=== PATIENT | male | born 1940 | race Caucasian/White ===

== ENCOUNTER 2020-04-07 13:42 | Inpatient (IN) | payer OTHER ==
[2020-04-07] MEDS ORDERED: ACETAMINOPHEN INJECTION 100 ML IVPB ONE (14:12)
[2020-04-07] MEDS ORDERED: ACETAMINOPHEN 1000 MG/100 ML VIAL (NON FORMULARY) IVPB ONE (14:14)
[2020-04-07] MEDS ORDERED: MEROPENEM 1 GM in DEXTROSE 5%-WATER 100 ML IVPB ONE (14:14)
[2020-04-07] MEDS ORDERED: VANCOMYCIN 1 GM in D5W (PRE-DOCKED) 1,000 MG/250 ML IVPB ONE (14:15)
--- NOTE | 2020-04-07 14:18 | PDOC ---
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 Pt arrives to the ED AOX3, no acute complaints, simon and PEG tube in place, does not have recollection of stated seizure event. Past History - Past Medical History Allergies/Adverse Reactions: Allergies Allergy/AdvReac Type Severity Reaction Status Date / Time aspirin Allergy Unknown Verified 11/25/19 13:04 Penicillins Allergy Unknown Rash Verified 11/25/19 13:04 Home Medications: Ambulatory Orders Collagenase Clostridium Hist. [Santyl] 1 applic TP DAILY #90 oint...g. 10/14/19 Albuterol Sulfate [Proventil Hfa] 1 inhaler IH PRN PRN 10/21/19 Alprazolam [Xanax] 1 tab PO BID PRN 10/21/19 Apixaban [Eliquis -] 2.5 mg PO BID 10/21/19 Atenolol [Tenormin] 25 mg PO DAILY 10/21/19 Atorvastatin Ca [Lipitor] 20 mg PO DAILY 10/21/19 Febuxostat 80 mg PO DAILY 10/21/19 Finasteride 5 mg PO DAILY 10/21/19 Pantoprazole Sodium 40 mg PO DAILY 10/21/19 Triamcinolone 0.1% Cream 1 applic TP BID 10/21/19 Albuterol Sulfate Inhaler - [Ventolin HFA Inhaler -] 2 puff IH Q4H PRN inhaler 03/30/20 Amino Acids/Protein Hydrolys [Prosource No Carb Liquid Pkt] 30 ml PO DAILY packet 03/30/20 Magnesium Oxide [Mag-Ox -] 400 mg PO BID tablet 03/30/20 Nystatin Powder [Nystop Powder -] 1 applic TP BID applic 03/30/20 Triamcinolone 0.1% Ointment [Aristocort 0.1% Ointment -] 1 applic TP BID applic 03/30/20 Furosemide [Lasix] 40 mg PO BID #60 tablet 04/04/20 Anemia: Yes Asthma: No Cancer: No Cardiac Disorders: Yes (Afib, aortic stenosis) CVA: Yes (R side residual weakness) COPD: Yes CHF: Yes Diabetes: Yes GI Disorders: Yes (GT, diverticulosis) Disorders: Yes (BPH, Chronic urine retention) HTN: Yes Hypercholesterolemia: Yes - Psycho Social/Smoking Cessation Hx Smoking History: Never smoked Have you smoked in the past 12 months: No Hx Alcohol Use: No Drug/Substance Use Hx: No Hx Substance Use Treatment: No Review of Systems - Review of Systems Constitutional: No: Chills, Fever Respiratory: No: Shortness of Breath Cardiac (ROS): No: Chest Pain ABD/GI: No: Abdominal Distended, Nausea, Vomiting : No: Burning, Dysuria, Flank Pain, Hematuria Neurological: No: Numbness, Paresthesia, Weakness, Dizziness *Physical Exam - Physical Exam General Appearance: Yes: Nourished, Appropriately Dressed, Apparent Distress HEENT: positive: EOMI Neck: positive: Supple. negative: Carotid bruit Respiratory/Chest: positive: Lungs Clear, Respiratory Distress, Rapid RR. negative: Crackles, Rales, Rhonchi, Stridor, Wheezing Cardiovascular: positive: Edema, JVD, Tachycardia, Irregularly Irregular Vascular Pulses: Dorsalis-Pedis (R): 3+, Doralis-Pedis (L): 3+ Gastrointestinal/Abdominal: positive: Flat, Soft, Other (PEG tube in place). negative: Protuberent, Distended, Guarding, Rebound, Tenderness Musculoskeletal: negative: CVA Tenderness Extremity: positive: Normal Capillary Refill, Normal Inspection Integumentary: positive: Dry Neurologic: positive: Fully Oriented, Alert, Normal Mood/Affect, Normal Response, Motor Strength 5/5 Procedures - Central Line Central Line Lumen: triple Central Line Position: femoral (R) Anesthesia: 1% Lidocaine Amount of anesthesia (ccs): 5 Complications: none Post Central Line Insertion: sutured, good blood return - Intubation Intubation Method: orotracheal Blade used: Glidescope Tube Size (Fr): 7.5 Medications: Etomidate, Succinylcholine Tube position @ lip (cm): 24 Tube position confirmed by: Direct visualization, CO2 detector, Chest x-ray, Breath sounds Breath Sounds after Intubation: equal Intubation Complications: no complications Post Intubation Xray: Yes ED Treatment Course - LABORATORY CBC & Chemistry Diagram: 04/07/20 14:00 04/07/20 14:00 - ADDITIONAL ORDERS Additional order review: Laboratory Results 04/07/20 13:55 POC Glucometer 210 04/07/20 13:55 POC Glucometer 210 - RADIOLOGY Radiology Studies Ordered: Category Date Time Status CHEST X-RAY PORTABLE* [RAD] Stat Radiology 04/07/20 14:12 Ordered Medical Decision Making - Medical Decision Making 79 yo male pmh COPD, CHF, afib (on Eliquis), HTN, HLD and 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 Pt arrives to the ED AOX3, no acute complaints, simon and PEG tube in place, does not have recollection of stated seizure event. Vitals show rectal of 104, RR 40s, HR 102, Pulse ox 97 and at the bedside, BP noted to range from low 100s systolic to 70s systolic Simon bag has thick foul smelling urine, likely urosepsis. Sepsis orderset completed along with Head CT due to questionable baseline (slurred speech, sravanthi josué on 1 side) UA shows UTI, Vanc and [place] given along with total of 1L fluids over 3 hours due to likely sepsis and elevated Cr and BUN After return from CT, pt BP persistently low with MAPs in the 50s, Pt full code according to MOLST, confirmed with and consent given for central line. P laced R femoral vein, Levo started with goal MAP of 65. Stress dosed steroids given and 40 mg lasix Pt now on Non rebreather, desaturating 80s, later put on NRB and BIPAP, failed non invasive ventilation and mental status declining. Pt unresponsive, pt intubated via glidescope. See note. Versed given for post intubation sedation ICU contacted, accept pt Updated pt 04/07/20 17:52 Shanique Blancas () [phone] Discharge - Discharge Information Problems reviewed: Yes Clinical Impression/Diagnosis: Sepsis, CHF exacerbation UTI (urinary tract infection) Qualifiers: Urinary tract infection type: site unspecified Hematuria presence: with hematuria Qualified Code(s): N39.0 - Urinary tract infection, site not specified - Admission Yes - Follow up/Referral - Patient Discharge Instructions - Post Discharge Activity
[2020-04-07] MEDS ORDERED: SODIUM CHLORIDE 1,000 ML IV STA (14:30)
[2020-04-07] MEDS ORDERED: MEROPENEM 1 GM VIAL (RESTRICTED TO ID) IVPB ONE (14:49)
[2020-04-07] MEDS ORDERED: VANCOMYCIN 1 GRAM (PRE-DOCKED) 1,000 MG/250 ML BAG IVPB ONE (14:51)
[2020-04-07 15:12] LABS: BASO % 0.9 % (0-2.0); EOS % 0.4 % (0-4.5); HEMATOCRIT 25.4 % (35.4-49); MCH 28.9 pg (25.7-33.7); MCHC 31.6 g/dl (32.0-35.9); MEAN CELL VOLUME 91.5 fl (80-96); MEAN PLT VOLUME 7.9 fl (7.5-11.1); MONO % 10.9 % (3.8-10.2); NEUT % 80.8 % (42.8-82.8); PLATELET COUNT 224 K/MM3 (134-434); RBC 2.78 M/mm3 (4.00-5.60); RDW 18.7 % (11.9-15.9); WHITE BLOOD COUNT 11.6 K/mm3 (4.0-10.0)
[2020-04-07 15:19] LABS: INR 1.74 (0.83-1.09); PROTHROMBIN TIME (PATIENT) 20.6 SEC (9.7-13.0)
[2020-04-07 15:22] LABS: ACTIVATED PTT 49.9 SECONDS (25.2-36.5)
--- NOTE | 2020-04-07 15:41 | PDOC ---
Documentation entered by Deb Almaraz SCRIBE, acting as scribe for Mariusz Harvey MD. Mariusz Harvey MD: This documentation has been prepared by the Sung walters Xhesika, SCRIBE, under my direction and personally reviewed by me in its entirety. I confirm that the documentation accurately reflects all work, treatment, procedures, and medical decision making performed by me. Attending Attestation - Resident Resident Name: SukumarsuhailJose J - ED Attending Attestation I have performed the following: I have examined & evaluated the patient, The case was reviewed & discussed with the resident, I agree w/resident's findings & plan, Exceptions are as noted - HPI HPI: 04/07/20 13:55 The patient is an 79 year old male, with a significant PMH of HTN and HLD, who presents to the ED BIBEMS from [facility] for seizure like activity. Per NM the patient was having convulsions and seemed confused. Allergies: aspirin, penicillin - Physicial Exam PE: 04/07/20 15:37 Patient is awake and alert, frail-appearing, follows commands, febrile and hypotensive Normocephalic, atraumatic perrla, eomi + torticolis cta abd-sft, nt, nd pelvis: stable + 2 piting edema b/l with extensive echymosis + dysarthria mvong all extr symmetrically - Medical Decision Making 04/07/20 15:41 Patient is a frail-appearing 79-year-old male who presents to the ER with fever, hypotension, after a witnessed seizure-like episode. In the ER, patient is awake and alert, nonfocal neurologically with dysarthria and torticollis present. Will panculture. Will administer broad-spectrum antibiotics. Will judiciously fluid resuscitate. Will obtain EKG/chest x-ray/lactic acid. Likely admission. Discharge - Discharge Information Problems reviewed: Yes Clinical Impression/Diagnosis: UTI (urinary tract infection) Qualifiers: Urinary tract infection type: site unspecified Hematuria presence: with hematuria Qualified Code(s): N39.0 - Urinary tract infection, site not specified; R31.9 - Hematuria, unspecified - Follow up/Referral - Patient Discharge Instructions - Post Discharge Activity
[2020-04-07 15:50] LABS: VENOUS PC02 63.9 mmHg (38-52); VENOUS PH 7.36 (7.31-7.41); VENOUS PO2 52.2 mmHg (28-48)
[2020-04-07 15:51] LABS: VENOUS BASE EXCESS 8.5 mmol/L (-2-2)
[2020-04-07 15:52] LABS: ALBUMIN 1.7 g/dl (3.4-5.0); BILIRUBIN,TOTAL 0.5 mg/dL (0.2-1); BLOOD UREA NITROGEN 59.9 mg/dL (7-18); CALCIUM 7.3 mg/dL (8.5-10.1); CREATININE 1.7 mg/dL (0.55-1.3); POTASSIUM 4.9 mmol/L (3.5-5.1); TOT PROT 6.4 g/dl (6.4-8.2)
[2020-04-07 16:33] LABS: EPI CELLS 34 /uL (0-25.1); HYALINE CASTS 18 /uL (0-3.1); PH,URINE 5.5 (5.0-8.0); URINE APPEARANCE TURBID; URINE BACTERIA 297 /uL (0-1359); URINE BILIRUBIN NEGATIVE (NEGATIVE); URINE COLOR YELLOW; URINE GLUCOSE (UA) NEGATIVE (NEGATIVE); URINE KETONE NEGATIVE (NEGATIVE); URINE LEUK ESTERASE 3+ (NEGATIVE); URINE NITRITE NEGATIVE (NEGATIVE); URINE PROTEIN 3+ (NEGATIVE); URINE RBC 1602 /uL (0-23.9); URINE WBC 5187 /uL (0-25.8)
[2020-04-07] MEDS ORDERED: HYDROCORTISONE SOD SUCCINATE 100 MG/2 ML VIAL IVPUSH ONE (16:34)
[2020-04-07] MEDS ORDERED: HYDROCORTISONE SOD SUCCINATE 2 ML ONE (16:53)
[2020-04-07] MEDS ORDERED: NOREPINEPHRINE BITARTRATE 4 MG/4 ML ML IV ONE (16:53)
[2020-04-07] MEDS ORDERED: NOREPINEPHRINE BITARTRATE 8,000 MCG/500 ML BAG IVPB SCH (17:00)
[2020-04-07 17:34] LABS: ARTERIAL BLOOD GAS PCO2 66.6 mmHg (35-45); ARTERIAL BLOOD GAS PO2 70.5 mmHg (80-100); ARTERIAL BLOOD GAS pH 7.36 (7.35-7.45)
[2020-04-07 17:35] LABS: ARTERIAL BLD GAS O2 SATURATION 92.9 % (95-98); ARTERIAL BLOOD GAS BASE EXCESS 9.3 mmol/L (-2-2); CARBOXYHEMOGLOBIN < 0.5 % (0-2)
[2020-04-07] MEDS ORDERED: FUROSEMIDE 40 MG/4 ML INJECTABLE VIAL IVPUSH ONE (17:58)
[2020-04-07] MEDS ORDERED: SUCCINYLCHOLINE CHLORIDE 200 MG/10 ML VIAL IVPUSH ONE (18:00)
[2020-04-07] MEDS ORDERED: ETOMIDATE 40 MG/20 ML VIAL IVPUSH ONE (18:00)
[2020-04-07] MEDS ORDERED: RAPID SEQUENCE INTUBATION KIT NR ONE (18:05)
[2020-04-07] MEDS ORDERED: ALTEPLASE 100MG 100 MG ONE (18:07)
[2020-04-07] MEDS ORDERED: MIDAZOLAM IN 0.9 % SOD.CHLORID 1 MG/1 ML PLAST..BAG ONE (18:19)
[2020-04-07] MEDS: MIDAZOLAM 100 MG in SODIUM CHLORIDE 100 ML IVPB SCH (18:20)
[2020-04-07] MEDS ORDERED: ETOMIDATE 20 MG/10 ML AMPUL IVPUSH ONE (18:20)
[2020-04-07] MEDS ORDERED: FUROSEMIDE 40 MG/4 ML INJECTABLE VIAL ONE (18:31)
[2020-04-07] MEDS ORDERED: INSULIN SLIDING SCALE (NOVOLOG) 1 VIAL SQ SCH (20:00)
--- NOTE | 2020-04-07 20:27 | CONSULT ---
Consultation: REQUESTING PROVIDER: Dr. Reaves, Dr. Harvey, Dr. Alford CONSULT REQUEST: We have been asked to medically evaluate this patient for respiratory failure, pulmonary edema, UTI, sepsis HISTORY OF PRESENT ILLNESS: 79YOM with h/o COPD, CHF, A-fib (on Eliquis), HTN, HLD, CVA (03/2020 w/ residual weakness and speech deficits), recent admission for syncope, who was BIBEMS from [facility] for reported seizure-like activity like convulsions. The patient himself stated after arrival to the ED that he had no memory of the incident. While in the ED, his vitals and initial workup met SIRS criteria with UA positive for UTI, he was a bit hypotensive and was given gentle IVF, but after laying down flat for CT he experienced more and more respiratory distress which did not resolve while back in the ED, required RSI which was completed successfully. REVIEW OF SYSTEMS: Review of systems cannot be performed at this time as the patient is intubated and sedated. PHYSICAL EXAMINATION GENERAL: unconscious, intubated, sedated, elderly male HEENT: no e/o facial or head trauma, pale, ETT in place NECK/BACK: no obvious neck hematoma or other trauma CARDIOVASCULAR: extremities lukewarm, 3 second capillary refill, BLE 2+ pitting edema LUNGS/RESPIRATORY: significant diffuse crackles and decreased breath sounds at the bases, but breath sounds equal bilaterally GI/ABDOMEN: PEG tube in place, symmetric, soft, nondistended, atraumatic outwardly : Saavedra in place draining well EXTREMITIES: no evidence of acute trauma, RUE old-appearing forearm ecchymoses SKIN: lukewarm and dry, pallor but no jaundice, no rash, no skin breakdown, no cuts NEUROLOGICAL: unable to assess A/O, patient is unable to participate in exam, but PERRLA and no facial droop Laboratory Results - last 24 hr 04/07/20 04/07/20 04/07/20 13:55 14:00 14:00 WBC RBC Hgb Hct MCV MCH MCHC RDW Plt Count MPV Absolute Neuts (auto) Neutrophils % Lymphocytes % Monocytes % Eosinophils % Basophils % Nucleated RBC % PT with INR 20.60 H INR 1.74 H PTT (Actin FS) 49.9 H Anticoagulation Therapy Puncture Site ABG pH ABG pCO2 at Pt Temp ABG pO2 at Pt Temp ABG HCO3 ABG O2 Sat (Measured) ABG O2 Content ABG Base Excess Wally Test VBG pH POC VBG pCO2 POC VBG pO2 VBG HCO3 VBG O2 Sat (Shelly) VBG Base Excess Carboxyhemoglobin Methemoglobin Patient On Oxygen O2 Delivery Device Oxygen Flow Rate Vent Mode Vent Rate Mechanical Rate Pressure Support Vent Sodium Potassium Chloride Carbon Dioxide Anion Gap BUN Creatinine Est GFR (CKD-EPI)AfAm Est GFR (CKD-EPI)NonAf POC Glucometer 210 Random Glucose Lactic Acid Calcium Total Bilirubin AST ALT Alkaline Phosphatase Troponin I 0.11 H Total Protein Albumin Urine Color Urine Appearance Urine pH Ur Specific Callaway Urine Protein Urine Glucose (UA) Urine Ketones Urine Blood Urine Nitrite Urine Bilirubin Urine Urobilinogen Ur Leukocyte Esterase Urine WBC (Auto) Urine RBC (Auto) Urine Casts (Auto) U Pathogenic Cast Auto U Epithel Cells (Auto) Urine Bacteria (Auto) 04/07/20 04/07/20 04/07/20 14:00 14:00 14:00 WBC 11.6 H RBC 2.78 L Hgb 8.0 L Hct 25.4 L MCV 91.5 MCH 28.9 MCHC 31.6 L RDW 18.7 H Plt Count 224 MPV 7.9 Absolute Neuts (auto) 9.4 H Neutrophils % 80.8 D Lymphocytes % 7.0 L D Monocytes % 10.9 H Eosinophils % 0.4 Basophils % 0.9 Nucleated RBC % 0 PT with INR INR PTT (Actin FS) Anticoagulation Therapy Puncture Site ABG pH ABG pCO2 at Pt Temp ABG pO2 at Pt Temp ABG HCO3 ABG O2 Sat (Measured) ABG O2 Content ABG Base Excess Wally Test VBG pH POC VBG pCO2 POC VBG pO2 VBG HCO3 VBG O2 Sat (Shelly) VBG Base Excess Carboxyhemoglobin Methemoglobin Patient On Oxygen O2 Delivery Device Oxygen Flow Rate Vent Mode Vent Rate Mechanical Rate Pressure Support Vent Sodium 136 Potassium 4.9 Chloride 94 L Carbon Dioxide 36 H Anion Gap 7 L BUN 59.9 H Creatinine 1.7 H Est GFR (CKD-EPI)AfAm 42.88 Est GFR (CKD-EPI)NonAf 37.00 POC Glucometer Random Glucose 222 H Lactic Acid 2.1 H Calcium 7.3 L Total Bilirubin 0.5 AST 39 H ALT 14 Alkaline Phosphatase 143 H Troponin I Total Protein 6.4 Albumin 1.7 L Urine Color Urine Appearance Urine pH Ur Specific [place] Urine Protein Urine Glucose (UA) Urine Ketones Urine Blood Urine Nitrite Urine Bilirubin Urine Urobilinogen Ur Leukocyte Esterase Urine WBC (Auto) Urine RBC (Auto) Urine Casts (Auto) U Pathogenic Cast Auto U Epithel Cells (Auto) Urine Bacteria (Auto) 04/07/20 04/07/20 04/07/20 15:30 15:50 17:20 WBC RBC Hgb Hct MCV MCH MCHC RDW Plt Count MPV Absolute Neuts (auto) Neutrophils % Lymphocytes % Monocytes % Eosinophils % Basophils % Nucleated RBC % PT with INR INR PTT (Actin FS) Anticoagulation Therapy No Result Required. Puncture Site No Result Required. ABG pH 7.36 ABG pCO2 at Pt Temp 66.6 H ABG pO2 at Pt Temp 70.5 L ABG HCO3 36.4 H ABG O2 Sat (Measured) 92.9 L ABG O2 Content No Result Required. ABG Base Excess 9.3 H Wally Test No Result Required. VBG pH 7.36 POC VBG pCO2 63.9 H POC VBG pO2 52.2 H VBG HCO3 35.6 H VBG O2 Sat (Shelly) 84.6 H VBG Base Excess 8.5 H Carboxyhemoglobin < 0.5 Methemoglobin < 1.0 Patient On Oxygen No Result Required. O2 Delivery Device No Result Required. Oxygen Flow Rate No Result Required. Vent Mode No Result Required. Vent Rate No Result Required. Mechanical Rate No Result Required. Pressure Support Vent No Result Required. Sodium Potassium Chloride Carbon Dioxide Anion Gap BUN Creatinine Est GFR (CKD-EPI)AfAm Est GFR (CKD-EPI)NonAf POC Glucometer Random Glucose Lactic Acid Calcium Total Bilirubin AST ALT Alkaline Phosphatase Troponin I Total Protein Albumin Urine Color Yellow Urine Appearance Turbid Urine pH 5.5 Ur Specific [place] 1.009 L Urine Protein 3+ H Urine Glucose (UA) Negative Urine Ketones Negative Urine Blood 3+ H Urine Nitrite Negative Urine Bilirubin Negative Urine Urobilinogen 1.0 Ur Leukocyte Esterase 3+ H Urine WBC (Auto) 5187 Urine RBC (Auto) 1602 Urine Casts (Auto) 18 U Pathogenic Cast Auto Negative U Epithel Cells (Auto) 34 Urine Bacteria (Auto) 297 04/07/20 19:17 WBC RBC Hgb Hct MCV MCH MCHC RDW Plt Count MPV Absolute Neuts (auto) Neutrophils % Lymphocytes % Monocytes % Eosinophils % Basophils % Nucleated RBC % PT with INR INR PTT (Actin FS) Anticoagulation Therapy Puncture Site ABG pH ABG pCO2 at Pt Temp ABG pO2 at Pt Temp ABG HCO3 ABG O2 Sat (Measured) ABG O2 Content ABG Base Excess Wally Test VBG pH POC VBG pCO2 POC VBG pO2 VBG HCO3 VBG O2 Sat (Shelly) VBG Base Excess Carboxyhemoglobin Methemoglobin Patient On Oxygen O2 Delivery Device Oxygen Flow Rate Vent Mode Vent Rate Mechanical Rate Pressure Support Vent Sodium Potassium Chloride Carbon Dioxide Anion Gap BUN Creatinine Est GFR (CKD-EPI)AfAm Est GFR (CKD-EPI)NonAf POC Glucometer Random Glucose Lactic Acid 3.2 H* Calcium Total Bilirubin AST ALT Alkaline Phosphatase Troponin I Total Protein Albumin Urine Color Urine Appearance Urine pH Ur Specific [place] Urine Protein Urine Glucose (UA) Urine Ketones Urine Blood Urine Nitrite Urine Bilirubin Urine Urobilinogen Ur Leukocyte Esterase Urine WBC (Auto) Urine RBC (Auto) Urine Casts (Auto) U Pathogenic Cast Auto U Epithel Cells (Auto) Urine Bacteria (Auto) Active Medications Generic Name Dose Route Start Last Admin Trade Name Freq PRN Reason Stop Dose Admin Chlorhexidine Gluconate 1 applic 04/07/20 22:00 Hibiclens For Decolonization - TP HS EAN Norepinephrine Bitartrate 8,000 mcg in 500 mls @ 18.75 mls/hr 04/07/20 17:00 04/07/20 18:30 Levophed Bag IVPB 15 mcg/min TITR EAN 56.25 mls/hr Titration Protocol 5 MCG/MIN Midazolam HCl 100 mg/ Sodium 100 mls @ 1 mls/hr 04/07/20 18:20 04/07/20 18:35 Chloride IVPB 5 mg/hr TITR EAN 5 mls/hr Titration Protocol 1 MG/HR Insulin Aspart 1 vial 04/07/20 20:00 Novolog Vial Sliding Scale - SQ TIDAC [facility] [place] Protocol Mupirocin 1 applic 04/07/20 22:00 Bactroban Ointment (For Decolonization) - NS 04/12/20 21:59 BID [facility] ASSESSMENT/PLAN: 79YOM with CHF, COPD, CVA, HTN, HLD, and A-fib on Eliquis BIBEMS from [facility] for seizure-like episode, found in ED to be septic with UTI suspected source, needed to be intubated for respiratory failure. Neuro / Psych: Reported seizure-like activity -Suspect rigors instead of seizure, given lack of clear postictal state and the fact that patient is febrile/septic. -Serial neuro checks Cardiovascular: CHF exacerbation, troponinemia, concern for possibility of PE -Careful diuresis with consideration for renal function -Monitor for EKG changes -Trend troponin -Continue on monitor -If codes may consider tPA -Chest CTA PE protocol when able Pulm / Resp: Pulmonary edema, b/l pleural effusions, COPD exacerbation -Continue on vent -Serial ABG -Diuresis as above Gastrointestinal: -NPO for now -PEG tube feeds when able Genitourinary: -Continue Saavedra -Monitor I/O -Serial BUN/Cr especially given need for diuresis Infectious Disease: -Meropenem as started by ED Musculoskeletal -PT/OT when able FEN: -Hold IVF until necessary -Monitor chemistries Prophylaxis: - DVT: Continue Eliquis - GI: Protonix qd Code Status / Family Conversation: Full Code Dispo: We will continue to follow the patient. Thank you for this consultative opportunity. Case discussed with ICU attending, Dr. Fulton. Maritza Huitron MD, PGY-3 ICU Consult Service Please note this patient was evaluated during the COVID-19 crisis with the presidential [place] Act Declaration and the [place] governtn executive order number 202. He was evaluated and clinical decisions were made relative to healthcare system resources as well as clinical picture during a pandemic crisis situation. Problem List - Problems (1) CHF exacerbation Code(s): I50.9 - HEART FAILURE, UNSPECIFIED (2) Sepsis Code(s): A41.9 - SEPSIS, UNSPECIFIED ORGANISM (3) UTI (urinary tract infection) Code(s): N39.0 - URINARY TRACT INFECTION, SITE NOT SPECIFIED Qualifiers: Urinary tract infection type: site unspecified Hematuria presence: with hematuria Qualified Code(s): N39.0 - Urinary tract infection, site not specified; R31.9 - Hematuria, unspecified (4) SURESH (acute kidney injury) Code(s): N17.9 - ACUTE KIDNEY FAILURE, UNSPECIFIED (5) COPD (chronic obstructive pulmonary disease) Code(s): J44.9 - CHRONIC OBSTRUCTIVE PULMONARY DISEASE, UNSPECIFIED Visit type - Emergency Visit Emergency Visit: Yes Care time: The patient presented to the Emergency Department on the above date and was hospitalized for further evaluation of their emergent condition. - New Patient This patient is new to me today: Yes Date on this admission: 04/07/20 - Critical Care Critical Care patient: No ATTENDING PHYSICIAN STATEMENT I saw and evaluated the patient. I reviewed the resident's note and discussed the case with the resident. I agree with the resident's findings and plan as documented. SUBJECTIVE: OBJECTIVE: ASSESSMENT AND PLAN:
[2020-04-07] MEDS ORDERED: PANTOPRAZOLE SODIUM 40 MG VIAL IVPUSH ONE (21:00)
[2020-04-07 22:07] LABS: CARBOXYHEMOGLOBIN < 0.5 % (0-2)
[2020-04-07 22:18] LABS: ARTERIAL BLD GAS O2 SATURATION 98.7 % (95-98); ARTERIAL BLOOD GAS BASE EXCESS 8.6 mmol/L (-2-2); ARTERIAL BLOOD GAS PO2 138.9 mmHg (80-100)
[2020-04-07 22:19] LABS: ALLENS TEST POSITIVE
[2020-04-07] MEDS: MUPIROCIN 2% TOPICAL OINTMENT FOR DECOLONIZATION NS SCH (22:30)
[2020-04-07] MEDS: CHLORHEXIDINE GLUCONATE 4% CLEANSER FOR DECOLONIZATION TP SCH (22:30)
[2020-04-07] MEDS ORDERED: METOPROLOL TARTRATE 5 MG/5 ML VIAL IVPUSH PRN (22:50)
--- NOTE | 2020-04-07 23:55 | PDOC ---
Documentation entered by Deandra Coburn SCRIBE, acting as scribe for Milton Reaves DO. Milton Reaves DO: This documentation has been prepared by the willisibeAlmas Maria, SCRIBE, under my direction and personally reviewed by me in its entirety. I confirm that the documentation accurately reflects all work, treatment, procedures, and medical decision making performed by me. *Physical Exam - Vital Signs Last Vital Signs Temp Pulse Resp BP Pulse Ox 104.0 F H 89 34 H 80/56 L 90 L 04/07/20 14:09 04/07/20 17:05 04/07/20 17:05 04/07/20 17:05 04/07/20 17:05 - Physical Exam 04/07/20 17:52 Hypotensive but not tachy; hypoxic in the 80s on room air; Bibasilar crackles; 3+pitting edema b/l abdomen soft non-tender, mildy distended mildy tachypneic able to answer questions and follow simple commands ED Treatment Course - LABORATORY CBC & Chemistry Diagram: 04/10/20 17:30 04/10/20 05:00 - ADDITIONAL ORDERS Additional order review: Laboratory Results 04/07/20 04/07/20 04/07/20 17:20 15:50 15:30 PT with INR INR PTT (Actin FS) Anticoagulation Therapy No Result Required. Puncture Site No Result Required. ABG pH 7.36 ABG pCO2 at Pt Temp 66.6 H ABG pO2 at Pt Temp 70.5 L ABG HCO3 36.4 H ABG O2 Sat (Measured) 92.9 L ABG O2 Content No Result Required. ABG Base Excess 9.3 H Wally Test No Result Required. VBG pH 7.36 POC VBG pCO2 63.9 H POC VBG pO2 52.2 H VBG HCO3 35.6 H VBG O2 Sat (Shelly) 84.6 H VBG Base Excess 8.5 H Carboxyhemoglobin < 0.5 Methemoglobin < 1.0 Patient On Oxygen No Result Required. O2 Delivery Device No Result Required. Oxygen Flow Rate No Result Required. Vent Mode No Result Required. Vent Rate No Result Required. Mechanical Rate No Result Required. Pressure Support Vent No Result Required. Sodium Potassium Chloride Carbon Dioxide Anion Gap BUN Creatinine Est GFR (CKD-EPI)AfAm Est GFR (CKD-EPI)NonAf POC Glucometer Random Glucose Lactic Acid Calcium Total Bilirubin AST ALT Alkaline Phosphatase Troponin I Total Protein Albumin Urine Color Yellow Urine Appearance Turbid Urine pH 5.5 Ur Specific [place] 1.009 L Urine Protein 3+ H Urine Glucose (UA) Negative Urine Ketones Negative Urine Blood 3+ H Urine Nitrite Negative Urine Bilirubin Negative Urine Urobilinogen 1.0 Ur Leukocyte Esterase 3+ H Urine WBC (Auto) 5187 Urine RBC (Auto) 1602 Urine Casts (Auto) 18 U Pathogenic Cast Auto Negative U Epithel Cells (Auto) 34 Urine Bacteria (Auto) 297 04/07/20 04/07/20 04/07/20 14:00 14:00 14:00 PT with INR INR PTT (Actin FS) Anticoagulation Therapy Puncture Site ABG pH ABG pCO2 at Pt Temp ABG pO2 at Pt Temp ABG HCO3 ABG O2 Sat (Measured) ABG O2 Content ABG Base Excess Wally Test VBG pH POC VBG pCO2 POC VBG pO2 VBG HCO3 VBG O2 Sat (Shelly) VBG Base Excess Carboxyhemoglobin Methemoglobin Patient On Oxygen O2 Delivery Device Oxygen Flow Rate Vent Mode Vent Rate Mechanical Rate Pressure Support Vent Sodium 136 Potassium 4.9 Chloride 94 L Carbon Dioxide 36 H Anion Gap 7 L BUN 59.9 H Creatinine 1.7 H Est GFR (CKD-EPI)AfAm 42.88 Est GFR (CKD-EPI)NonAf 37.00 POC Glucometer Random Glucose 222 H Lactic Acid 2.1 H Calcium 7.3 L Total Bilirubin 0.5 AST 39 H ALT 14 Alkaline Phosphatase 143 H Troponin I 0.11 H Total Protein 6.4 Albumin 1.7 L Urine Color Urine Appearance Urine pH Ur Specific [place] Urine Protein Urine Glucose (UA) Urine Ketones Urine Blood Urine Nitrite Urine Bilirubin Urine Urobilinogen Ur Leukocyte Esterase Urine WBC (Auto) Urine RBC (Auto) Urine Casts (Auto) U Pathogenic Cast Auto U Epithel Cells (Auto) Urine Bacteria (Auto) 04/07/20 04/07/20 14:00 13:55 PT with INR 20.60 H INR 1.74 H PTT (Actin FS) 49.9 H Anticoagulation Therapy Puncture Site ABG pH ABG pCO2 at Pt Temp ABG pO2 at Pt Temp ABG HCO3 ABG O2 Sat (Measured) ABG O2 Content ABG Base Excess Wally Test VBG pH POC VBG pCO2 POC VBG pO2 VBG HCO3 VBG O2 Sat (Shelly) VBG Base Excess Carboxyhemoglobin Methemoglobin Patient On Oxygen O2 Delivery Device Oxygen Flow Rate Vent Mode Vent Rate Mechanical Rate Pressure Support Vent Sodium Potassium Chloride Carbon Dioxide Anion Gap BUN Creatinine Est GFR (CKD-EPI)AfAm Est GFR (CKD-EPI)NonAf POC Glucometer 210 Random Glucose Lactic Acid Calcium Total Bilirubin AST ALT Alkaline Phosphatase Troponin I Total Protein Albumin Urine Color Urine Appearance Urine pH Ur Specific [place] Urine Protein Urine Glucose (UA) Urine Ketones Urine Blood Urine Nitrite Urine Bilirubin Urine Urobilinogen Ur Leukocyte Esterase Urine WBC (Auto) Urine RBC (Auto) Urine Casts (Auto) U Pathogenic Cast Auto U Epithel Cells (Auto) Urine Bacteria (Auto) 04/07/20 04/07/20 14:00 13:55 RBC 2.78 L MCV 91.5 MCHC 31.6 L RDW 18.7 H MPV 7.9 Neutrophils % 80.8 D Lymphocytes % 7.0 L D Monocytes % 10.9 H Eosinophils % 0.4 Basophils % 0.9 POC Glucometer 210 - Medications Given in the ED: ED Medications Discontinued Medications Generic Name Dose Route Start Last Admin Trade Name Danielq PRN Reason Stop Dose Admin Acetaminophen 1,000 mg 04/07/20 14:14 04/07/20 14:17 Ofirmev Injection - IVPB 04/07/20 14:15 1,000 mg ONCE ONE Administration Hydrocortisone Sodium Succinate 100 mg 04/07/20 16:34 04/07/20 17:02 Solu-Cortef - IVPUSH 04/07/20 16:35 100 mg ONCE ONE Administration Meropenem 1 gm/ Dextrose 100 mls @ 200 mls/hr 04/07/20 14:14 04/07/20 16:40 IVPB 04/07/20 14:43 200 mls/hr ONCE ONE Administration Sodium Chloride 1,000 mls @ 1,000 mls/hr 04/07/20 14:30 04/07/20 14:35 Normal Saline - IV 04/07/20 15:29 1,000 mls/hr ASDIR STA Administration Vancomycin HCl 1,000 mg 04/07/20 14:15 04/07/20 15:03 Vancomycin (Pre-Docked) IVPB 04/07/20 14:16 1,000 mg ONCE ONE Administration Protocol ED Progress Note - Progress Note Progress Note: 04/07/20 17:58 The patient is an 79 year old male, with a significant PMH of HTN and HLD, who presents to the ED BIBEMS from [facility] for seizure like activity. Per CA the patient was having convulsions and seemed confused. Signed out by for follow up CT labs. 04/07/20 18:39 Patient failed bipap became more altered and hypoxic intubated for airway protection Intubated successfully, pending xray 04/10/20 18:28 Medical Decision Making - Critical Care Time Total Critical Care Time (minutes): 45 (Secondary to septic shock and hemodyna marah instability) Critical Care Statement: The care of this patient involved high complexity decision making to prevent further life threatening deterioration of the patient's condition and/or to evaluate & treat vital organ system(s) failure or risk of failure. - Medical Decision Making 04/07/20 18:07 POCUS Normal cardiac activity moderately depressed EF 30-35% large rv with septal dependance MCCONELL sign Plethoric ivc wo resp variation Impression Acute on chronic pulm htn/R sided failure/Cor pulmonale vs acute PE w/ obstructive physiology MDM: This is an 79 year old with a PMH of HTN and HLD here with altered mental status and underlying septic shock. Intubated and sedated TLC placed on pressors ABX given Admitted to icu 04/10/20 18:29 Discharge - Discharge Information Problems reviewed: Yes Clinical Impression/Diagnosis: Sepsis, CHF exacerbation UTI (urinary tract infection) Qualifiers: Urinary tract infection type: site unspecified Hematuria presence: with hematuria Qualified Code(s): N39.0 - Urinary tract infection, site not specified - Follow up/Referral - Patient Discharge Instructions - Post Discharge Activity
[2020-04-08] MEDS: NOREPINEPHRINE D5W PREMIX 16,000 MCG/500 ML BAG IVPB SCH (03:40)
[2020-04-08] MEDS ORDERED: MEROPENEM 1 GM VIAL (RESTRICTED TO ID) IVPB ONE ×2 (04:45→16:31)
[2020-04-08] MEDS ORDERED: DEXTROSE 5%-WATER 100 ML IVPB ONE ×2 (04:45→16:31)
[2020-04-08] MEDS: MEROPENEM 1 GM in DEXTROSE 5%-WATER 100 ML IVPB SCH ×2 (05:01→19:15)
[2020-04-08] MEDS ORDERED: MEROPENEM 1 GM in DEXTROSE 5%-WATER 100 ML IVPB SCH (06:00)
[2020-04-08 06:24] LABS: ARTERIAL BLOOD GAS pH 7.35 (7.35-7.45)
[2020-04-08 06:25] LABS: ALLENS TEST POSITIVE; ARTERIAL BLOOD GAS BASE EXCESS 7.9 mmol/L (-2-2); ARTERIAL BLOOD GAS PCO2 64.9 mmHg (35-45)
[2020-04-08 06:29] LABS: ARTERIAL BLOOD GAS PO2 < 49 mmHg (80-100)
[2020-04-08 06:43] LABS: INR 1.49 (0.83-1.09); PROTHROMBIN TIME (PATIENT) 17.7 SEC (9.7-13.0)
[2020-04-08 06:45] LABS: BASO % 0.4 % (0-2.0); HEMATOCRIT 26.2 % (35.4-49); HEMOGLOBIN 8.4 GM/dL (11.7-16.9); LYMPH % 5.5 % (8-40); MCH 29.1 pg (25.7-33.7); MCHC 31.9 g/dl (32.0-35.9); MEAN CELL VOLUME 91.3 fl (80-96); MEAN PLT VOLUME 7.8 fl (7.5-11.1); MONO % 7.9 % (3.8-10.2); NEUT % 86.2 % (42.8-82.8); PLATELET COUNT 249 K/MM3 (134-434); RBC 2.87 M/mm3 (4.00-5.60); RDW 18.4 % (11.9-15.9); WHITE BLOOD COUNT 20.7 K/mm3 (4.0-10.0)
[2020-04-08 06:46] LABS: ACTIVATED PTT 49.2 SECONDS (25.2-36.5)
[2020-04-08 06:57] LABS: ALBUMIN 1.6 g/dl (3.4-5.0); BILIRUBIN,TOTAL 0.5 mg/dL (0.2-1); BLOOD UREA NITROGEN 66.8 mg/dL (7-18); CREATININE 1.9 mg/dL (0.55-1.3); MAGNESIUM 1.8 mg/dL (1.8-2.4); POTASSIUM 4.8 mmol/L (3.5-5.1)
[2020-04-08 07:28] LABS: CALCIUM 6.9 mg/dL (8.5-10.1)
[2020-04-08] MEDS: APIXABAN 2.5 MG TABLET PO SCH ×2 (09:52→21:46)
[2020-04-08] MEDS: MUPIROCIN 2% TOPICAL OINTMENT FOR DECOLONIZATION NS SCH ×2 (09:52→21:46)
[2020-04-08] MEDS: PANTOPRAZOLE SODIUM 40 MG VIAL IVPUSH SCH (09:52)
[2020-04-08] MEDS ORDERED: ATENOLOL 25 MG TABLET (FP) GT SCH (10:00)
[2020-04-08] MEDS ORDERED: FUROSEMIDE 40 MG/4 ML INJECTABLE VIAL IVPUSH SCH (10:00)
[2020-04-08] MEDS ORDERED: MIDAZOLAM IN 0.9 % SOD.CHLORID 1 MG/1 ML PLAST..BAG ONE ×2 (10:03→23:42)
[2020-04-08] MEDS: MIDAZOLAM 100 MG in SODIUM CHLORIDE 100 ML IVPB SCH ×2 (10:10→19:15)
--- NOTE | 2020-04-08 10:35 | EKG ---
Test Reason : Blood Pressure : / mmHG Vent. Rate : 093 BPM Atrial Rate : 085 BPM P-R Int : 000 ms QRS Dur : 078 ms QT Int : 348 ms P-R-T Axes : 000 002 012 degrees QTc Int : 432 ms ATRIAL FIBRILLATION LOW VOLTAGE QRS CANNOT RULE OUT ANTERIOR INFARCT (CITED ON OR BEFORE 23-MAR-2020) ABNORMAL ECG WHEN COMPARED WITH ECG OF 23-MAR-2020 23:15, T WAVE INVERSION NO LONGER EVIDENT IN LATERAL LEADS Confirmed by ZARI FIELDS MD ([id number]) on 04/08/2020 10:35:25 AM Referred By: Confirmed By:ZARI FIELDS MD
--- NOTE | 2020-04-08 10:36 | PN ---
Teaching Attending Note Name of Resident: Shaggy Young ATTENDING PHYSICIAN STATEMENT I saw and evaluated the patient. I reviewed the resident's note and discussed the case with the resident. I agree with the resident's findings and plan as documented. SUBJECTIVE: Pt seen and examined in the ICU. Intubated, sedated on levophed gtt. Vented on volume assist control with 70% FiO2. OBJECTIVE: Vital Signs Period Temp Pulse Resp BP Sys/Cesar Pulse Ox Last 24 Hr 98.2 F-104.2 F 72-107 13-47 61-143/42-94 6-100 Intake & Output 04/05/20 04/06/20 04/07/20 04/08/20 23:59 23:59 23:59 23:59 Intake Total 34.1 373 Output Total 60 Balance 34.1 313 Weight 93.803 kg 96.842 kg Gen: intubated, sedated Heart: RRR Lung: decreased breath sounds left Abd: soft, nontender, +PEG Ext: no edema CBC, BMP 04/08/20 05:20 04/08/20 05:20 Active Medications Acetaminophen (Ofirmev Injection -) 1,000 mg IVPB Q6H PRN PRN Reason: FEVER Apixaban (Eliquis -) 2.5 mg PO BID [facility] Last Admin: 04/08/20 09:52 Dose: 2.5 mg Documented by: Chlorhexidine Gluconate (Hibiclens For Decolonization -) 1 applic TP HS [facility] Last Admin: 04/07/20 22:30 Dose: 1 applic Documented by: Furosemide (Lasix Injection -) 40 mg IVPUSH DAILY [facility] Last Admin: 04/08/20 09:52 Dose: Not Given Documented by: Midazolam HCl 100 mg/ Sodium (Chloride) 100 mls @ 1 mls/hr IVPB TITR EAN; Protocol Last Admin: 04/08/20 10:10 Dose: 6 mg/hr, 6 mls/hr Documented by: Meropenem 1 gm/ Dextrose 100 mls @ 200 mls/hr IVPB Q12H EAN Meropenem 1 gm/ Dextrose 100 mls @ 200 mls/hr IVPB Q12H EAN Stop: 04/08/20 18:29 Last Admin: 04/08/20 05:01 Dose: 200 mls/hr Documented by: Norepinephrine Bitartrate (Levophed Bag) 16,000 mcg in 500 mls @ 9.375 mls/hr IVPB TITR EAN; Protocol Last Admin: 04/08/20 03:40 Dose: 15 mcg/min, 28.125 mls/hr Documented by: Metoprolol Tartrate (Lopressor Injection -) 5 mg IVPUSH Q4H PRN PRN Reason: TACHYCARDIA Mupirocin (Bactroban Ointment (For Decolonization) -) 1 applic NS BID [facility] Stop: 04/12/20 21:59 Last Admin: 04/08/20 09:52 Dose: 1 applic Documented by: Pantoprazole Sodium (Protonix Iv) 40 mg IVPUSH DAILY [facility] Last Admin: 04/08/20 09:52 Dose: 40 mg Documented by: ASSESSMENT AND PLAN: Acute Hypoxic Respiratory Failure UTI Septic Shock Lactic Acidosis Acute Kidney Injury +Troponins likely Demand Ischemia Atrial Fibrillation LV Diastolic Dysfunction Pulmonary HTN COPD HTN Hyperlipidemia - IV antibiotics - f/u cultures - IVF - monitor urine output, creatinine - titrate pressors to maintain MAP >65 - rate control - continue anticoagulation - taper FiO2 to keep SpO2 >90% - continue volume assist control - DVT/GI prophylaxis - continue ICU monitoring critical care time spent in reviewing chart, evaluating patient and formulating plan 35 min
[2020-04-08 11:08] LABS: ANISOCYTOSIS 0; MACROCYTOSIS 0; PLATELET ESTIMATE NORMAL
--- NOTE | 2020-04-08 16:04 | PN ---
Physical Exam: SUBJECTIVE: Patient seen and examined at bedside. No events overnight. OBJECTIVE: Vital Signs Period Temp Pulse Resp BP Sys/Cesar Pulse Ox Last 24 Hr 97.8 F-99.8 F 72-107 13-38 61-143/42-94 6-100 GENERAL: The patient is intubated and sedated. NECK: Trachea midline, full range of motion, supple. LUNGS: Breath sounds equal, clear to auscultation bilaterally, no wheezes, no crackles, no accessory muscle use. HEART: Regular rate and rhythm, S1, S2 without murmur, rub or gallop. ABDOMEN: Soft, nontender, nondistended, normoactive bowel sounds, no guarding, no rebound, no hepatosplenomegaly, no masses. EXTREMITIES: 2+ pulses, warm, well-perfused, no edema. NEUROLOGICAL: unable to obtain as patient sedated. Laboratory Results - last 24 hr 04/07/20 04/07/20 04/07/20 15:50 17:20 19:17 WBC RBC Hgb Hct MCV MCH MCHC RDW Plt Count MPV Absolute Neuts (auto) Neutrophils % Neutrophils % (Manual) Band Neutrophils % Lymphocytes % Lymphocytes % (Manual) Monocytes % Monocytes % (Manual) Eosinophils % Eosinophils % (Manual) Basophils % Basophils % (Manual) Myelocytes % (Man) Promyelocytes % (Man) Blast Cells % (Manual) Nucleated RBC % Metamyelocytes Hypochromia Platelet Estimate Polychromasia Poikilocytosis Anisocytosis Microcytosis Macrocytosis Stomatocytes PT with INR INR PTT (Actin FS) Anticoagulation Therapy No Result Required. Puncture Site No Result Required. ABG pH 7.36 ABG pCO2 at Pt Temp 66.6 H ABG pO2 at Pt Temp 70.5 L ABG HCO3 36.4 H ABG O2 Sat (Measured) 92.9 L ABG O2 Content No Result Required. ABG Base Excess 9.3 H Wally Test No Result Required. Carboxyhemoglobin < 0.5 Methemoglobin < 1.0 Patient On Oxygen No Result Required. O2 Delivery Device No Result Required. Oxygen Flow Rate No Result Required. Vent Mode No Result Required. Vent Rate No Result Required. Mechanical Rate No Result Required. PEEP Pressure Support Vent No Result Required. Sodium Potassium Chloride Carbon Dioxide Anion Gap BUN Creatinine Est GFR (CKD-EPI)AfAm Est GFR (CKD-EPI)NonAf POC Glucometer Random Glucose Lactic Acid 3.2 H* Calcium Phosphorus Magnesium Total Bilirubin AST ALT Alkaline Phosphatase Troponin I Total Protein Albumin Urine Color Yellow Urine Appearance Turbid Urine pH 5.5 Ur Specific [place] 1.009 L Urine Protein 3+ H Urine Glucose (UA) Negative Urine Ketones Negative Urine Blood 3+ H Urine Nitrite Negative Urine Bilirubin Negative Urine Urobilinogen 1.0 Ur Leukocyte Esterase 3+ H Urine WBC (Auto) 5187 Urine RBC (Auto) 1602 Urine Casts (Auto) 18 U Pathogenic Cast Auto Negative U Epithel Cells (Auto) 34 Urine Bacteria (Auto) 297 04/07/20 04/07/20 04/07/20 20:16 21:25 21:44 WBC RBC Hgb Hct MCV MCH MCHC RDW Plt Count MPV Absolute Neuts (auto) Neutrophils % Neutrophils % (Manual) Band Neutrophils % Lymphocytes % Lymphocytes % (Manual) Monocytes % Monocytes % (Manual) Eosinophils % Eosinophils % (Manual) Basophils % Basophils % (Manual) Myelocytes % (Man) Promyelocytes % (Man) Blast Cells % (Manual) Nucleated RBC % Metamyelocytes Hypochromia Platelet Estimate Polychromasia Poikilocytosis Anisocytosis Microcytosis Macrocytosis Stomatocytes PT with INR INR PTT (Actin FS) Anticoagulation Therapy Puncture Site ABG pH ABG pCO2 at Pt Temp ABG pO2 at Pt Temp ABG HCO3 ABG O2 Sat (Measured) ABG O2 Content ABG Base Excess Wally Test Carboxyhemoglobin < 0.5 Methemoglobin < 1.0 Patient On Oxygen O2 Delivery Device Oxygen Flow Rate Vent Mode Vent Rate Mechanical Rate PEEP Pressure Support Vent Sodium Potassium Chloride Carbon Dioxide Anion Gap BUN Creatinine Est GFR (CKD-EPI)AfAm Est GFR (CKD-EPI)NonAf POC Glucometer 288 Random Glucose Lactic Acid Calcium Phosphorus Magnesium Total Bilirubin AST ALT Alkaline Phosphatase Troponin I 0.37 H Total Protein Albumin Urine Color Urine Appearance Urine pH Ur Specific [place] Urine Protein Urine Glucose (UA) Urine Ketones Urine Blood Urine Nitrite Urine Bilirubin Urine Urobilinogen Ur Leukocyte Esterase Urine WBC (Auto) Urine RBC (Auto) Urine Casts (Auto) U Pathogenic Cast Auto U Epithel Cells (Auto) Urine Bacteria (Auto) 04/07/20 04/08/20 04/08/20 22:17 05:20 05:20 WBC 20.7 H RBC 2.87 L Hgb 8.4 L Hct 26.2 L MCV 91.3 MCH 29.1 MCHC 31.9 L RDW 18.4 H Plt Count 249 MPV 7.8 Absolute Neuts (auto) 17.8 H Neutrophils % 86.2 H Neutrophils % (Manual) 87.9 H D Band Neutrophils % 0.0 Lymphocytes % 5.5 L D Lymphocytes % (Manual) 4.0 L D Monocytes % 7.9 Monocytes % (Manual) 8 Eosinophils % 0.0 D Eosinophils % (Manual) 0.0 D Basophils % 0.4 Basophils % (Manual) 0.0 Myelocytes % (Man) 0 Promyelocytes % (Man) 0 Blast Cells % (Manual) 0 Nucleated RBC % 0 Metamyelocytes 0 Hypochromia 0 Platelet Estimate Normal Polychromasia 1+ Poikilocytosis 1+ Anisocytosis 0 Microcytosis 0 Macrocytosis 0 Stomatocytes 1+ PT with INR 17.70 H INR 1.49 H PTT (Actin FS) 49.2 H Anticoagulation Therapy No Result Required. Puncture Site Right brachial ABG pH 7.40 ABG pCO2 at Pt Temp 56.0 H ABG pO2 at Pt Temp 138.9 H ABG HCO3 34.5 H ABG O2 Sat (Measured) 98.7 H ABG O2 Content No Result Required. ABG Base Excess 8.6 H Wally Test Positive Carboxyhemoglobin Methemoglobin Patient On Oxygen Yes O2 Delivery Device Vent Oxygen Flow Rate No Result Required. Vent Mode No Result Required. Vent Rate 12 Mechanical Rate No Result Required. PEEP 5.0 Pressure Support Vent 400 Sodium Potassium Chloride Carbon Dioxide Anion Gap BUN Creatinine Est GFR (CKD-EPI)AfAm Est GFR (CKD-EPI)NonAf POC Glucometer Random Glucose Lactic Acid Calcium Phosphorus Magnesium Total Bilirubin AST ALT Alkaline Phosphatase Troponin I Total Protein Albumin Urine Color Urine Appearance Urine pH Ur Specific [place] Urine Protein Urine Glucose (UA) Urine Ketones Urine Blood Urine Nitrite Urine Bilirubin Urine Urobilinogen Ur Leukocyte Esterase Urine WBC (Auto) Urine RBC (Auto) Urine Casts (Auto) U Pathogenic Cast Auto U Epithel Cells (Auto) Urine Bacteria (Auto) 04/08/20 04/08/20 04/08/20 05:20 05:20 06:00 WBC RBC Hgb Hct MCV MCH MCHC RDW Plt Count MPV Absolute Neuts (auto) Neutrophils % Neutrophils % (Manual) Band Neutrophils % Lymphocytes % Lymphocytes % (Manual) Monocytes % Monocytes % (Manual) Eosinophils % Eosinophils % (Manual) Basophils % Basophils % (Manual) Myelocytes % (Man) Promyelocytes % (Man) Blast Cells % (Manual) Nucleated RBC % Metamyelocytes Hypochromia Platelet Estimate Polychromasia Poikilocytosis Anisocytosis Microcytosis Macrocytosis Stomatocytes PT with INR INR PTT (Actin FS) Anticoagulation Therapy No Result Required. Puncture Site Right radial ABG pH 7.35 ABG pCO2 at Pt Temp 64.9 H ABG pO2 at Pt Temp < 49 L* ABG HCO3 35.0 H ABG O2 Sat (Measured) 72.0 L ABG O2 Content No Result Required. ABG Base Excess 7.9 H Wally Test Positive Carboxyhemoglobin Methemoglobin Patient On Oxygen Yes O2 Delivery Device Vent Oxygen Flow Rate 80% Vent Mode Ac/uc Vent Rate 10 Mechanical Rate No Result Required. PEEP 5.0 Pressure Support Vent 400 Sodium 135 L Potassium 4.8 Chloride 93 L Carbon Dioxide 36 H Anion Gap 6 L BUN 66.8 H Creatinine 1.9 H Est GFR (CKD-EPI)AfAm 37.48 Est GFR (CKD-EPI)NonAf 32.34 POC Glucometer Random Glucose 295 H Lactic Acid 2.3 H* Calcium 6.9 L* Phosphorus 4.0 Magnesium 1.8 Total Bilirubin 0.5 AST 39 H ALT 14 Alkaline Phosphatase 128 H Troponin I Total Protein 6.0 L Albumin 1.6 L Urine Color Urine Appearance Urine pH Ur Specific [place] Urine Protein Urine Glucose (UA) Urine Ketones Urine Blood Urine Nitrite Urine Bilirubin Urine Urobilinogen Ur Leukocyte Esterase Urine WBC (Auto) Urine RBC (Auto) Urine Casts (Auto) U Pathogenic Cast Auto U Epithel Cells (Auto) Urine Bacteria (Auto) Active Medications Generic Name Dose Route Start Last Admin Trade Name Freq PRN Reason Stop Dose Admin Acetaminophen 1,000 mg 04/08/20 08:58 Ofirmev Injection - IVPB Q6H PRN FEVER Apixaban 2.5 mg 04/08/20 10:00 04/08/20 09:52 Eliquis - PO 2.5 mg BID EAN Administration Chlorhexidine Gluconate 1 applic 04/07/20 22:00 04/07/20 22:30 Hibiclens For Decolonization - TP 1 applic HS EAN Administration Midazolam HCl 100 mg/ Sodium 100 mls @ 1 mls/hr 04/07/20 18:20 04/08/20 10:10 Chloride IVPB 6 mg/hr TITR EAN 6 mls/hr Administration Protocol 1 MG/HR Meropenem 1 gm/ Dextrose 100 mls @ 200 mls/hr 04/08/20 06:00 IVPB Q12H EAN Meropenem 1 gm/ Dextrose 100 mls @ 200 mls/hr 04/08/20 06:00 04/08/20 05:01 IVPB 04/08/20 18:29 200 mls/hr Q12H EAN Administration Norepinephrine Bitartrate 16,000 mcg in 500 mls @ 9.375 mls/hr 04/08/20 02:30 04/08/20 03:40 Levophed Bag IVPB 15 mcg/min TITR EAN 28.125 mls/hr Administration Protocol 5 MCG/MIN Metoprolol Tartrate 5 mg 04/07/20 22:50 Lopressor Injection - IVPUSH Q4H PRN TACHYCARDIA Mupirocin 1 applic 04/07/20 22:00 04/08/20 09:52 Bactroban Ointment (For Decolonization) - NS 04/12/20 21:59 1 applic BID EAN Administration Pantoprazole Sodium 40 mg 04/08/20 10:00 04/08/20 09:52 Protonix Iv IVPUSH 40 mg DAILY EAN Administration ASSESSMENT/PLAN: 79YOM with CHF, COPD, CVA, HTN, HLD, and A-fib on Eliquis BIBEMS from [facility] for seizure-like episode, found in ED to be septic with UTI suspected source, needed to be intubated for respiratory failure. Neuro / Psych: Reported seizure-like activity -Likely rigors instead of seizure. -Serial neuro checks Cardiovascular: CHF exacerbation, troponinemia -Careful diuresis with consideration for renal function -troponin elevated, likely demand ischemia Pulm / Resp: Pulmonary edema, b/l pleural effusions, COPD exacerbation -abg this am likely venous -given COPD history, pt likely has pulmonary HTN -continue mechanical ventilation -holding lasix for now; patient overloaded, but hydration for sepsis takes precedence at this time. Gastrointestinal: -NPO for now -PEG tube feeds when able Genitourinary: -Continue Saavedra -Monitor I/O -Serial BUN/Cr especially given need for diuresis Infectious Disease: -c/w Meropenem -ID onboard -sepsis / UTI FEN: -Hold IVF for now -lytes WNL, replete PRN -intubated; start tube feeds when able Prophylaxis: - DVT: Continue Eliquis - GI: Protonix qd Dispo -admit ICU Visit type - Emergency Visit Emergency Visit: Yes ED Registration Date: 04/07/20 Care time: The patient presented to the Emergency Department on the above date and was hospitalized for further evaluation of their emergent condition. - New Patient This patient is new to me today: Yes Date on this admission: 04/08/20 - Critical Care Critical Care patient: Yes Total Critical Care Time (in minutes): 35 Critical Care Statement: The care of this patient involved high complexity decision making to prevent further life threatening deterioration of the patient's condition and/or to evaluate & treat vital organ system(s) failure or risk of failure. - Discharge Referral Referred to [facility] Med P.C.: No ATTENDING PHYSICIAN STATEMENT I saw and evaluated the patient. I reviewed the resident's note and discussed the case with the resident. I agree with the resident's findings and plan as documented. SUBJECTIVE: OBJECTIVE: ASSESSMENT AND PLAN:
[2020-04-08] MEDS: CHLORHEXIDINE GLUCONATE 4% CLEANSER FOR DECOLONIZATION TP SCH (21:46)
[2020-04-09 05:54] LABS: BASO % 0.4 % (0-2.0); EOS % 0.7 % (0-4.5); HEMATOCRIT 24.7 % (35.4-49); LYMPH % 5.2 % (8-40); MCHC 32.3 g/dl (32.0-35.9); MEAN PLT VOLUME 7.6 fl (7.5-11.1); MONO % 12.8 % (3.8-10.2); NEUT % 80.9 % (42.8-82.8); PLATELET COUNT 198 K/MM3 (134-434); RBC 2.74 M/mm3 (4.00-5.60); RDW 18.7 % (11.9-15.9); WHITE BLOOD COUNT 17.1 K/mm3 (4.0-10.0)
[2020-04-09 06:20] LABS: ALBUMIN 1.5 g/dl (3.4-5.0); BILIRUBIN,TOTAL 0.4 mg/dL (0.2-1); BLOOD UREA NITROGEN 76.6 mg/dL (7-18); CREATININE 1.8 mg/dL (0.55-1.3); MAGNESIUM 1.7 mg/dL (1.8-2.4); PHOSPHOROUS 3.8 mg/dL (2.5-4.9); POTASSIUM 4.3 mmol/L (3.5-5.1); TOT PROT 5.6 g/dl (6.4-8.2)
[2020-04-09] MEDS: NOREPINEPHRINE D5W PREMIX 16,000 MCG/500 ML BAG IVPB SCH (06:58)
[2020-04-09] MEDS ORDERED: MAGNESIUM SULF 50% (8.12 MEQ/2 ML-1 GM VIAL) IVPB ONE (07:49)
[2020-04-09] MEDS ORDERED: MEROPENEM 1 GM in DEXTROSE 5%-WATER 100 ML IVPB ONE (08:20)
[2020-04-09] MEDS ORDERED: MEROPENEM 1 GM VIAL (RESTRICTED TO ID) IVPB ONE (08:39)
[2020-04-09] MEDS ORDERED: DEXTROSE 5%-WATER 100 ML IVPB ONE ×3 (08:39→20:58)
--- NOTE | 2020-04-09 11:13 | PN ---
Teaching Attending Note Name of Resident: Wilman Connolly ATTENDING PHYSICIAN STATEMENT I saw and evaluated the patient. I reviewed the resident's note and discussed the case with the resident. I agree with the resident's findings and plan as documented. SUBJECTIVE: Pt seen and examined in the ICU. Intubated, sedated on levophed gtt. Vented on volume assist control with 90% FiO2. CXR still with left sided opacification. OBJECTIVE: Vital Signs Period Temp Pulse Resp BP Sys/Cesar Pulse Ox Last 24 Hr 97.3 F-98.2 F 76-90 13-18 92-123/52-64 78-98 Intake & Output 04/06/20 04/07/20 04/08/20 04/09/20 23:59 23:59 23:59 23:59 Intake Total 34.1 787 257 Output Total 360 300 Balance 34.1 427 -43 Weight 93.803 kg 96.842 kg 95.254 kg Gen: intubated, sedated Heart: RRR Lung: decreased breath sounds left Abd: soft, nontender, +PEG Ext: no edema CBC, BMP 04/09/20 05:00 04/09/20 05:00 Active Medications Acetaminophen (Ofirmev Injection -) 1,000 mg IVPB Q6H PRN PRN Reason: FEVER Apixaban (Eliquis -) 2.5 mg PO BID EAN Last Admin: 04/08/20 21:46 Dose: 2.5 mg Documented by: Chlorhexidine Gluconate (Hibiclens For Decolonization -) 1 applic TP HS EAN Last Admin: 04/08/20 21:46 Dose: 1 applic Documented by: Midazolam HCl 100 mg/ Sodium (Chloride) 100 mls @ 1 mls/hr IVPB TITR EAN; Protocol Last Titration: 04/09/20 00:15 Dose: 6 mg/hr, 6 mls/hr Documented by: Meropenem 1 gm/ Dextrose 100 mls @ 200 mls/hr IVPB Q12H EAN Norepinephrine Bitartrate (Levophed Bag) 16,000 mcg in 500 mls @ 9.375 mls/hr IVPB TITR EAN; Protocol Last Titration: 04/09/20 08:55 Dose: 10 mcg/min, 18.75 mls/hr Documented by: Sodium Chloride (Normal Saline -) 1,000 mls @ 75 mls/hr IV ASDIR EAN Metoprolol Tartrate (Lopressor Injection -) 5 mg IVPUSH Q4H PRN PRN Reason: TACHYCARDIA Mupirocin (Bactroban Ointment (For Decolonization) -) 1 applic NS BID [facility] Stop: 04/12/20 21:59 Last Admin: 04/08/20 21:46 Dose: 1 applic Documented by: Pantoprazole Sodium (Protonix Iv) 40 mg IVPUSH DAILY [facility] Last Admin: 04/08/20 09:52 Dose: 40 mg Documented by: ASSESSMENT AND PLAN: Acute Hypoxic Respiratory Failure Pneumonia/Atelectasis UTI Septic Shock Lactic Acidosis Acute Kidney Injury +Troponins likely Demand Ischemia Atrial Fibrillation LV Diastolic Dysfunction Pulmonary HTN COPD HTN Hyperlipidemia - IV antibiotics - f/u cultures, send sputum - IVF - monitor urine output, creatinine - titrate pressors to maintain MAP >65 - rate control - continue anticoagulation - taper FiO2 to keep SpO2 >90% - continue volume assist control - enteral feeds - DVT/GI prophylaxis - continue ICU monitoring critical care time spent in reviewing chart, evaluating patient and formulating plan 35 min
[2020-04-09] MEDS: APIXABAN 2.5 MG TABLET PO SCH (11:33)
--- NOTE | 2020-04-09 11:39 | PN ---
Progress Note (short form) - Note Progress Note: ID CONSULT DICTATED SEIZURE ACUTE RESP FAILURE OPACIFIED L HEMITHORAX ?PNEUMONIA EXACERBATION COPD SEPSIS/ SEPTIC SHOCK UTI/ SEPSIS SECONDARY TO UTI SURESH LEUKOCYTOSIS LACTIC ACIDOSIS PCN ALLERGY (RASH) R/O COVID-19 CONTINUE VENTILATORY/ HEMODYNAMIC SUPPORT AWAIT C/S EMPIRIC VANCOMYCIN/ CEFEPIME
[2020-04-09] MEDS ORDERED: VANCOMYCIN 1 GRAM (PRE-DOCKED) 1,000 MG/250 ML BAG IVPB ONE (12:00)
[2020-04-09] MEDS: SODIUM CHLORIDE 1,000 ML IV SCH (13:10)
[2020-04-09] MEDS ORDERED: CEFEPIME HCL 1 GM VIAL (RESTRICTED TO ID) ONE ×2 (13:13→20:58)
[2020-04-09] MEDS: CEFEPIME 1 GM in DEXTROSE 5%-WATER 100 ML IVPB SCH ×2 (13:14→21:32)
[2020-04-09] MEDS: MUPIROCIN 2% TOPICAL OINTMENT FOR DECOLONIZATION NS SCH ×2 (13:14→21:32)
[2020-04-09] MEDS: PANTOPRAZOLE SODIUM 40 MG VIAL IVPUSH SCH (13:14)
--- NOTE | 2020-04-09 13:38 | PROC ---
Procedure Note Procedure: Placement confirmed by Xray Central Line Insertion Indication: Sepsis, Vasopressor Consent on Chart: Yes Central Line: Triple Lumen Catheter Anesthesia: 1% Lidocaine Sterile Technique: Yes Ultrasound Guided Assistance: Yes Position: Right Internal Jugular Post Insertion: Yes: Chest X-Ray Ordered Sterile Dressing Applied: Yes
[2020-04-09] MEDS ORDERED: MIDAZOLAM IN 0.9 % SOD.CHLORID 1 MG/1 ML PLAST..BAG ONE (14:14)
--- NOTE | 2020-04-09 14:25 | CONS ---
INFECTIOUS DISEASE CONSULTATION DATE OF CONSULTATION: DATE OF DICTATION: 04/09/2020 HISTORY: The patient is an 79-year-old male evaluated for septic shock. History was obtained from the chart as he is presently intubated in the intensive care unit. He is a resident of a senior living facility. He was noted to have a generalized seizure. He was brought to the emergency room where the patient was noted to be febrile and bradycardic. His course was complicated by hypotension, increasing shortness of breath and hypoxemia. He was placed on a nonrebreather mask. A Saavedra catheter was inserted and thick foul-smelling urine was obtained. CAT scan of the head was performed that was negative for acute infarct or bleed, however, did show evidence of right mastoiditis and otitis media. CAT scan of the abdomen and pelvis showed cirrhosis and cholelithiasis. The course was further complicated by high grade fever to 104.2, hypotension with a blood pressure of 109/55. Patient required intubation and placement on pressors. At the present time he is intubated in the intensive care unit, hypotensive on pressors. Cultures were obtained. He was empirically treated with vancomycin and meropenem. On review of previous cultures, he has grown enterococcus and yeast in the urine in the past as well as coagulase-negative staph from skin wounds. PAST MEDICAL HISTORY: Positive for stroke, hypertension, hyperlipidemia, COPD, congestive heart failure, atrial fibrillation. ALLERGIES: To PENICILLIN and ASPIRIN. Patient reportedly develops rash with PENICILLIN. MEDICATIONS: Include vancomycin, meropenem, norepinephrine, Eliquis, metoprolol, Versed, Protonix. SOCIAL HISTORY: He resides in a senior living facility and is dependent in activities of daily living. PAST SURGICAL HISTORY: Status post feeding gastrostomy. SYSTEMS REVIEW: Neurologic: Positive for stroke. Cardiac: Negative chest pain or palpitations. Respiratory: Status post respiratory failure. Gastrointestinal: Positive feeding gastrostomy. Genitourinary: Positive for urinary tract infection. LABORATORY DATA: White count 17.1, neutrophils 80, lymphocytes 5, monocytes 12, hematocrit 24.7, platelet count 198. Creatinine 1.8, lactic acid 2.3. Urine analysis 5187 white cells. COVID-19 is pending. Blood and urine cultures are pending. Chest x-ray shows an opacified left hemithorax. PHYSICAL EXAMINATION: General: He is sedated on the ventilator. His breathing is nonlabored. Vital Signs: Temperature 99.8, blood pressure 109/55, pulse 80 regular, respirations 18 per minute. HEENT: Sclerae are anicteric. Patient is orally intubated. Heart: Sounds S1, S2. Lungs: Air entry bilaterally, diminished breath sounds left lung field. Abdomen: Obese, distended, soft, nontender. Feeding gastrostomy tube is in place. Extremities: Positive for edema. IMPRESSION: 1. Status post seizure. 2. Acute respiratory failure. 3. Opacified left hemithorax, rule out pneumonia. 4. Exacerbation of chronic obstructive pulmonary disease. 5. Sepsis/septic shock. 6. Urinary tract infection, rule out sepsis secondary to urinary tract infection. 7. Acute kidney injury. 8. Leukocytosis. 9. Lactic acidosis. 10. PENICILLIN ALLERGY (rash). 11. Rule out COVID-19 Await cultures. Obtain sputum culture, urine legionella antigen, COVID-19 PCR. Continue ventilatory and hemodynamic support. Pending cultures empiric treatment with vancomycin and cefepime for half-way-acquired respiratory and urinary tract pathogens. Would avoid use of carbapenems in this patient that is status post seizure. Prognosis is guarded. Critical care time spent 35 minutes. ZARI ROJAS M.D. [id number]
--- NOTE | 2020-04-09 14:57 | PN ---
Physical Exam: SUBJECTIVE: Patient seen and examined. Afebrile overnight. Pt bleeding from tube and IV sites. Hb dropped. We performed recruitment maneuvers and irrigated the tube. Plan for chest pt, will turn pt to improve oxygenation OBJECTIVE: Vital Signs Period Temp Pulse Resp BP Sys/Cesar Pulse Ox Last 24 Hr 97.3 F-98.2 F 76-90 13-18 84-123/52-65 78-100 GENERAL: The patient is intubated and sedated. NECK: Trachea midline, full range of motion, supple. LUNGS: Breath sounds equal, clear to auscultation bilaterally, no wheezes, no crackles, no accessory muscle use. HEART: Regular rate and rhythm, S1, S2 without murmur, rub or gallop. ABDOMEN: Soft, nontender, nondistended, normoactive bowel sounds, no guarding, no rebound, no hepatosplenomegaly, no masses. EXTREMITIES: 2+ pulses, warm, well-perfused, no edema. NEUROLOGICAL: unable to obtain as patient sedated. Laboratory Results - last 24 hr 04/09/20 04/09/20 05:00 05:00 WBC 17.1 H RBC 2.74 L Hgb 8.0 L Hct 24.7 L MCV 90.0 MCH 29.0 MCHC 32.3 RDW 18.7 H Plt Count 198 D MPV 7.6 Absolute Neuts (auto) 13.8 H Neutrophils % 80.9 Lymphocytes % 5.2 L Monocytes % 12.8 H Eosinophils % 0.7 D Basophils % 0.4 Nucleated RBC % 0 Sodium 134 L Potassium 4.3 Chloride 92 L Carbon Dioxide 35 H Anion Gap 6 L BUN 76.6 H Creatinine 1.8 H Est GFR (CKD-EPI)AfAm 40.02 Est GFR (CKD-EPI)NonAf 34.53 Random Glucose 217 H Calcium 7.0 L Phosphorus 3.8 Magnesium 1.7 L Total Bilirubin 0.4 AST 33 ALT 12 L Alkaline Phosphatase 125 H Total Protein 5.6 L Albumin 1.5 L Active Medications Generic Name Dose Route Start Last Admin Trade Name Freq PRN Reason Stop Dose Admin Acetaminophen 1,000 mg 04/08/20 08:58 Ofirmev Injection - IVPB Q6H PRN FEVER Apixaban 2.5 mg 04/08/20 10:00 04/09/20 11:33 Eliquis - PO Not Given BID EAN Chlorhexidine Gluconate 1 applic 04/07/20 22:00 04/08/20 21:46 Hibiclens For Decolonization - TP 1 applic HS EAN Administration Midazolam HCl 100 mg/ Sodium 100 mls @ 1 mls/hr 04/07/20 18:20 04/09/20 00:15 Chloride IVPB 6 mg/hr TITR EAN 6 mls/hr Titration Protocol 1 MG/HR Norepinephrine Bitartrate 16,000 mcg in 500 mls @ 9.375 mls/hr 04/08/20 02:30 04/09/20 14:01 Levophed Bag IVPB 15 mcg/min TITR EAN 28.125 mls/hr Titration Protocol 5 MCG/MIN Sodium Chloride 1,000 mls @ 75 mls/hr 04/09/20 11:00 04/09/20 13:10 Normal Saline - IV 75 mls/hr ASDIR EAN Administration Cefepime HCl 1 gm/ Dextrose 100 mls @ 100 mls/hr 04/09/20 11:45 04/09/20 13:14 IVPB 100 mls/hr BID EAN Administration Protocol Metoprolol Tartrate 5 mg 04/07/20 22:50 Lopressor Injection - IVPUSH Q4H PRN TACHYCARDIA Mupirocin 1 applic 04/07/20 22:00 04/09/20 13:14 Bactroban Ointment (For Decolonization) - NS 04/12/20 21:59 1 applic BID EAN Administration Pantoprazole Sodium 40 mg 04/08/20 10:00 04/09/20 13:14 Protonix Iv IVPUSH 40 mg DAILY EAN Administration ASSESSMENT/PLAN: 79YOM with CHF, COPD, CVA, HTN, HLD, and A-fib on Eliquis BIBEMS from [facility] for seizure-like episode, found in ED to be septic with UTI suspected source, needed to be intubated for respiratory failure. #Neuro / Psych: Reported seizure-like activity, likely rigors in the setting of sepsis, not witnessed again Serial neuro checks sedated on versed 7 #Cardiovascular: CHF exacerbation, troponinemia holding eliquis due to bleeding- will reconsider in the am on levo 10 #Pulm Pulmonary edema, b/l pleural effusions, COPD exacerbation given COPD history, pt likely has pulmonary HTN- ECHO showing moderate/severe , pulm htn continue mechanical ventilation- 10/400/100/5 When covid neg- start mucomyst/albuterol/ dounebs #Gastrointestinal: started feeds PEG tube feeds when able #Genitourinary: Continue Saavedra Monitor I/O Serial BUN/Cr especially given need for diuresis IVF at 75 #Infectious Disease: c/w Meropenem ID onboard FEN: lytes WNL, replete PRN Feeds started IVF at 75 Prophylaxis: DVT: Hold Eliquis GI: Protonix qd Lines: femoral removed- Rt Right IJ placed 04/09 Dispo: cont abx, cont fluids, reposition pt to ventilate better, percussion modulator, tube irrigation as needed Visit type - Emergency Visit Emergency Visit: Yes ED Registration Date: 04/07/20 Care time: The patient presented to the Emergency Department on the above date and was hospitalized for further evaluation of their emergent condition. - New Patient This patient is new to me today: Yes Date on this admission: 04/10/20 - Critical Care Critical Care patient: No - Discharge Referral Referred to [facility] No ATTENDING PHYSICIAN STATEMENT I saw and evaluated the patient. I reviewed the resident's note and discussed the case with the resident. I agree with the resident's findings and plan as documented. SUBJECTIVE: OBJECTIVE: ASSESSMENT AND PLAN:
[2020-04-09] MEDS: MIDAZOLAM 100 MG in SODIUM CHLORIDE 100 ML IVPB SCH (19:15)
[2020-04-09] MEDS: CHLORHEXIDINE GLUCONATE 4% CLEANSER FOR DECOLONIZATION TP SCH (21:33)
[2020-04-09] MEDS ORDERED: PROPOFOL 20 ML ONE (23:41)
[2020-04-09] MEDS ORDERED: SUCCINYLCHOLINE CHLORIDE 200 MG/10 ML VIAL ONE (23:42)
--- NOTE | 2020-04-10 00:08 | PROC ---
Intubation - Intubation Reason for Intubation: Respiratory Failure Intubation Method: orotracheal Blade used: Mac Tube Size (cm): 8.0 Tube position confirmed by: Direct visualization Breath Sounds after Intubation: equal Post Intubation Xray: Yes
[2020-04-10] MEDS ORDERED: MIDAZOLAM IN 0.9 % SOD.CHLORID 1 MG/1 ML PLAST..BAG ONE ×3 (01:08→20:44)
[2020-04-10] MEDS: NOREPINEPHRINE D5W PREMIX 16,000 MCG/500 ML BAG IVPB SCH (01:30)
--- NOTE | 2020-04-10 01:42 | HOSP ---
Subjective - Review of Symptoms Events since last encounter: pt had low minute ventilation , chest tube was evaluated by broiler manager and was found to be 75 % out , ET tube was replaced , cxr was ordered to confirm placement. o2 sat 97 % , vet setting RR 18, TV 400, Fio2 90 %, PEEP 10 Physical Examination Vital Signs: Vital Signs Temperature 97.9 F 04/09/20 18:00 Pulse Rate 89 04/09/20 18:00 Respiratory Rate 18 04/10/20 00:15 Blood Pressure 118/68 04/09/20 18:00 O2 Sat by Pulse Oximetry (%) 98 04/09/20 20:25 Labs: CBC, BMP 04/09/20 05:00 04/09/20 05:00
[2020-04-10 05:47] LABS: HEMATOCRIT 22.5 % (35.4-49); HEMOGLOBIN 7.5 GM/dL (11.7-16.9); MCH 29.6 pg (25.7-33.7); MCHC 33.4 g/dl (32.0-35.9); MEAN CELL VOLUME 88.7 fl (80-96); MEAN PLT VOLUME 7.8 fl (7.5-11.1); PLATELET COUNT 200 K/MM3 (134-434); RBC 2.54 M/mm3 (4.00-5.60); RDW 17.9 % (11.9-15.9); WHITE BLOOD COUNT 10.6 K/mm3 (4.0-10.0)
[2020-04-10 06:23] LABS: ALBUMIN 1.4 g/dl (3.4-5.0); BILIRUBIN,TOTAL 0.5 mg/dL (0.2-1); BLOOD UREA NITROGEN 70.3 mg/dL (7-18); CALCIUM 7.1 mg/dL (8.5-10.1); CREATININE 1.4 mg/dL (0.55-1.3); MAGNESIUM 2.1 mg/dL (1.8-2.4); POTASSIUM 4.1 mmol/L (3.5-5.1); TOT PROT 5.4 g/dl (6.4-8.2)
[2020-04-10] MEDS ORDERED: CEFEPIME HCL 1 GM VIAL (RESTRICTED TO ID) ONE ×2 (08:57→19:28)
[2020-04-10] MEDS ORDERED: DEXTROSE 5%-WATER 100 ML IVPB ONE ×2 (08:57→19:28)
[2020-04-10] MEDS ORDERED: ALBUTEROL SO4 0.083% IH SOL 2.5 MG/3 ML VIAL.NEB. NEB ONE (09:02)
[2020-04-10] MEDS: MUPIROCIN 2% TOPICAL OINTMENT FOR DECOLONIZATION NS SCH ×2 (09:21→21:05)
[2020-04-10] MEDS: CEFEPIME 1 GM in DEXTROSE 5%-WATER 100 ML IVPB SCH ×2 (09:22→21:06)
[2020-04-10] MEDS: PANTOPRAZOLE SODIUM 40 MG VIAL IVPUSH SCH (09:23)
--- NOTE | 2020-04-10 09:55 | PN ---
Progress Note, Physician History of Present Illness: SEDATED ON VENTILATOR BREATHING NON LABORED AFEBRILE WBC IMPROVED 10K DROP IN HCT NOTED AZOTEMIA IMPROVED CXR STILL SHOWS OPACIFIED L HEMITHORAX - Current Medication List Current Medications: Active Medications Acetaminophen (Ofirmev Injection -) 1,000 mg IVPB Q6H PRN PRN Reason: FEVER Acetylcysteine (Mucomyst 20 Oral / Inh Use Only*) 200 mg NEB RQID EAN Albuterol Sulfate (Ventolin 0.083% Nebulizer Soln -) 1 amp NEB RQID EAN Apixaban (Eliquis -) 2.5 mg PO BID EAN Last Admin: 04/09/20 11:33 Dose: Not Given Documented by: Chlorhexidine Gluconate (Hibiclens For Decolonization -) 1 applic TP HS EAN Last Admin: 04/09/20 21:33 Dose: 1 applic Documented by: Midazolam HCl 100 mg/ Sodium (Chloride) 100 mls @ 1 mls/hr IVPB TITR EAN; Protocol Last Titration: 04/10/20 02:00 Dose: 10 mg/hr, 10 mls/hr Documented by: Norepinephrine Bitartrate (Levophed Bag) 16,000 mcg in 500 mls @ 9.375 mls/hr IVPB TITR EAN; Protocol Last Titration: 04/10/20 08:00 Dose: 10 mcg/min, 18.75 mls/hr Documented by: Sodium Chloride (Normal Saline -) 1,000 mls @ 75 mls/hr IV ASDIR EAN Last Admin: 04/09/20 13:10 Dose: 75 mls/hr Documented by: Cefepime HCl 1 gm/ Dextrose 100 mls @ 100 mls/hr IVPB BID EAN; Protocol Last Admin: 04/10/20 09:22 Dose: 100 mls/hr Documented by: Vancomycin HCl 1,000 mg/ (Dextrose) 250 mls @ 200 mls/hr IVPB Q24H EAN; Protocol Metoprolol Tartrate (Lopressor Injection -) 5 mg IVPUSH Q4H PRN PRN Reason: TACHYCARDIA Mupirocin (Bactroban Ointment (For Decolonization) -) 1 applic NS BID EAN Stop: 04/12/20 21:59 Last Admin: 04/10/20 09:21 Dose: 1 applic Documented by: Pantoprazole Sodium (Protonix Iv) 40 mg IVPUSH DAILY EAN Last Admin: 04/10/20 09:23 Dose: 40 mg Documented by: - Objective Vital Signs: Vital Signs Temperature 97.6 F 04/10/20 06:00 Pulse Rate 84 04/10/20 08:52 Respiratory Rate 18 04/10/20 08:20 Blood Pressure 123/62 04/10/20 06:00 O2 Sat by Pulse Oximetry (%) 96 04/10/20 08:52 Constitutional: Yes: No Distress Eyes: Yes: Conjunctiva Clear Cardiovascular: Yes: Regular Rate and Rhythm, S1, S2 Respiratory: Yes: Mechanically Ventilated Gastrointestinal: Yes: Normal Bowel Sounds, Soft. No: Tenderness Edema: Yes Labs: CBC, BMP 04/10/20 05:00 04/10/20 05:00 INR, PTT INR 1.49 (0.83-1.09) H 04/08/20 05:20 Assessment/Plan ACUTE RESP FAILURE SEPSIS/ SEPTIC SHOCK LACTIC ACIDOSIS S/P SEIZURE PROBABLE ASP PNEUMONIA OPACIFIED L HEMITHORAX COPD AZOTEMIA IMPROVED PCN ALLERGY COVID-19 (-) AWAIT C/S CONTINUE CEFEPIME REDOSE VANCOMYCIN VENTILATORY/ HEMODYNAMIC SUPPORT PROGNOSIS GUARDED CRITICAL CARE TIME 35MIN
[2020-04-10] MEDS ORDERED: ACETYLCYSTEINE 20% 200MG/ML 4 ML VIAL *FOR ORAL / INH USE ONLY PO ONE (10:22)
[2020-04-10] MEDS ORDERED: PT OWN MED DRAWER 7, Y5N ONE (10:39)
[2020-04-10] MEDS: SODIUM CHLORIDE 1,000 ML IV SCH (11:23)
[2020-04-10] MEDS: VANCOMYCIN 1 GRAM (PRE-DOCKED) 1,000 MG/250 ML BAG IVPB SCH (11:25)
[2020-04-10] MEDS: MIDAZOLAM 100 MG in SODIUM CHLORIDE 100 ML IVPB SCH ×2 (11:30→21:05)
--- NOTE | 2020-04-10 11:33 | ECHO ---
Name: FAHAD ENGLISH Exam:Adult Echocardiogram Study Date: 04/10/2020 07:37 AM Age: 79 yrs Reason For Study: CHF Height: 73 in Weight: 216 lb BSA: 2.2 m2 MMode/2D Measurements & Calculations IVSd: 0.99 cm Ao root diam: 3.5 cm LVIDd: 4.3 cm LA dimension: 3.8 cm LVIDs: 2.3 cm ACS: 0.88 cm LVPWd: 1.2 cm EDV(Teich): 83.6 ml LVOT diam: 2.0 cm ESV(Teich): 18.0 ml LAV (MOD-bp): 110.0 ml Doppler Measurements & Calculations MV E max cate: 105.0 cm/sec Ao V2 max: 301.9 cm/sec MV A max cate: 37.9 cm/sec Ao max P.5 mmHg MV E/A: 2.8 Ao V2 mean: 209.0 cm/sec MV dec time: 0.21 sec Ao mean P.8 mmHg Ao V2 VTI: 53.0 cm KIRAN(I,D): 0.61 cm2 KIRAN(V,D): 0.61 cm2 LV V1 max P.4 mmHg SV(LVOT): 32.5 ml LV V1 mean P.80 mmHg LV V1 max: 59.1 cm/sec LV V1 mean: 40.0 cm/sec LV V1 VTI: 10.4 cm TR max cate: 271.5 cm/sec PA V2 max: 120.7 cm/sec TR max P.8 mmHg PA max P.8 mmHg Left Ventricle The left ventricular size, thickness and function are normal. Ejection Fraction = 55-60%. Right Ventricle The right ventricle is mild to moderately dilated. The right ventricular systolic function is mildly reduced. Atria The left atrium is moderately dilated. The right atrium is moderately dilated. Mitral Valve There is moderate mitral annular calcification. There is mild to moderate mitral regurgitation. Tricuspid Valve The tricuspid valve is not well visualized, but is grossly normal. There is mild tricuspid regurgitat ion. There is moderate pulmonary hypertension. Right ventricular systolic pressure is elevated at 46 mmhg. Assuming the RA pressure is 15 mmHg. Aortic Valve There is moderate to severe aortic sclerosis.;. Severe valvular aortic stenosis. The calculated aorti c valve area using the continuity equation is 0.61 cm2. Peak gradient and mean gradient accross AV are 36.5 a nd 20.8 mmHg, respectively. Interpretation Summary The left ventricular size, thickness and function are normal. Ejection Fraction = 55-60%. The right ventricle is mild to moderately dilated. The right ventricular systolic function is mildly reduced. The left atrium is moderately dilated. The right atrium is moderately dilated. There is moderate to severe aortic sclerosis.Severe valvular aortic stenosis. The calculated aortic v alve area using the continuity equation is 0.61 cm2. Peak gradient and mean gradient accross AV are 36.5 and 20 .8 mmHg, respectively. There is moderate mitral annular calcification. There is mild to moderate mitral regurgitation. There is moderate pulmonary hypertension. MD Stephanie Villanueva 04/10/2020 11:32 AM
--- NOTE | 2020-04-10 11:38 | PN ---
Teaching Attending Note Name of Resident: Wilman Connolly ATTENDING PHYSICIAN STATEMENT I saw and evaluated the patient. I reviewed the resident's note and discussed the case with the resident. I agree with the resident's findings and plan as documented. SUBJECTIVE: Pt seen and examined in the ICU. Intubated, sedated on levophed gtt. Vented on volume assist control with 90% FiO2. CXR still with left sided opacification, unchanged despite positioning and PEEP. OBJECTIVE: Vital Signs Period Temp Pulse Resp BP Sys/Cesar Pulse Ox Last 24 Hr 97.6 F-98.7 F 79-97 18-29 83-131/48-70 91-100 Intake & Output 04/07/20 04/08/20 04/09/20 04/10/20 23:59 23:59 23:59 23:59 Intake Total 34.1 787 1492 565 Output Total 360 600 700 Balance 34.1 427 892 -135 Weight 93.803 kg 96.842 kg 95.254 kg 97.341 kg Gen: intubated, sedated Heart: RRR Lung: decreased breath sounds left Abd: soft, nontender, +PEG Ext: no edema CBC, BMP 04/10/20 05:00 04/10/20 05:00 Active Medications Acetaminophen (Ofirmev Injection -) 1,000 mg IVPB Q6H PRN PRN Reason: FEVER Acetylcysteine (Mucomyst 20 Oral / Inh Use Only*) 200 mg NEB RQID EAN Albuterol Sulfate (Ventolin 0.083% Nebulizer Soln -) 1 amp NEB RQID EAN Apixaban (Eliquis -) 2.5 mg PO BID EAN Last Admin: 04/09/20 11:33 Dose: Not Given Documented by: Chlorhexidine Gluconate (Hibiclens For Decolonization -) 1 applic TP HS EAN Last Admin: 04/09/20 21:33 Dose: 1 applic Documented by: Midazolam HCl 100 mg/ Sodium (Chloride) 100 mls @ 1 mls/hr IVPB TITR EAN; Protocol Last Admin: 04/10/20 11:30 Dose: 10 mg/hr, 10 mls/hr Documented by: Norepinephrine Bitartrate (Levophed Bag) 16,000 mcg in 500 mls @ 9.375 mls/hr IVPB TITR EAN; Protocol Last Titration: 04/10/20 08:00 Dose: 10 mcg/min, 18.75 mls/hr Documented by: Sodium Chloride (Normal Saline -) 1,000 mls @ 75 mls/hr IV ASDIR [facility] Last Admin: 04/10/20 11:23 Dose: 75 mls/hr Documented by: Cefepime HCl 1 gm/ Dextrose 100 mls @ 100 mls/hr IVPB BID [facility]; Protocol Last Admin: 04/10/20 09:22 Dose: 100 mls/hr Documented by: Vancomycin HCl (Vancomycin (Pre-Docked)) 1,000 mg in 250 mls @ 166.667 mls/hr IVPB Q24H [facility]; Protocol Last Admin: 04/10/20 11:25 Dose: 166.667 mls/hr Documented by: Metoprolol Tartrate (Lopressor Injection -) 5 mg IVPUSH Q4H PRN PRN Reason: TACHYCARDIA Mupirocin (Bactroban Ointment (For Decolonization) -) 1 applic NS BID [facility] Stop: 04/12/20 21:59 Last Admin: 04/10/20 09:21 Dose: 1 applic Documented by: Pantoprazole Sodium (Protonix Iv) 40 mg IVPUSH DAILY [facility] Last Admin: 04/10/20 09:23 Dose: 40 mg Documented by: ASSESSMENT AND PLAN: Acute Hypoxic Respiratory Failure Pneumonia/Atelectasis UTI Septic Shock Lactic Acidosis Acute Kidney Injury +Troponins likely Demand Ischemia Atrial Fibrillation LV Diastolic Dysfunction Pulmonary HTN COPD HTN Hyperlipidemia - will perform bronchoscopy - IV antibiotics - f/u cultures, send sputum - IVF - monitor urine output, creatinine - titrate pressors to maintain MAP >65 - rate control - continue anticoagulation - taper FiO2 to keep SpO2 >90% - continue volume assist control - enteral feeds - DVT/GI prophylaxis - continue ICU monitoring critical care time spent in reviewing chart, evaluating patient and formulating plan 35 min
--- NOTE | 2020-04-10 11:43 | PROC ---
Procedure Note Procedure: BRONCHOSCOPY NOTE After obtaining informed consent, the Glidescope BFlex bronchoscope was passed via the ETT and the airways were examined down to the subsegmental level. There were no endobronchial lesions in the right lung. The left mainstem bronchus was occluded by thick bloody secretions which were lavaged easily with saline. Post washings, the left lung was examined and no endobronchial lesions noted. Bronchoscope was then withdrawn and the procedure terminated. No immediate complications. Pre-op Dx: Atelectasis Post-op Dx: same Pietro Harris MD
[2020-04-10] MEDS: ACETYLCYSTEINE 20% 200MG/ML 4 ML VIAL *FOR ORAL / INH USE ONLY NEB SCH ×3 (11:45→20:30)
[2020-04-10] MEDS: ALBUTEROL SO4 0.083% IH SOL 2.5 MG/3 ML VIAL.NEB. NEB SCH ×2 (11:45→20:30)
--- NOTE | 2020-04-10 13:56 | PN ---
Physical Exam: SUBJECTIVE: Patient seen and examined. Afebrile overnight. Pt's ET tube was dislodged overnight, had to be replaced. Currently sating well, with 1 8/400/90/10, plat press 25, PIP press at 36. OBJECTIVE: Vital Signs Period Temp Pulse Resp BP Sys/Cesar Pulse Ox Last 24 Hr 97.6 F-98.7 F 79-97 18-29 83-131/48-70 91-100 GENERAL: The patient is intubated and sedated. NECK: Trachea midline, full range of motion, supple. LUNGS: Breath sounds equal, clear to auscultation bilaterally, no wheezes, no crackles, no accessory muscle use. HEART: Regular rate and rhythm, S1, S2 without murmur, rub or gallop. ABDOMEN: Soft, nontender, nondistended, normoactive bowel sounds, no guarding, no rebound, no hepatosplenomegaly, no masses. EXTREMITIES: 2+ pulses, warm, well-perfused, no edema. NEUROLOGICAL: unable to obtain as patient sedated. Laboratory Results - last 24 hr 04/07/20 04/10/20 04/10/20 23:30 05:00 05:00 WBC 10.6 H RBC 2.54 L Hgb 7.5 L Hct 22.5 L MCV 88.7 MCH 29.6 MCHC 33.4 RDW 17.9 H Plt Count 200 MPV 7.8 Sodium 132 L Potassium 4.1 Chloride 94 L Carbon Dioxide 36 H Anion Gap 3 L BUN 70.3 H Creatinine 1.4 H Est GFR (CKD-EPI)AfAm 54.22 Est GFR (CKD-EPI)NonAf 46.79 Random Glucose 218 H Calcium 7.1 L Phosphorus 3.0 Magnesium 2.1 Total Bilirubin 0.5 AST 28 ALT 11 L Alkaline Phosphatase 125 H Total Protein 5.4 L Albumin 1.4 L Random Vancomycin COVID-19 (BIGG) Not detected 04/10/20 05:00 WBC RBC Hgb Hct MCV MCH MCHC RDW Plt Count MPV Sodium Potassium Chloride Carbon Dioxide Anion Gap BUN Creatinine Est GFR (CKD-EPI)AfAm Est GFR (CKD-EPI)NonAf Random Glucose Calcium Phosphorus Magnesium Total Bilirubin AST ALT Alkaline Phosphatase Total Protein Albumin Random Vancomycin 13.8 COVID-19 (BIGG) Active Medications Generic Name Dose Route Start Last Admin Trade Name Freq PRN Reason Stop Dose Admin Acetaminophen 1,000 mg 04/08/20 08:58 Ofirmev Injection - IVPB Q6H PRN FEVER Acetylcysteine 200 mg 04/10/20 12:00 Mucomyst 20 Oral / Inh Use Only* NEB RQID EAN Albuterol Sulfate 1 amp 04/10/20 12:00 Ventolin 0.083% Nebulizer Soln - NEB RQID EAN Apixaban 2.5 mg 04/08/20 10:00 04/09/20 11:33 Eliquis - PO Not Given BID EAN Chlorhexidine Gluconate 1 applic 04/07/20 22:00 04/09/20 21:33 Hibiclens For Decolonization - TP 1 applic HS EAN Administration Midazolam HCl 100 mg/ Sodium 100 mls @ 1 mls/hr 04/07/20 18:20 04/10/20 11:30 Chloride IVPB 10 mg/hr TITR EAN 10 mls/hr Administration Protocol 1 MG/HR Norepinephrine Bitartrate 16,000 mcg in 500 mls @ 9.375 mls/hr 04/08/20 02:30 04/10/20 09:00 Levophed Bag IVPB 9 mcg/min TITR EAN 16.875 mls/hr Titration Protocol 5 MCG/MIN Sodium Chloride 1,000 mls @ 75 mls/hr 04/09/20 11:00 04/10/20 11:23 Normal Saline - IV 75 mls/hr ASDIR EAN Administration Cefepime HCl 1 gm/ Dextrose 100 mls @ 100 mls/hr 04/09/20 11:45 04/10/20 09:22 IVPB 100 mls/hr BID EAN Administration Protocol Vancomycin HCl 1,000 mg in 250 mls @ 166.667 mls/hr 04/10/20 09:45 04/10/20 11:25 Vancomycin (Pre-Docked) IVPB 166.667 mls/hr Q24H EAN Administration Protocol Metoprolol Tartrate 5 mg 04/07/20 22:50 Lopressor Injection - IVPUSH Q4H PRN TACHYCARDIA Mupirocin 1 applic 04/07/20 22:00 04/10/20 09:21 Bactroban Ointment (For Decolonization) - NS 04/12/20 21:59 1 applic BID EAN Administration Pantoprazole Sodium 40 mg 04/08/20 10:00 04/10/20 09:23 Protonix Iv IVPUSH 40 mg DAILY EAN Administration ASSESSMENT/PLAN: 79YOM with CHF, COPD, CVA, HTN, HLD, and A-fib on Eliquis BIBEMS from [facility] for seizure-like episode, found in ED to be septic with UTI suspected source, needed to be intubated for respiratory failure. #Neuro / Psych: Reported seizure-like activity, likely rigors in the setting of sepsis, not witnessed again Serial neuro checks sedated on versed 7 #Cardiovascular: CHF exacerbation, troponinemia holding eliquis due to bleeding- will reconsider in the am For now will place pt on ppx dose- heparin, if pt tolerates and hb stable, will restart eliquis on levo 10 #Pulm Pulmonary edema, b/l pleural effusions, COPD exacerbation given COPD history, pt likely has pulmonary HTN- ECHO showing moderate/severe , pulm htn CXR: persistent left hemithorax atelectasis Bronchoscopy performed and multiple mucus plugs removed R/p CXR: improved left hemithorax #Gastrointestinal: started feeds PEG tube feeds #Genitourinary: Continue Saavedra Monitor I/O Serial BUN/Cr especially given need for diuresis IVF at 75 #Infectious Disease: Meropenem d/daria Cefepime started D2 ID onboard FEN: lytes WNL, replete PRN Feeds started IVF at 75 Prophylaxis: DVT: Hold Eliquis, start heparin sq for now GI: Protonix qd Lines: Right IJ placed 04/09 Dispo: cont abx, cont fluids, reposition pt to ventilate better, percussion modulator, tube irrigation as needed, s/p bronchoscopy Visit type - Emergency Visit Emergency Visit: Yes ED Registration Date: 04/07/20 Care time: The patient presented to the Emergency Department on the above date and was hospitalized for further evaluation of their emergent condition. - New Patient This patient is new to me today: Yes Date on this admission: 04/18/20 - Critical Care Critical Care patient: No - Discharge Referral Referred to [facility] No ATTENDING PHYSICIAN STATEMENT I saw and evaluated the patient. I reviewed the resident's note and discussed the case with the resident. I agree with the resident's findings and plan as documented. SUBJECTIVE: OBJECTIVE: ASSESSMENT AND PLAN:
[2020-04-10] MEDS ORDERED: HEPARIN NA (PORCINE) 5,000 UNITS/ML 1ML VIAL SQ SCH (14:00)
[2020-04-10] MEDS: HEPARIN NA (PORCINE) 5,000 UNITS/ML 1ML VIAL SQ SCH ×2 (15:37→21:05)
[2020-04-10 18:01] LABS: HEMATOCRIT 22.7 % (35.4-49); HEMOGLOBIN 7.4 GM/dL (11.7-16.9); MCH 29.1 pg (25.7-33.7); MCHC 32.4 g/dl (32.0-35.9); MEAN CELL VOLUME 89.7 fl (80-96); MEAN PLT VOLUME 7.9 fl (7.5-11.1); PLATELET COUNT 239 K/MM3 (134-434); RBC 2.53 M/mm3 (4.00-5.60); RDW 18.1 % (11.9-15.9); WHITE BLOOD COUNT 12.4 K/mm3 (4.0-10.0)
[2020-04-10] MEDS: CHLORHEXIDINE GLUCONATE 4% CLEANSER FOR DECOLONIZATION TP SCH (21:06)
[2020-04-11] MEDS: NOREPINEPHRINE D5W PREMIX 16,000 MCG/500 ML BAG IVPB SCH (05:40)
[2020-04-11 05:47] LABS: ARTERIAL BLD GAS O2 SATURATION 99.6 % (95-98); ARTERIAL BLOOD GAS BASE EXCESS 11.5 mmol/L (-2-2); ARTERIAL BLOOD GAS PCO2 44.6 mmHg (35-45); ARTERIAL BLOOD GAS PO2 249.2 mmHg (80-100); ARTERIAL BLOOD GAS pH 7.51 (7.35-7.45)
[2020-04-11 05:48] LABS: ALLENS TEST POSITIVE
[2020-04-11 06:53] LABS: HEMATOCRIT 21.6 % (35.4-49); HEMOGLOBIN 7.2 GM/dL (11.7-16.9); MCH 29.5 pg (25.7-33.7); MCHC 33.3 g/dl (32.0-35.9); MEAN CELL VOLUME 88.7 fl (80-96); MEAN PLT VOLUME 7.6 fl (7.5-11.1); PLATELET COUNT 239 K/MM3 (134-434); RBC 2.43 M/mm3 (4.00-5.60); RDW 17.9 % (11.9-15.9); WHITE BLOOD COUNT 7.6 K/mm3 (4.0-10.0)
[2020-04-11] MEDS ORDERED: MIDAZOLAM IN 0.9 % SOD.CHLORID 1 MG/1 ML PLAST..BAG ONE ×2 (06:58→16:26)
[2020-04-11 07:15] LABS: BLOOD UREA NITROGEN 67.8 mg/dL (7-18); CALCIUM 7.1 mg/dL (8.5-10.1); CREATININE 1.2 mg/dL (0.55-1.3); PHOSPHOROUS 2.5 mg/dL (2.5-4.9); POTASSIUM 4.1 mmol/L (3.5-5.1)
[2020-04-11] MEDS: ACETYLCYSTEINE 20% 200MG/ML 4 ML VIAL *FOR ORAL / INH USE ONLY NEB SCH ×4 (08:10→20:20)
[2020-04-11] MEDS: ALBUTEROL SO4 0.083% IH SOL 2.5 MG/3 ML VIAL.NEB. NEB SCH ×4 (08:10→20:20)
[2020-04-11] MEDS: HEPARIN NA (PORCINE) 5,000 UNITS/ML 1ML VIAL SQ SCH ×2 (10:43→21:36)
[2020-04-11] MEDS: MUPIROCIN 2% TOPICAL OINTMENT FOR DECOLONIZATION NS SCH ×2 (10:43→21:05)
[2020-04-11] MEDS: PANTOPRAZOLE SODIUM 40 MG VIAL IVPUSH SCH (10:43)
[2020-04-11] MEDS: VANCOMYCIN 1 GRAM (PRE-DOCKED) 1,000 MG/250 ML BAG IVPB SCH (10:43)
[2020-04-11] MEDS: CEFEPIME 1 GM in DEXTROSE 5%-WATER 100 ML IVPB SCH ×2 (10:43→17:35)
[2020-04-11] MEDS ORDERED: CEFEPIME HCL 1 GM VIAL (RESTRICTED TO ID) ONE ×2 (10:46→16:27)
[2020-04-11] MEDS ORDERED: DEXTROSE 5%-WATER 100 ML IVPB ONE ×2 (10:46→16:27)
--- NOTE | 2020-04-11 11:09 | PN ---
Teaching Attending Note Name of Resident: Milton España ATTENDING PHYSICIAN STATEMENT I saw and evaluated the patient. I reviewed the resident's note and discussed the case with the resident. I agree with the resident's findings and plan as documented. SUBJECTIVE: Pt seen and examined in the ICU. Intubated, sedated on levophed gtt. Vented on v olume assist control with 95% FiO2. Oxygenation improving. OBJECTIVE: Vital Signs Period Temp Pulse Resp BP Sys/Cesar Pulse Ox Last 24 Hr 97.8 F-98.1 F 76-95 18-18 94-142/52-73 94-100 Intake & Output 04/08/20 04/09/20 04/10/20 04/11/20 23:59 23:59 23:59 23:59 Intake Total 787 1492 1983 1295 Output Total 360 335 050 1847 Balance 937 991 0221 195 Weight 96.842 kg 95.254 kg 97.341 kg 96.116 kg Gen: intubated, sedated Heart: RRR Lung: decreased breath sounds left Abd: soft, nontender, +PEG Ext: no edema CXR: LLL infiltrate/atelectasis CBC, BMP 04/11/20 05:30 04/11/20 05:30 Active Medications Acetaminophen (Ofirmev Injection -) 1,000 mg IVPB Q6H PRN PRN Reason: FEVER Acetylcysteine (Mucomyst 20 Oral / Inh Use Only*) 200 mg NEB RQID EAN Last Admin: 04/11/20 08:10 Dose: 200 mg Documented by: Albuterol Sulfate (Ventolin 0.083% Nebulizer Soln -) 1 amp NEB RQID [facility] Last Admin: 04/11/20 08:10 Dose: 1 amp Documented by: Chlorhexidine Gluconate (Hibiclens For Decolonization -) 1 applic TP HS [facility] Last Admin: 04/10/20 21:06 Dose: 1 applic Documented by: Heparin Sodium (Porcine) (Heparin -) 5,000 unit SQ BID [facility] Last Admin: 04/11/20 10:43 Dose: 5,000 unit Documented by: Midazolam HCl 100 mg/ Sodium (Chloride) 100 mls @ 1 mls/hr IVPB TITR [facility]; Protocol Last Admin: 04/10/20 21:05 Dose: 10 mg/hr, 10 mls/hr Documented by: Norepinephrine Bitartrate (Levophed Bag) 16,000 mcg in 500 mls @ 9.375 mls/hr IVPB TITR [facility]; Protocol Last Titration: 04/11/20 08:17 Dose: 8 mcg/min, 15 mls/hr Documented by: Sodium Chloride (Normal Saline -) 1,000 mls @ 75 mls/hr IV ASDIR EAN Last Admin: 04/10/20 11:23 Dose: 75 mls/hr Documented by: Cefepime HCl 1 gm/ Dextrose 100 mls @ 100 mls/hr IVPB BID EAN; Protocol Last Admin: 04/11/20 10:43 Dose: 100 mls/hr Documented by: Vancomycin HCl (Vancomycin (Pre-Docked)) 1,000 mg in 250 mls @ 166.667 mls/hr IVPB Q24H [facility]; Protocol Last Admin: 04/11/20 10:43 Dose: 166.667 mls/hr Documented by: Metoprolol Tartrate (Lopressor Injection -) 5 mg IVPUSH Q4H PRN PRN Reason: TACHYCARDIA Mupirocin (Bactroban Ointment (For Decolonization) -) 1 applic NS BID [facility] Stop: 04/12/20 21:59 Last Admin: 04/11/20 10:43 Dose: 1 applic Documented by: Pantoprazole Sodium (Protonix Iv) 40 mg IVPUSH DAILY [facility] Last Admin: 04/11/20 10:43 Dose: 40 mg Documented by: ASSESSMENT AND PLAN: Acute Hypoxic Respiratory Failure Pneumonia/Atelectasis UTI Septic Shock Lactic Acidosis Acute Kidney Injury +Troponins likely Demand Ischemia Atrial Fibrillation LV Diastolic Dysfunction Pulmonary HTN COPD HTN Hyperlipidemia - continue antibiotics - f/u cultures - IVF - monitor urine output, creatinine - titrate pressors to maintain MAP >65 - rate control - continue anticoagulation - inhaled bronchodilators/mucolytics - taper FiO2 to keep SpO2 >90% - continue volume assist control - enteral feeds - DVT/GI prophylaxis - continue ICU monitoring critical care time spent in reviewing chart, evaluating patient and formulating plan 35 min
--- NOTE | 2020-04-11 11:20 | PN ---
Physical Exam: SUBJECTIVE: Patient seen and examined at bedside. No acute events. OBJECTIVE: Vital Signs Period Temp Pulse Resp BP Sys/Cesar Pulse Ox Last 24 Hr 97.8 F-98.1 F 76-95 18-18 94-142/52-73 94-100 Gen: intubated, sedated HEENT: NCAT, ETT in place Neck: trachea central, no jvd presently Cardio: s1s2, rrr, systolic murmur 3/6 blowing heard throughout Pulm: decreased breath sounds L vs R Abd: soft, nondistended Ext: mild edema Laboratory Results - last 24 hr 04/10/20 04/11/20 04/11/20 17:30 05:30 05:30 WBC 12.4 H 7.6 RBC 2.53 L 2.43 L Hgb 7.4 L 7.2 L Hct 22.7 L 21.6 L MCV 89.7 88.7 MCH 29.1 29.5 MCHC 32.4 33.3 RDW 18.1 H 17.9 H Plt Count 239 239 MPV 7.9 7.6 Anticoagulation Therapy Puncture Site ABG pH ABG pCO2 at Pt Temp ABG pO2 at Pt Temp ABG HCO3 ABG O2 Sat (Measured) ABG O2 Content ABG Base Excess Wally Test Patient On Oxygen O2 Delivery Device Oxygen Flow Rate Vent Mode Vent Rate Mechanical Rate PEEP Pressure Support Vent Sodium 135 L Potassium 4.1 Chloride 96 L Carbon Dioxide 33 H Anion Gap 6 L BUN 67.8 H Creatinine 1.2 Est GFR (CKD-EPI)AfAm 65.33 Est GFR (CKD-EPI)NonAf 56.37 Random Glucose 181 H Calcium 7.1 L Phosphorus 2.5 Magnesium 2.0 04/11/20 05:30 WBC RBC Hgb Hct MCV MCH MCHC RDW Plt Count MPV Anticoagulation Therapy No Result Required. Puncture Site Right radial ABG pH 7.51 H ABG pCO2 at Pt Temp 44.6 ABG pO2 at Pt Temp 249.2 H ABG HCO3 35.4 H ABG O2 Sat (Measured) 99.6 H ABG O2 Content No Result Required. ABG Base Excess 11.5 H Wally Test Positive Patient On Oxygen Yes O2 Delivery Device Vent Oxygen Flow Rate 100% Vent Mode A/c Vent Rate 18 Mechanical Rate No Result Required. PEEP 10.0 Pressure Support Vent 400 Sodium Potassium Chloride Carbon Dioxide Anion Gap BUN Creatinine Est GFR (CKD-EPI)AfAm Est GFR (CKD-EPI)NonAf Random Glucose Calcium Phosphorus Magnesium Active Medications Generic Name Dose Route Start Last Admin Trade Name Freq PRN Reason Stop Dose Admin Acetaminophen 1,000 mg 04/08/20 08:58 Ofirmev Injection - IVPB Q6H PRN FEVER Acetylcysteine 200 mg 04/10/20 12:00 04/11/20 08:10 Mucomyst 20 Oral / Inh Use Only* NEB 200 mg RQID EAN Administration Albuterol Sulfate 1 amp 04/10/20 12:00 04/11/20 08:10 Ventolin 0.083% Nebulizer Soln - NEB 1 amp RQID EAN Administration Chlorhexidine Gluconate 1 applic 04/07/20 22:00 04/10/20 21:06 Hibiclens For Decolonization - TP 1 applic HS EAN Administration Heparin Sodium (Porcine) 5,000 unit 04/10/20 15:15 04/11/20 10:43 Heparin - SQ 5,000 unit BID EAN Administration Midazolam HCl 100 mg/ Sodium 100 mls @ 1 mls/hr 04/07/20 18:20 04/10/20 21:05 Chloride IVPB 10 mg/hr TITR EAN 10 mls/hr Administration Protocol 1 MG/HR Norepinephrine Bitartrate 16,000 mcg in 500 mls @ 9.375 mls/hr 04/08/20 02:30 04/11/20 08:17 Levophed Bag IVPB 8 mcg/min TITR EAN 15 mls/hr Titration Protocol 5 MCG/MIN Sodium Chloride 1,000 mls @ 75 mls/hr 04/09/20 11:00 04/10/20 11:23 Normal Saline - IV 75 mls/hr ASDIR EAN Administration Cefepime HCl 1 gm/ Dextrose 100 mls @ 100 mls/hr 04/09/20 11:45 04/11/20 10:43 IVPB 100 mls/hr BID EAN Administration Protocol Vancomycin HCl 1,000 mg in 250 mls @ 166.667 mls/hr 04/10/20 09:45 04/11/20 10:43 Vancomycin (Pre-Docked) IVPB 166.667 mls/hr Q24H EAN Administration Protocol Metoprolol Tartrate 5 mg 04/07/20 22:50 Lopressor Injection - IVPUSH Q4H PRN TACHYCARDIA Mupirocin 1 applic 04/07/20 22:00 04/11/20 10:43 Bactroban Ointment (For Decolonization) - NS 04/12/20 21:59 1 applic BID EAN Administration Pantoprazole Sodium 40 mg 04/08/20 10:00 04/11/20 10:43 Protonix Iv IVPUSH 40 mg DAILY EAN Administration ASSESSMENT/PLAN: 79YOM with CHF, COPD, CVA, HTN, HLD, and A-fib on Eliquis BIBEMS from [facility] for seizure-like episode (likely rigors 2/2 sepsis), found in ED to be septic with UTI suspected source, needed to be intubated for respiratory failure. #Neuro / Psych: Reported seizure-like activity, likely rigors in the setting of sepsis, not witnessed again Serial neuro checks sedated on versed 7 #Cardiovascular: CHF exacerbation, troponinemia holding eliquis due to bleeding- will reconsider in the am ppx dose- HSQ, if pt tolerates and hb stable, will restart eliquis on levo 10 #Pulm Pulmonary edema, b/l pleural effusions, COPD exacerbation given COPD history, pt likely has pulmonary HTN- ECHO showing moderate/severe , pulm htn CXR: recurrent left hemithorax atelectasis Bronchoscopy performed (04/10/2020) and multiple mucus plugs removed. N- acetylcysteine given. Post - bronch CXR atalectasis resolved CXR this am shows recurrent atalectasis. Will attempt directed suction with cudet catheter Albuterol nebs #Gastrointestinal: PEG tube feeds #Genitourinary: Continue Saavedra Monitor I/O Serial BUN/Cr especially given need for diuresis IVF at 73 #Infectious Disease: Meropenem d/daria Cefepime (started 04/09/2020) ID onboard FEN: lytes WNL, replete PRN Feeds started IVF at 73 Prophylaxis: DVT: Hold Eliquis, start heparin sq for now GI: Protonix qd Lines: Right IJ placed 04/09/2020 Dispo: cont abx, cont fluids, reposition pt to ventilate better, percussion modu lator, tube irrigation as needed, s/p bronchoscopy Visit type - Emergency Visit Emergency Visit: No - New Patient This patient is new to me today: No - Critical Care Critical Care patient: Yes Total Critical Care Time (in minutes): 36 Critical Care Statement: The care of this patient involved high complexity decision making to prevent further life threatening deterioration of the patient's condition and/or to evaluate & treat vital organ system(s) failure or risk of failure. ATTENDING PHYSICIAN STATEMENT I saw and evaluated the patient. I reviewed the resident's note and discussed the case with the resident. I agree with the resident's findings and plan as documented. SUBJECTIVE: OBJECTIVE: ASSESSMENT AND PLAN:
--- NOTE | 2020-04-11 11:47 | PN ---
Progress Note, Physician History of Present Illness: SEDATED ON VENTILATOR BREATHING NON LABORED AFEBRILE WBC IMPROVED WNL AZOTEMIA RESOLVED CXR BETTER AERATION L LUNG FIELD - Current Medication List Current Medications: Active Medications Acetaminophen (Ofirmev Injection -) 1,000 mg IVPB Q6H PRN PRN Reason: FEVER Acetylcysteine (Mucomyst 20 Oral / Inh Use Only*) 200 mg NEB RQID EAN Last Admin: 04/11/20 08:10 Dose: 200 mg Documented by: Albuterol Sulfate (Ventolin 0.083% Nebulizer Soln -) 1 amp NEB RQID EAN Last Admin: 04/11/20 08:10 Dose: 1 amp Documented by: Chlorhexidine Gluconate (Hibiclens For Decolonization -) 1 applic TP HS [facility]AN Last Admin: 04/10/20 21:06 Dose: 1 applic Documented by: Heparin Sodium (Porcine) (Heparin -) 5,000 unit SQ BID EAN Last Admin: 04/11/20 10:43 Dose: 5,000 unit Documented by: Midazolam HCl 100 mg/ Sodium (Chloride) 100 mls @ 1 mls/hr IVPB TITR [facility]; Protocol Last Admin: 04/10/20 21:05 Dose: 10 mg/hr, 10 mls/hr Documented by: Norepinephrine Bitartrate (Levophed Bag) 16,000 mcg in 500 mls @ 9.375 mls/hr IVPB TITR [facility]; Protocol Last Titration: 04/11/20 08:17 Dose: 8 mcg/min, 15 mls/hr Documented by: Sodium Chloride (Normal Saline -) 1,000 mls @ 75 mls/hr IV ASDIR EAN Last Admin: 04/10/20 11:23 Dose: 75 mls/hr Documented by: Cefepime HCl 1 gm/ Dextrose 100 mls @ 100 mls/hr IVPB BID [facility]; Protocol Last Admin: 04/11/20 10:43 Dose: 100 mls/hr Documented by: Vancomycin HCl (Vancomycin (Pre-Docked)) 1,000 mg in 250 mls @ 166.667 mls/hr IVPB Q24H [facility]; Protocol Last Admin: 04/11/20 10:43 Dose: 166.667 mls/hr Documented by: Metoprolol Tartrate (Lopressor Injection -) 5 mg IVPUSH Q4H PRN PRN Reason: TACHYCARDIA Mupirocin (Bactroban Ointment (For Decolonization) -) 1 applic NS BID [facility] Stop: 04/12/20 21:59 Last Admin: 04/11/20 10:43 Dose: 1 applic Documented by: Pantoprazole Sodium (Protonix Iv) 40 mg IVPUSH DAILY [facility] Last Admin: 04/11/20 10:43 Dose: 40 mg Documented by: - Objective Vital Signs: Vital Signs Temperature 98.1 F 04/11/20 07:00 Pulse Rate 85 04/11/20 11:00 Respiratory Rate 18 04/11/20 11:00 Blood Pressure 120/59 L 04/11/20 11:00 O2 Sat by Pulse Oximetry (%) 100 04/11/20 09:00 Constitutional: Yes: No Distress Eyes: Yes: Conjunctiva Clear Cardiovascular: Yes: Regular Rate and Rhythm, S1, S2 Respiratory: Yes: Mechanically Ventilated Gastrointestinal: Yes: Normal Bowel Sounds, Soft. No: Tenderness Edema: Yes Labs: CBC, BMP 04/11/20 05:30 04/11/20 05:30 INR, PTT INR 1.49 (0.83-1.09) H 04/08/20 05:20 Assessment/Plan ACUTE RESP FAILURE SEPSIS/ SEPTIC SHOCK LACTIC ACIDOSIS S/P SEIZURE PROBABLE ASP PNEUMONIA OPACIFIED L HEMITHORAX IMPROVED COPD AZOTEMIA IMPROVED PCN ALLERGY COVID-19 (-) CONTINUE CEFEPIME; VANCOMYCIN PER LEVEL VENTILATORY/ HEMODYNAMIC SUPPORT PROGNOSIS GUARDED
--- NOTE | 2020-04-11 13:21 | EKG ---
Test Reason : Blood Pressure : / mmHG Vent. Rate : 088 BPM Atrial Rate : 092 BPM P-R Int : 000 ms QRS Dur : 080 ms QT Int : 392 ms P-R-T Axes : 000 -24 -27 degrees QTc Int : 474 ms ATRIAL FIBRILLATION INFERIOR INFARCT , AGE UNDETERMINED ABNORMAL ECG WHEN COMPARED WITH ECG OF 07-APR-2020 14:27, INFERIOR INFARCT IS NOW PRESENT NONSPECIFIC T WAVE ABNORMALITY, WORSE IN ANTERIOR LEADS Confirmed by MD PATRICIA, RYLEE ([id number]) on 04/11/2020 1:21:08 PM Referred By: Confirmed By:RYLEE GOMEZ MD
[2020-04-11] MEDS: MIDAZOLAM 100 MG in SODIUM CHLORIDE 100 ML IVPB SCH (17:35)
[2020-04-11] MEDS: SODIUM CHLORIDE 1,000 ML IV SCH (17:35)
[2020-04-11] MEDS: CHLORHEXIDINE GLUCONATE 4% CLEANSER FOR DECOLONIZATION TP SCH (21:36)
[2020-04-12] MEDS ORDERED: CEFEPIME HCL 1 GM VIAL (RESTRICTED TO ID) ONE ×3 (02:43→15:24)
[2020-04-12] MEDS ORDERED: DEXTROSE 5%-WATER 100 ML IVPB ONE ×3 (02:43→15:24)
[2020-04-12] MEDS: NOREPINEPHRINE D5W PREMIX 16,000 MCG/500 ML BAG IVPB SCH (02:47)
[2020-04-12] MEDS: CEFEPIME 1 GM in DEXTROSE 5%-WATER 100 ML IVPB SCH ×3 (02:47→17:07)
[2020-04-12] MEDS ORDERED: MIDAZOLAM IN 0.9 % SOD.CHLORID 1 MG/1 ML PLAST..BAG ONE (03:13)
[2020-04-12 05:56] LABS: BASO % 0.5 % (0-2.0); EOS % 2.2 % (0-4.5); HEMATOCRIT 20.4 % (35.4-49); LYMPH % 9.5 % (8-40); MCH 29.9 pg (25.7-33.7); MCHC 33.5 g/dl (32.0-35.9); MEAN CELL VOLUME 89.1 fl (80-96); MEAN PLT VOLUME 7.1 fl (7.5-11.1); MONO % 12.6 % (3.8-10.2); NEUT % 75.2 % (42.8-82.8); PLATELET COUNT 223 K/MM3 (134-434); RBC 2.29 M/mm3 (4.00-5.60); RDW 18.4 % (11.9-15.9); WHITE BLOOD COUNT 6.9 K/mm3 (4.0-10.0)
[2020-04-12 06:14] LABS: ALBUMIN 1.2 g/dl (3.4-5.0); BILIRUBIN,TOTAL 0.4 mg/dL (0.2-1); BLOOD UREA NITROGEN 55.7 mg/dL (7-18); CALCIUM 7.2 mg/dL (8.5-10.1)
[2020-04-12 06:18] LABS: HEMOGLOBIN 6.8 GM/dL (11.7-16.9)
[2020-04-12] MEDS: ALBUTEROL SO4 0.083% IH SOL 2.5 MG/3 ML VIAL.NEB. NEB SCH ×4 (08:05→20:38)
[2020-04-12] MEDS: ACETYLCYSTEINE 20% 200MG/ML 4 ML VIAL *FOR ORAL / INH USE ONLY NEB SCH ×4 (08:05→20:38)
[2020-04-12] MEDS: VANCOMYCIN 1 GRAM (PRE-DOCKED) 1,000 MG/250 ML BAG IVPB SCH (09:43)
[2020-04-12] MEDS: PANTOPRAZOLE SODIUM 40 MG VIAL IVPUSH SCH (09:44)
[2020-04-12] MEDS: HEPARIN NA (PORCINE) 5,000 UNITS/ML 1ML VIAL SQ SCH (09:44)
[2020-04-12] MEDS: MUPIROCIN 2% TOPICAL OINTMENT FOR DECOLONIZATION NS SCH (09:44)
--- NOTE | 2020-04-12 10:43 | PN ---
Teaching Attending Note Name of Resident: Wilman Connolly ATTENDING PHYSICIAN STATEMENT I saw and evaluated the patient. I reviewed the resident's note and discussed the case with the resident. I agree with the resident's findings and plan as documented. SUBJECTIVE: Pt seen and examined in the ICU. Intubated, sedated on lower dose levophed gtt. Vented on volume assist control with 40% FiO2. OBJECTIVE: Vital Signs Period Temp Pulse Resp BP Sys/Cesar Pulse Ox Last 24 Hr 97.4 F-97.8 F 80-90 18-19 109-139/32-60 94-100 Intake & Output 04/09/20 04/10/20 04/11/20 04/12/20 23:59 23:59 23:59 23:59 Intake Total 1492 1983 2849 1442 Output Total 073 266 6468 1200 Balance 892 1083 1749 242 Weight 95.254 kg 97.341 kg 96.116 kg Gen: intubated, sedated Heart: RRR Lung: decreased breath sounds left Abd: soft, nontender, +PEG Ext: no edema CXR: L opacification CBC, BMP 04/12/20 05:10 04/12/20 05:10 Active Medications Acetaminophen (Ofirmev Injection -) 1,000 mg IVPB Q6H PRN PRN Reason: FEVER Acetylcysteine (Mucomyst 20 Oral / Inh Use Only*) 200 mg NEB RQID [facility] Last Admin: 04/12/20 08:05 Dose: 200 mg Documented by: Albuterol Sulfate (Ventolin 0.083% Nebulizer Soln -) 1 amp NEB RQID [facility] Last Admin: 04/12/20 08:05 Dose: 1 amp Documented by: Chlorhexidine Gluconate (Hibiclens For Decolonization -) 1 applic TP HS [facility] Last Admin: 04/11/20 21:36 Dose: 1 applic Documented by: Heparin Sodium (Porcine) (Heparin -) 5,000 unit SQ BID [facility] Last Admin: 04/12/20 09:44 Dose: 5,000 unit Documented by: Midazolam HCl 100 mg/ Sodium (Chloride) 100 mls @ 1 mls/hr IVPB TITR [facility]; Protocol Last Titration: 04/12/20 09:10 Dose: 0 mg/hr, 0 mls/hr Documented by: Norepinephrine Bitartrate (Levophed Bag) 16,000 mcg in 500 mls @ 9.375 mls/hr IVPB TITR [facility]; Protocol Last Admin: 04/12/20 02:47 Dose: 2 mcg/min, 3.75 mls/hr Documented by: Sodium Chloride (Normal Saline -) 1,000 mls @ 75 mls/hr IV ASDIR [facility] Last Admin: 04/11/20 17:35 Dose: 75 mls/hr Documented by: Vancomycin HCl (Vancomycin (Pre-Docked)) 1,000 mg in 250 mls @ 166.667 mls/hr IVPB Q24H [facility]; Protocol Last Admin: 04/12/20 09:43 Dose: 166.667 mls/hr Documented by: Cefepime HCl 1 gm/ Dextrose 100 mls @ 200 mls/hr IVPB Q8H-IV [facility]; Protocol Last Admin: 04/12/20 09:44 Dose: 200 mls/hr Documented by: Propofol (Diprivan -) 1,000,000 mcg in 100 mls @ 2.883 mls/hr IVPB TITR [facility]; Protocol Metoprolol Tartrate (Lopressor Injection -) 5 mg IVPUSH Q4H PRN PRN Reason: TACHYCARDIA Mupirocin (Bactroban Ointment (For Decolonization) -) 1 applic NS BID [facility] Stop: 04/12/20 21:59 Last Admin: 04/12/20 09:44 Dose: 1 applic Documented by: Pantoprazole Sodium (Protonix Iv) 40 mg IVPUSH DAILY [facility] Last Admin: 04/12/20 09:44 Dose: 40 mg Documented by: ASSESSMENT AND PLAN: Acute Hypoxic Respiratory Failure Pneumonia/Atelectasis UTI Septic Shock Lactic Acidosis Acute Kidney Injury +Troponins likely Demand Ischemia Atrial Fibrillation LV Diastolic Dysfunction Pulmonary HTN COPD HTN Hyperlipidemia - may need repeat bronchoscopy - continue antibiotics - d/c IVF - monitor urine output, creatinine - titrate pressors to maintain MAP >65 - rate control - continue anticoagulation - inhaled bronchodilators/mucolytics - taper FiO2 to keep SpO2 >90% - continue volume assist control - daily sedation vacation to assess mental status - enteral feeds - DVT/GI prophylaxis - continue ICU monitoring critical care time spent in reviewing chart, evaluating patient and formulating plan 35 min
[2020-04-12] MEDS ORDERED: ACETYLCYSTEINE 20% 200MG/ML 4 ML VIAL *FOR ORAL / INH USE ONLY PO ONE (10:57)
[2020-04-12] MEDS: PROPOFOL 1,000,000 MCG/100 ML VIAL IVPB SCH (11:25)
--- NOTE | 2020-04-12 11:57 | PN ---
Physical Exam: SUBJECTIVE: Patient seen and examined. Afebrile overnight. Hb droped to 6.8. 2 U PRBC ordered. On versed, NE. Started on propofol. OBJECTIVE: Vital Signs Period Temp Pulse Resp BP Sys/Cesar Pulse Ox Last 24 Hr 97.4 F-97.8 F 80-96 18-19 109-139/32-63 94-100 GENERAL: The patient is intubated and sedated. NECK: Trachea midline, full range of motion, supple. LUNGS: Breath sounds equal, clear to auscultation bilaterally, no wheezes, no crackles, no accessory muscle use. HEART: Regular rate and rhythm, S1, S2 without murmur, rub or gallop. ABDOMEN: Soft, nontender, nondistended, normoactive bowel sounds, no guarding, no rebound, no hepatosplenomegaly, no masses. EXTREMITIES: 2+ pulses, warm, well-perfused, no edema. NEUROLOGICAL: unable to obtain as patient sedated. Laboratory Results - last 24 hr 04/12/20 04/12/20 04/12/20 05:10 05:10 07:10 WBC 6.9 RBC 2.29 L Hgb 6.8 L* Hct 20.4 L MCV 89.1 MCH 29.9 MCHC 33.5 RDW 18.4 H Plt Count 223 MPV 7.1 L Absolute Neuts (auto) 5.2 Neutrophils % 75.2 Lymphocytes % 9.5 D Monocytes % 12.6 H Eosinophils % 2.2 D Basophils % 0.5 Nucleated RBC % 0 Sodium 137 Potassium 4.0 Chloride 99 Carbon Dioxide 34 H Anion Gap 3 L BUN 55.7 H Creatinine 1.0 Est GFR (CKD-EPI)AfAm 81.45 Est GFR (CKD-EPI)NonAf 70.27 Random Glucose 152 H Calcium 7.2 L Total Bilirubin 0.4 AST 26 ALT 9 L Alkaline Phosphatase 115 Total Protein 5.0 L Albumin 1.2 L Blood Type O POSITIVE Antibody Screen Negative Crossmatch See Detail Active Medications Generic Name Dose Route Start Last Admin Trade Name Freq PRN Reason Stop Dose Admin Acetaminophen 1,000 mg 04/08/20 08:58 Ofirmev Injection - IVPB Q6H PRN FEVER Acetylcysteine 200 mg 04/10/20 12:00 04/12/20 08:05 Mucomyst 20 Oral / Inh Use Only* NEB 200 mg RQID EAN Administration Albuterol Sulfate 1 amp 04/10/20 12:00 04/12/20 08:05 Ventolin 0.083% Nebulizer Soln - NEB 1 amp RQID EAN Administration Chlorhexidine Gluconate 1 applic 04/07/20 22:00 04/11/20 21:36 Hibiclens For Decolonization - TP 1 applic HS EAN Administration Heparin Sodium (Porcine) 5,000 unit 04/10/20 15:15 04/12/20 09:44 Heparin - SQ 5,000 unit BID EAN Administration Midazolam HCl 100 mg/ Sodium 100 mls @ 1 mls/hr 04/07/20 18:20 04/12/20 09:10 Chloride IVPB 0 mg/hr TITR EAN 0 mls/hr Titration Protocol 1 MG/HR Norepinephrine Bitartrate 16,000 mcg in 500 mls @ 9.375 mls/hr 04/08/20 02:30 04/12/20 02:47 Levophed Bag IVPB 2 mcg/min TITR EAN 3.75 mls/hr Administration Protocol 5 MCG/MIN Sodium Chloride 1,000 mls @ 75 mls/hr 04/09/20 11:00 04/11/20 17:35 Normal Saline - IV 75 mls/hr ASDIR EAN Administration Vancomycin HCl 1,000 mg in 250 mls @ 166.667 mls/hr 04/10/20 09:45 04/12/20 09:43 Vancomycin (Pre-Docked) IVPB 166.667 mls/hr Q24H EAN Administration Protocol Cefepime HCl 1 gm/ Dextrose 100 mls @ 200 mls/hr 04/11/20 18:00 04/12/20 09:44 IVPB 200 mls/hr Q8H-IV EAN Administration Protocol Propofol 1,000,000 mcg in 100 mls @ 2.883 mls/hr 04/12/20 10:30 04/12/20 11:25 Diprivan - IVPB 10 mcg/kg/min TITR EAN 5.767 mls/hr Administration Protocol 5 MCG/KG/MIN Metoprolol Tartrate 5 mg 04/07/20 22:50 Lopressor Injection - IVPUSH Q4H PRN TACHYCARDIA Mupirocin 1 applic 04/07/20 22:00 04/12/20 09:44 Bactroban Ointment (For Decolonization) - NS 04/12/20 21:59 1 applic BID EAN Administration Pantoprazole Sodium 40 mg 04/08/20 10:00 04/12/20 09:44 Protonix Iv IVPUSH 40 mg DAILY EAN Administration ASSESSMENT/PLAN: 79YOM with CHF, COPD, CVA, HTN, HLD, and A-fib on Eliquis BIBEMS from [facility] for seizure-like episode, found in ED to be septic with UTI suspected source, needed to be intubated for respiratory failure. #Neuro / Psych: Reported seizure-like activity, likely rigors in the setting of sepsis, not witnessed again Serial neuro checks sedated on versed 10 #Cardiovascular: CHF exacerbation, troponinemia holding eliquis due to bleeding- Hb dropping, will reassess in am For now will place pt on ppx dose- heparin(On Hold), if pt tolerates and hb stable, will restart eliquis on levo 2 #Pulm Pulmonary edema, b/l pleural effusions, COPD exacerbation given COPD history, pt likely has pulmonary HTN- ECHO showing moderate/severe , pulm htn CXR: persistent left hemithorax atelectasis, pleural effusion 2nd Bronchoscopy performed and multiple mucus plugs removed 2nd time Consent in file R/p CXR pending #Gastrointestinal: started feeds PEG tube feeds #Heme Hb dropped to 6.8 2 U PRBC ordered #Genitourinary: Continue Saavedra Monitor I/O Serial BUN/Cr especially given need for diuresis IVF d/daria #Infectious Disease: Meropenem d/daria Cefepime started D4 Vanc D3 ID onboard FEN: lytes WNL, replete PRN Feeds started IVF d/daria Prophylaxis: DVT: Hold heparin GI: Protonix qd Lines: Right IJ placed 04/09 Dispo: cont abx, reposition pt to ventilate better, percussion modulator, tube irrigation as needed, s/p bronchoscopy, hold heparin Visit type - Emergency Visit Emergency Visit: Yes ED Registration Date: 04/07/20 Care time: The patient presented to the Emergency Department on the above date and was hospitalized for further evaluation of their emergent condition. - New Patient This patient is new to me today: Yes Date on this admission: 04/18/20 - Critical Care Critical Care patient: No - Discharge Referral Referred to [facility] Med P.C.: No ATTENDING PHYSICIAN STATEMENT I saw and evaluated the patient. I reviewed the resident's note and discussed the case with the resident. I agree with the resident's findings and plan as documented. SUBJECTIVE: OBJECTIVE: ASSESSMENT AND PLAN:
--- NOTE | 2020-04-12 12:07 | PROC ---
Procedure Note Procedure: BRONCHOSCOPY NOTE After obtaining informed consent, the Glidescope BFlex bronchoscope was passed via the ETT and the airways were examined down to the subsegmental level. The left mainstem bronchus was occluded by thick bloody secretions which were lavaged easily with saline. Post washings, the left lung was examined and no endobronchial lesions noted. Mucomyst instilled into the LLL bronchus. Bronchoscope was then withdrawn and the procedure terminated. No immediate complications. Pre-op Dx: Atelectasis Post-op Dx: same Pietro Harris MD
[2020-04-12] MEDS ORDERED: MAGNESIUM SULF 50% (8.12 MEQ/2 ML-1 GM VIAL) IVPB ONE ×2 (14:01→23:33)
--- NOTE | 2020-04-12 15:18 | PN ---
Progress Note, Physician History of Present Illness: SEDATED ON VENTILATOR BREATHING NON LABORED AFEBRILE WBC IMPROVED WNL AZOTEMIA RESOLVED CXR BETTER AERATION L LUNG FIELD - Current Medication List Current Medications: Active Medications Acetaminophen (Ofirmev Injection -) 1,000 mg IVPB Q6H PRN PRN Reason: FEVER Acetylcysteine (Mucomyst 20 Oral / Inh Use Only*) 200 mg NEB RQID EAN Last Admin: 04/12/20 11:35 Dose: 200 mg Documented by: Albuterol Sulfate (Ventolin 0.083% Nebulizer Soln -) 1 amp NEB RQID EAN Last Admin: 04/12/20 11:35 Dose: 1 amp Documented by: Chlorhexidine Gluconate (Hibiclens For Decolonization -) 1 applic TP HS EAN Last Admin: 04/11/20 21:36 Dose: 1 applic Documented by: Heparin Sodium (Porcine) (Heparin -) 5,000 unit SQ BID EAN Last Admin: 04/12/20 09:44 Dose: 5,000 unit Documented by: Midazolam HCl 100 mg/ Sodium (Chloride) 100 mls @ 1 mls/hr IVPB TITR EAN; Protocol Last Titration: 04/12/20 09:10 Dose: 0 mg/hr, 0 mls/hr Documented by: Norepinephrine Bitartrate (Levophed Bag) 16,000 mcg in 500 mls @ 9.375 mls/hr IVPB TITR EAN; Protocol Last Titration: 04/12/20 13:55 Dose: 10 mcg/min, 18.75 mls/hr Documented by: Vancomycin HCl (Vancomycin (Pre-Docked)) 1,000 mg in 250 mls @ 166.667 mls/hr IVPB Q24H EAN; Protocol Last Admin: 04/12/20 09:43 Dose: 166.667 mls/hr Documented by: Cefepime HCl 1 gm/ Dextrose 100 mls @ 200 mls/hr IVPB Q8H-IV EAN; Protocol Last Admin: 04/12/20 09:44 Dose: 200 mls/hr Documented by: Propofol (Diprivan -) 1,000,000 mcg in 100 mls @ 2.883 mls/hr IVPB TITR EAN; Protocol Last Titration: 04/12/20 13:55 Dose: 6 mcg/kg/min, 3.46 mls/hr Documented by: Metoprolol Tartrate (Lopressor Injection -) 5 mg IVPUSH Q4H PRN PRN Reason: TACHYCARDIA Mupirocin (Bactroban Ointment (For Decolonization) -) 1 applic NS BID [facility] Stop: 04/12/20 21:59 Last Admin: 04/12/20 09:44 Dose: 1 applic Documented by: Pantoprazole Sodium (Protonix Iv) 40 mg IVPUSH DAILY [facility] Last Admin: 04/12/20 09:44 Dose: 40 mg Documented by: - Objective Vital Signs: Vital Signs Temperature 97.5 F L 04/12/20 12:00 Pulse Rate 94 H 04/12/20 14:27 Respiratory Rate 22 H 04/12/20 14:27 Blood Pressure 108/48 L 04/12/20 14:27 O2 Sat by Pulse Oximetry (%) 100 04/11/20 20:57 Constitutional: Yes: No Distress, Pallor Cardiovascular: Yes: Regular Rate and Rhythm, S1, S2 Respiratory: Yes: Mechanically Ventilated Gastrointestinal: Yes: Normal Bowel Sounds, Soft. No: Tenderness Edema: Yes Labs: CBC, BMP 04/12/20 05:10 04/12/20 05:10 INR, PTT INR 1.49 (0.83-1.09) H 04/08/20 05:20 Assessment/Plan ACUTE RESP FAILURE SEPSIS/ SEPTIC SHOCK LACTIC ACIDOSIS S/P SEIZURE PROBABLE ASP PNEUMONIA OPACIFIED L HEMITHORAX IMPROVED COPD AZOTEMIA IMPROVED PCN ALLERGY COVID-19 (-) CONTINUE CEFEPIME/ VANCOMYCIN VENTILATORY/ HEMODYNAMIC SUPPORT PROGNOSIS GUARDED
[2020-04-12 19:17] LABS: BLOOD UREA NITROGEN 50.3 mg/dL (7-18); CALCIUM 7.7 mg/dL (8.5-10.1); POTASSIUM 4.2 mmol/L (3.5-5.1)
[2020-04-12 19:20] LABS: HEMATOCRIT 29.2 % (35.4-49); HEMOGLOBIN 9.7 GM/dL (11.7-16.9); MCH 29.3 pg (25.7-33.7); MCHC 33.1 g/dl (32.0-35.9); MEAN CELL VOLUME 88.5 fl (80-96); MEAN PLT VOLUME 7.3 fl (7.5-11.1); PLATELET COUNT 256 K/MM3 (134-434); RDW 17.2 % (11.9-15.9); WHITE BLOOD COUNT 9.2 K/mm3 (4.0-10.0)
[2020-04-12] MEDS: CHLORHEXIDINE GLUCONATE 4% CLEANSER FOR DECOLONIZATION TP SCH (21:50)
[2020-04-12] MEDS: MIDAZOLAM 100 MG in SODIUM CHLORIDE 100 ML IVPB SCH (21:50)
[2020-04-12 22:45] LABS: MAGNESIUM 2.3 mg/dL (1.8-2.4)
[2020-04-12] MEDS ORDERED: VASOPRESSIN 20 UNITS/ML VIAL IV ONE (23:12)
[2020-04-12] MEDS ORDERED: VASOPRESSIN 40 UNITS in SODIUM CHLORIDE 98 ML IVPB SCH (23:15)
[2020-04-12] MEDS ORDERED: MAGNESIUM SULF 50% (8.12 MEQ/2 ML-1 GM VIAL) ONE (23:30)
[2020-04-13] MEDS ORDERED: PHENYLEPHRINE HCL 10 MG/1 ML SINGLE DOSE VIAL ONE (00:37)
[2020-04-13] MEDS ORDERED: PHENYLEPHRINE NS PREMIX 50,000 MCG/500 ML BAG CVP SCH (00:45)
[2020-04-13] MEDS ORDERED: CEFEPIME HCL 1 GM VIAL (RESTRICTED TO ID) ONE ×3 (01:00→15:39)
[2020-04-13] MEDS ORDERED: DEXTROSE 5%-WATER 100 ML IVPB ONE ×3 (01:00→15:39)
[2020-04-13] MEDS: SODIUM CHLORIDE 1,000 ML IV SCH (01:07)
[2020-04-13] MEDS: CEFEPIME 1 GM in DEXTROSE 5%-WATER 100 ML IVPB SCH ×3 (01:08→17:05)
[2020-04-13] MEDS: NOREPINEPHRINE D5W PREMIX 16,000 MCG/500 ML BAG IVPB SCH (05:53)
[2020-04-13 06:57] LABS: HEMATOCRIT 28.2 % (35.4-49); HEMOGLOBIN 9.4 GM/dL (11.7-16.9); MCH 29.5 pg (25.7-33.7); MCHC 33.4 g/dl (32.0-35.9); MEAN CELL VOLUME 88.4 fl (80-96); MEAN PLT VOLUME 7.4 fl (7.5-11.1); PLATELET COUNT 265 K/MM3 (134-434); RBC 3.19 M/mm3 (4.00-5.60); RDW 17.3 % (11.9-15.9); WHITE BLOOD COUNT 10.8 K/mm3 (4.0-10.0)
[2020-04-13 07:32] LABS: CALCIUM 7.5 mg/dL (8.5-10.1); MAGNESIUM 2.5 mg/dL (1.8-2.4); PHOSPHOROUS 3.1 mg/dL (2.5-4.9); POTASSIUM 4.5 mmol/L (3.5-5.1)
[2020-04-13] MEDS: ACETYLCYSTEINE 20% 200MG/ML 4 ML VIAL *FOR ORAL / INH USE ONLY NEB SCH ×4 (07:50→20:30)
[2020-04-13] MEDS: ALBUTEROL SO4 0.083% IH SOL 2.5 MG/3 ML VIAL.NEB. NEB SCH ×4 (07:50→20:30)
[2020-04-13] MEDS: VANCOMYCIN 1 GRAM (PRE-DOCKED) 1,000 MG/250 ML BAG IVPB SCH (08:44)
[2020-04-13] MEDS: PANTOPRAZOLE SODIUM 40 MG VIAL IVPUSH SCH (09:06)
[2020-04-13] MEDS: PROPOFOL 1,000,000 MCG/100 ML VIAL IVPB SCH ×2 (09:14→20:40)
--- NOTE | 2020-04-13 10:38 | PN ---
Teaching Attending Note Name of Resident: Wilman Connolly ATTENDING PHYSICIAN STATEMENT I saw and evaluated the patient. I reviewed the resident's note and discussed the case with the resident. I agree with the resident's findings and plan as documented. SUBJECTIVE: Pt seen and examined in the ICU. Intubated, sedated on levophed gtt. Vented on volume assist control with 50% FiO2, PEEP 10. Left lung still up on AM CXR. OBJECTIVE: Vital Signs Period Temp Pulse Resp BP Sys/Cesar Pulse Ox Last 24 Hr 97.5 F-98.3 F 80-124 15-22 63-126/26-78 95-100 Intake & Output 04/10/20 04/11/20 04/12/20 04/13/20 23:59 23:59 23:59 23:59 Intake Total 1982 2849 2520 839 Output Total 900 1100 1600 600 Balance 1083 1749 920 239 Weight 97.341 kg 96.116 kg 94.4 kg Gen: intubated, sedated Heart: RRR Lung: decreased breath sounds left Abd: soft, nontender, +PEG Ext: no edema CXR: L opacification CBC, BMP 04/13/20 05:00 04/13/20 05:00 Active Medications Acetaminophen (Ofirmev Injection -) 1,000 mg IVPB Q6H PRN PRN Reason: FEVER Acetylcysteine (Mucomyst 20 Oral / Inh Use Only*) 200 mg NEB RQID EAN Last Admin: 04/13/20 07:50 Dose: 200 mg Documented by: Albuterol Sulfate (Ventolin 0.083% Nebulizer Soln -) 1 amp NEB RQID EAN Last Admin: 04/13/20 07:50 Dose: 1 amp Documented by: Chlorhexidine Gluconate (Hibiclens For Decolonization -) 1 applic TP HS [facility] Last Admin: 04/12/20 21:50 Dose: 1 applic Documented by: Heparin Sodium (Porcine) (Heparin -) 5,000 unit SQ BID EAN Last Admin: 04/12/20 09:44 Dose: 5,000 unit Documented by: Norepinephrine Bitartrate (Levophed Bag) 16,000 mcg in 500 mls @ 9.375 mls/hr IVPB TITR EAN; Protocol Last Admin: 04/13/20 05:53 Dose: 5 mcg/min, 9.375 mls/hr Documented by: Vancomycin HCl (Vancomycin (Pre-Docked)) 1,000 mg in 250 mls @ 166.667 mls/hr IVPB Q24H EAN; Protocol Last Admin: 04/13/20 08:44 Dose: 166.667 mls/hr Documented by: Cefepime HCl 1 gm/ Dextrose 100 mls @ 200 mls/hr IVPB Q8H-IV EAN; Protocol Last Admin: 04/13/20 09:07 Dose: 200 mls/hr Documented by: Propofol (Diprivan -) 1,000,000 mcg in 100 mls @ 2.883 mls/hr IVPB TITR EAN; Protocol Last Admin: 04/13/20 09:14 Dose: 5 mcg/kg/min, 2.883 mls/hr Documented by: Sodium Chloride (Normal Saline -) 1,000 mls @ 42 mls/hr IV ASDIR EAN Last Admin: 04/13/20 01:07 Dose: 42 mls/hr Documented by: Metoprolol Tartrate (Lopressor Injection -) 5 mg IVPUSH Q4H PRN PRN Reason: TACHYCARDIA Pantoprazole Sodium (Protonix Iv) 40 mg IVPUSH DAILY EAN Last Admin: 04/13/20 09:06 Dose: 40 mg Documented by: ASSESSMENT AND PLAN: Acute Hypoxic Respiratory Failure Pneumonia/Atelectasis s/p bronchoscopy x 2 UTI Septic Shock Lactic Acidosis Acute Kidney Injury +Troponins likely Demand Ischemia Atrial Fibrillation LV Diastolic Dysfunction Pulmonary HTN COPD HTN Hyperlipidemia - continue antibiotics - monitor urine output, creatinine - titrate pressors to maintain MAP >65 - rate control - continue anticoagulation - inhaled bronchodilators/mucolytics - taper FiO2 to keep SpO2 >90% - continue volume assist control - daily sedation vacation to assess mental status - enteral feeds - DVT/GI prophylaxis - continue ICU monitoring critical care time spent in reviewing chart, evaluating patient and formulating plan 35 min
--- NOTE | 2020-04-13 13:05 | PN ---
Physical Exam: SUBJECTIVE: Patient seen and examined. Afebrile overnight. Hb stable, s/p bronchoscopy. MAP low overnight, placed on pressors. OBJECTIVE: Vital Signs Period Temp Pulse Resp BP Sys/Cesar Pulse Ox Last 24 Hr 97.5 F-98.3 F 80-124 15-22 63-126/26-78 95-100 GENERAL: The patient is intubated and sedated. NECK: Trachea midline, full range of motion, supple. LUNGS: Breath sounds equal, clear to auscultation bilaterally, no wheezes, no crackles, no accessory muscle use. HEART: Regular rate and rhythm, S1, S2 without murmur, rub or gallop. ABDOMEN: Soft, nontender, nondistended, normoactive bowel sounds, no guarding, no rebound, no hepatosplenomegaly, no masses. EXTREMITIES: 2+ pulses, warm, well-perfused, no edema. NEUROLOGICAL: unable to obtain as patient sedated. Laboratory Results - last 24 hr 04/12/20 04/12/20 04/12/20 07:10 18:30 18:30 WBC 9.2 RBC 3.30 L Hgb 9.7 L Hct 29.2 L D MCV 88.5 MCH 29.3 MCHC 33.1 RDW 17.2 H Plt Count 256 MPV 7.3 L Sodium 135 L Potassium 4.2 Chloride 99 Carbon Dioxide 32 Anion Gap 4 L BUN 50.3 H Creatinine 1.0 Est GFR (CKD-EPI)AfAm 81.45 Est GFR (CKD-EPI)NonAf 70.27 Random Glucose 211 H Calcium 7.7 L Phosphorus Magnesium 2.3 Random Vancomycin Blood Type O POSITIVE Antibody Screen Negative Crossmatch See Detail 04/13/20 04/13/20 04/13/20 05:00 05:00 05:00 WBC 10.8 H RBC 3.19 L Hgb 9.4 L Hct 28.2 L MCV 88.4 MCH 29.5 MCHC 33.4 RDW 17.3 H Plt Count 265 MPV 7.4 L Sodium 135 L Potassium 4.5 Chloride 98 Carbon Dioxide 31 Anion Gap 7 L BUN 47.0 H Creatinine 1.0 Est GFR (CKD-EPI)AfAm 81.45 Est GFR (CKD-EPI)NonAf 70.27 Random Glucose 203 H Calcium 7.5 L Phosphorus 3.1 Magnesium 2.5 H Random Vancomycin 23.4 Blood Type Antibody Screen Crossmatch Active Medications Generic Name Dose Route Start Last Admin Trade Name Freq PRN Reason Stop Dose Admin Acetaminophen 1,000 mg 04/08/20 08:58 Ofirmev Injection - IVPB Q6H PRN FEVER Acetylcysteine 200 mg 04/10/20 12:00 04/13/20 11:45 Mucomyst 20 Oral / Inh Use Only* NEB 200 mg RQID EAN Administration Albuterol Sulfate 1 amp 04/10/20 12:00 04/13/20 11:45 Ventolin 0.083% Nebulizer Soln - NEB 1 amp RQID EAN Administration Chlorhexidine Gluconate 1 applic 04/07/20 22:00 04/12/20 21:50 Hibiclens For Decolonization - TP 1 applic HS EAN Administration Heparin Sodium (Porcine) 5,000 unit 04/10/20 15:15 04/12/20 09:44 Heparin - SQ 5,000 unit BID EAN Administration Norepinephrine Bitartrate 16,000 mcg in 500 mls @ 9.375 mls/hr 04/08/20 02:30 04/13/20 05:53 Levophed Bag IVPB 5 mcg/min TITR EAN 9.375 mls/hr Administration Protocol 5 MCG/MIN Vancomycin HCl 1,000 mg in 250 mls @ 166.667 mls/hr 04/10/20 09:45 04/13/20 08:44 Vancomycin (Pre-Docked) IVPB 166.667 mls/hr Q24H EAN Administration Protocol Cefepime HCl 1 gm/ Dextrose 100 mls @ 200 mls/hr 04/11/20 18:00 04/13/20 09:07 IVPB 200 mls/hr Q8H-IV EAN Administration Protocol Propofol 1,000,000 mcg in 100 mls @ 2.883 mls/hr 04/12/20 10:30 04/13/20 09:14 Diprivan - IVPB 5 mcg/kg/min TITR EAN 2.883 mls/hr Administration Protocol 5 MCG/KG/MIN Sodium Chloride 1,000 mls @ 42 mls/hr 04/13/20 00:45 04/13/20 01:07 Normal Saline - IV 42 mls/hr ASDIR EAN Administration Metoprolol Tartrate 5 mg 04/07/20 22:50 Lopressor Injection - IVPUSH Q4H PRN TACHYCARDIA Pantoprazole Sodium 40 mg 04/08/20 10:00 04/13/20 09:06 Protonix Iv IVPUSH 40 mg DAILY EAN Administration ASSESSMENT/PLAN: 79YOM with CHF, COPD, CVA, HTN, HLD, and A-fib on Eliquis BIBEMS from [facility] for seizure-like episode, found in ED to be septic with UTI suspected source, needed to be intubated for respiratory failure. #Neuro / Psych: Reported seizure-like activity, likely rigors in the setting of sepsis, not witnessed again Serial neuro checks sedated on prop 5 #Cardiovascular: CHF exacerbation, troponinemia For now will place pt on ppx dose- heparin, if pt tolerates and hb stable, will restart eliquis on levo 5 #Pulm Pulmonary edema, b/l pleural effusions, COPD exacerbation given COPD history, pt likely has pulmonary HTN- ECHO showing moderate/severe , pulm htn CXR: left hemithorax atelectasis improved 2nd Bronchoscopy performed and multiple mucus plugs removed 2nd time 16/400/40/5 Plat 20 PIP 24 vent pressures improved- cont to wean off #Gastrointestinal: started feeds/glucerna PEG tube feeds #Heme s/p 2 PRBC stable #Genitourinary: Continue Saavedra Monitor I/O Serial BUN/Cr especially given need for diuresis IVF at 40 #Infectious Disease: Meropenem d/daria Cefepime started D5 Vanc D4 ID onboard FEN: lytes WNL, replete PRN Feeds started IVF at 40 Prophylaxis: DVT: heparin GI: Protonix qd Lines: Right IJ placed 04/09 Dispo: cont abx, reposition pt to ventilate better, percussion modulator, tube irrigation as needed, s/p bronchoscopy Visit type - Emergency Visit Emergency Visit: Yes ED Registration Date: 04/07/20 Care time: The patient presented to the Emergency Department on the above date and was hospitalized for further evaluation of their emergent condition. - New Patient This patient is new to me today: Yes Date on this admission: 04/16/20 - Critical Care Critical Care patient: No - Discharge Referral Referred to [facility] Med P.C.: No ATTENDING PHYSICIAN STATEMENT I saw and evaluated the patient. I reviewed the resident's note and discussed the case with the resident. I agree with the resident's findings and plan as documented. SUBJECTIVE: OBJECTIVE: ASSESSMENT AND PLAN:
--- NOTE | 2020-04-13 13:29 | PN ---
Progress Note, Physician History of Present Illness: SEDATED ON VENTILATOR HYPOTENSIVE ON PRESSORS BREATHING NON LABORED AFEBRILE WBC SL ELEVATED AZOTEMIA RESOLVED VANCO LEVEL NOTED CXR BETTER AERATION L LUNG FIELD - Current Medication List Current Medications: Active Medications Acetaminophen (Ofirmev Injection -) 1,000 mg IVPB Q6H PRN PRN Reason: FEVER Acetylcysteine (Mucomyst 20 Oral / Inh Use Only*) 200 mg NEB RQID EAN Last Admin: 04/13/20 11:45 Dose: 200 mg Documented by: Albuterol Sulfate (Ventolin 0.083% Nebulizer Soln -) 1 amp NEB RQID EAN Last Admin: 04/13/20 11:45 Dose: 1 amp Documented by: Chlorhexidine Gluconate (Hibiclens For Decolonization -) 1 applic TP HS EAN Last Admin: 04/12/20 21:50 Dose: 1 applic Documented by: Heparin Sodium (Porcine) (Heparin -) 5,000 unit SQ BID EAN Last Admin: 04/12/20 09:44 Dose: 5,000 unit Documented by: Norepinephrine Bitartrate (Levophed Bag) 16,000 mcg in 500 mls @ 9.375 mls/hr IVPB TITR EAN; Protocol Last Admin: 04/13/20 05:53 Dose: 5 mcg/min, 9.375 mls/hr Documented by: Vancomycin HCl (Vancomycin (Pre-Docked)) 1,000 mg in 250 mls @ 166.667 mls/hr IVPB Q24H EAN; Protocol Last Admin: 04/13/20 08:44 Dose: 166.667 mls/hr Documented by: Cefepime HCl 1 gm/ Dextrose 100 mls @ 200 mls/hr IVPB Q8H-IV EAN; Protocol Last Admin: 04/13/20 09:07 Dose: 200 mls/hr Documented by: Propofol (Diprivan -) 1,000,000 mcg in 100 mls @ 2.883 mls/hr IVPB TITR EAN; Protocol Last Admin: 04/13/20 09:14 Dose: 5 mcg/kg/min, 2.883 mls/hr Documented by: Sodium Chloride (Normal Saline -) 1,000 mls @ 42 mls/hr IV ASDIR EAN Last Admin: 04/13/20 01:07 Dose: 42 mls/hr Documented by: Metoprolol Tartrate (Lopressor Injection -) 5 mg IVPUSH Q4H PRN PRN Reason: TACHYCARDIA Pantoprazole Sodium (Protonix Iv) 40 mg IVPUSH DAILY EAN Last Admin: 04/13/20 09:06 Dose: 40 mg Documented by: - Objective Vital Signs: Vital Signs Temperature 98.3 F 04/13/20 10:15 Pulse Rate 106 H 04/13/20 10:00 Respiratory Rate 16 04/13/20 12:05 Blood Pressure 100/73 04/13/20 10:00 O2 Sat by Pulse Oximetry (%) 96 04/13/20 12:05 Constitutional: Yes: No Distress Eyes: Yes: Conjunctiva Clear Cardiovascular: Yes: Regular Rate and Rhythm, S1, S2 Respiratory: Yes: Mechanically Ventilated Gastrointestinal: Yes: Normal Bowel Sounds, Soft, Abdomen, Obese. No: Tenderness Edema: Yes Labs: CBC, BMP 04/13/20 05:00 04/13/20 05:00 INR, PTT INR 1.49 (0.83-1.09) H 04/08/20 05:20 Assessment/Plan ACUTE RESP FAILURE SEPSIS/ SEPTIC SHOCK LACTIC ACIDOSIS S/P SEIZURE PROBABLE ASP PNEUMONIA + SPUTUM MRSA OPACIFIED L HEMITHORAX IMPROVED COPD AZOTEMIA IMPROVED PCN ALLERGY COVID-19 (-) CONTINUE CEFEPIME. HOLD VANCOMYCIN CHECK RANDOM LEVEL AM VENTILATORY/ HEMODYNAMIC SUPPORT PROGNOSIS GUARDED
[2020-04-13] MEDS ORDERED: BENZOIN/ALOE VERA/STORAX/TOLU 58 ML BOTTLE ONE (14:53)
[2020-04-13] MEDS: CHLORHEXIDINE GLUCONATE 4% CLEANSER FOR DECOLONIZATION TP SCH (22:09)
[2020-04-13] MEDS: HEPARIN NA (PORCINE) 5,000 UNITS/ML 1ML VIAL SQ SCH (22:09)
[2020-04-14] MEDS ORDERED: DEXTROSE 5%-WATER 100 ML IVPB ONE ×3 (01:41→18:08)
[2020-04-14] MEDS ORDERED: CEFEPIME HCL 1 GM VIAL (RESTRICTED TO ID) ONE ×3 (01:41→18:07)
[2020-04-14] MEDS: SODIUM CHLORIDE 1,000 ML IV SCH ×2 (01:45→18:24)
[2020-04-14] MEDS: NOREPINEPHRINE D5W PREMIX 16,000 MCG/500 ML BAG IVPB SCH ×2 (01:46→18:00)
[2020-04-14] MEDS: CEFEPIME 1 GM in DEXTROSE 5%-WATER 100 ML IVPB SCH ×3 (01:46→18:19)
[2020-04-14 07:22] LABS: HEMATOCRIT 27.6 % (35.4-49); HEMOGLOBIN 9.3 GM/dL (11.7-16.9); MCH 29.5 pg (25.7-33.7); MCHC 33.6 g/dl (32.0-35.9); MEAN CELL VOLUME 87.8 fl (80-96); MEAN PLT VOLUME 7.6 fl (7.5-11.1); PLATELET COUNT 286 K/MM3 (134-434); RBC 3.15 M/mm3 (4.00-5.60); RDW 17.5 % (11.9-15.9); WHITE BLOOD COUNT 9.7 K/mm3 (4.0-10.0)
[2020-04-14] MEDS: ALBUTEROL SO4 0.083% IH SOL 2.5 MG/3 ML VIAL.NEB. NEB SCH ×4 (07:30→20:15)
[2020-04-14] MEDS: ACETYLCYSTEINE 20% 200MG/ML 4 ML VIAL *FOR ORAL / INH USE ONLY NEB SCH ×4 (07:30→20:15)
[2020-04-14 07:45] LABS: BLOOD UREA NITROGEN 49.2 mg/dL (7-18); CALCIUM 7.4 mg/dL (8.5-10.1); CREATININE 1.1 mg/dL (0.55-1.3); MAGNESIUM 2.4 mg/dL (1.8-2.4); PHOSPHOROUS 3.1 mg/dL (2.5-4.9); POTASSIUM 4.4 mmol/L (3.5-5.1)
[2020-04-14] MEDS: HEPARIN NA (PORCINE) 5,000 UNITS/ML 1ML VIAL SQ SCH ×2 (10:24→21:07)
--- NOTE | 2020-04-14 10:32 | PN ---
Progress Note (short form) - Note Progress Note: sedated and intubated Vital Signs Period Temp Pulse Resp BP Sys/Cesar Pulse Ox Last 24 Hr 98.2 F-98.5 F 92-112 15-24 81-105/55-75 95-100 cor-rrr lungs decreased bs at bases abd soft,nt ext no edema CBC, BMP 04/14/20 06:00 04/14/20 06:00 Microbiology 04/12/20 05:52 Blood - Peripheral Venous Blood Culture - Preliminary Pending Organism 04/12/20 05:40 Blood - Peripheral Venous Blood Culture - Preliminary NO GROWTH OBTAINED AFTER 24 HOURS, INCUBATION TO CONTINUE FOR 4 DAYS. 04/07/20 13:50 Blood - Peripheral Venous Blood Culture - Final NO GROWTH AFTER 5 DAYS INCUBATION 04/07/20 14:00 Blood - Peripheral Venous Blood Culture - Final NO GROWTH AFTER 5 DAYS INCUBATION 04/09/20 22:20 Sputum - Endotrachea Suction/Ventilator Gram Stain - Final 04/09/20 22:20 Sputum - Endotrachea Suction/Ventilator Sputum Culture - Final S Aureus 04/07/20 15:50 Urine - Urine Saavedra Urine Culture - Final Normal Urogenital Carla cxray unchanged Laboratory Tests 04/14/20 06:00 Random Vancomycin 24.9 a/p resp failure pneumonia- MRSA now with positive blood culture continue vanco/cefepime pen allergly f/u blood culture in am repeat vanco trough in am
[2020-04-14] MEDS: PANTOPRAZOLE SODIUM 40 MG VIAL IVPUSH SCH (11:06)
[2020-04-14] MEDS: PROPOFOL 1,000,000 MCG/100 ML VIAL IVPB SCH ×2 (11:13→18:23)
--- NOTE | 2020-04-14 13:16 | PN ---
Progress Note (short form) - Note Progress Note: Progress Note Pulm/CCM Pt seen and examined in the ICU. Remains intubated and on pressors. Able to wean FiO2 to 50%. On propofol for sedation. Responding to tactile stimuli. Active Medications Acetaminophen (Ofirmev Injection -) 1,000 mg IVPB Q6H PRN PRN Reason: FEVER Acetylcysteine (Mucomyst 20 Oral / Inh Use Only*) 200 mg NEB RQID EAN Last Admin: 04/14/20 11:26 Dose: 200 mg Documented by: Albuterol Sulfate (Ventolin 0.083% Nebulizer Soln -) 1 amp NEB RQID EAN Last Admin: 04/14/20 11:26 Dose: 1 amp Documented by: Chlorhexidine Gluconate (Hibiclens For Decolonization -) 1 applic TP HS [facility] Last Admin: 04/13/20 22:09 Dose: 1 applic Documented by: Heparin Sodium (Porcine) (Heparin -) 5,000 unit SQ BID [facility] Last Admin: 04/14/20 10:24 Dose: 5,000 unit Documented by: Norepinephrine Bitartrate (Levophed Bag) 16,000 mcg in 500 mls @ 9.375 mls/hr IVPB TITR [facility]; Protocol Last Admin: 04/14/20 01:46 Dose: 5 mcg/min, 9.375 mls/hr Documented by: Cefepime HCl 1 gm/ Dextrose 100 mls @ 200 mls/hr IVPB Q8H-IV [facility]; Protocol Last Admin: 04/14/20 11:09 Dose: 200 mls/hr Documented by: Propofol (Diprivan -) 1,000,000 mcg in 100 mls @ 2.883 mls/hr IVPB TITR [facility]; Protocol Last Admin: 04/14/20 11:13 Dose: Not Given Documented by: Sodium Chloride (Normal Saline -) 1,000 mls @ 42 mls/hr IV ASDIR [facility] Last Admin: 04/14/20 01:45 Dose: 42 mls/hr Documented by: Metoprolol Tartrate (Lopressor Injection -) 5 mg IVPUSH Q4H PRN PRN Reason: TACHYCARDIA Pantoprazole Sodium (Protonix Iv) 40 mg IVPUSH DAILY [facility] Last Admin: 04/14/20 11:06 Dose: 40 mg Documented by: Vital Signs Period Temp Pulse Resp BP Sys/Cesar Pulse Ox Last 24 Hr 98.2 F-98.5 F 92-104 15-24 81-105/56-75 95-100 Intake & Output 04/11/20 04/12/20 04/13/20 04/14/20 23:59 23:59 23:59 23:59 Intake Total 2849 2520 2283 1014 Output Total 1100 1600 950 150 Balance 2142 900 9435 864 Weight 96.116 kg 94.4 kg 95.2 kg Gen: intubated, sedated Heart: RRR Lung: decreased breath sounds left Abd: soft, nontender, +PEG Ext: no edema Neuro: responsive to tactile CXR: bilat pleural effusions CBC, BMP 04/14/20 06:00 04/14/20 06:00 ABG Results ABG pH 7.51 (7.35-7.45) H 04/11/20 05:30 ABG pCO2 at Pt Temp 44.6 mmHg (35-45) 04/11/20 05:30 ABG pO2 at Pt Temp 249.2 mmHg (80-100) H 04/11/20 05:30 ABG HCO3 35.4 mmol/L (22-27) H 04/11/20 05:30 ABG O2 Sat (Measured) 99.6 % (95-98) H 04/11/20 05:30 ABG O2 Content No Result Required. 04/11/20 05:30 ABG Base Excess 11.5 mmol/L (-2-2) H 04/11/20 05:30 ASSESSMENT AND PLAN: Acute Hypoxic Respiratory Failure Pneumonia/Atelectasis s/p bronchoscopy x 2 UTI Septic Shock Lactic Acidosis Acute Kidney Injury +Troponins likely Demand Ischemia Atrial Fibrillation LV Diastolic Dysfunction Pulmonary HTN COPD HTN Hyperlipidemia Bacteremia - ID following - continue Cefepime and vanco by level - Wean FiO2 to keep SpO2 >90% - continue volume assist control - daily sedation vacation to assess mental status - inhaled bronchodilators/mucolytics - Cont Levo for hypotension m/l septic +/- sedation related - Monitor lact - titrate pressors to maintain MAP >65 - rate control - continue anticoagulation - monitor UOP and BMP - enteral feeds - DVT/GI prophylaxis - continue ICU monitoring Tammy Ramos, ACNP CCT 35mins
[2020-04-14] MEDS: CHLORHEXIDINE GLUCONATE 4% CLEANSER FOR DECOLONIZATION TP SCH (21:08)
[2020-04-15] MEDS ORDERED: DEXTROSE 5%-WATER 100 ML IVPB ONE ×3 (03:12→17:38)
[2020-04-15] MEDS ORDERED: CEFEPIME HCL 1 GM VIAL (RESTRICTED TO ID) ONE ×3 (03:12→17:37)
[2020-04-15] MEDS: SODIUM CHLORIDE 1,000 ML IV SCH (03:16)
[2020-04-15] MEDS: CEFEPIME 1 GM in DEXTROSE 5%-WATER 100 ML IVPB SCH ×3 (03:16→18:00)
[2020-04-15] MEDS: NOREPINEPHRINE D5W PREMIX 16,000 MCG/500 ML BAG IVPB SCH (03:16)
[2020-04-15 07:01] LABS: HEMATOCRIT 25.5 % (35.4-49); HEMOGLOBIN 8.6 GM/dL (11.7-16.9); MCH 30.2 pg (25.7-33.7); MCHC 33.8 g/dl (32.0-35.9); MEAN CELL VOLUME 89.3 fl (80-96); MEAN PLT VOLUME 7.4 fl (7.5-11.1); PLATELET COUNT 265 K/MM3 (134-434); RBC 2.86 M/mm3 (4.00-5.60); WHITE BLOOD COUNT 7.7 K/mm3 (4.0-10.0)
[2020-04-15 07:04] LABS: ALBUMIN 1.2 g/dl (3.4-5.0); BILIRUBIN,TOTAL 0.4 mg/dL (0.2-1); BLOOD UREA NITROGEN 54.9 mg/dL (7-18); CALCIUM 7.7 mg/dL (8.5-10.1); CREATININE 1.1 mg/dL (0.55-1.3); POTASSIUM 4.2 mmol/L (3.5-5.1); TOT PROT 5.2 g/dl (6.4-8.2)
[2020-04-15] MEDS: ALBUTEROL SO4 0.083% IH SOL 2.5 MG/3 ML VIAL.NEB. NEB SCH (07:30)
[2020-04-15] MEDS: ACETYLCYSTEINE 20% 200MG/ML 4 ML VIAL *FOR ORAL / INH USE ONLY NEB SCH ×4 (07:30→20:20)
--- NOTE | 2020-04-15 07:54 | PN ---
Progress Note (short form) - Note Progress Note: PULM/CCM Pt seen and examined in the ICU. Remains on low dose Levo. Stable on 50% FiO2. On propofol for sedation. Responding to tactile stimuli. Active Medications Acetaminophen (Ofirmev Injection -) 1,000 mg IVPB Q6H PRN PRN Reason: FEVER Acetylcysteine (Mucomyst 20 Oral / Inh Use Only*) 200 mg NEB RQID [facility] Last Admin: 04/14/20 20:15 Dose: 200 mg Documented by: Albuterol Sulfate (Ventolin 0.083% Nebulizer Soln -) 1 amp NEB RQID [facility] Last Admin: 04/14/20 20:15 Dose: 1 amp Documented by: Chlorhexidine Gluconate (Hibiclens For Decolonization -) 1 applic TP HS [facility] Last Admin: 04/14/20 21:08 Dose: 1 applic Documented by: Heparin Sodium (Porcine) (Heparin -) 5,000 unit SQ BID [facility] Last Admin: 04/14/20 21:07 Dose: 5,000 unit Documented by: Norepinephrine Bitartrate (Levophed Bag) 16,000 mcg in 500 mls @ 9.375 mls/hr IVPB TITR [facility]; Protocol Last Admin: 04/15/20 03:16 Dose: 5 mcg/min, 9.375 mls/hr Documented by: Cefepime HCl 1 gm/ Dextrose 100 mls @ 200 mls/hr IVPB Q8H-IV [facility]; Protocol Last Admin: 04/15/20 03:16 Dose: 200 mls/hr Documented by: Propofol (Diprivan -) 1,000,000 mcg in 100 mls @ 2.883 mls/hr IVPB TITR [facility]; Protocol Last Titration: 04/15/20 03:17 Dose: 15 mcg/kg/min, 8.65 mls/hr Documented by: Sodium Chloride (Normal Saline -) 1,000 mls @ 42 mls/hr IV ASDIR [facility] Last Admin: 04/15/20 03:16 Dose: 42 mls/hr Documented by: Metoprolol Tartrate (Lopressor Injection -) 5 mg IVPUSH Q4H PRN PRN Reason: TACHYCARDIA Pantoprazole Sodium (Protonix Iv) 40 mg IVPUSH DAILY [facility] Last Admin: 04/14/20 11:06 Dose: 40 mg Documented by: FEEDS: Glucerna 1.5 @ 40cc/hr Vital Signs Period Temp Pulse Resp BP Sys/Cesar Pulse Ox Last 24 Hr 97.0 F-98.5 F 82-105 15-22 85-113/59-79 96-100 Intake & Output 04/12/20 04/13/20 04/14/20 04/15/20 23:59 23:59 23:59 23:59 Intake Total 2520 2283 2680.4 1077.7 Output Total 1600 950 380 200 Balance 920 1333 2300.4 877.7 Weight 94.4 kg 95.2 kg 105.324 kg Gen: intubated, sedated Heart: RRR Lung: dimished in the bases Abd: soft, nontender, +PEG Ext: + Pulses, pedal edema Neuro: responsive to tactile CBC, BMP 04/15/20 05:30 04/15/20 05:30 ABG Results ABG pH 7.51 (7.35-7.45) H 04/11/20 05:30 ABG pCO2 at Pt Temp 44.6 mmHg (35-45) 04/11/20 05:30 ABG pO2 at Pt Temp 249.2 mmHg (80-100) H 04/11/20 05:30 ABG HCO3 35.4 mmol/L (22-27) H 04/11/20 05:30 ABG O2 Sat (Measured) 99.6 % (95-98) H 04/11/20 05:30 ABG O2 Content No Result Required. 04/11/20 05:30 ABG Base Excess 11.5 mmol/L (-2-2) H 04/11/20 05:30 Microbiology 04/12/20 05:52 Blood - Peripheral Venous Blood Culture - Preliminary Staphylococcus Coagulase Neg 04/12/20 05:40 Blood - Peripheral Venous Blood Culture - Preliminary NO GROWTH OBTAINED AFTER 48 HOURS, INCUBATION TO CONTINUE FOR 3 DAYS. 04/07/20 13:50 Blood - Peripheral Venous Blood Culture - Final NO GROWTH AFTER 5 DAYS INCUBATION 04/07/20 14:00 Blood - Peripheral Venous Blood Culture - Final NO GROWTH AFTER 5 DAYS INCUBATION 04/09/20 22:20 Sputum - Endotrachea Suction/Ventilator Gram Stain - Final 04/09/20 22:20 Sputum - Endotrachea Suction/Ventilator Sputum Culture - F inal Mr S Aureus 04/07/20 15:50 Urine - Urine Saavedra Urine Culture - Final Normal Urogenital Carla RECENT STUDIES TO NOTE: CXR 04/14: ETT ok @ level of clavicles, R IJ TLC in good position, b/l multilobar pna (My Read). ASSESS: Acute Hypoxic Respiratory Failure MRSA Pneumonia UTI Septic Shock Lactic Acidosis Acute Kidney Injury +Troponins likely Demand Ischemia Atrial Fibrillation LV Diastolic Dysfunction Pulmonary HTN COPD HTN Hyperlipidemia Bacteremia PLAN: - ID following - continue Cefepime and vanco by level - Wean FiO2 to keep SpO2 >90% - daily sedation vacation to assess mental status - inhaled bronchodilators/mucolytics - Cont Levo for hypotension m/l septic +/- sedation related - Monitor lact - titrate pressors to maintain MAP >65 - rate control - continue anticoagulation - monitor UOP and BMP - enteral feeds - DVT/GI prophylaxis - continue ICU monitoring [facility] ICU PULM/CCM [id number]
--- NOTE | 2020-04-15 09:22 | PN ---
Progress Note (short form) - Note Progress Note: sedated and intubated Vital Signs Period Temp Pulse Resp BP Sys/Cesar Pulse Ox Last 24 Hr 97.0 F-97.9 F 82-105 15-22 85-113/57-79 96-100 cor-rrr lungs decreased bs at bases abd soft,nt ext no edema CBC, BMP 04/15/20 05:30 04/15/20 05:30 Microbiology 04/12/20 05:52 Blood - Peripheral Venous Blood Culture - Preliminary Staphylococcus Coagulase Neg 04/12/20 05:40 Blood - Peripheral Venous Blood Culture - Preliminary NO GROWTH OBTAINED AFTER 48 HOURS, INCUBATION TO CONTINUE FOR 3 DAYS. 04/07/20 13:50 Blood - Peripheral Venous Blood Culture - Final NO GROWTH AFTER 5 DAYS INCUBATION 04/07/20 14:00 Blood - Peripheral Venous Blood Culture - Final NO GROWTH AFTER 5 DAYS INCUBATION 04/09/20 22:20 Sputum - Endotrachea Suction/Ventilator Gram Stain - Final 04/09/20 22:20 Sputum - Endotrachea Suction/Ventilator Sputum Culture - Final S Aureus 04/07/20 15:50 Urine - Urine Saavedra Urine Culture - Final Normal Urogenital Carla cxray unchanged Laboratory Tests 04/13/20 04/14/20 04/15/20 05:00 06:00 05:30 Random Vancomycin 23.4 24.9 20.2 a/p resp failure pneumonia- MRSA-vanco trough 20 now with positive blood culture-scn continue vanco/cefepime pen allergy f/u blood culture in am repeat vanco trough in am
[2020-04-15] MEDS: PANTOPRAZOLE SODIUM 40 MG VIAL IVPUSH SCH (10:01)
[2020-04-15] MEDS: HEPARIN NA (PORCINE) 5,000 UNITS/ML 1ML VIAL SQ SCH ×2 (10:01→22:45)
[2020-04-15] MEDS: PROPOFOL 1,000,000 MCG/100 ML VIAL IVPB SCH (10:49)
[2020-04-15] MEDS ORDERED: PT OWN MED DRAWER 7, Y5N ONE (20:21)
[2020-04-15] MEDS: CHLORHEXIDINE GLUCONATE 4% CLEANSER FOR DECOLONIZATION TP SCH (22:45)
[2020-04-16] MEDS ORDERED: CEFEPIME HCL 1 GM VIAL (RESTRICTED TO ID) ONE ×3 (04:39→17:44)
[2020-04-16] MEDS ORDERED: DEXTROSE 5%-WATER 100 ML IVPB ONE ×3 (04:39→17:44)
[2020-04-16] MEDS: CEFEPIME 1 GM in DEXTROSE 5%-WATER 100 ML IVPB SCH ×3 (04:50→17:49)
[2020-04-16] MEDS: NOREPINEPHRINE D5W PREMIX 16,000 MCG/500 ML BAG IVPB SCH (04:50)
[2020-04-16] MEDS: SODIUM CHLORIDE 1,000 ML IV SCH (04:50)
[2020-04-16 07:34] LABS: HEMATOCRIT 26.2 % (35.4-49); HEMOGLOBIN 8.8 GM/dL (11.7-16.9); MCH 30.1 pg (25.7-33.7); MCHC 33.5 g/dl (32.0-35.9); MEAN CELL VOLUME 89.9 fl (80-96); MEAN PLT VOLUME 7.6 fl (7.5-11.1); PLATELET COUNT 260 K/MM3 (134-434); RBC 2.91 M/mm3 (4.00-5.60); RDW 17.4 % (11.9-15.9); WHITE BLOOD COUNT 7.6 K/mm3 (4.0-10.0)
[2020-04-16 07:48] LABS: BLOOD UREA NITROGEN 57.8 mg/dL (7-18); CALCIUM 7.5 mg/dL (8.5-10.1); CREATININE 1.2 mg/dL (0.55-1.3); MAGNESIUM 2.3 mg/dL (1.8-2.4); PHOSPHOROUS 3.6 mg/dL (2.5-4.9); POTASSIUM 4.9 mmol/L (3.5-5.1)
[2020-04-16] MEDS: ACETYLCYSTEINE 20% 200MG/ML 4 ML VIAL *FOR ORAL / INH USE ONLY NEB SCH ×4 (08:15→20:15)
[2020-04-16] MEDS: HEPARIN NA (PORCINE) 5,000 UNITS/ML 1ML VIAL SQ SCH ×2 (09:30→22:09)
[2020-04-16] MEDS: PANTOPRAZOLE SODIUM 40 MG VIAL IVPUSH SCH (09:32)
--- NOTE | 2020-04-16 10:33 | PN ---
Progress Note, Physician History of Present Illness: SEDATED ON VENTILATOR HYPOTENSIVE ON PRESSORS BREATHING NON LABORED AFEBRILE WBC WNL AZOTEMIA RESOLVED VANCO LEVEL 18.2 SPUTUM C/S MRSA BLOOD C/S SCN CXR BETTER AERATION L LUNG FIELD - Current Medication List Current Medications: Active Medications Acetaminophen (Ofirmev Injection -) 1,000 mg IVPB Q6H PRN PRN Reason: FEVER Acetylcysteine (Mucomyst 20 Oral / Inh Use Only*) 200 mg NEB RQID [facility] Last Admin: 04/15/20 20:20 Dose: Not Given Documented by: Albuterol Sulfate (Ventolin 0.083% Nebulizer Soln -) 1 amp NEB Q6H PRN PRN Reason: SHORT OF BREATH/WHEEZING Chlorhexidine Gluconate (Hibiclens For Decolonization -) 1 applic TP HS [facility] Last Admin: 04/15/20 22:45 Dose: 1 applic Documented by: Heparin Sodium (Porcine) (Heparin -) 5,000 unit SQ BID [facility] Last Admin: 04/16/20 09:30 Dose: 5,000 unit Documented by: Norepinephrine Bitartrate (Levophed Bag) 16,000 mcg in 500 mls @ 9.375 mls/hr IVPB TITR [facility]; Protocol Last Admin: 04/16/20 04:50 Dose: 2 mcg/min, 3.75 mls/hr Documented by: Cefepime HCl 1 gm/ Dextrose 100 mls @ 200 mls/hr IVPB Q8H-IV [facility]; Protocol Last Admin: 04/16/20 09:32 Dose: 200 mls/hr Documented by: Propofol (Diprivan -) 1,000,000 mcg in 100 mls @ 2.883 mls/hr IVPB TITR [facility]; Protocol Last Admin: 04/15/20 10:49 Dose: Not Given Documented by: Sodium Chloride (Normal Saline -) 1,000 mls @ 42 mls/hr IV ASDIR [facility] Last Admin: 04/16/20 04:50 Dose: 42 mls/hr Documented by: Metoprolol Tartrate (Lopressor Injection -) 5 mg IVPUSH Q4H PRN PRN Reason: TACHYCARDIA Pantoprazole Sodium (Protonix Iv) 40 mg IVPUSH DAILY [facility] Last Admin: 04/16/20 09:32 Dose: 40 mg Documented by: - Objective Vital Signs: Vital Signs Temperature 96.9 F L 04/16/20 06:00 Pulse Rate 77 04/16/20 08:33 Respiratory Rate 17 04/16/20 09:00 Blood Pressure 108/68 04/16/20 08:15 O2 Sat by Pulse Oximetry (%) 99 04/16/20 09:00 Constitutional: Yes: No Distress Cardiovascular: Yes: Regular Rate and Rhythm, S1, S2 Respiratory: Yes: Mechanically Ventilated Gastrointestinal: Yes: Normal Bowel Sounds, Soft, Abdomen, Obese. No: Tenderness Edema: Yes Labs: CBC, BMP 04/16/20 05:15 04/16/20 05:15 INR, PTT INR 1.49 (0.83-1.09) H 04/08/20 05:20 Assessment/Plan ACUTE RESP FAILURE SEPSIS/ SEPTIC SHOCK LACTIC ACIDOSIS S/P SEIZURE PROBABLE ASP PNEUMONIA + SPUTUM MRSA (04/09) OPACIFIED L HEMITHORAX IMPROVED COPD AZOTEMIA IMPROVED + BLOOD C/S SCN PROBABLE CONTAMINANT PCN ALLERGY COVID-19 (-) CONTINUE CEFEPIME. REPEAT VANCOMYCIN LEVEL VENTILATORY/ HEMODYNAMIC SUPPORT PROGNOSIS GUARDED
--- NOTE | 2020-04-16 11:22 | PN ---
Physical Exam: SUBJECTIVE: Patient seen and examined. Afebrile and asymptomatic. No overnight events. OBJECTIVE: Vital Signs Period Temp Pulse Resp BP Sys/Cesar Pulse Ox Last 24 Hr 96.9 F-97.8 F 77-100 16-27 90-125/57-79 99-100 GENERAL: The patient is intubated and sedated. NECK: Trachea midline, full range of motion, supple. LUNGS: Breath sounds equal, clear to auscultation bilaterally, no wheezes, no crackles, no accessory muscle use. HEART: Regular rate and rhythm, S1, S2 without murmur, rub or gallop. ABDOMEN: Soft, nontender, nondistended, normoactive bowel sounds, no guarding, no rebound, no hepatosplenomegaly, no masses. EXTREMITIES: 2+ pulses, warm, well-perfused, no edema. NEUROLOGICAL: unable to obtain as patient sedated. Laboratory Results - last 24 hr 04/12/20 04/16/20 04/16/20 07:10 05:15 05:15 WBC 7.6 RBC 2.91 L Hgb 8.8 L Hct 26.2 L MCV 89.9 MCH 30.1 MCHC 33.5 RDW 17.4 H Plt Count 260 MPV 7.6 Sodium Potassium Chloride Carbon Dioxide Anion Gap BUN Creatinine Est GFR (CKD-EPI)AfAm Est GFR (CKD-EPI)NonAf Random Glucose Calcium Phosphorus Magnesium Random Vancomycin 18.2 Blood Type O POSITIVE Antibody Screen Negative Crossmatch See Detail 04/16/20 05:15 WBC RBC Hgb Hct MCV MCH MCHC RDW Plt Count MPV Sodium 136 Potassium 4.9 Chloride 100 Carbon Dioxide 28 Anion Gap 8 BUN 57.8 H Creatinine 1.2 Est GFR (CKD-EPI)AfAm 65.33 Est GFR (CKD-EPI)NonAf 56.37 Random Glucose 152 H Calcium 7.5 L Phosphorus 3.6 Magnesium 2.3 Random Vancomycin Blood Type Antibody Screen Crossmatch Active Medications Generic Name Dose Route Start Last Admin Trade Name Freq PRN Reason Stop Dose Admin Acetaminophen 1,000 mg 04/08/20 08:58 Ofirmev Injection - IVPB Q6H PRN FEVER Acetylcysteine 200 mg 04/10/20 12:00 04/15/20 20:20 Mucomyst 20 Oral / Inh Use Only* NEB Not Given RQID EAN Albuterol Sulfate 1 amp 04/16/20 08:06 Ventolin 0.083% Nebulizer Soln - NEB Q6H PRN SHORT OF BREATH/WHEEZING Chlorhexidine Gluconate 1 applic 04/07/20 22:00 04/15/20 22:45 Hibiclens For Decolonization - TP 1 applic HS EAN Administration Heparin Sodium (Porcine) 5,000 unit 04/10/20 15:15 04/16/20 09:30 Heparin - SQ 5,000 unit BID EAN Administration Norepinephrine Bitartrate 16,000 mcg in 500 mls @ 9.375 mls/hr 04/08/20 02:30 04/16/20 04:50 Levophed Bag IVPB 2 mcg/min TITR EAN 3.75 mls/hr Administration Protocol 5 MCG/MIN Cefepime HCl 1 gm/ Dextrose 100 mls @ 200 mls/hr 04/11/20 18:00 04/16/20 09:32 IVPB 200 mls/hr Q8H-IV EAN Administration Protocol Propofol 1,000,000 mcg in 100 mls @ 2.883 mls/hr 04/12/20 10:30 04/15/20 10:49 Diprivan - IVPB Not Given TITR EAN Protocol 5 MCG/KG/MIN Sodium Chloride 1,000 mls @ 42 mls/hr 04/13/20 00:45 04/16/20 04:50 Normal Saline - IV 42 mls/hr ASDIR EAN Administration Metoprolol Tartrate 5 mg 04/07/20 22:50 Lopressor Injection - IVPUSH Q4H PRN TACHYCARDIA Pantoprazole Sodium 40 mg 04/08/20 10:00 04/16/20 09:32 Protonix Iv IVPUSH 40 mg DAILY EAN Administration ASSESSMENT/PLAN: 79YOM with CHF, COPD, CVA, HTN, HLD, and A-fib on Eliquis BIBEMS from [facility] for seizure-like episode, found in ED to be septic with UTI suspected source, needed to be intubated for respiratory failure. #Neuro / Psych: Reported seizure-like activity, likely rigors in the setting of sepsis, not witnessed again Serial neuro checks d/c prop for now, wean pt off #Cardiovascular: CHF exacerbation, troponinemia For now will place pt on ppx dose- heparin, if pt tolerates and hb stable, will restart eliquis on levo 5, wean off #Pulm Pulmonary edema, b/l pleural effusions, COPD exacerbation given COPD history, pt likely has pulmonary HTN- ECHO showing moderate/severe , pulm htn CXR: left hemithorax atelectasis improved 2nd Bronchoscopy performed and multiple mucus plugs removed 2nd time 16/400/40/5 Plat 17 PIP 25 vent pressures improved- cont to wean off #Gastrointestinal: started feeds/glucerna PEG tube feeds #Heme s/p 2 PRBC stable #Genitourinary: Continue Saavedra Monitor I/O Serial BUN/Cr especially given need for diuresis d/c IVF #Infectious Disease: Cefepime started D6 Vanc D4- hold for now r/p Vanc in morning ID onboard FEN: lytes WNL, replete PRN Feeds started d/c fluids Prophylaxis: DVT: heparin GI: Protonix qd Lines: Right IJ placed 04/09 Dispo: cont abx, reposition pt to ventilate better, percussion modulator, tube irrigation as needed, s/p bronchoscopy, wean of vent, f/u Cx Visit type - Emergency Visit Emergency Visit: Yes ED Registration Date: 04/07/20 Care time: The patient presented to the Emergency Department on the above date and was hospitalized for further evaluation of their emergent condition. - New Patient This patient is new to me today: Yes Date on this admission: 04/17/20 - Critical Care Critical Care patient: No - Discharge Referral Referred to [facility] Med P.C.: No ATTENDING PHYSICIAN STATEMENT I saw and evaluated the patient. I reviewed the resident's note and discussed the case with the resident. I agree with the resident's findings and plan as documented. SUBJECTIVE: OBJECTIVE: ASSESSMENT AND PLAN:
[2020-04-16] MEDS: ALBUTEROL SO4 0.083% IH SOL 2.5 MG/3 ML VIAL.NEB. NEB PRN ×3 (11:40→20:15)
[2020-04-16] MEDS ORDERED: MIDAZOLAM IN 0.9 % SOD.CHLORID 1 MG/1 ML PLAST..BAG ONE (12:45)
[2020-04-16] MEDS ORDERED: MIDAZOLAM 100 MG in SODIUM CHLORIDE 100 ML IVPB SCH (13:00)
--- NOTE | 2020-04-16 13:57 | PN ---
Teaching Attending Note Name of Resident: Wilman Connolly ATTENDING PHYSICIAN STATEMENT I saw and evaluated the patient. I reviewed the resident's note and discussed the case with the resident. I agree with the resident's findings and plan as documented. SUBJECTIVE: Patient seen and examined in the ICU. AC Mode of vent, 40% FiO2. Sedated on propofol. Remains on NE for hemodynamic support. Intake & Output 04/13/20 04/14/20 04/15/20 04/16/20 23:59 23:59 23:59 23:59 Intake Total 2283 2680.4 2649.5 1436 Output Total 950 380 475 250 Balance 1333 2300.4 2174.5 1186 Weight 208 lb 1.862 oz 209 lb 14.081 oz 232 lb 3.2 oz 234 lb 9.6 oz Last Vital Signs Temp Pulse Resp BP Pulse Ox 96.9 F L 77 24 H 108/68 99 04/16/20 06:00 04/16/20 08:33 04/16/20 11:57 04/16/20 08:15 04/16/20 11:57 Active Medications Acetaminophen (Ofirmev Injection -) 1,000 mg IVPB Q6H PRN PRN Reason: FEVER Acetylcysteine (Mucomyst 20 Oral / Inh Use Only*) 200 mg NEB RQID EAN Last Admin: 04/16/20 11:35 Dose: 200 mg Documented by: Albuterol Sulfate (Ventolin 0.083% Nebulizer Soln -) 1 amp NEB Q6H PRN PRN Reason: SHORT OF BREATH/WHEEZING Last Admin: 04/16/20 11:40 Dose: 1 amp Documented by: Chlorhexidine Gluconate (Hibiclens For Decolonization -) 1 applic TP HS [facility] Last Admin: 04/15/20 22:45 Dose: 1 applic Documented by: Heparin Sodium (Porcine) (Heparin -) 5,000 unit SQ BID [facility] Last Admin: 04/16/20 09:30 Dose: 5,000 unit Documented by: Norepinephrine Bitartrate (Levophed Bag) 16,000 mcg in 500 mls @ 9.375 mls/hr IVPB TITR [facility]; Protocol Last Admin: 04/16/20 04:50 Dose: 2 mcg/min, 3.75 mls/hr Documented by: Cefepime HCl 1 gm/ Dextrose 100 mls @ 200 mls/hr IVPB Q8H-IV [facility]; Protocol Last Admin: 04/16/20 09:32 Dose: 200 mls/hr Documented by: Propofol (Diprivan -) 1,000,000 mcg in 100 mls @ 2.883 mls/hr IVPB TITR [facility]; Protocol Last Admin: 04/15/20 10:49 Dose: Not Given Documented by: Sodium Chloride (Normal Saline -) 1,000 mls @ 42 mls/hr IV ASDIR [facility] Last Admin: 04/16/20 04:50 Dose: 42 mls/hr Documented by: Midazolam HCl (Midazolam 100mg/100ml-0.9%Nacl) 100 mg in 100 mls @ 1 mls/hr IVPB TITR E[facility]; Protocol Metoprolol Tartrate (Lopressor Injection -) 5 mg IVPUSH Q4H PRN PRN Reason: TACHYCARDIA Pantoprazole Sodium (Protonix Iv) 40 mg IVPUSH DAILY [facility] Last Admin: 04/16/20 09:32 Dose: 40 mg Documented by: Gen: intubated, sedated Heart: RRR Lung: Vented, diminished in the bases Abd: soft, nontender, +PEG Ext: + Pulses, pedal edema Neuro: responsive to tactile Laboratory Results - last 24 hr 04/12/20 04/16/20 04/16/20 07:10 05:15 05:15 WBC 7.6 RBC 2.91 L Hgb 8.8 L Hct 26.2 L MCV 89.9 MCH 30.1 MCHC 33.5 RDW 17.4 H Plt Count 260 MPV 7.6 Sodium Potassium Chloride Carbon Dioxide Anion Gap BUN Creatinine Est GFR (CKD-EPI)AfAm Est GFR (CKD-EPI)NonAf Random Glucose Calcium Phosphorus Magnesium Random Vancomycin 18.2 Blood Type O POSITIVE Antibody Screen Negative Crossmatch See Detail 04/16/20 05:15 WBC RBC Hgb Hct MCV MCH MCHC RDW Plt Count MPV Sodium 136 Potassium 4.9 Chloride 100 Carbon Dioxide 28 Anion Gap 8 BUN 57.8 H Creatinine 1.2 Est GFR (CKD-EPI)AfAm 65.33 Est GFR (CKD-EPI)NonAf 56.37 Random Glucose 152 H Calcium 7.5 L Phosphorus 3.6 Magnesium 2.3 Random Vancomycin Blood Type Antibody Screen Crossmatch ASSESS: Acute Hypoxic Respiratory Failure MRSA Pneumonia UTI Septic Shock Lactic Acidosis Acute Kidney Injury +Troponins likely Demand Ischemia Atrial Fibrillation LV Diastolic Dysfunction Pulmonary HTN COPD HTN Hyperlipidemia Bacteremia PLAN: - ABX per ID - Wean FiO2 to keep SpO2 >90% - Sedation vacation to assess mental status - inhaled bronchodilators/mucolytics - NE for hemodynamic support - rate control - continue anticoagulation - monitor UOP and BMP - enteral feeds - DVT/GI prophylaxis - Required ICU monitoring Dr Babatunde Fulton Critical care time spent in reviewing chart, evaluating patient and formulating plan - 36 minutes.
[2020-04-16] MEDS: MIDAZOLAM IN 0.9 % SOD.CHLORID 100 MG/100 ML PLAST..BAG IVPB SCH (14:09)
[2020-04-16] MEDS: PROPOFOL 1,000,000 MCG/100 ML VIAL IVPB SCH (14:09)
[2020-04-16] MEDS ORDERED: PT OWN MED DRAWER 7, Y5N ONE (19:53)
[2020-04-16] MEDS: CHLORHEXIDINE GLUCONATE 4% CLEANSER FOR DECOLONIZATION TP SCH (22:09)
[2020-04-17] MEDS ORDERED: CEFEPIME HCL 1 GM VIAL (RESTRICTED TO ID) ONE ×3 (01:43→17:17)
[2020-04-17] MEDS ORDERED: DEXTROSE 5%-WATER 100 ML IVPB ONE ×3 (01:43→17:17)
[2020-04-17] MEDS: CEFEPIME 1 GM in DEXTROSE 5%-WATER 100 ML IVPB SCH ×3 (02:23→17:19)
[2020-04-17 05:56] LABS: HEMATOCRIT 25.8 % (35.4-49); HEMOGLOBIN 8.6 GM/dL (11.7-16.9); MCH 30.2 pg (25.7-33.7); MCHC 33.4 g/dl (32.0-35.9); MEAN CELL VOLUME 90.3 fl (80-96); MEAN PLT VOLUME 7.2 fl (7.5-11.1); PLATELET COUNT 236 K/MM3 (134-434); RBC 2.86 M/mm3 (4.00-5.60); RDW 17.8 % (11.9-15.9); WHITE BLOOD COUNT 6.9 K/mm3 (4.0-10.0)
[2020-04-17] MEDS: ACETYLCYSTEINE 20% 200MG/ML 4 ML VIAL *FOR ORAL / INH USE ONLY NEB SCH ×4 (07:50→20:00)
[2020-04-17] MEDS: ALBUTEROL SO4 0.083% IH SOL 2.5 MG/3 ML VIAL.NEB. NEB PRN ×4 (07:50→20:00)
[2020-04-17] MEDS: HEPARIN NA (PORCINE) 5,000 UNITS/ML 1ML VIAL SQ SCH ×2 (09:48→22:30)
[2020-04-17] MEDS: PANTOPRAZOLE SODIUM 40 MG VIAL IVPUSH SCH (09:51)
--- NOTE | 2020-04-17 11:19 | PN ---
Physical Exam: SUBJECTIVE: Patient seen and examined. Afebrile and asymptomatic. No overnight events. Pt off pressors and IVF. OBJECTIVE: Vital Signs Period Temp Pulse Resp BP Sys/Cesar Pulse Ox Last 24 Hr 96.6 F-97.9 F 76-88 16-33 89-130/55-82 96-100 GENERAL: The patient is intubated and sedated. NECK: Trachea midline, full range of motion, supple. LUNGS: Breath sounds equal, clear to auscultation bilaterally, no wheezes, no crackles, no accessory muscle use. HEART: Regular rate and rhythm, S1, S2 without murmur, rub or gallop. ABDOMEN: Soft, nontender, nondistended, normoactive bowel sounds, no guarding, no rebound, no hepatosplenomegaly, no masses. EXTREMITIES: 2+ pulses, warm, well-perfused, no edema. NEUROLOGICAL: unable to obtain as patient sedated. Laboratory Results - last 24 hr 04/17/20 04/17/20 05:00 06:00 WBC 6.9 RBC 2.86 L Hgb 8.6 L Hct 25.8 L MCV 90.3 MCH 30.2 MCHC 33.4 RDW 17.8 H Plt Count 236 MPV 7.2 L Random Vancomycin 16.3 Active Medications Generic Name Dose Route Start Last Admin Trade Name Freq PRN Reason Stop Dose Admin Acetaminophen 1,000 mg 04/08/20 08:58 Ofirmev Injection - IVPB Q6H PRN FEVER Acetylcysteine 200 mg 04/10/20 12:00 04/17/20 07:50 Mucomyst 20 Oral / Inh Use Only* NEB 200 mg RQID EAN Administration Albuterol Sulfate 1 amp 04/16/20 08:06 04/17/20 07:50 Ventolin 0.083% Nebulizer Soln - NEB 1 amp Q6H PRN Administration SHORT OF BREATH/WHEEZING Chlorhexidine Gluconate 1 applic 04/07/20 22:00 04/16/20 22:09 Hibiclens For Decolonization - TP 1 applic HS EAN Administration Heparin Sodium (Porcine) 5,000 unit 04/10/20 15:15 04/17/20 09:48 Heparin - SQ 5,000 unit BID EAN Administration Norepinephrine Bitartrate 16,000 mcg in 500 mls @ 9.375 mls/hr 04/08/20 02:30 06/15/20 04:50 Levophed Bag IVPB 2 mcg/min TITR EAN 3.75 mls/hr Administration Protocol 5 MCG/MIN Cefepime HCl 1 gm/ Dextrose 100 mls @ 200 mls/hr 04/11/20 18:00 04/17/20 09:47 IVPB 200 mls/hr Q8H-IV EAN Administration Protocol Propofol 1,000,000 mcg in 100 mls @ 2.883 mls/hr 04/12/20 10:30 04/16/20 14:09 Diprivan - IVPB Not Given TITR EAN Protocol 5 MCG/KG/MIN Midazolam HCl 100 mg in 100 mls @ 1 mls/hr 04/16/20 13:00 04/16/20 14:09 Midazolam 100mg/100ml-0.9%Nacl IVPB 2 mg/hr TITR EAN 2 mls/hr Administration Protocol 1 MG/HR Metoprolol Tartrate 5 mg 04/07/20 22:50 Lopressor Injection - IVPUSH Q4H PRN TACHYCARDIA Pantoprazole Sodium 40 mg 04/08/20 10:00 04/17/20 09:51 Protonix Iv IVPUSH 40 mg DAILY EAN Administration ASSESSMENT/PLAN: 79YOM with CHF, COPD, CVA, HTN, HLD, and A-fib on Eliquis BIBEMS from [facility] for seizure-like episode, found in ED to be septic with UTI suspected source, needed to be intubated for respiratory failure. #Neuro / Psych: Reported seizure-like activity, likely rigors in the setting of sepsis, not witnessed again Serial neuro checks d/c prop for now, wean pt off #Cardiovascular: CHF exacerbation, troponinemia For now will place pt on ppx dose- heparin, if pt tolerates and hb stable, will restart eliquis off pressors, Holding sedation, will plan to extubate Vent on wean settings #Pulm Pulmonary edema, b/l pleural effusions, COPD exacerbation given COPD history, pt likely has pulmonary HTN- ECHO showing moderate/severe , pulm htn CXR: left hemithorax atelectasis improved 2nd Bronchoscopy performed and multiple mucus plugs removed 2nd time 10/400/50/5 Plat 17 PIP 25 vent pressures improved- cont to wean off plan to extubate today #Gastrointestinal: started feeds/glucerna PEG tube feeds #Heme s/p 2 PRBC stable #Genitourinary: Continue Saavedra Monitor I/O Serial BUN/Cr especially given need for diuresis d/c IVF #Infectious Disease: Cefepime started D7 Vanc D4- hold for now r/p Vanc 16.3 One bottle growing Staph Hominis r/p Cx pending ID onboard FEN: lytes WNL, replete PRN Feeds started d/c fluids Prophylaxis: DVT: heparin GI: Protonix qd Lines: Right IJ placed 04/09 Dispo: cont abx, reposition pt to ventilate better, percussion modulator, tube irrigation as needed, wean of vent, f/u Cx Visit type - Emergency Visit Emergency Visit: Yes ED Registration Date: 04/07/20 Care time: The patient presented to the Emergency Department on the above date and was hospitalized for further evaluation of their emergent condition. - New Patient This patient is new to me today: Yes Date on this admission: 04/18/20 - Critical Care Critical Care patient: No - Discharge Referral Referred to [facility] Med P.C.: No ATTENDING PHYSICIAN STATEMENT I saw and evaluated the patient. I reviewed the resident's note and discussed the case with the resident. I agree with the resident's findings and plan as documented. SUBJECTIVE: OBJECTIVE: ASSESSMENT AND PLAN:
--- NOTE | 2020-04-17 13:22 | PN ---
Teaching Attending Note Name of Resident: Wilman Connolly ATTENDING PHYSICIAN STATEMENT I saw and evaluated the patient. I reviewed the resident's note and discussed the case with the resident. I agree with the resident's findings and plan as documented. SUBJECTIVE: Patient seen and examined in the ICU. AC Mode of vent, 40% FiO2. Still sedated. Off NE for hemodynamic support. Intake & Output 04/14/20 04/15/20 04/16/20 04/17/20 23:59 23:59 23:59 23:59 Intake Total 2680.4 2649.5 2200 1192 Output Total 380 475 350 Balance 2300.4 2174.5 1850 1192 Weight 209 lb 14.081 oz 232 lb 3.2 oz 234 lb 9.6 oz 232 lb 11.2 oz Last Vital Signs Temp Pulse Resp BP Pulse Ox 97.9 F 78 20 95/60 99 04/17/20 06:00 04/17/20 12:00 04/17/20 12:00 04/17/20 12:00 04/17/20 11:50 Active Medications Acetaminophen (Ofirmev Injection -) 1,000 mg IVPB Q6H PRN PRN Reason: FEVER Acetylcysteine (Mucomyst 20 Oral / Inh Use Only*) 200 mg NEB RQID EAN Last Admin: 04/17/20 11:40 Dose: 200 mg Documented by: Albuterol Sulfate (Ventolin 0.083% Nebulizer Soln -) 1 amp NEB Q6H PRN PRN Reason: SHORT OF BREATH/WHEEZING Last Admin: 04/17/20 11:40 Dose: 1 amp Documented by: Chlorhexidine Gluconate (Hibiclens For Decolonization -) 1 applic TP HS EAN Last Admin: 04/16/20 22:09 Dose: 1 applic Documented by: Heparin Sodium (Porcine) (Heparin -) 5,000 unit SQ BID EAN Last Admin: 04/17/20 09:48 Dose: 5,000 unit Documented by: Cefepime HCl 1 gm/ Dextrose 100 mls @ 200 mls/hr IVPB Q8H-IV EAN; Protocol Last Admin: 04/17/20 09:47 Dose: 200 mls/hr Documented by: Propofol (Diprivan -) 1,000,000 mcg in 100 mls @ 2.883 mls/hr IVPB TITR EAN; Protocol Last Admin: 04/16/20 14:09 Dose: Not Given Documented by: Midazolam HCl (Midazolam 100mg/100ml-0.9%Nacl) 100 mg in 100 mls @ 1 mls/hr IVPB TITR [facility]; Protocol Last Admin: 04/16/20 14:09 Dose: 2 mg/hr, 2 mls/hr Documented by: Metoprolol Tartrate (Lopressor Injection -) 5 mg IVPUSH Q4H PRN PRN Reason: TACHYCARDIA Pantoprazole Sodium (Protonix Iv) 40 mg IVPUSH DAILY [facility] Last Admin: 04/17/20 09:51 Dose: 40 mg Documented by: Gen: intubated, still sedated Heart: RRR Lung: Vented, diminished in the bases Abd: soft, nontender, +PEG Ext: + Pulses, pedal edema Neuro: responsive to tactile Laboratory Results - last 24 hr 04/17/20 04/17/20 05:00 06:00 WBC 6.9 RBC 2.86 L Hgb 8.6 L Hct 25.8 L MCV 90.3 MCH 30.2 MCHC 33.4 RDW 17.8 H Plt Count 236 MPV 7.2 L Random Vancomycin 16.3 ASSESS: Acute Hypoxic Respiratory Failure MRSA Pneumonia UTI Septic Shock Lactic Acidosis Acute Kidney Injury +Troponins likely Demand Ischemia Atrial Fibrillation LV Diastolic Dysfunction Pulmonary HTN COPD HTN Hyperlipidemia Bacteremia PLAN: - ABX per ID - Wean trials as tolerated - Sedation vacation to assess mental status - inhaled bronchodilators/mucolytics - Pressors if needed for MAP < 65 - rate control - continue anticoagulation - monitor UOP and BMP - enteral feeds - DVT/GI prophylaxis - Requires ICU monitoring Dr Babatunde Fulton Critical care time spent in reviewing chart, evaluating patient and formulating plan - 36 minutes.
[2020-04-17] MEDS ORDERED: VANCOMYCIN 1 GRAM (PRE-DOCKED) 1,000 MG/250 ML BAG IVPB ONE (15:04)
--- NOTE | 2020-04-17 15:08 | PN ---
Progress Note, Physician History of Present Illness: SEDATED ON VENTILATOR OFF PRESSORS BREATHING NON LABORED AFEBRILE WBC WNL AZOTEMIA RESOLVED VANCO LEVEL 16 SPUTUM C/S MRSA BLOOD C/S SCN CXR BETTER AERATION L LUNG FIELD - Current Medication List Current Medications: Active Medications Acetaminophen (Ofirmev Injection -) 1,000 mg IVPB Q6H PRN PRN Reason: FEVER Acetylcysteine (Mucomyst 20 Oral / Inh Use Only*) 200 mg NEB RQID EAN Last Admin: 04/17/20 11:40 Dose: 200 mg Documented by: Albuterol Sulfate (Ventolin 0.083% Nebulizer Soln -) 1 amp NEB Q6H PRN PRN Reason: SHORT OF BREATH/WHEEZING Last Admin: 04/17/20 11:40 Dose: 1 amp Documented by: Chlorhexidine Gluconate (Hibiclens For Decolonization -) 1 applic TP HS EAN Last Admin: 04/16/20 22:09 Dose: 1 applic Documented by: Heparin Sodium (Porcine) (Heparin -) 5,000 unit SQ BID EAN Last Admin: 04/17/20 09:48 Dose: 5,000 unit Documented by: Cefepime HCl 1 gm/ Dextrose 100 mls @ 200 mls/hr IVPB Q8H-IV EAN; Protocol Last Admin: 04/17/20 09:47 Dose: 200 mls/hr Documented by: Propofol (Diprivan -) 1,000,000 mcg in 100 mls @ 2.883 mls/hr IVPB TITR EAN; Protocol Last Admin: 04/16/20 14:09 Dose: Not Given Documented by: Midazolam HCl (Midazolam 100mg/100ml-0.9%Nacl) 100 mg in 100 mls @ 1 mls/hr IVPB TITR EAN; Protocol Last Titration: 04/17/20 08:30 Dose: 0 mg/hr, 0 mls/hr Documented by: Vancomycin HCl 1,000 mg/ (Dextrose) 250 mls @ 166.667 mls/hr IVPB ONCE ONE; Protocol Stop: 04/17/20 16:33 Metoprolol Tartrate (Lopressor Injection -) 5 mg IVPUSH Q4H PRN PRN Reason: TACHYCARDIA Pantoprazole Sodium (Protonix Iv) 40 mg IVPUSH DAILY EAN Last Admin: 04/17/20 09:51 Dose: 40 mg Documented by: - Objective Vital Signs: Vital Signs Temperature 97.9 F 04/17/20 06:00 Pulse Rate 78 04/17/20 14:00 Respiratory Rate 27 H 04/17/20 14:00 Blood Pressure 93/54 L 04/17/20 14:00 O2 Sat by Pulse Oximetry (%) 99 04/17/20 11:50 Constitutional: Yes: No Distress Cardiovascular: Yes: Regular Rate and Rhythm, S1, S2 Respiratory: Yes: CTA Bilaterally Gastrointestinal: Yes: Normal Bowel Sounds, Soft. No: Tenderness Edema: Yes Labs: CBC, BMP 04/17/20 05:00 04/16/20 05:15 INR, PTT INR 1.49 (0.83-1.09) H 04/08/20 05:20 Assessment/Plan ACUTE RESP FAILURE SEPSIS/ SEPTIC SHOCK LACTIC ACIDOSIS S/P SEIZURE PROBABLE ASP PNEUMONIA + SPUTUM MRSA (04/09) OPACIFIED L HEMITHORAX IMPROVED COPD AZOTEMIA IMPROVED + BLOOD C/S SCN PROBABLE CONTAMINANT PCN ALLERGY COVID-19 (-) CONTINUE CEFEPIME. REPEAT VANCOMYCIN LEVEL VENTILATORY/ HEMODYNAMIC SUPPORT PROGNOSIS GUARDED
[2020-04-17] MEDS: MIDAZOLAM IN 0.9 % SOD.CHLORID 100 MG/100 ML PLAST..BAG IVPB SCH (22:20)
[2020-04-17] MEDS: CHLORHEXIDINE GLUCONATE 4% CLEANSER FOR DECOLONIZATION TP SCH (22:20)
[2020-04-18] MEDS: CEFEPIME 1 GM in DEXTROSE 5%-WATER 100 ML IVPB SCH ×3 (02:50→17:27)
[2020-04-18] MEDS ORDERED: CEFEPIME HCL 1 GM VIAL (RESTRICTED TO ID) ONE ×3 (03:50→15:22)
[2020-04-18] MEDS ORDERED: DEXTROSE 5%-WATER 100 ML IVPB ONE ×3 (03:51→15:22)
[2020-04-18] MEDS ORDERED: MORPHINE SULFATE 2 MG/ML VIAL IVPUSH ONE (06:34)
[2020-04-18] MEDS ORDERED: MORPHINE SULFATE 2 MG/ML VIAL ONE (06:40)
[2020-04-18 07:21] LABS: HEMATOCRIT 26.2 % (35.4-49); HEMOGLOBIN 8.7 GM/dL (11.7-16.9); MCH 29.8 pg (25.7-33.7); MCHC 33.1 g/dl (32.0-35.9); MEAN CELL VOLUME 89.9 fl (80-96); MEAN PLT VOLUME 7.8 fl (7.5-11.1); PLATELET COUNT 245 K/MM3 (134-434); RBC 2.92 M/mm3 (4.00-5.60); WHITE BLOOD COUNT 7.8 K/mm3 (4.0-10.0)
[2020-04-18 07:56] LABS: CALCIUM 7.9 mg/dL (8.5-10.1); MAGNESIUM 2.4 mg/dL (1.8-2.4); POTASSIUM 5.6 mmol/L (3.5-5.1)
[2020-04-18 07:57] LABS: CREATININE 1.4 mg/dL (0.55-1.3); PHOSPHOROUS 3.8 mg/dL (2.5-4.9)
[2020-04-18] MEDS: ACETYLCYSTEINE 20% 200MG/ML 4 ML VIAL *FOR ORAL / INH USE ONLY NEB SCH (09:03)
[2020-04-18] MEDS: ALBUTEROL SO4 0.083% IH SOL 2.5 MG/3 ML VIAL.NEB. NEB PRN (09:04)
[2020-04-18] MEDS: PANTOPRAZOLE SODIUM 40 MG VIAL IVPUSH SCH (10:32)
[2020-04-18] MEDS: HEPARIN NA (PORCINE) 5,000 UNITS/ML 1ML VIAL SQ SCH ×2 (10:37→22:05)
--- NOTE | 2020-04-18 11:18 | PN ---
Teaching Attending Note Name of Resident: Shaggy Young ATTENDING PHYSICIAN STATEMENT I saw and evaluated the patient. I reviewed the resident's note and discussed the case with the resident. I agree with the resident's findings and plan as documented. SUBJECTIVE: Patient seen and examined in the ICU. CPAP Mode of vent, 40% FiO2. Awake and able to follow some simple commands. Off NE for hemodynamic support. Intake & Output 04/15/20 04/16/20 04/17/20 04/18/20 23:59 23:59 23:59 23:59 Intake Total 2649.5 2200 2451 1084 Output Total 475 350 400 200 Balance 2174.5 1850 2051 884 Weight 232 lb 3.2 oz 234 lb 9.6 oz 232 lb 11.2 oz 232 lb 12.8 oz Last Vital Signs Temp Pulse Resp BP Pulse Ox 97.9 F 91 H 34 H 104/70 99 04/18/20 07:00 04/18/20 07:40 04/18/20 09:00 04/18/20 07:00 04/18/20 09:00 Active Medications Acetaminophen (Ofirmev Injection -) 1,000 mg IVPB Q6H PRN PRN Reason: FEVER Albuterol Sulfate (Ventolin 0.083% Nebulizer Soln -) 1 amp NEB Q6H PRN PRN Reason: SHORT OF BREATH/WHEEZING Last Admin: 04/18/20 09:04 Dose: 1 amp Documented by: Chlorhexidine Gluconate (Hibiclens For Decolonization -) 1 applic TP HS EAN Last Admin: 04/17/20 22:20 Dose: 1 applic Documented by: Heparin Sodium (Porcine) (Heparin -) 5,000 unit SQ BID EAN Last Admin: 04/18/20 10:37 Dose: 5,000 unit Documented by: Cefepime HCl 1 gm/ Dextrose 100 mls @ 200 mls/hr IVPB Q8H-IV EAN; Protocol Last Admin: 04/18/20 10:31 Dose: 200 mls/hr Documented by: Metoprolol Tartrate (Lopressor Injection -) 5 mg IVPUSH Q4H PRN PRN Reason: TACHYCARDIA Pantoprazole Sodium (Protonix Iv) 40 mg IVPUSH DAILY EAN Last Admin: 04/18/20 10:32 Dose: 40 mg Documented by: Gen: intubated, awake, intermittently following commands Heart: RRR Lung: Vented, diminished in the bases Abd: soft, nontender, +PEG Ext: + Pulses, pedal edema Neuro: Non-focal Laboratory Results - last 24 hr 04/18/20 04/18/20 04/18/20 05:00 05:00 05:00 WBC 7.8 RBC 2.92 L Hgb 8.7 L Hct 26.2 L MCV 89.9 MCH 29.8 MCHC 33.1 RDW 18.0 H Plt Count 245 MPV 7.8 Sodium 133 L Potassium 5.6 H Chloride 98 Carbon Dioxide 26 Anion Gap 9 BUN 68.0 H Creatinine 1.4 H Est GFR (CKD-EPI)AfAm 54.22 Est GFR (CKD-EPI)NonAf 46.79 Random Glucose 163 H Calcium 7.9 L Phosphorus 3.8 Magnesium 2.4 Random Vancomycin 24.8 ASSESS: Acute Hypoxic Respiratory Failure MRSA Pneumonia UTI Septic Shock Lactic Acidosis Acute Kidney Injury +Troponins likely Demand Ischemia Atrial Fibrillation LV Diastolic Dysfunction Pulmonary HTN COPD HTN Hyperlipidemia Bacteremia PLAN: - ABX per ID - Wean trials as tolerated - Sedation vacation to assess mental status - inhaled bronchodilators / stop mucolytics - Pressors if needed for MAP < 65 - rate control - continue anticoagulation - monitor UOP and BMP - enteral feeds - DVT/GI prophylaxis - Requires ICU monitoring Dr Babatunde Fulton Critical care time spent in reviewing chart, evaluating patient and formulating plan - 36 minutes.
[2020-04-18] MEDS ORDERED: MIDAZOLAM HCL 5 MG/1 ML Single Dose Vial ONE (11:51)
--- NOTE | 2020-04-18 12:08 | PN ---
Physical Exam: SUBJECTIVE: Patient seen and examined at bedside. No events overnight, no new complaints. Patient awake and alert this am, following commands and lifting his head off the bed. Vent settings minimal OBJECTIVE: Vital Signs Period Temp Pulse Resp BP Sys/Cesar Pulse Ox Last 24 Hr 97.9 F-98.4 F 78-126 24-34 91-117/54-95 99-100 GENERAL: The patient is awake, alert, following commands. Remains intubated. HEAD: Normal with no signs of trauma. EYES: PERRL, extraocular movements intact, sclera anicteric, conjunctiva clear. No ptosis. LUNGS: Breath sounds equal, clear to auscultation bilaterally, no wheezes, no crackles, no accessory muscle use. HEART: Regular rate and rhythm, S1, S2 without murmur, rub or gallop. ABDOMEN: Soft, nontender, nondistended, normoactive bowel sounds, no guarding, no rebound, no hepatosplenomegaly, no masses. EXTREMITIES: 2+ pulses, warm, well-perfused, no edema. NEUROLOGICAL: Cranial nerves II through X grossly intact. Moving all 4 limbs spontaneously Laboratory Results - last 24 hr 04/18/20 04/18/20 04/18/20 05:00 05:00 05:00 WBC 7.8 RBC 2.92 L Hgb 8.7 L Hct 26.2 L MCV 89.9 MCH 29.8 MCHC 33.1 RDW 18.0 H Plt Count 245 MPV 7.8 Sodium 133 L Potassium 5.6 H Chloride 98 Carbon Dioxide 26 Anion Gap 9 BUN 68.0 H Creatinine 1.4 H Est GFR (CKD-EPI)AfAm 54.22 Est GFR (CKD-EPI)NonAf 46.79 Random Glucose 163 H Calcium 7.9 L Phosphorus 3.8 Magnesium 2.4 Random Vancomycin 24.8 Active Medications Generic Name Dose Route Start Last Admin Trade Name Freq PRN Reason Stop Dose Admin Acetaminophen 1,000 mg 04/08/20 08:58 Ofirmev Injection - IVPB Q6H PRN FEVER Albuterol Sulfate 1 amp 04/16/20 08:06 04/18/20 09:04 Ventolin 0.083% Nebulizer Soln - NEB 1 amp Q6H PRN Administration SHORT OF BREATH/WHEEZING Chlorhexidine Gluconate 1 applic 04/07/20 22:00 04/17/20 22:20 Hibiclens For Decolonization - TP 1 applic HS EAN Administration Heparin Sodium (Porcine) 5,000 unit 04/10/20 15:15 04/18/20 10:37 Heparin - SQ 5,000 unit BID EAN Administration Cefepime HCl 1 gm/ Dextrose 100 mls @ 200 mls/hr 04/11/20 18:00 04/18/20 10:31 IVPB 200 mls/hr Q8H-IV EAN Administration Protocol Metoprolol Tartrate 5 mg 04/07/20 22:50 Lopressor Injection - IVPUSH Q4H PRN TACHYCARDIA Pantoprazole Sodium 40 mg 04/08/20 10:00 04/18/20 10:32 Protonix Iv IVPUSH 40 mg DAILY EAN Administration ASSESSMENT/PLAN: 79YOM with CHF, COPD, CVA, HTN, HLD, and A-fib on Eliquis BIBEMS from [facility] for seizure-like episode, found in ED to be septic with UTI suspected source, needed to be intubated for respiratory failure. #Neuro -awake and alert -moving all 4 limbs spontaneously -following commands #pulmonary -Patient on minimal ventilator settings -awake, alert, following commands -RSBI ~73 -CXR improved -Patient saturating well on cpap -patient good candidate for extubation today. #Cardio -BP stable -off pressors for >24hrs -right IJ placed 04/09; not able to get peripheral access, will keep line in for now. #ID -Cefepime Day 8 -rpt bcx negative -ID onboard #FEN -no fluids indictaed -monitor lytes -NPO #Prophy -Heparin 5k units TID -protonix 40mg IV daily #Dispo -admit ICU Visit type - Emergency Visit Emergency Visit: Yes ED Registration Date: 04/07/20 Care time: The patient presented to the Emergency Department on the above date and was hospitalized for further evaluation of their emergent condition. - New Patient This patient is new to me today: No - Critical Care Critical Care patient: Yes Total Critical Care Time (in minutes): 60 Critical Care Statement: The care of this patient involved high complexity decision making to prevent further life threatening deterioration of the patient's condition and/or to evaluate & treat vital organ system(s) failure or risk of failure. - Discharge Referral Referred to [facility] Med P.C.: No ATTENDING PHYSICIAN STATEMENT I saw and evaluated the patient. I reviewed the resident's note and discussed the case with the resident. I agree with the resident's findings and plan as documented. SUBJECTIVE: OBJECTIVE: ASSESSMENT AND PLAN:
--- NOTE | 2020-04-18 12:09 | PROC ---
Intubation - Intubation Reason for Intubation: Respiratory Failure, Ventilatory Failure Time of Intubation: 13:50 Intubation Method: orotracheal Blade used: Glidescope Tube Size (cm): 7.5 Tube position @ lip (cm): 20 Tube position confirmed by: Direct visualization, CO2 detector, Chest x-ray, Breath sounds Breath Sounds after Intubation: equal Post Intubation Xray: Yes
[2020-04-18] MEDS: PROPOFOL 1,000,000 MCG/100 ML VIAL IVPB SCH (12:30)
[2020-04-18] MEDS: CHLORHEXIDINE GLUCONATE 4% CLEANSER FOR DECOLONIZATION TP SCH (22:05)
[2020-04-18] MEDS: CHLORHEXIDINE GLUCONATE 0.12% 15ML CUP MM SCH (22:05)
[2020-04-18] MEDS: FENTANYL NS IVPB 500 MCG/100 ML BAG IVPB SCH (22:05)
--- NOTE | 2020-04-18 23:16 | PN ---
Progress Note, Physician History of Present Illness: SEDATED ON VENTILATOR BREATHING NON LABORED AFEBRILE WBC WNL AZOTEMIA RESOLVED VANCO LEVEL 24 SPUTUM C/S MRSA BLOOD C/S SCN CXR BETTER AERATION L LUNG FIELD - Current Medication List Current Medications: Active Medications Acetaminophen (Ofirmev Injection -) 1,000 mg IVPB Q6H PRN PRN Reason: FEVER Albuterol Sulfate (Ventolin 0.083% Nebulizer Soln -) 1 amp NEB Q6H PRN PRN Reason: SHORT OF BREATH/WHEEZING Last Admin: 04/18/20 09:04 Dose: 1 amp Documented by: Chlorhexidine Gluconate (Hibiclens For Decolonization -) 1 applic TP HS EAN Last Admin: 04/18/20 22:05 Dose: 1 applic Documented by: Chlorhexidine Gluconate (Peridex -) 15 ml MM BID EAN Last Admin: 04/18/20 22:05 Dose: 15 ml Documented by: Heparin Sodium (Porcine) (Heparin -) 5,000 unit SQ BID EAN Last Admin: 04/18/20 22:05 Dose: 5,000 unit Documented by: Cefepime HCl 1 gm/ Dextrose 100 mls @ 200 mls/hr IVPB Q8H-IV EAN; Protocol Last Admin: 04/18/20 17:27 Dose: 200 mls/hr Documented by: Propofol (Diprivan -) 1,000,000 mcg in 100 mls @ 3.168 mls/hr IVPB TITR [facility]; Protocol Last Titration: 04/18/20 13:00 Dose: 10 mcg/kg/min, 6.336 mls/hr Documented by: Fentanyl (Sublimaze Ivpb) 500 mcg in 100 mls @ 527.98 mls/hr IVPB TITR EAN Last Admin: 04/18/20 22:05 Dose: 25 mcg/kg/hr, 527.98 mls/hr Documented by: Metoprolol Tartrate (Lopressor Injection -) 5 mg IVPUSH Q4H PRN PRN Reason: TACHYCARDIA Pantoprazole Sodium (Protonix Iv) 40 mg IVPUSH DAILY [facility] Last Admin: 04/18/20 10:32 Dose: 40 mg Documented by: - Objective Vital Signs: Vital Signs Temperature 97.9 F 04/18/20 15:00 Pulse Rate 84 04/18/20 20:00 Respiratory Rate 21 H 04/18/20 23:02 Blood Pressure 84/47 L 04/18/20 20:00 O2 Sat by Pulse Oximetry (%) 99 04/18/20 19:30 Constitutional: Yes: No Distress Eyes: Yes: Conjunctiva Clear Neck: Yes: Supple Cardiovascular: Yes: Regular Rate and Rhythm, S1, S2 Respiratory: Yes: Mechanically Ventilated Gastrointestinal: Yes: Normal Bowel Sounds, Soft Edema: Yes Labs: CBC, BMP 04/18/20 05:00 04/18/20 05:00 INR, PTT INR 1.49 (0.83-1.09) H 04/08/20 05:20 Assessment/Plan ACUTE RESP FAILURE SEPSIS/ SEPTIC SHOCK LACTIC ACIDOSIS S/P SEIZURE PROBABLE ASP PNEUMONIA + SPUTUM MRSA (04/09) OPACIFIED L HEMITHORAX IMPROVED COPD AZOTEMIA IMPROVED + BLOOD C/S SCN PROBABLE CONTAMINANT PCN ALLERGY COVID-19 (-) CONTINUE CEFEPIME. REPEAT VANCOMYCIN LEVEL VENTILATORY/ HEMODYNAMIC SUPPORT PROGNOSIS GUARDED
[2020-04-19] MEDS ORDERED: DEXTROSE 5%-WATER 100 ML IVPB ONE ×4 (00:37→23:42)
[2020-04-19] MEDS ORDERED: CEFEPIME HCL 1 GM VIAL (RESTRICTED TO ID) ONE ×4 (00:37→23:42)
[2020-04-19] MEDS: CEFEPIME 1 GM in DEXTROSE 5%-WATER 100 ML IVPB SCH ×3 (01:32→20:00)
[2020-04-19] MEDS ORDERED: FENTANYL IVPB 500 MCG/100 ML BAG IVPB ONE (06:59)
[2020-04-19] MEDS: PANTOPRAZOLE SODIUM 40 MG VIAL IVPUSH SCH (10:19)
[2020-04-19] MEDS: CHLORHEXIDINE GLUCONATE 0.12% 15ML CUP MM SCH ×2 (10:19→22:15)
[2020-04-19] MEDS: HEPARIN NA (PORCINE) 5,000 UNITS/ML 1ML VIAL SQ SCH ×2 (10:19→22:15)
--- NOTE | 2020-04-19 11:41 | PN ---
Physical Exam: SUBJECTIVE: Patient seen and examined. Pt was extubated yesterday, was doing well and oxygenating good, but within a few hours, pt became minimally responsive, desaturated and eyes rolled back. Immediately was intubated and sedated. OBJECTIVE: Vital Signs Period Temp Pulse Resp BP Sys/Cesar Pulse Ox Last 24 Hr 96.1 F-97.9 F 69-95 13-37 84-107/47-72 97-100 GENERAL: The patient is intubated and sedated. NECK: Trachea midline, full range of motion, supple. LUNGS: Breath sounds equal, clear to auscultation bilaterally, no wheezes, no crackles, no accessory muscle use. HEART: Regular rate and rhythm, S1, S2 without murmur, rub or gallop. ABDOMEN: Soft, nontender, nondistended, normoactive bowel sounds, no guarding, no rebound, no hepatosplenomegaly, no masses. EXTREMITIES: 2+ pulses, warm, well-perfused, no edema. NEUROLOGICAL: unable to obtain as patient sedated. Active Medications Generic Name Dose Route Start Last Admin Trade Name Freq PRN Reason Stop Dose Admin Acetaminophen 1,000 mg 04/08/20 08:58 Ofirmev Injection - IVPB Q6H PRN FEVER Albuterol Sulfate 1 amp 04/16/20 08:06 04/18/20 09:04 Ventolin 0.083% Nebulizer Soln - NEB 1 amp Q6H PRN Administration SHORT OF BREATH/WHEEZING Chlorhexidine Gluconate 1 applic 04/07/20 22:00 04/18/20 22:05 Hibiclens For Decolonization - TP 1 applic HS EAN Administration Chlorhexidine Gluconate 15 ml 04/18/20 22:00 04/19/20 10:19 Peridex - MM 15 ml BID EAN Administration Heparin Sodium (Porcine) 5,000 unit 04/10/20 15:15 04/19/20 10:19 Heparin - SQ 5,000 unit BID EAN Administration Cefepime HCl 1 gm/ Dextrose 100 mls @ 200 mls/hr 04/11/20 18:00 04/19/20 10:19 IVPB 200 mls/hr Q8H-IV EAN Administration Protocol Propofol 1,000,000 mcg in 100 mls @ 3.168 mls/hr 04/18/20 13:00 04/18/20 13:00 Diprivan - IVPB 10 mcg/kg/min TITR EAN 6.336 mls/hr Titration Protocol 5 MCG/KG/MIN Fentanyl 500 mcg in 100 mls @ 527.98 mls/hr 04/18/20 22:00 04/19/20 01:30 Sublimaze Ivpb IVPB 0.47 mcg/kg/hr TITR EAN 10 mls/hr Titration 25 MCG/KG/HR Metoprolol Tartrate 5 mg 04/07/20 22:50 Lopressor Injection - IVPUSH Q4H PRN TACHYCARDIA Pantoprazole Sodium 40 mg 04/08/20 10:00 04/19/20 10:19 Protonix Iv IVPUSH 40 mg DAILY EAN Administration ASSESSMENT/PLAN: 79YOM with CHF, COPD, CVA, HTN, HLD, and A-fib on Eliquis BIBEMS from [facility] for seizure-like episode, found in ED to be septic with UTI suspected source, needed to be intubated for respiratory failure. #Neuro / Psych: Reported seizure-like activity, likely rigors in the setting of sepsis, not witnessed again Serial neuro checks. Fent 100, Prop 5- held pt re-intubated yesterday. Holding sedation to reassess pt and wean him off vent #Cardiovascular: CHF exacerbation, troponinemia For now will place pt on ppx dose- heparin, if pt tolerates and hb stable, will restart eliquis off pressors, Holding sedation Vent on wean settings #Pulm Pulmonary edema, b/l pleural effusions, COPD exacerbation given COPD history, pt likely has pulmonary HTN- ECHO showing moderate/severe , pulm htn CXR: appears to have pleural effusion, will give a dose of lasix 2nd Bronchoscopy performed and multiple mucus plugs removed 2nd time 10/400/45/5 Plat 17 PIP 25 vent pressures improved- cont to wean off #Gastrointestinal: started feeds/glucerna PEG tube feeds #Heme s/p 2 PRBC stable #Genitourinary: Continue Saavedra Monitor I/O Serial BUN/Cr especially given need for diuresis d/c IVF #Infectious Disease: Cefepime started D8 Vanc D4- hold for now r/p Van levels One bottle growing Staph Hominis-contaminate r/p Cx neg x2 ID onboard FEN: lytes WNL, replete PRN Feeds started d/c fluids Prophylaxis: DVT: heparin GI: Protonix qd Lines: Right IJ placed 04/09, will attempt to get peripheral access to d/c TLC Dispo: cont abx, reposition pt to ventilate better, percussion modulator, tube irrigation as needed, wean of vent Visit type - Emergency Visit Emergency Visit: Yes ED Registration Date: 04/07/20 Care time: The patient presented to the Emergency Department on the above date and was hospitalized for further evaluation of their emergent condition. - New Patient This patient is new to me today: Yes Date on this admission: 04/20/20 - Critical Care Critical Care patient: No - Discharge Referral Referred to [facility] Med P.C.: No ATTENDING PHYSICIAN STATEMENT I saw and evaluated the patient. I reviewed the resident's note and discussed the case with the resident. I agree with the resident's findings and plan as documented. SUBJECTIVE: OBJECTIVE: ASSESSMENT AND PLAN:
[2020-04-19] MEDS ORDERED: FUROSEMIDE 40 MG/4 ML INJECTABLE VIAL IVPUSH ONE (11:42)
--- NOTE | 2020-04-19 12:47 | PN ---
Teaching Attending Note Name of Resident: Wilman Connolly ATTENDING PHYSICIAN STATEMENT I saw and evaluated the patient. I reviewed the resident's note and discussed the case with the resident. I agree with the resident's findings and plan as documented. SUBJECTIVE: Patient seen and examined in the ICU. CPAP Mode of vent, 40% FiO2. Sedated..(?) New upward gaze. Remains off NE for hemodynamic support. Intake & Output 04/16/20 04/17/20 04/18/20 04/19/20 23:59 23:59 23:59 23:59 Intake Total 2200 2451 1084 1251 Output Total 350 400 300 350 Balance 1850 2051 784 901 Weight 234 lb 9.6 oz 232 lb 11.2 oz 232 lb 12.8 oz 232 lb Last Vital Signs Temp Pulse Resp BP Pulse Ox 96.1 F L 78 20 88/52 L 96 04/18/20 22:00 04/19/20 11:49 04/19/20 11:49 04/19/20 08:00 04/19/20 11:49 Active Medications Acetaminophen (Ofirmev Injection -) 1,000 mg IVPB Q6H PRN PRN Reason: FEVER Albuterol Sulfate (Ventolin 0.083% Nebulizer Soln -) 1 amp NEB Q6H PRN PRN Reason: SHORT OF BREATH/WHEEZING Last Admin: 04/18/20 09:04 Dose: 1 amp Documented by: Chlorhexidine Gluconate (Hibiclens For Decolonization -) 1 applic TP HS EAN Last Admin: 04/18/20 22:05 Dose: 1 applic Documented by: Chlorhexidine Gluconate (Peridex -) 15 ml MM BID EAN Last Admin: 04/19/20 10:19 Dose: 15 ml Documented by: Heparin Sodium (Porcine) (Heparin -) 5,000 unit SQ BID EAN Last Admin: 04/19/20 10:19 Dose: 5,000 unit Documented by: Cefepime HCl 1 gm/ Dextrose 100 mls @ 200 mls/hr IVPB Q8H-IV EAN; Protocol Last Admin: 04/19/20 10:19 Dose: 200 mls/hr Documented by: Propofol (Diprivan -) 1,000,000 mcg in 100 mls @ 3.168 mls/hr IVPB TITR EAN; Protocol Last Titration: 04/18/20 13:00 Dose: 10 mcg/kg/min, 6.336 mls/hr Documented by: Fentanyl (Sublimaze Ivpb) 500 mcg in 100 mls @ 527.98 mls/hr IVPB TITR EAN Last Titration: 04/19/20 01:30 Dose: 0.47 mcg/kg/hr, 10 mls/hr Documented by: Metoprolol Tartrate (Lopressor Injection -) 5 mg IVPUSH Q4H PRN PRN Reason: TACHYCARDIA Pantoprazole Sodium (Protonix Iv) 40 mg IVPUSH DAILY [facility] Last Admin: 04/19/20 10:19 Dose: 40 mg Documented by: Gen: intubated and sedated Heart: RRR Lung: Vented, diminished in the bases, scattered rhonchi Abd: soft, nontender, +PEG Ext: + Pulses, pedal edema Neuro: Sedate, non-focal ASSESS: Acute Hypoxic Respiratory Failure MRSA Pneumonia UTI Septic Shock Lactic Acidosis Acute Kidney Injury +Troponins likely Demand Ischemia Atrial Fibrillation LV Diastolic Dysfunction Pulmonary HTN COPD HTN Hyperlipidemia Bacteremia PLAN: - ABX per ID - CT Head - Sedation vacation to assess mental status - inhaled bronchodilators / stop mucolytics - Pressors if needed for MAP < 65 - rate control - continue anticoagulation - monitor UOP and BMP - enteral feeds - DVT/GI prophylaxis - Requires ICU monitoring Dr Babatunde Fulton Critical care time spent in reviewing chart, evaluating patient and formulating plan - 36 minutes.
[2020-04-19] MEDS: PROPOFOL 1,000,000 MCG/100 ML VIAL IVPB SCH (13:03)
--- NOTE | 2020-04-19 13:48 | PROC ---
Central Line Insertion Indication: Poor Venous Access Risks and Benefits Explained: Yes Consent on Chart: Yes Central Line: Triple Lumen Catheter Anesthesia: 1% Lidocaine Sterile Technique: Yes Ultrasound Guided Assistance: Yes Position: Left Internal Jugular Post Insertion: Yes: Chest X-Ray Ordered Sterile Dressing Applied: Yes
[2020-04-19 14:31] LABS: ALBUMIN 1.3 g/dl (3.4-5.0); BILIRUBIN,TOTAL 0.3 mg/dL (0.2-1); BLOOD UREA NITROGEN 69.6 mg/dL (7-18); CALCIUM 8.4 mg/dL (8.5-10.1); CREATININE 1.6 mg/dL (0.55-1.3); POTASSIUM 5.6 mmol/L (3.5-5.1); TOT PROT 5.6 g/dl (6.4-8.2)
[2020-04-19] MEDS ORDERED: SODIUM POLYSTYRENE SULFONATE 15 GM/60 ML BOTTLE PO ONE (21:51)
[2020-04-19] MEDS: CHLORHEXIDINE GLUCONATE 4% CLEANSER FOR DECOLONIZATION TP SCH (22:15)
[2020-04-19] MEDS: FENTANYL NS IVPB 500 MCG/100 ML BAG IVPB SCH (22:15)
--- NOTE | 2020-04-19 22:35 | PN ---
Progress Note, Physician History of Present Illness: SEDATED ON VENTILATOR BREATHING NON LABORED AFEBRILE WBC IMPROVED WNL AZOTEMIA RESOLVED CXR BETTER AERATION L LUNG FIELD - Current Medication List Current Medications: Active Medications Acetaminophen (Ofirmev Injection -) 1,000 mg IVPB Q6H PRN PRN Reason: FEVER Albuterol Sulfate (Ventolin 0.083% Nebulizer Soln -) 1 amp NEB Q6H PRN PRN Reason: SHORT OF BREATH/WHEEZING Last Admin: 04/18/20 09:04 Dose: 1 amp Documented by: Chlorhexidine Gluconate (Hibiclens For Decolonization -) 1 applic TP HS EAN Last Admin: 04/19/20 22:15 Dose: 1 applic Documented by: Chlorhexidine Gluconate (Peridex -) 15 ml MM BID EAN Last Admin: 04/19/20 22:15 Dose: 15 ml Documented by: Heparin Sodium (Porcine) (Heparin -) 5,000 unit SQ BID EAN Last Admin: 04/19/20 22:15 Dose: 5,000 unit Documented by: Cefepime HCl 1 gm/ Dextrose 100 mls @ 200 mls/hr IVPB Q8H-IV EAN; Protocol Last Admin: 04/19/20 20:00 Dose: 200 mls/hr Documented by: Propofol (Diprivan -) 1,000,000 mcg in 100 mls @ 3.168 mls/hr IVPB TITR EAN; Protocol Last Admin: 04/19/20 13:03 Dose: 10 mcg/kg/min, 6.336 mls/hr Documented by: Fentanyl (Sublimaze Ivpb) 500 mcg in 100 mls @ 527.98 mls/hr IVPB TITR EAN Last Admin: 04/19/20 22:15 Dose: 0.47 mcg/kg/hr, 10 mls/hr Documented by: Metoprolol Tartrate (Lopressor Injection -) 5 mg IVPUSH Q4H PRN PRN Reason: TACHYCARDIA Nystatin (Mycostatin Cream -) 1 applic TP Q6HPO EAN Pantoprazole Sodium (Protonix Iv) 40 mg IVPUSH DAILY EAN Last Admin: 04/19/20 10:19 Dose: 40 mg Documented by: - Objective Vital Signs: Vital Signs Temperature 97.6 F 04/19/20 14:00 Pulse Rate 72 04/19/20 20:15 Respiratory Rate 15 04/19/20 21:00 Blood Pressure 87/52 L 04/19/20 20:00 O2 Sat by Pulse Oximetry (%) 100 04/19/20 21:00 Constitutional: Yes: No Distress Cardiovascular: Yes: S1, S2 Respiratory: Yes: CTA Bilaterally Edema: Yes Labs: CBC, BMP 04/18/20 05:00 04/19/20 06:00 INR, PTT INR 1.49 (0.83-1.09) H 04/08/20 05:20 Assessment/Plan ACUTE RESP FAILURE SEPSIS/ SEPTIC SHOCK LACTIC ACIDOSIS S/P SEIZURE PROBABLE ASP PNEUMONIA OPACIFIED L HEMITHORAX IMPROVED COPD AZOTEMIA IMPROVED PCN ALLERGY COVID-19 (-) CONTINUE CEFEPIME; VANCOMYCIN PER LEVEL VENTILATORY/ HEMODYNAMIC SUPPORT PROGNOSIS GUARDED
[2020-04-20] MEDS ORDERED: NYSTATIN 100,000 UNIT/GM TOPICAL CREAM 15 GM TUBE TP SCH
[2020-04-20] MEDS: PROPOFOL 1,000,000 MCG/100 ML VIAL IVPB SCH ×2 (02:30→15:36)
[2020-04-20] MEDS: CEFEPIME 1 GM in DEXTROSE 5%-WATER 100 ML IVPB SCH ×3 (02:31→18:00)
[2020-04-20] MEDS: NYSTATIN 100,000 UNIT/GM TOPICAL CREAM 15 GM TUBE TP PRN (02:47)
[2020-04-20] MEDS: FENTANYL NS IVPB 500 MCG/100 ML BAG IVPB SCH ×4 (06:09→23:44)
[2020-04-20 06:46] LABS: HEMATOCRIT 25.1 % (35.4-49); HEMOGLOBIN 8.1 GM/dL (11.7-16.9); MCH 29.7 pg (25.7-33.7); MCHC 32.4 g/dl (32.0-35.9); MEAN CELL VOLUME 91.9 fl (80-96); MEAN PLT VOLUME 7.9 fl (7.5-11.1); PLATELET COUNT 190 K/MM3 (134-434); RBC 2.73 M/mm3 (4.00-5.60); RDW 18.2 % (11.9-15.9); WHITE BLOOD COUNT 8.9 K/mm3 (4.0-10.0)
[2020-04-20 07:09] LABS: BLOOD UREA NITROGEN 77.2 mg/dL (7-18); CALCIUM 7.6 mg/dL (8.5-10.1); CREATININE 1.7 mg/dL (0.55-1.3); MAGNESIUM 2.2 mg/dL (1.8-2.4); PHOSPHOROUS 4.3 mg/dL (2.5-4.9); POTASSIUM 5.3 mmol/L (3.5-5.1)
[2020-04-20] MEDS ORDERED: DEXTROSE 5%-WATER 100 ML IVPB ONE ×2 (09:25→17:58)
[2020-04-20] MEDS ORDERED: CEFEPIME HCL 1 GM VIAL (RESTRICTED TO ID) ONE ×2 (09:25→17:58)
[2020-04-20] MEDS: CHLORHEXIDINE GLUCONATE 0.12% 15ML CUP MM SCH ×2 (09:54→21:16)
[2020-04-20] MEDS: PANTOPRAZOLE SODIUM 40 MG VIAL IVPUSH SCH (09:54)
[2020-04-20] MEDS: HEPARIN NA (PORCINE) 5,000 UNITS/ML 1ML VIAL SQ SCH ×2 (09:58→21:16)
--- NOTE | 2020-04-20 11:37 | PN ---
Teaching Attending Note Name of Resident: Wilman Connolly ATTENDING PHYSICIAN STATEMENT I saw and evaluated the patient. I reviewed the resident's note and discussed the case with the resident. I agree with the resident's findings and plan as documented. SUBJECTIVE: Patient seen and examined in the ICU. AC Mode of vent. 454% FiO2. No pressors. Moving left arm > right. Intermittently tracking. Intake & Output 04/17/20 04/18/20 04/19/20 04/20/20 23:59 23:59 23:59 23:59 Intake Total 2451 1084 2568 1390 Output Total 400 300 550 350 Balance 2050 Weight 232 lb 11.2 oz 232 lb 12.8 oz 232 lb Last Vital Signs Temp Pulse Resp BP Pulse Ox 97.8 F 92 H 22 H 136/81 100 04/20/20 06:00 04/20/20 08:00 04/20/20 08:00 04/20/20 08:00 04/20/20 08:00 Active Medications Acetaminophen (Ofirmev Injection -) 1,000 mg IVPB Q6H PRN PRN Reason: FEVER Albuterol Sulfate (Ventolin 0.083% Nebulizer Soln -) 1 amp NEB Q6H PRN PRN Reason: SHORT OF BREATH/WHEEZING Last Admin: 04/18/20 09:04 Dose: 1 amp Documented by: Chlorhexidine Gluconate (Hibiclens For Decolonization -) 1 applic TP HS EAN Last Admin: 04/19/20 22:15 Dose: 1 applic Documented by: Chlorhexidine Gluconate (Peridex -) 15 ml MM BID EAN Last Admin: 04/20/20 09:54 Dose: 15 ml Documented by: Heparin Sodium (Porcine) (Heparin -) 5,000 unit SQ BID EAN Last Admin: 04/20/20 09:58 Dose: 5,000 unit Documented by: Cefepime HCl 1 gm/ Dextrose 100 mls @ 200 mls/hr IVPB Q8H-IV EAN; Protocol Last Admin: 04/20/20 09:55 Dose: 200 mls/hr Documented by: Propofol (Diprivan -) 1,000,000 mcg in 100 mls @ 3.168 mls/hr IVPB TITR EAN; Protocol Last Titration: 04/20/20 09:10 Dose: 0 mcg/kg/min, 0 mls/hr Documented by: Fentanyl (Sublimaze Ivpb) 500 mcg in 100 mls @ 527.98 mls/hr IVPB TITR EAN Last Titration: 04/20/20 09:10 Dose: 0 mcg/kg/hr, 0 mls/hr Documented by: Metoprolol Tartrate (Lopressor Injection -) 5 mg IVPUSH Q4H PRN PRN Reason: TACHYCARDIA Nystatin (Mycostatin Cream -) 1 applic TP PRN PRN PRN Reason: HYGEINE Last Admin: 04/20/20 02:47 Dose: 1 applic Documented by: Pantoprazole Sodium (Protonix Iv) 40 mg IVPUSH DAILY [facility] Last Admin: 04/20/20 09:54 Dose: 40 mg Documented by: Gen: intubated and awake intermittently following commands Heart: RRR Lung: Vented, diminished in the bases, scattered rhonchi Abd: soft, nontender, +PEG Ext: + Pulses, pedal edema Neuro: Right weakness Laboratory Results - last 24 hr 04/19/20 04/20/20 04/20/20 06:00 06:00 06:00 WBC 8.9 RBC 2.73 L Hgb 8.1 L Hct 25.1 L MCV 91.9 MCH 29.7 MCHC 32.4 RDW 18.2 H Plt Count 190 D MPV 7.9 Sodium 133 L Potassium 5.6 H Chloride 98 Carbon Dioxide 28 Anion Gap 7 L BUN 69.6 H Creatinine 1.6 H Est GFR (CKD-EPI)AfAm 46.14 Est GFR (CKD-EPI)NonAf 39.81 Random Glucose 110 H Calcium 8.4 L Phosphorus Magnesium Total Bilirubin 0.3 AST 30 ALT 13 Alkaline Phosphatase 130 H Total Protein 5.6 L Albumin 1.3 L Random Vancomycin 17.7 04/20/20 06:00 WBC RBC Hgb Hct MCV MCH MCHC RDW Plt Count MPV Sodium 133 L Potassium 5.3 H Chloride 99 Carbon Dioxide 27 Anion Gap 7 L BUN 77.2 H Creatinine 1.7 H Est GFR (CKD-EPI)AfAm 42.88 Est GFR (CKD-EPI)NonAf 37.00 Random Glucose 142 H Calcium 7.6 L Phosphorus 4.3 Magnesium 2.2 Total Bilirubin AST ALT Alkaline Phosphatase Total Protein Albumin Random Vancomycin ASSESS: Acute Hypoxic Respiratory Failure MRSA Pneumonia UTI Septic Shock Lactic Acidosis Acute Kidney Injury +Troponins likely Demand Ischemia Atrial Fibrillation LV Diastolic Dysfunction Pulmonary HTN COPD HTN Hyperlipidemia Bacteremia PLAN: - ABX per ID - Lasix today - Hold CT Head for now - Sedation vacation to assess mental status - inhaled bronchodilators / stop mucolytics - Pressors if needed for MAP < 65 - rate control - continue anticoagulation - monitor UOP and BMP - enteral feeds - DVT/GI prophylaxis - Requires ICU monitoring Dr Babatunde Futlon Critical care time spent in reviewing chart, evaluating patient and formulating plan - 36 minutes.
--- NOTE | 2020-04-20 12:03 | PN ---
Physical Exam: SUBJECTIVE: Patient seen and examined. Off sedation to assess mental status. Pt responding well. Right sided UE weakness, which is baseline as pt had a stroke in the recent past. Pt appears volume overloaded, edematous. Afebrile. OBJECTIVE: Vital Signs Period Temp Pulse Resp BP Sys/Cesar Pulse Ox Last 24 Hr 97.5 F-97.8 F 68-92 15-26 85-136/50-102 79-100 GENERAL: The patient is intubated and sedated. NECK: Trachea midline, full range of motion, supple. LUNGS: Breath sounds equal, clear to auscultation bilaterally, no wheezes, no crackles, no accessory muscle use. HEART: Regular rate and rhythm, S1, S2 without murmur, rub or gallop. ABDOMEN: Soft, nontender, nondistended, normoactive bowel sounds, no guarding, no rebound, no hepatosplenomegaly, no masses. EXTREMITIES: 2+ pulses, warm, well-perfused, no edema. NEUROLOGICAL: unable to obtain as patient sedated. Laboratory Results - last 24 hr 04/19/20 04/20/20 04/20/20 06:00 06:00 06:00 WBC 8.9 RBC 2.73 L Hgb 8.1 L Hct 25.1 L MCV 91.9 MCH 29.7 MCHC 32.4 RDW 18.2 H Plt Count 190 D MPV 7.9 Sodium 133 L Potassium 5.6 H Chloride 98 Carbon Dioxide 28 Anion Gap 7 L BUN 69.6 H Creatinine 1.6 H Est GFR (CKD-EPI)AfAm 46.14 Est GFR (CKD-EPI)NonAf 39.81 Random Glucose 110 H Calcium 8.4 L Phosphorus Magnesium Total Bilirubin 0.3 AST 30 ALT 13 Alkaline Phosphatase 130 H Total Protein 5.6 L Albumin 1.3 L Random Vancomycin 17.7 04/20/20 06:00 WBC RBC Hgb Hct MCV MCH MCHC RDW Plt Count MPV Sodium 133 L Potassium 5.3 H Chloride 99 Carbon Dioxide 27 Anion Gap 7 L BUN 77.2 H Creatinine 1.7 H Est GFR (CKD-EPI)AfAm 42.88 Est GFR (CKD-EPI)NonAf 37.00 Random Glucose 142 H Calcium 7.6 L Phosphorus 4.3 Magnesium 2.2 Total Bilirubin AST ALT Alkaline Phosphatase Total Protein Albumin Random Vancomycin Active Medications Generic Name Dose Route Start Last Admin Trade Name Freq PRN Reason Stop Dose Admin Acetaminophen 1,000 mg 04/08/20 08:58 Ofirmev Injection - IVPB Q6H PRN FEVER Albuterol Sulfate 1 amp 04/16/20 08:06 04/18/20 09:04 Ventolin 0.083% Nebulizer Soln - NEB 1 amp Q6H PRN Administration SHORT OF BREATH/WHEEZING Chlorhexidine Gluconate 1 applic 04/07/20 22:00 04/19/20 22:15 Hibiclens For Decolonization - TP 1 applic HS EAN Administration Chlorhexidine Gluconate 15 ml 04/18/20 22:00 04/20/20 09:54 Peridex - MM 15 ml BID EAN Administration Furosemide 40 mg 04/20/20 12:00 Lasix Injection - IVPUSH 04/23/20 13:00 DAILY EAN Heparin Sodium (Porcine) 5,000 unit 04/10/20 15:15 04/20/20 09:58 Heparin - SQ 5,000 unit BID EAN Administration Cefepime HCl 1 gm/ Dextrose 100 mls @ 200 mls/hr 04/11/20 18:00 04/20/20 09:55 IVPB 200 mls/hr Q8H-IV EAN Administration Protocol Propofol 1,000,000 mcg in 100 mls @ 3.168 mls/hr 04/18/20 13:00 04/20/20 09:10 Diprivan - IVPB 0 mcg/kg/min TITR EAN 0 mls/hr Titration Protocol 5 MCG/KG/MIN Fentanyl 500 mcg in 100 mls @ 527.98 mls/hr 04/18/20 22:00 04/20/20 09:10 Sublimaze Ivpb IVPB 0 mcg/kg/hr TITR EAN 0 mls/hr Titration 25 MCG/KG/HR Metoprolol Tartrate 5 mg 04/07/20 22:50 Lopressor Injection - IVPUSH Q4H PRN TACHYCARDIA Nystatin 1 applic 04/19/20 23:58 04/20/20 02:47 Mycostatin Cream - TP 1 applic PRN PRN Administration HYGEINE Pantoprazole Sodium 40 mg 04/08/20 10:00 04/20/20 09:54 Protonix Iv IVPUSH 40 mg DAILY EAN Administration ASSESSMENT/PLAN: 79YOM with CHF, COPD, CVA, HTN, HLD, and A-fib on Eliquis BIBEMS from [facility] for seizure-like episode, found in ED to be septic with UTI suspected source, needed to be intubated for respiratory failure. #Neuro / Psych: Reported seizure-like activity, likely rigors in the setting of sepsis, not witnessed again Serial neuro checks. Fent, Prop 10 Holding sedation to reassess pt and wean him off vent If neuro symptoms worsen or upward gaze persists- CT head #Cardiovascular: CHF exacerbation, troponinemia For now will place pt on ppx dose- heparin, if pt tolerates and hb stable, will restart eliquis off pressors Vent on wean settings #Pulm Pulmonary edema, b/l pleural effusions, COPD exacerbation given COPD history, pt likely has pulmonary HTN- ECHO showing moderate/severe , pulm htn CXR: appears to have pleural effusion worsening, Lasix 40 daily for 3 days to diuresis pt as he appears volume overloaded 10/400/45/5 Plat 17 PIP 25 vent pressures improved- cont to wean off #Gastrointestinal: started feeds/glucerna PEG tube feeds #Heme s/p 2 PRBC stable #Renal potassium elevated- give kayexylate #Genitourinary: Continue Saavedra Monitor I/O- 3L input and only 500 output, cont lasix Serial BUN/Cr especially given need for diuresis #Infectious Disease: Cefepime started D9 Vanc D4- hold for now r/p Van levels r/p Cx neg x2 ID onboard FEN: lytes WNL, replete PRN Feeds started d/c fluids Prophylaxis: DVT: heparin GI: Protonix qd Lines: [facility] 04/19 Dispo: cont abx, reposition pt to ventilate better, percussion modulator, tube irrigation as needed, wean off vent Visit type - Emergency Visit Emergency Visit: Yes ED Registration Date: 04/07/20 Care time: The patient presented to the Emergency Department on the above date and was hospitalized for further evaluation of their emergent condition. - New Patient This patient is new to me today: Yes Date on this admission: 04/23/20 - Critical Care Critical Care patient: No - Discharge Referral Referred to [facility] Med [facility].C[facility] No ATTENDING PHYSICIAN STATEMENT I saw and evaluated the patient. I reviewed the resident's note and discussed the case with the resident. I agree with the resident's findings and plan as documented. SUBJECTIVE: OBJECTIVE: ASSESSMENT AND PLAN:
[2020-04-20] MEDS: FUROSEMIDE 40 MG/4 ML INJECTABLE VIAL IVPUSH SCH (12:36)
--- NOTE | 2020-04-20 13:54 | PN ---
Progress Note, Physician History of Present Illness: SEDATED ON VENTILATOR BREATHING NON LABORED AFEBRILE WBC IMPROVED WNL AZOTEMIA WORSENED - Current Medication List Current Medications: Active Medications Acetaminophen (Ofirmev Injection -) 1,000 mg IVPB Q6H PRN PRN Reason: FEVER Albuterol Sulfate (Ventolin 0.083% Nebulizer Soln -) 1 amp NEB Q6H PRN PRN Reason: SHORT OF BREATH/WHEEZING Last Admin: 04/18/20 09:04 Dose: 1 amp Documented by: Chlorhexidine Gluconate (Hibiclens For Decolonization -) 1 applic TP HS EAN Last Admin: 04/19/20 22:15 Dose: 1 applic Documented by: Chlorhexidine Gluconate (Peridex -) 15 ml MM BID EAN Last Admin: 04/20/20 09:54 Dose: 15 ml Documented by: Furosemide (Lasix Injection -) 40 mg IVPUSH DAILY EAN Stop: 04/23/20 13:00 Last Admin: 04/20/20 12:36 Dose: 40 mg Documented by: Heparin Sodium (Porcine) (Heparin -) 5,000 unit SQ BID EAN Last Admin: 04/20/20 09:58 Dose: 5,000 unit Documented by: Cefepime HCl 1 gm/ Dextrose 100 mls @ 200 mls/hr IVPB Q8H-IV EAN; Protocol Last Admin: 04/20/20 09:55 Dose: 200 mls/hr Documented by: Propofol (Diprivan -) 1,000,000 mcg in 100 mls @ 3.168 mls/hr IVPB TITR EAN; Protocol Last Titration: 04/20/20 11:37 Dose: 10 mcg/kg/min, 6.336 mls/hr Documented by: Fentanyl (Sublimaze Ivpb) 500 mcg in 100 mls @ 527.98 mls/hr IVPB TITR EAN Last Titration: 04/20/20 11:37 Dose: 0.47 mcg/kg/hr, 9.926 mls/hr Documented by: Metoprolol Tartrate (Lopressor Injection -) 5 mg IVPUSH Q4H PRN PRN Reason: TACHYCARDIA Nystatin (Mycostatin Cream -) 1 applic TP PRN PRN PRN Reason: HYGEINE Last Admin: 04/20/20 02:47 Dose: 1 applic Documented by: Pantoprazole Sodium (Protonix Iv) 40 mg IVPUSH DAILY EAN Last Admin: 04/20/20 09:54 Dose: 40 mg Documented by: - Objective Vital Signs: Vital Signs Temperature 97.8 F 04/20/20 06:00 Pulse Rate 92 H 04/20/20 08:00 Respiratory Rate 27 H 04/20/20 09:35 Blood Pressure 136/81 04/20/20 08:00 O2 Sat by Pulse Oximetry (%) 98 04/20/20 09:35 Constitutional: Yes: No Distress Eyes: Yes: Conjunctiva Clear Cardiovascular: Yes: Regular Rate and Rhythm, S1, S2 Respiratory: Yes: Diminished Gastrointestinal: Yes: Normal Bowel Sounds, Soft. No: Tenderness Edema: Yes Labs: CBC, BMP 04/20/20 06:00 04/20/20 06:00 INR, PTT INR 1.49 (0.83-1.09) H 04/08/20 05:20 Assessment/Plan ACUTE RESP FAILURE SEPSIS/ SEPTIC SHOCK LACTIC ACIDOSIS S/P SEIZURE PROBABLE ASP PNEUMONIA OPACIFIED L HEMITHORAX IMPROVED COPD AZOTEMIA IMPROVED PCN ALLERGY COVID-19 (-) CONTINUE CEFEPIME; VANCOMYCIN PER LEVEL VENTILATORY/ HEMODYNAMIC SUPPORT PROGNOSIS GUARDED
[2020-04-20] MEDS ORDERED: VANCOMYCIN 1 GRAM (PRE-DOCKED) 1,000 MG/250 ML BAG IVPB ONE (14:15)
--- NOTE | 2020-04-20 17:09 | PN ---
Progress Note (short form) - Note Progress Note: Patient evaluated by respiratory with inappropriate vent settings. Glidescope used to evaluate balloon and ET tube, balloon intact but too high. Balloon deflated and tube pushed lower. Tube at 24, patient satting well throughout.
[2020-04-20] MEDS: CHLORHEXIDINE GLUCONATE 4% CLEANSER FOR DECOLONIZATION TP SCH (21:14)
[2020-04-20] MEDS ORDERED: SODIUM POLYSTYRENE SULFONATE 15 GM/60 ML BOTTLE PO ONE (23:04)
[2020-04-21] MEDS ORDERED: CEFEPIME HCL 1 GM VIAL (RESTRICTED TO ID) ONE ×4 (01:12→21:18)
[2020-04-21] MEDS ORDERED: DEXTROSE 5%-WATER 100 ML IVPB ONE ×4 (01:13→21:18)
[2020-04-21] MEDS: NOREPINEPHRINE BITARTRATE 8,000 MCG/500 ML BAG IVPB SCH ×2 (01:25→19:00)
[2020-04-21] MEDS: CEFEPIME 1 GM in DEXTROSE 5%-WATER 100 ML IVPB SCH ×3 (01:25→17:06)
[2020-04-21] MEDS: FENTANYL NS IVPB 500 MCG/100 ML BAG IVPB SCH ×3 (06:00→21:19)
[2020-04-21 07:19] LABS: BLOOD UREA NITROGEN 85.6 mg/dL (7-18); CALCIUM 7.8 mg/dL (8.5-10.1); CREATININE 2.1 mg/dL (0.55-1.3); MAGNESIUM 2.2 mg/dL (1.8-2.4); PHOSPHOROUS 4.4 mg/dL (2.5-4.9); POTASSIUM 5.7 mmol/L (3.5-5.1)
[2020-04-21] MEDS: FUROSEMIDE 40 MG/4 ML INJECTABLE VIAL IVPUSH SCH (10:35)
[2020-04-21] MEDS: HEPARIN NA (PORCINE) 5,000 UNITS/ML 1ML VIAL SQ SCH ×2 (10:35→21:20)
[2020-04-21] MEDS: PANTOPRAZOLE SODIUM 40 MG VIAL IVPUSH SCH (10:35)
[2020-04-21] MEDS: CHLORHEXIDINE GLUCONATE 0.12% 15ML CUP MM SCH ×2 (10:35→21:20)
--- NOTE | 2020-04-21 10:37 | PN ---
Teaching Attending Note Name of Resident: Mairtza Elana ATTENDING PHYSICIAN STATEMENT I saw and evaluated the patient. I reviewed the resident's note and discussed the case with the resident. I agree with the resident's findings and plan as documented. SUBJECTIVE: Patient seen and examined in the ICU. AC Mode of vent. 40% FiO2. PPlat: 18 Transiently on pressors overnight. Moving left arm > right. Intermittently tracking. Intake & Output 04/18/20 04/19/20 04/20/20 04/21/20 23:59 23:59 23:59 23:59 Intake Total 1084 2568 2178 1221.6 Output Total 300 550 750 400 Balance 784 2018 1428 821.6 Weight 232 lb 12.8 oz 232 lb 234 lb 3.2 oz Last Vital Signs Temp Pulse Resp BP Pulse Ox 98.9 F 80 25 H 100/95 100 04/21/20 06:00 04/21/20 08:00 04/21/20 10:04 04/21/20 08:00 04/21/20 10:04 Active Medications Acetaminophen (Ofirmev Injection -) 1,000 mg IVPB Q6H PRN PRN Reason: FEVER Albuterol Sulfate (Ventolin 0.083% Nebulizer Soln -) 1 amp NEB Q6H PRN PRN Reason: SHORT OF BREATH/WHEEZING Last Admin: 04/18/20 09:04 Dose: 1 amp Documented by: Chlorhexidine Gluconate (Hibiclens For Decolonization -) 1 applic TP HS EAN Last Admin: 04/20/20 21:14 Dose: 1 applic Documented by: Chlorhexidine Gluconate (Peridex -) 15 ml MM BID EAN Last Admin: 04/20/20 21:16 Dose: 15 ml Documented by: Furosemide (Lasix Injection -) 40 mg IVPUSH DAILY EAN Stop: 04/23/20 13:00 Last Admin: 04/20/20 12:36 Dose: 40 mg Documented by: Heparin Sodium (Porcine) (Heparin -) 5,000 unit SQ BID EAN Last Admin: 04/20/20 21:16 Dose: 5,000 unit Documented by: Cefepime HCl 1 gm/ Dextrose 100 mls @ 200 mls/hr IVPB Q8H-IV EAN; Protocol Last Admin: 04/21/20 01:25 Dose: 200 mls/hr Documented by: Propofol (Diprivan -) 1,000,000 mcg in 100 mls @ 3.168 mls/hr IVPB TITR EAN; Protocol Last Titration: 04/21/20 07:30 Dose: 0 mcg/kg/min, 0 mls/hr Documented by: Fentanyl (Sublimaze Ivpb) 500 mcg in 100 mls @ 527.98 mls/hr IVPB TITR EAN Last Titration: 04/21/20 07:30 Dose: 0 mcg/kg/hr, 0 mls/hr Documented by: Norepinephrine Bitartrate (Levophed Bag) 8,000 mcg in 500 mls @ 18.75 mls/hr IVPB TITR EAN; Protocol Last Titration: 04/21/20 08:00 Dose: 0 mcg/min, 0 mls/hr Documented by: Metoprolol Tartrate (Lopressor Injection -) 5 mg IVPUSH Q4H PRN PRN Reason: TACHYCARDIA Nystatin (Mycostatin Cream -) 1 applic TP PRN PRN PRN Reason: HYGEINE Last Admin: 04/20/20 02:47 Dose: 1 applic Documented by: Pantoprazole Sodium (Protonix Iv) 40 mg IVPUSH DAILY EAN Last Admin: 04/20/20 09:54 Dose: 40 mg Documented by: Gen: intubated and awake intermittently following commands Heart: RRR Lung: Vented, diminished in the bases, scattered rhonchi Abd: soft, nontender, +PEG Ext: + Pulses, pedal edema Neuro: Right weakness Laboratory Results - last 24 hr 04/20/20 04/21/20 04/21/20 15:00 06:00 06:00 Sodium 131 L Potassium 5.4 H 5.7 H Chloride 97 L Carbon Dioxide 26 Anion Gap 9 BUN 85.6 H Creatinine 2.1 H Est GFR (CKD-EPI)AfAm 33.21 Est GFR (CKD-EPI)NonAf 28.66 Random Glucose 151 H Calcium 7.8 L Phosphorus 4.4 Magnesium 2.2 Random Vancomycin 25.7 ASSESS: Acute Hypoxic Respiratory Failure MRSA Pneumonia UTI Septic Shock Lactic Acidosis Acute Kidney Injury +Troponins likely Demand Ischemia Atrial Fibrillation LV Diastolic Dysfunction Pulmonary HTN COPD HTN Hyperlipidemia Bacteremia PLAN: - ABX per ID - Lasix today - Hold CT Head for now - Sedation vacation to assess mental status - inhaled bronchodilators / stop mucolytics - Pressors if needed for MAP < 65 - rate control - continue anticoagulation - monitor UOP and BMP - enteral feeds - DVT/GI prophylaxis - Requires ICU monitoring Dr Babatunde Fulton Critical care time spent in reviewing chart, evaluating patient and formulating plan - 36 minutes.
--- NOTE | 2020-04-21 16:04 | PN ---
Progress Note (short form) - Note Progress Note: HD#14 OVERNIGHT EVENTS Started up pressors. Upper lip pressure ulcer found from ETT cotton and cotton was switched to chin position. Yesterday patient's tube was found to have been a bit dislodged and was advanced back into position. Otherwise no acute overnight events. OBJECTIVE Vital Signs Temp 99 F 04/21/20 10:00 Pulse 82 04/21/20 12:00 Resp 25 H 04/21/20 12:18 BP 91/54 L 04/21/20 12:00 Pulse Ox 99 04/21/20 12:18 Intake & Output 04/20/20 04/21/20 04/21/20 23:59 11:59 23:59 Intake Total 788 1221.6 Output Total 400 400 Balance 388 821.6 Weight 106.231 kg Intake: IV 452 271.6 DIPRIVAN - 1,000,000 mcg 66 120 In 100 ml @ 5 MCG/KG/MIN 3.168 mls/hr IVPB TITR EAN Rx#:[id number] KVO 287 LEVOPHED BAG 8,000 mcg In 31.6 500 ml @ 5 MCG/MIN 18.75 mls/hr IVPB TITR EAN Rx# :[id number] SUBLIMAZE IVPB 500 mcg In 99 120 100 ml @ 25 MCG/KG/HR 527.98 mls/hr IVPB TITR EAN Rx#:[id number] IVPB 50 Tube Feeding 336 720 Tube Irrigant 180 Output: Urine 400 400 Saavedra 400 400 Other: Voiding Method Indwelling Catheter Indwelling Catheter Bowel Movement Yes: thick liquid brown # Bowel Movements 1 Body Mass Index (BMI) 30.6 Weight Measurement Method Built in [facility] LINES: [facility] CVC placed 04/19/20 TUBES: ETT DRAINS: Saavedra VAC VENT SETTINGS: rate 10, TV 400, I-time 0.6, Pplat 27, PEEP 5, FiO2 40 EXAM GENERAL: sedated, intubated, on ventilator HEENT: ETT in place, no e/o facial or head trauma, but there is a 3x3cm scabbed ulcer to external midsaggital upper lip, no blood from ETT or OGT NECK/BACK: no obvious neck hematoma or other trauma CARDIOVASCULAR: on pressor ggt, extremities wwp, S1S2 no MGR LUNGS/RESPIRATORY: breath sounds coarse and decreased on left GI/ABDOMEN: symmetric, atraumatic outwardly : Saavedra in place, normal external appearance MSK/EXTREMITIES: no evidence of acute trauma DERM/SKIN: dry, no jaundice, no rash, no pathologic-appearing bruising NEUROLOGICAL: +brainstem reflexes, eyes open and blinking but not tracking at the time of my exam, occasionally twitching upper extremities, PERRL DRIPS: Levophed 2 mcg/min ANTI-INFECTIVES: Cefepime Laboratory Results - last 24 hr 04/21/20 04/21/20 06:00 06:00 Sodium 131 L Potassium 5.7 H Chloride 97 L Carbon Dioxide 26 Anion Gap 9 BUN 85.6 H Creatinine 2.1 H Est GFR (CKD-EPI)AfAm 33.21 Est GFR (CKD-EPI)NonAf 28.66 Random Glucose 151 H Calcium 7.8 L Phosphorus 4.4 Magnesium 2.2 Random Vancomycin 25.7 ASSESSMENT/PLAN: 79YOM with CHF, COPD, CVA, HTN, HLD, and A-fib on Eliquis BIBEMS from [facility] for seizure-like episode, found in ED to be septic with UTI suspected source, needed to be intubated for respiratory failure. NEURO/PSYCH: Apparent seizure-like activity at home. Upward gaze noted yesterday c/f cerebral ischemia or bleed (resolved). -HOLD on head CT at this time as patient no longer has upward gaze -Re-assess when on sedation vacations -When on sedation fentanyl & propofol ENDOCRINE: No concerns at this time. -Continue to monitor CV: CHF exacerbation, troponinemia -Cardiology following, appreciate recs -HSQ ppx dose for now -Will restart Eliquis when able -Levophed for MAP>65 (at 2 mcg/min today) RESP: Respiratory failure, pulmonary edema, b/l pleural effusions, COPD exacerbation, likely pulmonary HTN -Follow CXR q2days unless needs more frequently -Lasix 40/day today and tomorrow -CPAP exercise, sedation vacations, continue weaning off vent -Sedated/intubated/ventilator -Attempted extubation days ago and required re-intubation -Continue CPAP exercise and sedation vacations -May be able to re-attempt extubation in coming days. GI: Apparent minor UGIB, resolved -Continue to monitor RENAL/: hyperkalemia, SURESH -s/p kayexalate -Renal following, appreciate recs -Lasix being given daily -Monitor UOP, BUN/Cr, chemistries HEME: Anemia (resolved s/p pRBC transfusion) -Continue to monitor h/h and clinical exam ID: Possible PNA -ID following, appreciate recs -Continue cefepime (day 10) MSK: Deconditioning -PT/OT when able DERM: No concerns at this time. -Continue to monitor FEN: -HOLD IVF given apparent volume overload -Monitor chemistries PPX -DVT: HSQ, SCD -GI: Protonix, Tube feeds CODE STATUS: Full Code. DISPO PLAN: Continued ICU care. Discussed patient with ICU Attending, Andre Fulton MD. Maritza Huitron MD ICU Consult Service Problem List - Problems (1) CHF exacerbation Code(s): I50.9 - HEART FAILURE, UNSPECIFIED (2) Sepsis Code(s): A41.9 - SEPSIS, UNSPECIFIED ORGANISM (3) UTI (urinary tract infection) Code(s): N39.0 - URINARY TRACT INFECTION, SITE NOT SPECIFIED Qualifiers: Urinary tract infection type: site unspecified Hematuria presence: with hematuria Qualified Code(s): N39.0 - Urinary tract infection, site not specified (4) SURESH (acute kidney injury) Code(s): N17.9 - ACUTE KIDNEY FAILURE, UNSPECIFIED (5) COPD (chronic obstructive pulmonary disease) Code(s): J44.9 - CHRONIC OBSTRUCTIVE PULMONARY DISEASE, UNSPECIFIED
[2020-04-21] MEDS: PROPOFOL 1,000,000 MCG/100 ML VIAL IVPB SCH ×3 (16:07→21:00)
--- NOTE | 2020-04-21 18:59 | PN ---
Progress Note, Physician History of Present Illness: SEDATED ON VENTILATOR BREATHING NON LABORED AFEBRILE AZOTEMIA WORSENED - Current Medication List Current Medications: Active Medications Acetaminophen (Ofirmev Injection -) 1,000 mg IVPB Q6H PRN PRN Reason: FEVER Albuterol Sulfate (Ventolin 0.083% Nebulizer Soln -) 1 amp NEB Q6H PRN PRN Reason: SHORT OF BREATH/WHEEZING Last Admin: 04/18/20 09:04 Dose: 1 amp Documented by: Chlorhexidine Gluconate (Hibiclens For Decolonization -) 1 applic TP HS EAN Last Admin: 04/20/20 21:14 Dose: 1 applic Documented by: Chlorhexidine Gluconate (Peridex -) 15 ml MM BID EAN Last Admin: 04/21/20 10:35 Dose: 15 ml Documented by: Furosemide (Lasix Injection -) 40 mg IVPUSH DAILY EAN Stop: 04/23/20 13:00 Last Admin: 04/21/20 10:35 Dose: 40 mg Documented by: Heparin Sodium (Porcine) (Heparin -) 5,000 unit SQ BID EAN Last Admin: 04/21/20 10:35 Dose: 5,000 unit Documented by: Cefepime HCl 1 gm/ Dextrose 100 mls @ 200 mls/hr IVPB Q8H-IV EAN; Protocol Last Admin: 04/21/20 10:35 Dose: 200 mls/hr Documented by: Propofol (Diprivan -) 1,000,000 mcg in 100 mls @ 3.168 mls/hr IVPB TITR EAN; Protocol Last Titration: 04/21/20 15:00 Dose: 15 mcg/kg/min, 9.504 mls/hr Documented by: Fentanyl (Sublimaze Ivpb) 500 mcg in 100 mls @ 527.98 mls/hr IVPB TITR EAN Last Titration: 04/21/20 15:00 Dose: 0.47 mcg/kg/hr, 10 mls/hr Documented by: Norepinephrine Bitartrate (Levophed Bag) 8,000 mcg in 500 mls @ 18.75 mls/hr IVPB TITR EAN; Protocol Last Titration: 04/21/20 08:00 Dose: 0 mcg/min, 0 mls/hr Documented by: Metoprolol Tartrate (Lopressor Injection -) 5 mg IVPUSH Q4H PRN PRN Reason: TACHYCARDIA Nystatin (Mycostatin Cream -) 1 applic TP PRN PRN PRN Reason: HYGEINE Last Admin: 04/20/20 02:47 Dose: 1 applic Documented by: Pantoprazole Sodium (Protonix Iv) 40 mg IVPUSH DAILY EAN Last Admin: 04/21/20 10:35 Dose: 40 mg Documented by: - Objective Vital Signs: Vital Signs Temperature 97.8 F 04/21/20 18:00 Pulse Rate 71 04/21/20 18:00 Respiratory Rate 15 04/21/20 18:00 Blood Pressure 101/50 L 04/21/20 18:00 O2 Sat by Pulse Oximetry (%) 99 04/21/20 15:52 Constitutional: Yes: No Distress Cardiovascular: Yes: Regular Rate and Rhythm, S1, S2 Respiratory: Yes: CTA Bilaterally Gastrointestinal: Yes: Normal Bowel Sounds, Soft Labs: CBC, BMP 04/20/20 06:00 04/21/20 06:00 INR, PTT INR 1.49 (0.83-1.09) H 04/08/20 05:20 Assessment/Plan ACUTE RESP FAILURE SEPSIS/ SEPTIC SHOCK LACTIC ACIDOSIS S/P SEIZURE PROBABLE ASP PNEUMONIA OPACIFIED L HEMITHORAX IMPROVED COPD AZOTEMIA PCN ALLERGY COVID-19 (-) CONTINUE CEFEPIME; VANCOMYCIN PER LEVEL VENTILATORY/ HEMODYNAMIC SUPPORT PROGNOSIS GUARDED
[2020-04-21] MEDS: CHLORHEXIDINE GLUCONATE 4% CLEANSER FOR DECOLONIZATION TP SCH (21:15)
[2020-04-22] MEDS: CEFEPIME 1 GM in DEXTROSE 5%-WATER 100 ML IVPB SCH ×3 (01:26→17:19)
[2020-04-22] MEDS: NOREPINEPHRINE BITARTRATE 8,000 MCG/500 ML BAG IVPB SCH (01:27)
[2020-04-22] MEDS ORDERED: fentaNYL CITRATE 250 MCG/5 ML VIAL ONE (06:06)
[2020-04-22] MEDS: FENTANYL NS IVPB 500 MCG/100 ML BAG IVPB SCH ×2 (06:28→20:00)
[2020-04-22] MEDS: PROPOFOL 1,000,000 MCG/100 ML VIAL IVPB SCH ×3 (06:28→21:15)
[2020-04-22 07:23] LABS: BASO % 0.7 % (0-2.0); EOS % 1.6 % (0-4.5); HEMATOCRIT 25.4 % (35.4-49); HEMOGLOBIN 8.3 GM/dL (11.7-16.9); LYMPH % 10.2 % (8-40); MCH 30.1 pg (25.7-33.7); MCHC 32.8 g/dl (32.0-35.9); MEAN CELL VOLUME 91.6 fl (80-96); MEAN PLT VOLUME 8.3 fl (7.5-11.1); MONO % 12.3 % (3.8-10.2); NEUT % 75.2 % (42.8-82.8); PLATELET COUNT 205 K/MM3 (134-434); RBC 2.78 M/mm3 (4.00-5.60); WHITE BLOOD COUNT 10.8 K/mm3 (4.0-10.0)
[2020-04-22 07:56] LABS: ALBUMIN 1.2 g/dl (3.4-5.0); BILIRUBIN,TOTAL 0.3 mg/dL (0.2-1); BLOOD UREA NITROGEN 96.5 mg/dL (7-18); CALCIUM 7.7 mg/dL (8.5-10.1); MAGNESIUM 2.3 mg/dL (1.8-2.4); PHOSPHOROUS 4.7 mg/dL (2.5-4.9); POTASSIUM 5.5 mmol/L (3.5-5.1); TOT PROT 5.7 g/dl (6.4-8.2)
[2020-04-22 07:58] LABS: CREATININE 2.4 mg/dL (0.55-1.3)
[2020-04-22] MEDS ORDERED: ALBUTEROL SO4 HFA INHALER IH PRN (08:21)
[2020-04-22] MEDS ORDERED: SODIUM POLYSTYRENE SULFONATE 15 GM/60 ML BOTTLE PO ONE ×2 (08:25→19:29)
[2020-04-22] MEDS ORDERED: CALCIUM GLUCONATE 10% - 1,000 MG/10 ML VIAL IVPB ONE (08:30)
[2020-04-22] MEDS ORDERED: DEXTROSE 5%-WATER 100 ML IVPB ONE ×3 (09:16→21:00)
[2020-04-22] MEDS ORDERED: CEFEPIME HCL 1 GM VIAL (RESTRICTED TO ID) ONE ×3 (09:16→20:59)
[2020-04-22 09:41] LABS: ANISOCYTOSIS 0; MACROCYTOSIS 0; PLATELET ESTIMATE NORMAL
[2020-04-22] MEDS ORDERED: SODIUM POLYSTYRENE SULFONATE 15 GM/60 ML BOTTLE ONE (10:08)
[2020-04-22] MEDS: HEPARIN NA (PORCINE) 5,000 UNITS/ML 1ML VIAL SQ SCH ×2 (10:12→21:05)
[2020-04-22] MEDS: FUROSEMIDE 40 MG/4 ML INJECTABLE VIAL IVPUSH SCH (10:14)
[2020-04-22] MEDS: SODIUM ZIRCONIUM CYCLOSILICATE (LOKELMA) 5 GM PACKET PO SCH (10:16)
[2020-04-22] MEDS: CHLORHEXIDINE GLUCONATE 0.12% 15ML CUP MM SCH ×2 (10:17→21:15)
--- NOTE | 2020-04-22 10:18 | PN ---
Progress Note, Physician History of Present Illness: AWAKE SEDATED ON VENTILATOR BREATHING NON LABORED AFEBRILE SL INCREASE IN WBC AZOTEMIA WORSENED - Current Medication List Current Medications: Active Medications Acetaminophen (Ofirmev Injection -) 1,000 mg IVPB Q6H PRN PRN Reason: FEVER Albuterol Sulfate (Ventolin Hfa Inhaler -) 2 puff IH Q4H PRN PRN Reason: SHORT OF BREATH/WHEEZING Chlorhexidine Gluconate (Hibiclens For Decolonization -) 1 applic TP HS EAN Last Admin: 04/21/20 21:15 Dose: 1 applic Documented by: Chlorhexidine Gluconate (Peridex -) 15 ml MM BID EAN Last Admin: 04/21/20 21:20 Dose: 15 ml Documented by: Furosemide (Lasix Injection -) 40 mg IVPUSH DAILY EAN Stop: 04/23/20 13:00 Last Admin: 04/21/20 10:35 Dose: 40 mg Documented by: Heparin Sodium (Porcine) (Heparin -) 5,000 unit SQ BID EAN Last Admin: 04/21/20 21:20 Dose: 5,000 unit Documented by: Cefepime HCl 1 gm/ Dextrose 100 mls @ 200 mls/hr IVPB Q8H-IV EAN; Protocol Last Admin: 04/22/20 01:26 Dose: 200 mls/hr Documented by: Propofol (Diprivan -) 1,000,000 mcg in 100 mls @ 3.168 mls/hr IVPB TITR EAN; Protocol Last Admin: 04/22/20 06:28 Dose: 10 mcg/kg/min, 6.336 mls/hr Documented by: Fentanyl (Sublimaze Ivpb) 500 mcg in 100 mls @ 527.98 mls/hr IVPB TITR EAN Last Admin: 04/22/20 06:28 Dose: 0.47 mcg/kg/hr, 10 mls/hr Documented by: Norepinephrine Bitartrate (Levophed Bag) 8,000 mcg in 500 mls @ 18.75 mls/hr IVPB TITR EAN; Protocol Last Titration: 04/22/20 06:28 Dose: 2 mcg/min, 7.5 mls/hr Documented by: Metoprolol Tartrate (Lopressor Injection -) 5 mg IVPUSH Q4H PRN PRN Reason: TACHYCARDIA Nystatin (Mycostatin Cream -) 1 applic TP PRN PRN PRN Reason: HYGEINE Last Admin: 04/20/20 02:47 Dose: 1 applic Documented by: Pantoprazole Sodium (Protonix Iv) 40 mg IVPUSH DAILY [facility] Last Admin: 04/21/20 10:35 Dose: 40 mg Documented by: Sodium Zirconium Cyclosilicate (Lokelma) 10 gm PO DAILY [facility] - Objective Vital Signs: Vital Signs Temperature 97.9 F 04/22/20 06:00 Pulse Rate 79 04/22/20 06:00 Respiratory Rate 15 04/22/20 08:20 Blood Pressure 96/68 04/22/20 06:00 O2 Sat by Pulse Oximetry (%) 100 04/22/20 08:20 Constitutional: Yes: No Distress Cardiovascular: Yes: Regular Rate and Rhythm, S1, S2 Respiratory: Yes: Mechanically Ventilated Gastrointestinal: Yes: Normal Bowel Sounds, Soft. No: Tenderness Edema: Yes Labs: CBC, BMP 04/22/20 05:00 04/22/20 05:00 INR, PTT INR 1.49 (0.83-1.09) H 04/08/20 05:20 Assessment/Plan ACUTE RESP FAILURE SEPSIS/ SEPTIC SHOCK LACTIC ACIDOSIS S/P SEIZURE PROBABLE ASP PNEUMONIA COPD AZOTEMIA PCN ALLERGY COVID-19 (-) CONTINUE CEFEPIME; VANCOMYCIN PER LEVEL VENTILATORY/ HEMODYNAMIC SUPPORT PROGNOSIS GUARDED
[2020-04-22] MEDS: PANTOPRAZOLE SODIUM 40 MG VIAL IVPUSH SCH (10:45)
--- NOTE | 2020-04-22 11:55 | PN ---
Physical Exam: SUBJECTIVE: Patient seen and examined at bed side in ICU AC Mode of vent. 40% FiO2. PPlat: 18 Intermittently tracking. Not following commands. Increasing generalized edema. low grade temp 96.6 cont cefepim and vanco on NE 2 HYpnatremic and hyperkalemic treated medically will repeat bmp in the afternoon and consult Nephrology for worsening kidney function OBJECTIVE: Vital Signs Period Temp Pulse Resp BP Sys/Cesar Pulse Ox Last 24 Hr 96.6 F-98.2 F 67-82 10-27 89-106/45-68 99-100 GENERAL: sedated, intubated, on ventilator HEENT: ETT in place, no e/o facial or head trauma, but there is a 3x3cm scabbed ulcer to external midsaggital upper lip, no blood from ETT or OGT NECK/BACK: no obvious neck hematoma or other trauma CARDIOVASCULAR: on pressor ggt, extremities wwp, S1S2 no MGR LUNGS/RESPIRATORY: breath sounds coarse and decreased on left GI/ABDOMEN: symmetric, atraumatic outwardly : Saavedra in place, normal external appearance MSK/EXTREMITIES: no evidence of acute trauma DERM/SKIN: dry, no jaundice, no rash, no pathologic-appearing bruising NEUROLOGICAL: +brainstem reflexes, eyes open and blinking but not tracking at the time of my exam, occasionally twitching upper extremities, PERRL Laboratory Results - last 24 hr 04/22/20 04/22/20 05:00 05:00 WBC 10.8 H RBC 2.78 L Hgb 8.3 L Hct 25.4 L MCV 91.6 MCH 30.1 MCHC 32.8 RDW 18.0 H Plt Count 205 MPV 8.3 Absolute Neuts (auto) 8.1 H Neutrophils % 75.2 Neutrophils % (Manual) 79.0 Band Neutrophils % 0.0 Lymphocytes % 10.2 Lymphocytes % (Manual) 12.0 D Monocytes % 12.3 H Monocytes % (Manual) 7 Eosinophils % 1.6 Eosinophils % (Manual) 2.0 D Basophils % 0.7 Basophils % (Manual) 0.0 Myelocytes % (Man) 0 Promyelocytes % (Man) 0 Blast Cells % (Manual) 0 Nucleated RBC % 0 Metamyelocytes 0 Hypochromia 0 Platelet Estimate Normal Polychromasia 0 Poikilocytosis 0 Anisocytosis 0 Microcytosis 0 Macrocytosis 0 Sodium 132 L Potassium 5.5 H Chloride 97 L Carbon Dioxide 27 Anion Gap 9 BUN 96.5 H Creatinine 2.4 H Est GFR (CKD-EPI)AfAm 28.26 Est GFR (CKD-EPI)NonAf 24.38 Random Glucose 142 H Calcium 7.7 L Phosphorus 4.7 Magnesium 2.3 Total Bilirubin 0.3 AST 32 ALT 15 Alkaline Phosphatase 147 H Total Protein 5.7 L Albumin 1.2 L Active Medications Generic Name Dose Route Start Last Admin Trade Name Freq PRN Reason Stop Dose Admin Acetaminophen 1,000 mg 04/08/20 08:58 Ofirmev Injection - IVPB Q6H PRN FEVER Albuterol Sulfate 2 puff 04/22/20 08:21 Ventolin Hfa Inhaler - IH Q4H PRN SHORT OF BREATH/WHEEZING Chlorhexidine Gluconate 1 applic 04/07/20 22:00 04/21/20 21:15 Hibiclens For Decolonization - TP 1 applic HS EAN Administration Chlorhexidine Gluconate 15 ml 04/18/20 22:00 04/22/20 10:17 Peridex - MM 15 ml BID EAN Administration Furosemide 40 mg 04/20/20 12:00 04/22/20 10:14 Lasix Injection - IVPUSH 04/23/20 13:00 40 mg DAILY EAN Administration Heparin Sodium (Porcine) 5,000 unit 04/10/20 15:15 04/22/20 10:12 Heparin - SQ 5,000 unit BID EAN Administration Cefepime HCl 1 gm/ Dextrose 100 mls @ 200 mls/hr 04/11/20 18:00 04/22/20 10:16 IVPB 200 mls/hr Q8H-IV EAN Administration Protocol Propofol 1,000,000 mcg in 100 mls @ 3.168 mls/hr 04/18/20 13:00 04/22/20 06:28 Diprivan - IVPB 10 mcg/kg/min TITR EAN 6.336 mls/hr Administration Protocol 5 MCG/KG/MIN Fentanyl 500 mcg in 100 mls @ 527.98 mls/hr 04/18/20 22:00 04/22/20 06:28 Sublimaze Ivpb IVPB 0.47 mcg/kg/hr TITR EAN 10 mls/hr Administration 25 MCG/KG/HR Norepinephrine Bitartrate 8,000 mcg in 500 mls @ 18.75 mls/hr 04/21/20 00:15 04/22/20 06:28 Levophed Bag IVPB 2 mcg/min TITR EAN 7.5 mls/hr Titration Protocol 5 MCG/MIN Metoprolol Tartrate 5 mg 04/07/20 22:50 Lopressor Injection - IVPUSH Q4H PRN TACHYCARDIA Nystatin 1 applic 04/19/20 23:58 04/20/20 02:47 Mycostatin Cream - TP 1 applic PRN PRN Administration HYGEINE Pantoprazole Sodium 40 mg 04/08/20 10:00 04/22/20 10:45 Protonix Iv IVPUSH 40 mg DAILY EAN Administration Sodium Zirconium Cyclosilicate 10 gm 04/22/20 10:00 04/22/20 10:16 Lokelma PO 10 gm DAILY EAN Administration CBC, BMP 04/22/20 05:00 04/22/20 05:00 ASSESSMENT/PLAN: 79YOM with CHF, COPD, CVA, HTN, HLD, and A-fib on Eliquis BIBEMS from [facility] for seizure-like episode, found in ED to be septic with UTI suspected source, needed to be intubated for respiratory failure. NEURO/PSYCH: Apparent seizure-like activity at home. Upward gaze noted yesterday c/f cerebral ischemia or bleed (resolved). -HOLD on head CT at this time as patient no longer has upward gaze -Re-assess when on sedation vacations -When on sedation fentanyl & propofol ENDOCRINE: No concerns at this time. -Continue to monitor CV: CHF exacerbation, troponinemia -Cardiology following, appreciate recs -HSQ ppx dose for now -Will restart Eliquis when able -Levophed for MAP>65 (at 2 mcg/min today) RESP: Respiratory failure, pulmonary edema, b/l pleural effusions, COPD exacerbation, likely pulmonary HTN -Follow CXR q2days unless needs more frequently -Lasix 40/day today and tomorrow -CPAP exercise, sedation vacations, continue weaning off vent -Sedated/intubated/ventilator -Attempted extubation days ago and required re-intubation -Continue CPAP exercise and sedation vacations -May be able to re-attempt extubation in coming days. GI: Apparent minor UGIB, resolved -Continue to monitor RENAL/: hyperkalemia, SURESH -s/p kayexalate PO , start Lokelma , Albuterol -Renal following, appreciate recs -Lasix being given daily -Monitor UOP, BUN/Cr, chemistries HEME: Anemia (resolved s/p pRBC transfusion) -Continue to monitor h/h and clinical exam ID: Possible PNA -ID following, appreciate recs -Continue cefepime (day 10) and vanco MSK: Deconditioning -PT/OT when able DERM: No concerns at this time. -Continue to monitor FEN: -HOLD IVF given apparent volume overload -Monitor chemistries PPX -DVT: HSQ, SCD -GI: Protonix, Tube feeds CODE STATUS: Full Code. DISPO PLAN: Continued ICU care Visit type - Emergency Visit Emergency Visit: Yes ED Registration Date: 04/07/20 Care time: The patient presented to the Emergency Department on the above date and was hospitalized for further evaluation of their emergent condition. - New Patient This patient is new to me today: No - Critical Care Critical Care patient: Yes Total Critical Care Time (in minutes): 45 Critical Care Statement: The care of this patient involved high complexity decision making to prevent further life threatening deterioration of the patient's condition and/or to evaluate & treat vital organ system(s) failure or risk of failure. - Discharge Referral Referred to [facility] No ATTENDING PHYSICIAN STATEMENT I saw and evaluated the patient. I reviewed the resident's note and discussed the case with the resident. I agree with the resident's findings and plan as documented. SUBJECTIVE: OBJECTIVE: ASSESSMENT AND PLAN:
--- NOTE | 2020-04-22 12:18 | PN ---
Teaching Attending Note Name of Resident: Keshav Kessler ATTENDING PHYSICIAN STATEMENT I saw and evaluated the patient. I reviewed the resident's note and discussed the case with the resident. I agree with the resident's findings and plan as documented. SUBJECTIVE: Patient seen and examined in the ICU. AC Mode of vent. 40% FiO2. PPlat: 18 Intermittently tracking. Not following commands. Increasing generalized edema. Intake & Output 04/19/20 04/20/20 04/21/20 04/22/20 23:59 23:59 23:59 23:59 Intake Total 2568 2178 1836.8 1395 Output Total 550 750 800 100 Balance 2017 1428 1036.8 1295 Weight 232 lb 234 lb 3.2 oz 233 lb 4 oz Last Vital Signs Temp Pulse Resp BP Pulse Ox 96.6 F L 69 16 93/53 L 100 04/22/20 10:00 04/22/20 10:00 04/22/20 10:00 04/22/20 10:00 04/22/20 08:20 Active Medications Acetaminophen (Ofirmev Injection -) 1,000 mg IVPB Q6H PRN PRN Reason: FEVER Albuterol Sulfate (Ventolin Hfa Inhaler -) 2 puff IH Q4H PRN PRN Reason: SHORT OF BREATH/WHEEZING Chlorhexidine Gluconate (Hibiclens For Decolonization -) 1 applic TP HS EAN Last Admin: 04/21/20 21:15 Dose: 1 applic Documented by: Chlorhexidine Gluconate (Peridex -) 15 ml MM BID EAN Last Admin: 04/22/20 10:17 Dose: 15 ml Documented by: Furosemide (Lasix Injection -) 40 mg IVPUSH DAILY AEN Stop: 04/23/20 13:00 Last Admin: 04/22/20 10:14 Dose: 40 mg Documented by: Heparin Sodium (Porcine) (Heparin -) 5,000 unit SQ BID EAN Last Admin: 04/22/20 10:12 Dose: 5,000 unit Documented by: Cefepime HCl 1 gm/ Dextrose 100 mls @ 200 mls/hr IVPB Q8H-IV EAN; Protocol Last Admin: 04/22/20 10:16 Dose: 200 mls/hr Documented by: Propofol (Diprivan -) 1,000,000 mcg in 100 mls @ 3.168 mls/hr IVPB TITR EAN; Protocol Last Admin: 04/22/20 06:28 Dose: 10 mcg/kg/min, 6.336 mls/hr Documented by: Fentanyl (Sublimaze Ivpb) 500 mcg in 100 mls @ 527.98 mls/hr IVPB TITR EAN Last Admin: 04/22/20 06:28 Dose: 0.47 mcg/kg/hr, 10 mls/hr Documented by: Norepinephrine Bitartrate (Levophed Bag) 8,000 mcg in 500 mls @ 18.75 mls/hr IVPB TITR EAN; Protocol Last Titration: 04/22/20 06:28 Dose: 2 mcg/min, 7.5 mls/hr Documented by: Metoprolol Tartrate (Lopressor Injection -) 5 mg IVPUSH Q4H PRN PRN Reason: TACHYCARDIA Nystatin (Mycostatin Cream -) 1 applic TP PRN PRN PRN Reason: HYGEINE Last Admin: 04/20/20 02:47 Dose: 1 applic Documented by: Pantoprazole Sodium (Protonix Iv) 40 mg IVPUSH DAILY EAN Last Admin: 04/22/20 10:45 Dose: 40 mg Documented by: Sodium Zirconium Cyclosilicate (Lokelma) 10 gm PO DAILY [facility] Last Admin: 04/22/20 10:16 Dose: 10 gm Documented by: Gen: intubated, poorly responsive, generalized edema Heart: RRR Lung: Vented, diminished in the bases, scattered rhonchi Abd: soft, nontender, +PEG Ext: + Pulses, (+) edema Neuro: Right weakness Laboratory Results - last 24 hr 04/22/20 04/22/20 05:00 05:00 WBC 10.8 H RBC 2.78 L Hgb 8.3 L Hct 25.4 L MCV 91.6 MCH 30.1 MCHC 32.8 RDW 18.0 H Plt Count 205 MPV 8.3 Absolute Neuts (auto) 8.1 H Neutrophils % 75.2 Neutrophils % (Manual) 79.0 Band Neutrophils % 0.0 Lymphocytes % 10.2 Lymphocytes % (Manual) 12.0 D Monocytes % 12.3 H Monocytes % (Manual) 7 Eosinophils % 1.6 Eosinophils % (Manual) 2.0 D Basophils % 0.7 Basophils % (Manual) 0.0 Myelocytes % (Man) 0 Promyelocytes % (Man) 0 Blast Cells % (Manual) 0 Nucleated RBC % 0 Metamyelocytes 0 Hypochromia 0 Platelet Estimate Normal Polychromasia 0 Poikilocytosis 0 Anisocytosis 0 Microcytosis 0 Macrocytosis 0 Sodium 132 L Potassium 5.5 H Chloride 97 L Carbon Dioxide 27 Anion Gap 9 BUN 96.5 H Creatinine 2.4 H Est GFR (CKD-EPI)AfAm 28.26 Est GFR (CKD-EPI)NonAf 24.38 Random Glucose 142 H Calcium 7.7 L Phosphorus 4.7 Magnesium 2.3 Total Bilirubin 0.3 AST 32 ALT 15 Alkaline Phosphatase 147 H Total Protein 5.7 L Albumin 1.2 L ASSESS: Acute Hypoxic Respiratory Failure MRSA Pneumonia UTI Septic Shock Lactic Acidosis Acute Kidney Injury +Troponins likely Demand Ischemia Atrial Fibrillation LV Diastolic Dysfunction Pulmonary HTN COPD HTN Hyperlipidemia Bacteremia PLAN: - ABX per ID - Lasix today - Renal evaluation - Sedation vacation to assess mental status - inhaled bronchodilators / stop mucolytics - Pressors if needed for MAP < 65 - rate control - continue anticoagulation - monitor UOP and BMP - enteral feeds - DVT/GI prophylaxis - Requires ICU monitoring Dr Babatunde Fulton Critical care time spent in reviewing chart, evaluating patient and formulating plan - 36 minutes.
--- NOTE | 2020-04-22 12:25 | CON.NEP ---
Consult Consult Specialty:: Nephrology Referred by:: jessie Reason for Consultation:: linda - History of Present Illness Chief Complaint: resp failure History of Present Illness: pt in icu with ACUTE RESP FAILURE SEPSIS/ SEPTIC SHOCK LACTIC ACIDOSIS S/P SEIZURE PROBABLE ASP PNEUMONIA COPD AZOTEMIA PCN ALLERGY COVID-19 (-) has been having low BP's compared to previous non oliguric urine output Meds on CEFEPIME; VANCOMYCIN PER LEVEL VENTILATORY/ HEMODYNAMIC SUPPORT PROGNOSIS GUARDED - History Source History Provided By: Medical Record - Past Medical History LOG MARKER: Yes: CVA Cardio/Vascular: Yes: AFIB, Aortic Stenosis, CHF, HTN, Hyperlipdemia Pulmonary: Yes: COPD, Pneumonia (Aspiration) Gastrointestinal: Yes: Diverticulitis Hepatobiliary: Yes: Cirrhosis Renal/: Yes: Renal Inusuff, BPH Psych: Yes: Anxiety Rheumatology: Yes: Gout Endocrine: Yes: Diabetes Mellitus - Alcohol/Substance Use Hx Alcohol Use: No History of Substance Use: reports: None - Smoking History Smoking history: Never smoked Have you smoked in the past 12 months: No - Social History ADL: Support Services History of Recent Travel: No Home Medications - Allergies Allergies/Adverse Reactions: Allergies Allergy/AdvReac Type Severity Reaction Status Date / Time aspirin Allergy Unknown Verified 04/07/20 22:52 Penicillins Allergy Unknown Rash Verified 04/07/20 22:52 - Home Medications Home Medications: Ambulatory Orders Collagenase Clostridium Hist. [Santyl] 1 applic TP DAILY #90 oint...g. 10/14/19 Albuterol Sulfate [Proventil Hfa] 1 inhaler IH PRN PRN 10/21/19 Alprazolam [Xanax] 1 tab PO BID PRN 10/21/19 Apixaban [Eliquis -] 2.5 mg PO BID 10/21/19 Atenolol [Tenormin] 25 mg PO DAILY 10/21/19 Atorvastatin Ca [Lipitor] 20 mg PO DAILY 10/21/19 Febuxostat 80 mg PO DAILY 10/21/19 Finasteride 5 mg PO DAILY 10/21/19 Pantoprazole Sodium 40 mg PO DAILY 10/21/19 Triamcinolone 0.1% Cream 1 applic TP BID 10/21/19 Amino Acids/Protein Hydrolys [Prosource No Carb Liquid Pkt] 30 ml PO DAILY packet 03/30/20 Magnesium Oxide [Mag-Ox -] 400 mg PO BID tablet 03/30/20 Nystatin Powder [Nystop Powder -] 1 applic TP BID applic 03/30/20 Triamcinolone 0.1% Ointment [Aristocort 0.1% Ointment -] 1 applic TP BID applic 03/30/20 Furosemide [Lasix -] 40 mg PO DAILY 04/07/20 Nephrology Consult - Height Height: 6 ft 1 in - Weight Weight: 233 lb 4 oz - BMI Body Mass Index (BMI): 30.7 - Lab Results CBC,BMP: CBC, BMP 04/22/20 05:00 04/22/20 05:00 Anion Gap: Anion Gap Anion Gap 9 MMOL/L (8-16) 04/22/20 05:00 - Physical Examination Vital Signs: Vital Signs Temperature 96.6 F L 04/22/20 10:00 Pulse Rate 69 04/22/20 10:00 Respiratory Rate 16 04/22/20 10:00 Blood Pressure 93/53 L 04/22/20 10:00 O2 Sat by Pulse Oximetry (%) 100 04/22/20 08:20 Assessment/Plan LINDA non oliguric 2/2 renal hypoperfusion/sepsis proteinuria and hematuria noted in beginning of illness no significant wbc's ACUTE RESP FAILURE SEPSIS/ SEPTIC SHOCK LACTIC ACIDOSIS S/P SEIZURE PROBABLE ASP PNEUMONIA COPD AZOTEMIA PCN ALLERGY COVID-19 (-) CONTINUE CEFEPIME; VANCOMYCIN PER LEVEL VENTILATORY/ HEMODYNAMIC SUPPORT PROGNOSIS GUARDED continue hemodynamic support renal and bladder sos when feasible (has simon) will repeat urine studies
--- NOTE | 2020-04-22 12:43 | EKG ---
Test Reason : Blood Pressure : / mmHG Vent. Rate : 077 BPM Atrial Rate : 071 BPM P-R Int : 000 ms QRS Dur : 088 ms QT Int : 404 ms P-R-T Axes : 000 021 057 degrees QTc Int : 457 ms ATRIAL FIBRILLATION LOW VOLTAGE QRS NONSPECIFIC ST AND T WAVE ABNORMALITY ABNORMAL ECG WHEN COMPARED WITH ECG OF 07-APR-2020 22:02, CRITERIA FOR INFERIOR INFARCT ARE NO LONGER PRESENT ST NOW DEPRESSED IN LATERAL LEADS T WAVE INVERSION NO LONGER EVIDENT IN INFERIOR LEADS NONSPECIFIC T WAVE ABNORMALITY, IMPROVED IN ANTERIOR LEADS NONSPECIFIC T WAVE ABNORMALITY NOW EVIDENT IN LATERAL LEADS Confirmed by MD Espitia Daniel ([id number]) on 04/22/2020 12:43:12 PM Referred By: Nakul HOGAN Confirmed By:Esau Espitia MD
[2020-04-22 19:27] LABS: BLOOD UREA NITROGEN 103.7 mg/dL (7-18); CREATININE 2.5 mg/dL (0.55-1.3); POTASSIUM 5.2 mmol/L (3.5-5.1)
[2020-04-22] MEDS ORDERED: SODIUM ZIRCONIUM CYCLOSILICATE (LOKELMA) 5 GM PACKET PO ONE (19:30)
[2020-04-22] MEDS: CHLORHEXIDINE GLUCONATE 4% CLEANSER FOR DECOLONIZATION TP SCH (21:05)
[2020-04-23] MEDS: CEFEPIME 1 GM in DEXTROSE 5%-WATER 100 ML IVPB SCH ×3 (03:09→17:15)
[2020-04-23 06:33] LABS: BASO % 1.3 % (0-2.0); EOS % 1.3 % (0-4.5); HEMATOCRIT 22.9 % (35.4-49); HEMOGLOBIN 7.5 GM/dL (11.7-16.9); LYMPH % 10.7 % (8-40); MCH 30.1 pg (25.7-33.7); MCHC 32.8 g/dl (32.0-35.9); MEAN CELL VOLUME 91.7 fl (80-96); MEAN PLT VOLUME 8.1 fl (7.5-11.1); MONO % 13.9 % (3.8-10.2); NEUT % 72.8 % (42.8-82.8); PLATELET COUNT 160 K/MM3 (134-434); RDW 18.2 % (11.9-15.9); WHITE BLOOD COUNT 8.5 K/mm3 (4.0-10.0)
[2020-04-23] MEDS: FENTANYL NS IVPB 500 MCG/100 ML BAG IVPB SCH ×2 (06:39→17:16)
[2020-04-23] MEDS: NOREPINEPHRINE BITARTRATE 8,000 MCG/500 ML BAG IVPB SCH ×2 (06:39→17:16)
[2020-04-23 07:11] LABS: ALBUMIN 1.1 g/dl (3.4-5.0); CALCIUM 7.8 mg/dL (8.5-10.1); MAGNESIUM 2.1 mg/dL (1.8-2.4); POTASSIUM 4.4 mmol/L (3.5-5.1)
[2020-04-23 07:14] LABS: BILIRUBIN,TOTAL 0.7 mg/dL (0.2-1); CREATININE 2.7 mg/dL (0.55-1.3); PHOSPHOROUS 5.1 mg/dL (2.5-4.9); TOT PROT 5.2 g/dl (6.4-8.2)
[2020-04-23 07:29] LABS: BLOOD UREA NITROGEN 106.8 mg/dL (7-18)
[2020-04-23] MEDS ORDERED: CEFEPIME HCL 1 GM VIAL (RESTRICTED TO ID) ONE ×2 (09:59→17:12)
[2020-04-23] MEDS ORDERED: DEXTROSE 5%-WATER 100 ML IVPB ONE ×2 (10:00→17:13)
[2020-04-23] MEDS: FUROSEMIDE 40 MG/4 ML INJECTABLE VIAL IVPUSH SCH (10:21)
[2020-04-23] MEDS: HEPARIN NA (PORCINE) 5,000 UNITS/ML 1ML VIAL SQ SCH ×2 (10:21→22:45)
[2020-04-23] MEDS: SODIUM ZIRCONIUM CYCLOSILICATE (LOKELMA) 5 GM PACKET PO SCH (10:22)
[2020-04-23] MEDS: CHLORHEXIDINE GLUCONATE 0.12% 15ML CUP MM SCH ×2 (10:23→22:45)
[2020-04-23] MEDS: PANTOPRAZOLE SODIUM 40 MG VIAL IVPUSH SCH (10:23)
[2020-04-23 11:12] LABS: ANISOCYTOSIS 1+; MACROCYTOSIS 0; OVALOCYTE 1+; PLATELET ESTIMATE DECREASED
--- NOTE | 2020-04-23 11:26 | PN ---
Teaching Attending Note Name of Resident: Wilman Connolly ATTENDING PHYSICIAN STATEMENT I saw and evaluated the patient. I reviewed the resident's note and discussed the case with the resident. I agree with the resident's findings and plan as documented. SUBJECTIVE: Pt seen and examined in the ICU. Remains intubated, off pressors. Awake off se dation. Has been oliguric despite lasix. OBJECTIVE: Vital Signs Period Temp Pulse Resp BP Sys/Cesar Pulse Ox Last 24 Hr 96.6 F-97.8 F 69-91 12-19 88-115/47-78 99-100 Intake & Output 04/20/20 04/21/20 04/22/20 04/23/20 23:59 23:59 23:59 23:59 Intake Total 2178 1836.8 3065 1120 Output Total 726 427 2158 250 Balance 1428 1036.8 1365 870 Weight 106.231 kg 105.8 kg 106.282 kg Gen: intubatd, awake Heart: RRR Lung: scattered rhonchi Abd: soft, nontender Ext: + edema CBC, BMP 04/23/20 05:02 04/23/20 05:02 Active Medications Acetaminophen (Ofirmev Injection -) 1,000 mg IVPB Q6H PRN PRN Reason: FEVER Albumin Human (Albumin Human 25% -) 25 gm IVPB ONCE ONE Stop: 04/23/20 15:01 Albuterol Sulfate (Ventolin Hfa Inhaler -) 2 puff IH Q4H PRN PRN Reason: SHORT OF BREATH/WHEEZING Chlorhexidine Gluconate (Hibiclens For Decolonization -) 1 applic TP HS [facility] Last Admin: 04/22/20 21:05 Dose: 1 applic Documented by: Chlorhexidine Gluconate (Peridex -) 15 ml MM BID [facility] Last Admin: 04/23/20 10:23 Dose: 15 ml Documented by: Furosemide (Lasix Injection -) 40 mg IVPUSH DAILY [facility] Stop: 04/23/20 13:00 Last Admin: 04/23/20 10:21 Dose: 40 mg Documented by: Furosemide (Lasix Injection -) 40 mg IVPUSH ONCE ONE Stop: 04/23/20 16:01 Heparin Sodium (Porcine) (Heparin -) 5,000 unit SQ BID [facility] Last Admin: 04/23/20 10:21 Dose: 5,000 unit Documented by: Cefepime HCl 1 gm/ Dextrose 100 mls @ 200 mls/hr IVPB Q8H-IV EAN; Protocol Last Admin: 04/23/20 10:22 Dose: 200 mls/hr Documented by: Propofol (Diprivan -) 1,000,000 mcg in 100 mls @ 3.168 mls/hr IVPB TITR EAN; Protocol Last Admin: 04/22/20 21:15 Dose: 10 mcg/kg/min, 6.336 mls/hr Documented by: Fentanyl (Sublimaze Ivpb) 500 mcg in 100 mls @ 527.98 mls/hr IVPB TITR EAN Last Admin: 04/23/20 06:39 Dose: 0.47 mcg/kg/hr, 9.926 mls/hr Documented by: Norepinephrine Bitartrate (Levophed Bag) 8,000 mcg in 500 mls @ 18.75 mls/hr IVPB TITR EAN; Protocol Last Admin: 04/23/20 06:39 Dose: Not Given Documented by: Metoprolol Tartrate (Lopressor Injection -) 5 mg IVPUSH Q4H PRN PRN Reason: TACHYCARDIA Nystatin (Mycostatin Cream -) 1 applic TP PRN PRN PRN Reason: HYGEINE Last Admin: 04/20/20 02:47 Dose: 1 applic Documented by: Pantoprazole Sodium (Protonix Iv) 40 mg IVPUSH DAILY [facility] Last Admin: 04/23/20 10:23 Dose: 40 mg Documented by: Sodium Zirconium Cyclosilicate (Lokelma) 10 gm PO DAILY EAN Last Admin: 04/23/20 10:22 Dose: 10 gm Documented by: ASSESSMENT AND PLAN: Acute Hypoxic Respiratory Failure MRSA Pneumonia UTI Septic Shock Lactic Acidosis Acute Kidney Injury +Troponins likely Demand Ischemia Atrial Fibrillation LV Diastolic Dysfunction Pulmonary HTN COPD HTN Hyperlipidemia Bacteremia Anemia - continue antibiotics - albumin/lasix today - monitor urine output, creatinine - off pressors, maintain MAP >65 - rate control - daily sedation vacations to assess mental status - spontaneous breathing trials when volume status improved - enteral feeds - DVT/GI prophylaxis - continue ICU monitoring critical care time spent in reviewing chart, evaluating patient and formulating plan 35 min
--- NOTE | 2020-04-23 12:31 | PN ---
Physical Exam: SUBJECTIVE: Patient seen and examined. Pt awake, off pressors and sedation. Pt appears very volume overloaded, extravascular/ third spacing. Renal function worsening. Appears to be intravascular volume down. OBJECTIVE: Vital Signs Period Temp Pulse Resp BP Sys/Cesar Pulse Ox Last 24 Hr 96.6 F-97.8 F 69-91 12-19 88-115/47-78 99-100 GENERAL: The patient is intubated NECK: Trachea midline, full range of motion, supple. LUNGS: Breath sounds equal, clear to auscultation bilaterally, no wheezes, no crackles, no accessory muscle use. HEART: Regular rate and rhythm, S1, S2 without murmur, rub or gallop. ABDOMEN: Soft, nontender, nondistended, normoactive bowel sounds, no guarding, no rebound, no hepatosplenomegaly, no masses. EXTREMITIES: 2+ pulses, warm, well-perfused, no edema. NEUROLOGICAL: unable to obtain as patient sedated. Laboratory Results - last 24 hr 04/22/20 04/23/20 04/23/20 17:22 05:02 05:02 WBC 8.5 RBC 2.50 L Hgb 7.5 L Hct 22.9 L MCV 91.7 MCH 30.1 MCHC 32.8 RDW 18.2 H Plt Count 160 D MPV 8.1 Absolute Neuts (auto) 6.2 Neutrophils % 72.8 Neutrophils % (Manual) 68.1 Band Neutrophils % 1.0 Lymphocytes % 10.7 Lymphocytes % (Manual) 10.3 Monocytes % 13.9 H Monocytes % (Manual) 13 H D Eosinophils % 1.3 Eosinophils % (Manual) 1.0 Basophils % 1.3 Basophils % (Manual) 1.0 D Myelocytes % (Man) 0 Promyelocytes % (Man) 0 Blast Cells % (Manual) 0 Nucleated RBC % 0 Metamyelocytes 2 D Hypochromia 0 Platelet Estimate Decreased Polychromasia 1+ Poikilocytosis 1+ Basophilic Stippling 2+ Anisocytosis 1+ Microcytosis 1+ Macrocytosis 0 Spherocytes 1+ Ovalocytes 1+ Sodium 133 L Potassium 5.2 H Chloride 98 Carbon Dioxide 21 Anion Gap 14 BUN 103.7 H Creatinine 2.5 H Est GFR (CKD-EPI)AfAm 26.90 Est GFR (CKD-EPI)NonAf 23.21 Random Glucose 150 H Calcium 8.0 L Phosphorus Magnesium Iron TIBC Iron Saturation Unsaturated IBC Total Bilirubin AST ALT Alkaline Phosphatase Total Protein Albumin Random Vancomycin 22.6 04/23/20 05:02 WBC RBC Hgb Hct MCV MCH MCHC RDW Plt Count MPV Absolute Neuts (auto) Neutrophils % Neutrophils % (Manual) Band Neutrophils % Lymphocytes % Lymphocytes % (Manual) Monocytes % Monocytes % (Manual) Eosinophils % Eosinophils % (Manual) Basophils % Basophils % (Manual) Myelocytes % (Man) Promyelocytes % (Man) Blast Cells % (Manual) Nucleated RBC % Metamyelocytes Hypochromia Platelet Estimate Polychromasia Poikilocytosis Basophilic Stippling Anisocytosis Microcytosis Macrocytosis Spherocytes Ovalocytes Sodium 134 L Potassium 4.4 Chloride 99 Carbon Dioxide 21 Anion Gap 14 BUN 106.8 H* Creatinine 2.7 H Est GFR (CKD-EPI)AfAm 24.51 Est GFR (CKD-EPI)NonAf 21.15 Random Glucose 134 H Calcium 7.8 L Phosphorus 5.1 H Magnesium 2.1 Iron 92 TIBC 111 L Iron Saturation 82 H Unsaturated IBC 19 L Total Bilirubin 0.7 AST 28 ALT 14 Alkaline Phosphatase 135 H Total Protein 5.2 L Albumin 1.1 L Random Vancomycin Active Medications Generic Name Dose Route Start Last Admin Trade Name Freq PRN Reason Stop Dose Admin Acetaminophen 1,000 mg 04/08/20 08:58 Ofirmev Injection - IVPB Q6H PRN FEVER Albumin Human 25 gm 04/23/20 15:00 Albumin Human 25% - IVPB 04/23/20 15:01 ONCE ONE Albuterol Sulfate 2 puff 04/22/20 08:21 Ventolin Hfa Inhaler - IH Q4H PRN SHORT OF BREATH/WHEEZING Chlorhexidine Gluconate 1 applic 04/07/20 22:00 04/22/20 21:05 Hibiclens For Decolonization - TP 1 applic HS EAN Administration Chlorhexidine Gluconate 15 ml 04/18/20 22:00 04/23/20 10:23 Peridex - MM 15 ml BID EAN Administration Furosemide 40 mg 04/20/20 12:00 04/23/20 10:21 Lasix Injection - IVPUSH 04/23/20 13:00 40 mg DAILY EAN Administration Furosemide 40 mg 04/23/20 16:00 Lasix Injection - IVPUSH 04/23/20 16:01 ONCE ONE Heparin Sodium (Porcine) 5,000 unit 04/10/20 15:15 04/23/20 10:21 Heparin - SQ 5,000 unit BID EAN Administration Cefepime HCl 1 gm/ Dextrose 100 mls @ 200 mls/hr 04/11/20 18:00 04/23/20 10:22 IVPB 200 mls/hr Q8H-IV EAN Administration Protocol Propofol 1,000,000 mcg in 100 mls @ 3.168 mls/hr 04/18/20 13:00 04/22/20 21:15 Diprivan - IVPB 10 mcg/kg/min TITR EAN 6.336 mls/hr Administration Protocol 5 MCG/KG/MIN Fentanyl 500 mcg in 100 mls @ 527.98 mls/hr 04/18/20 22:00 04/23/20 06:39 Sublimaze Ivpb IVPB 0.47 mcg/kg/hr TITR EAN 9.926 mls/hr Administration 25 MCG/KG/HR Norepinephrine Bitartrate 8,000 mcg in 500 mls @ 18.75 mls/hr 04/21/20 00:15 04/23/20 06:39 Levophed Bag IVPB Not Given TITR EAN Protocol 5 MCG/MIN Metoprolol Tartrate 5 mg 04/07/20 22:50 Lopressor Injection - IVPUSH Q4H PRN TACHYCARDIA Nystatin 1 applic 04/19/20 23:58 04/20/20 02:47 Mycostatin Cream - TP 1 applic PRN PRN Administration HYGEINE Pantoprazole Sodium 40 mg 04/08/20 10:00 04/23/20 10:23 Protonix Iv IVPUSH 40 mg DAILY EAN Administration Sodium Zirconium Cyclosilicate 10 gm 04/22/20 10:00 04/23/20 10:22 Lokelma PO 10 gm DAILY EAN Administration ASSESSMENT/PLAN: 79YOM with CHF, COPD, CVA, HTN, HLD, and A-fib on Eliquis BIBEMS from [facility] for seizure-like episode, found in ED to be septic with UTI suspected source, needed to be intubated for respiratory failure. #Neuro / Psych: Reported seizure-like activity, likely rigors in the setting of sepsis, not witnessed again Serial neuro checks. Placed back on sedation, propofol If neuro symptoms worsen or upward gaze persists- CT head #Cardiovascular: CHF exacerbation, troponinemia For now will place pt on ppx dose- heparin, if pt tolerates and hb stable, will restart eliquis off pressors Pt has multiple eccymotic and brusing periorally due to ETT cotton Vent on wean settings Pt appears extremely fluid overloaded- pt third spacing. Pt's albumin low. Will give Albumin and Lasixx2 today #Pulm Pulmonary edema, b/l pleural effusions, COPD exacerbation given COPD history, pt likely has pulmonary HTN- ECHO showing moderate/severe , pulm htn CXR: appears to have pleural effusion worsening, Lasix 40 daily for 3 days to diuresis pt as he appears volume overloaded 12/400/40/5 Plat 19 PIP 15 vent pressures improved #Gastrointestinal: started feeds/glucerna PEG tube feeds #Heme stable #Renal Pt appears extremely fluid overloaded, b/l UE + LE edema, scrotal edema, lungs appear without crackles - pt third spacing. Pt's albumin low. Will give Albumin and Lasixx2 today SUERSH- BUN 106 Cre 2.7 Hold fluids has pt is volume overload, will give albumin and lasix Urine studies pending Renal US consider because FeNa 1.6%, Intrinsic #Genitourinary: Continue Saavedra Monitor I/O- 1-2L input and only 1-2L output, cont lasix Serial BUN/Cr especially given need for diuresis #Infectious Disease: Cefepime started D12 Vanc - hold for now r/p Van levels r/p Cx neg x2 ID onboard FEN: lytes WNL, replete PRN Feeds started d/c fluids Prophylaxis: DVT: heparin GI: Protonix qd Lines: GAGE 04/19 Dispo: cont abx, reposition pt to ventilate better, percussion modulator, tube irrigation as needed, wean off vent Visit type - Emergency Visit Emergency Visit: Yes ED Registration Date: 04/07/20 Care time: The patient presented to the Emergency Department on the above date and was hospitalized for further evaluation of their emergent condition. - New Patient This patient is new to me today: Yes Date on this admission: 04/25/20 - Critical Care Critical Care patient: No - Discharge Referral Referred to [facility] Med P.C.: No ATTENDING PHYSICIAN STATEMENT I saw and evaluated the patient. I reviewed the resident's note and discussed the case with the resident. I agree with the resident's findings and plan as documented. SUBJECTIVE: OBJECTIVE: ASSESSMENT AND PLAN:
[2020-04-23 12:54] LABS: URINE APPEARANCE TURBID; URINE BILIRUBIN NEGATIVE (NEGATIVE); URINE COLOR YELLOW; URINE GLUCOSE (UA) NEGATIVE (NEGATIVE)
[2020-04-23 12:55] LABS: URINE KETONE NEGATIVE (NEGATIVE)
[2020-04-23 12:57] LABS: PH,URINE 5.5 (5.0-8.0); URINE NITRITE NEGATIVE (NEGATIVE); URINE PROTEIN NEGATIVE (NEGATIVE); URINE UROBILINOGEN 0.2 mg/dL (0.2-1.0)
[2020-04-23 12:58] LABS: URINE LEUK ESTERASE 3+ (NEGATIVE); URINE RBC 824.1 /uL (0-23.9)
[2020-04-23 12:59] LABS: URINE WBC 14758.3 /uL (0-25.8); YEAST FEW (NEGATIVE)
[2020-04-23 13:01] LABS: EPI CELLS 25.7 /uL (0-25.1); HYALINE CASTS 23.46 /uL (0-3.1); URINE BACTERIA 90.8 /uL (0-1359)
--- NOTE | 2020-04-23 14:15 | PN ---
Progress Note, Physician History of Present Illness: AWAKE, POORLY RESPONSIVE SEDATED ON VENTILATOR BREATHING NON LABORED AFEBRILE AZOTEMIA WORSENED - Current Medication List Current Medications: Active Medications Acetaminophen (Ofirmev Injection -) 1,000 mg IVPB Q6H PRN PRN Reason: FEVER Albumin Human (Albumin Human 25% -) 25 gm IVPB ONCE ONE Stop: 04/23/20 15:01 Albuterol Sulfate (Ventolin Hfa Inhaler -) 2 puff IH Q4H PRN PRN Reason: SHORT OF BREATH/WHEEZING Chlorhexidine Gluconate (Hibiclens For Decolonization -) 1 applic TP HS EAN Last Admin: 04/22/20 21:05 Dose: 1 applic Documented by: Chlorhexidine Gluconate (Peridex -) 15 ml MM BID EAN Last Admin: 04/23/20 10:23 Dose: 15 ml Documented by: Furosemide (Lasix Injection -) 40 mg IVPUSH ONCE ONE Stop: 04/23/20 16:01 Heparin Sodium (Porcine) (Heparin -) 5,000 unit SQ BID EAN Last Admin: 04/23/20 10:21 Dose: 5,000 unit Documented by: Cefepime HCl 1 gm/ Dextrose 100 mls @ 200 mls/hr IVPB Q8H-IV EAN; Protocol Last Admin: 04/23/20 10:22 Dose: 200 mls/hr Documented by: Propofol (Diprivan -) 1,000,000 mcg in 100 mls @ 3.168 mls/hr IVPB TITR EAN; Protocol Last Admin: 04/22/20 21:15 Dose: 10 mcg/kg/min, 6.336 mls/hr Documented by: Fentanyl (Sublimaze Ivpb) 500 mcg in 100 mls @ 527.98 mls/hr IVPB TITR [facility] Last Admin: 04/23/20 06:39 Dose: 0.47 mcg/kg/hr, 9.926 mls/hr Documented by: Norepinephrine Bitartrate (Levophed Bag) 8,000 mcg in 500 mls @ 18.75 mls/hr IVPB TITR EAN; Protocol Last Admin: 04/23/20 06:39 Dose: Not Given Documented by: Metoprolol Tartrate (Lopressor Injection -) 5 mg IVPUSH Q4H PRN PRN Reason: TACHYCARDIA Nystatin (Mycostatin Cream -) 1 applic TP PRN PRN PRN Reason: HYGEINE Last Admin: 04/20/20 02:47 Dose: 1 applic Documented by: Pantoprazole Sodium (Protonix Iv) 40 mg IVPUSH DAILY [facility] Last Admin: 04/23/20 10:23 Dose: 40 mg Documented by: Sodium Zirconium Cyclosilicate (Lokelma) 10 gm PO DAILY [facility] Last Admin: 04/23/20 10:22 Dose: 10 gm Documented by: - Objective Vital Signs: Vital Signs Temperature 97.7 F 04/23/20 14:00 Pulse Rate 82 04/23/20 14:00 Respiratory Rate 15 04/23/20 14:00 Blood Pressure 104/55 L 04/23/20 14:00 O2 Sat by Pulse Oximetry (%) 97 04/23/20 12:34 Constitutional: Yes: No Distress Cardiovascular: Yes: Regular Rate and Rhythm, S1, S2 Respiratory: Yes: Mechanically Ventilated Gastrointestinal: Yes: Normal Bowel Sounds, Soft. No: Tenderness Edema: Yes Labs: CBC, BMP 04/23/20 05:02 04/23/20 05:02 INR, PTT INR 1.49 (0.83-1.09) H 04/08/20 05:20 Assessment/Plan ACUTE RESP FAILURE SEPSIS/ SEPTIC SHOCK LACTIC ACIDOSIS S/P SEIZURE PROBABLE ASP PNEUMONIA COPD AZOTEMIA PCN ALLERGY COVID-19 (-) CONTINUE CEFEPIME; VANCOMYCIN PER LEVEL VENTILATORY/ HEMODYNAMIC SUPPORT PROGNOSIS GUARDED
--- NOTE | 2020-04-23 14:29 | PN ---
Progress Note, Physician History of Present Illness: Pt seen and examined at bedside. He remains in the ICU. He remain intubated. - Current Medication List Current Medications: Active Medications Acetaminophen (Ofirmev Injection -) 1,000 mg IVPB Q6H PRN PRN Reason: FEVER Albumin Human (Albumin Human 25% -) 25 gm IVPB ONCE ONE Stop: 04/23/20 15:01 Last Admin: 04/23/20 14:21 Dose: 25 gm Documented by: Albuterol Sulfate (Ventolin Hfa Inhaler -) 2 puff IH Q4H PRN PRN Reason: SHORT OF BREATH/WHEEZING Chlorhexidine Gluconate (Hibiclens For Decolonization -) 1 applic TP HS EAN Last Admin: 04/22/20 21:05 Dose: 1 applic Documented by: Chlorhexidine Gluconate (Peridex -) 15 ml MM BID EAN Last Admin: 04/23/20 10:23 Dose: 15 ml Documented by: Furosemide (Lasix Injection -) 40 mg IVPUSH ONCE ONE Stop: 04/23/20 16:01 Heparin Sodium (Porcine) (Heparin -) 5,000 unit SQ BID EAN Last Admin: 04/23/20 10:21 Dose: 5,000 unit Documented by: Cefepime HCl 1 gm/ Dextrose 100 mls @ 200 mls/hr IVPB Q8H-IV EAN; Protocol Last Admin: 04/23/20 10:22 Dose: 200 mls/hr Documented by: Propofol (Diprivan -) 1,000,000 mcg in 100 mls @ 3.168 mls/hr IVPB TITR EAN; Protocol Last Admin: 04/22/20 21:15 Dose: 10 mcg/kg/min, 6.336 mls/hr Documented by: Fentanyl (Sublimaze Ivpb) 500 mcg in 100 mls @ 527.98 mls/hr IVPB TITR EAN Last Admin: 04/23/20 06:39 Dose: 0.47 mcg/kg/hr, 9.926 mls/hr Documented by: Norepinephrine Bitartrate (Levophed Bag) 8,000 mcg in 500 mls @ 18.75 mls/hr IV PB TITR EAN; Protocol Last Admin: 04/23/20 06:39 Dose: Not Given Documented by: Metoprolol Tartrate (Lopressor Injection -) 5 mg IVPUSH Q4H PRN PRN Reason: TACHYCARDIA Nystatin (Mycostatin Cream -) 1 applic TP PRN PRN PRN Reason: HYGEINE Last Admin: 04/20/20 02:47 Dose: 1 applic Documented by: Pantoprazole Sodium (Protonix Iv) 40 mg IVPUSH DAILY [facility] Last Admin: 04/23/20 10:23 Dose: 40 mg Documented by: Sodium Zirconium Cyclosilicate (Lokelma) 10 gm PO DAILY EAN Last Admin: 04/23/20 10:22 Dose: 10 gm Documented by: - Objective Vital Signs: Vital Signs Temperature 97.7 F 04/23/20 14:00 Pulse Rate 82 04/23/20 14:00 Respiratory Rate 15 04/23/20 14:00 Blood Pressure 104/55 L 04/23/20 14:00 O2 Sat by Pulse Oximetry (%) 97 04/23/20 12:34 Constitutional: Yes: Mild Distress Eyes: Yes: Conjunctiva Clear Cardiovascular: Yes: S1, S2 Respiratory: Yes: Mechanically Ventilated Gastrointestinal: Yes: Soft Genitourinary: Yes: Saavedra Present Musculoskeletal: Yes: Muscle Weakness Edema: Yes Edema: LUE: 2+, RUE: 2+, LLE: 3+, RLE: 3+ Neurological: Yes: Lethargy Labs: CBC, BMP 04/23/20 05:02 04/23/20 05:02 INR, PTT INR 1.49 (0.83-1.09) H 04/08/20 05:20 - ....Imaging Chest X-ray: Report Reviewed Assessment/Plan Current Medications Generic Name Dose Route Start Last Admin Trade Name Freq PRN Reason Stop Dose Admin Acetaminophen 1,000 mg 04/08/20 08:58 Ofirmev Injection - IVPB Q6H PRN FEVER Albumin Human 25 gm 04/23/20 15:00 04/23/20 14:21 Albumin Human 25% - IVPB 04/23/20 15:01 25 gm ONCE ONE Administration Albuterol Sulfate 2 puff 04/22/20 08:21 Ventolin Hfa Inhaler - IH Q4H PRN SHORT OF BREATH/WHEEZING Chlorhexidine Gluconate 1 applic 04/07/20 22:00 04/22/20 21:05 Hibiclens For Decolonization - TP 1 applic HS [facility] Administration Chlorhexidine Gluconate 15 ml 04/18/20 22:00 04/23/20 10:23 Peridex - MM 15 ml BID EAN Administration Furosemide 40 mg 04/23/20 16:00 Lasix Injection - IVPUSH 04/23/20 16:01 ONCE ONE Heparin Sodium (Porcine) 5,000 unit 04/10/20 15:15 04/23/20 10:21 Heparin - SQ 5,000 unit BID EAN Administration Cefepime HCl 1 gm/ Dextrose 100 mls @ 200 mls/hr 04/11/20 18:00 04/23/20 10:22 IVPB 200 mls/hr Q8H-IV EAN Administration Protocol Propofol 1,000,000 mcg in 100 mls @ 3.168 mls/hr 04/18/20 13:00 04/22/20 21:15 Diprivan - IVPB 10 mcg/kg/min TITR EAN 6.336 mls/hr Administration Protocol 5 MCG/KG/MIN Fentanyl 500 mcg in 100 mls @ 527.98 mls/hr 04/18/20 22:00 04/23/20 06:39 Sublimaze Ivpb IVPB 0.47 mcg/kg/hr TITR EAN 9.926 mls/hr Administration 25 MCG/KG/HR Norepinephrine Bitartrate 8,000 mcg in 500 mls @ 18.75 mls/hr 04/21/20 00:15 04/23/20 06:39 Levophed Bag IVPB Not Given TITR EAN Protocol 5 MCG/MIN Metoprolol Tartrate 5 mg 04/07/20 22:50 Lopressor Injection - IVPUSH Q4H PRN TACHYCARDIA Nystatin 1 applic 04/19/20 23:58 04/20/20 02:47 Mycostatin Cream - TP 1 applic PRN PRN Administration HYGEINE Pantoprazole Sodium 40 mg 04/08/20 10:00 04/23/20 10:23 Protonix Iv IVPUSH 40 mg DAILY EAN Administration Sodium Zirconium Cyclosilicate 10 gm 04/22/20 10:00 04/23/20 10:22 Lokelma PO 10 gm DAILY EAN Administration Impression 1. SURESH 2. hyperkalemia 3. resp failure 4. UTI 5. sepsis 6. shock 7. MRSA Pneumonia 8. Lactic Acidosis 9. +Troponins 10. Atrial Fibrillation 11. LV Diastolic Dysfunction 12. Pulmonary HTN 13. Bacteremia 14. anemia Plan - cont vent support - give albumin with lasix - pt 3rd spacing - monitor lytes closely - potassium is improved - sodium improving - potassium improved
[2020-04-23] MEDS ORDERED: ALBUMIN HUMAN 25% 100 ML VIAL IVPB ONE (15:00)
[2020-04-23] MEDS ORDERED: FUROSEMIDE 40 MG/4 ML INJECTABLE VIAL IVPUSH ONE (16:00)
[2020-04-23] MEDS: PROPOFOL 1,000,000 MCG/100 ML VIAL IVPB SCH (17:16)
[2020-04-23] MEDS: CHLORHEXIDINE GLUCONATE 4% CLEANSER FOR DECOLONIZATION TP SCH (22:45)
[2020-04-24] MEDS: SILVER SULFADIAZINE 1% TOP CREAM 50 GM JAR TP SCH ×2 (00:34→09:50)
[2020-04-24] MEDS: NOREPINEPHRINE BITARTRATE 8,000 MCG/500 ML BAG IVPB SCH (00:35)
[2020-04-24] MEDS ORDERED: DEXTROSE 5%-WATER 100 ML IVPB ONE ×3 (00:39→16:24)
[2020-04-24] MEDS ORDERED: CEFEPIME HCL 1 GM VIAL (RESTRICTED TO ID) ONE ×3 (00:39→16:23)
[2020-04-24] MEDS: CEFEPIME 1 GM in DEXTROSE 5%-WATER 100 ML IVPB SCH ×3 (01:18→17:07)
[2020-04-24 06:54] LABS: HEMATOCRIT 21.9 % (35.4-49); HEMOGLOBIN 7.3 GM/dL (11.7-16.9); MCH 30.3 pg (25.7-33.7); MCHC 33.2 g/dl (32.0-35.9); MEAN CELL VOLUME 91.5 fl (80-96); MEAN PLT VOLUME 8.2 fl (7.5-11.1); PLATELET COUNT 148 K/MM3 (134-434); RBC 2.39 M/mm3 (4.00-5.60)
[2020-04-24 07:19] LABS: ALBUMIN 1.3 g/dl (3.4-5.0); BILIRUBIN,TOTAL 0.6 mg/dL (0.2-1); CALCIUM 7.6 mg/dL (8.5-10.1); PHOSPHOROUS 5.3 mg/dL (2.5-4.9); POTASSIUM 3.8 mmol/L (3.5-5.1); TOT PROT 5.3 g/dl (6.4-8.2)
[2020-04-24 07:46] LABS: BLOOD UREA NITROGEN 112.2 mg/dL (7-18)
[2020-04-24] MEDS: FENTANYL NS IVPB 500 MCG/100 ML BAG IVPB SCH ×2 (08:13→16:21)
[2020-04-24] MEDS ORDERED: KCL 10 MEQ IVPB 10 MEQ/100 ML INFUS.BAG IVPB SCH (08:30)
[2020-04-24] MEDS: PANTOPRAZOLE SODIUM 40 MG VIAL IVPUSH SCH (09:49)
[2020-04-24] MEDS: HEPARIN NA (PORCINE) 5,000 UNITS/ML 1ML VIAL SQ SCH ×2 (09:49→21:16)
[2020-04-24] MEDS: SODIUM ZIRCONIUM CYCLOSILICATE (LOKELMA) 5 GM PACKET PO SCH (09:49)
--- NOTE | 2020-04-24 10:20 | PN ---
Progress Note, Physician History of Present Illness: Pt seen and examined at bedside. He remains lethargic. He remains in the ICU. He remains intubated. - Current Medication List Current Medications: Active Medications Acetaminophen (Ofirmev Injection -) 1,000 mg IVPB Q6H PRN PRN Reason: FEVER Albuterol Sulfate (Ventolin Hfa Inhaler -) 2 puff IH Q4H PRN PRN Reason: SHORT OF BREATH/WHEEZING Chlorhexidine Gluconate (Hibiclens For Decolonization -) 1 applic TP HS EAN Last Admin: 04/23/20 22:45 Dose: 1 applic Documented by: Chlorhexidine Gluconate (Peridex -) 15 ml MM BID EAN Last Admin: 04/23/20 22:45 Dose: 15 ml Documented by: Heparin Sodium (Porcine) (Heparin -) 5,000 unit SQ BID EAN Last Admin: 04/24/20 09:49 Dose: 5,000 unit Documented by: Cefepime HCl 1 gm/ Dextrose 100 mls @ 200 mls/hr IVPB Q8H-IV EAN; Protocol Last Admin: 04/24/20 09:49 Dose: 200 mls/hr Documented by: Propofol (Diprivan -) 1,000,000 mcg in 100 mls @ 3.168 mls/hr IVPB TITR EAN; Protocol Last Admin: 04/23/20 17:16 Dose: 10 mcg/kg/min, 6.336 mls/hr Documented by: Fentanyl (Sublimaze Ivpb) 500 mcg in 100 mls @ 527.98 mls/hr IVPB TITR EAN Last Admin: 04/24/20 08:13 Dose: 0.95 mcg/kg/hr, 20 mls/hr Documented by: Norepinephrine Bitartrate (Levophed Bag) 8,000 mcg in 500 mls @ 18.75 mls/hr IVPB TITR EAN; Protocol Last Titration: 04/24/20 06:57 Dose: 4 mcg/min, 15 mls/hr Documented by: Metoprolol Tartrate (Lopressor Injection -) 5 mg IVPUSH Q4H PRN PRN Reason: TACHYCARDIA Nystatin (Mycostatin Cream -) 1 applic TP PRN PRN PRN Reason: HYGEINE Last Admin: 04/20/20 02:47 Dose: 1 applic Documented by: Pantoprazole Sodium (Protonix Iv) 40 mg IVPUSH DAILY [facility] Last Admin: 04/24/20 09:49 Dose: 40 mg Documented by: Silver Sulfadiazine (Silvadene -) 1 applic TP DAILY [facility] Last Admin: 04/24/20 09:50 Dose: 1 applic Documented by: Sodium Zirconium Cyclosilicate (Lokelma) 10 gm PO DAILY [facility] Last Admin: 04/24/20 09:49 Dose: 10 gm Documented by: - Objective Vital Signs: Vital Signs Temperature 97.2 F L 04/24/20 10:12 Pulse Rate 75 04/24/20 08:53 Respiratory Rate 11 04/24/20 08:50 Blood Pressure 104/46 L 04/24/20 10:00 O2 Sat by Pulse Oximetry (%) 100 04/24/20 08:53 Constitutional: Yes: Cachectic Eyes: Yes: Conjunctiva Clear HENT: Yes: Atraumatic Cardiovascular: Yes: S1, S2 Respiratory: Yes: Mechanically Ventilated Gastrointestinal: Yes: Soft Genitourinary: Yes: Saavedra Present Edema: Yes Edema: LUE: 2+, RUE: 2+, LLE: 3+, RLE: 3+ Integumentary: Yes: Other (skin is weeping) Wound/Incision: Yes: Other (multiple areas of breakdown) Neurological: Yes: Lethargy Labs: CBC, BMP 04/24/20 06:20 04/24/20 06:20 INR, PTT INR 1.49 (0.83-1.09) H 04/08/20 05:20 - ....Imaging Chest X-ray: Report Reviewed Problem List - Problems (1) CHF exacerbation Code(s): I50.9 - HEART FAILURE, UNSPECIFIED (2) Sepsis Code(s): A41.9 - SEPSIS, UNSPECIFIED ORGANISM (3) SURESH (acute kidney injury) Code(s): N17.9 - ACUTE KIDNEY FAILURE, UNSPECIFIED Assessment/Plan Current Medications Generic Name Dose Route Start Last Admin Trade Name Freq PRN Reason Stop Dose Admin Acetaminophen 1,000 mg 04/08/20 08:58 Ofirmev Injection - IVPB Q6H PRN FEVER Albuterol Sulfate 2 puff 04/22/20 08:21 Ventolin Hfa Inhaler - IH Q4H PRN SHORT OF BREATH/WHEEZING Chlorhexidine Gluconate 1 applic 04/07/20 22:00 04/23/20 22:45 Hibiclens For Decolonization - TP 1 applic HS EAN Administration Chlorhexidine Gluconate 15 ml 04/18/20 22:00 04/23/20 22:45 Peridex - MM 15 ml BID EAN Administration Heparin Sodium (Porcine) 5,000 unit 04/10/20 15:15 04/24/20 09:49 Heparin - SQ 5,000 unit BID EAN Administration Cefepime HCl 1 gm/ Dextrose 100 mls @ 200 mls/hr 04/11/20 18:00 04/24/20 09:49 IVPB 200 mls/hr Q8H-IV EAN Administration Protocol Propofol 1,000,000 mcg in 100 mls @ 3.168 mls/hr 04/18/20 13:00 04/23/20 17:16 Diprivan - IVPB 10 mcg/kg/min TITR EAN 6.336 mls/hr Administration Protocol 5 MCG/KG/MIN Fentanyl 500 mcg in 100 mls @ 527.98 mls/hr 04/18/20 22:00 04/24/20 08:13 Sublimaze Ivpb IVPB 0.95 mcg/kg/hr TITR EAN 20 mls/hr Administration 25 MCG/KG/HR Norepinephrine Bitartrate 8,000 mcg in 500 mls @ 18.75 mls/hr 04/21/20 00:15 04/24/20 06:57 Levophed Bag IVPB 4 mcg/min TITR EAN 15 mls/hr Titration Protocol 5 MCG/MIN Metoprolol Tartrate 5 mg 04/07/20 22:50 Lopressor Injection - IVPUSH Q4H PRN TACHYCARDIA Nystatin 1 applic 04/19/20 23:58 04/20/20 02:47 Mycostatin Cream - TP 1 applic PRN PRN Administration HYGEINE Pantoprazole Sodium 40 mg 04/08/20 10:00 04/24/20 09:49 Protonix Iv IVPUSH 40 mg DAILY EAN Administration Silver Sulfadiazine 1 applic 04/23/20 20:45 04/24/20 09:50 Silvadene - TP 1 applic DAILY EAN Administration Sodium Zirconium Cyclosilicate 10 gm 04/22/20 10:00 04/24/20 09:49 Lokelma PO 10 gm DAILY EAN Administration Impression 1. SURESH 2. hyperkalemia 3. resp failure 4. UTI 5. sepsis 6. shock 7. MRSA Pneumonia 8. Lactic Acidosis 9. +Troponins 10. Atrial Fibrillation 11. LV Diastolic Dysfunction 12. Pulmonary HTN 13. Bacteremia 14. anemia Plan - d/c lokelma - lasix for edema - will also give albumin - called and discussed with family, they would want HD if medical therapy does not work - keep net negative - daily cxr - discussed with ICU team - cont vent support - pressors to map 65 - prognosis is poor
--- NOTE | 2020-04-24 10:36 | CONSULT ---
- Consultation REQUESTING PROVIDER: CONSULT REQUEST: We have been asked to surgically evaluate this patient for multiple decubitius ulcers. He was admitted to the ICU with a fever of 104. His respiratory status decompresated and he was intubated on 04/18. He remains in critical condition in the ICU on pressors. The patient is now also being seen for ARF. PCP:Pietro Harris HISTORY OF PRESENT ILLNESS: 79 yo male with the PMHX see below. Presented to the ER with seizure like activity from [facility] PMHx: COPD, CHF, afib, HTN, HLD , stroke PSHx: PEG Home Medications Medication Instructions Recorded Collagenase Clostridium Hist. 1 applic TP DAILY #90 oint...g. 10/14/19 [Santyl] Albuterol Sulfate [Proventil Hfa] 1 inhaler IH PRN PRN 10/21/19 Alprazolam [Xanax] 1 tab PO BID PRN 10/21/19 Apixaban [Eliquis -] 2.5 mg PO BID 10/21/19 Atenolol [Tenormin] 25 mg PO DAILY 10/21/19 Atorvastatin Ca [Lipitor] 20 mg PO DAILY 10/21/19 Febuxostat 80 mg PO DAILY 10/21/19 Finasteride 5 mg PO DAILY 10/21/19 Pantoprazole Sodium 40 mg PO DAILY 10/21/19 Triamcinolone 0.1% Cream 1 applic TP BID 10/21/19 Amino Acids/Protein Hydrolys 30 ml PO DAILY packet 03/30/20 [Prosource No Carb Liquid Pkt] Magnesium Oxide [Mag-Ox -] 400 mg PO BID tablet 03/30/20 Nystatin Powder [Nystop Powder -] 1 applic TP BID applic 03/30/20 Triamcinolone 0.1% Ointment 1 applic TP BID applic 03/30/20 [Aristocort 0.1% Ointment -] Furosemide [Lasix -] 40 mg PO DAILY 04/07/20 Allergies Allergy/AdvReac Type Severity Reaction Status Date / Time aspirin Allergy Unknown Verified 04/07/20 22:52 Penicillins Allergy Unknown Rash Verified 04/07/20 22:52 REVIEW OF SYSTEMS:UNABLE TO OBTAIN PHYSICAL EXAM: GENERAL: Intubated Left heel: with superficial ulcer 1 x 1 cm without necrotic tissue. Right heel skin intact. B/l thighs with excoriation tissue to posterior thigh b/l knees with superficial stage 1 skin breakdown. Intact blister to right oseguera Sacral region: stage 2 decubitus approximately 4 x 5 cm Vital Signs Temperature 97.2 F L 04/24/20 10:12 Pulse Rate 75 04/24/20 08:53 Respiratory Rate 11 04/24/20 08:50 Blood Pressure 104/46 L 04/24/20 10:00 O2 Sat by Pulse Oximetry (%) 100 04/24/20 08:53 Lab Results WBC 9.0 K/mm3 (4.0-10.0) 04/24/20 06:20 RBC 2.39 M/mm3 (4.00-5.60) L 04/24/20 06:20 Hgb 7.3 GM/dL (11.7-16.9) L 04/24/20 06:20 Hct 21.9 % (35.4-49) L 04/24/20 06:20 MCV 91.5 fl (80-96) 04/24/20 06:20 MCHC 33.2 g/dl (32.0-35.9) 04/24/20 06:20 RDW 18.0 % (11.9-15.9) H 04/24/20 06:20 Plt Count 148 K/MM3 (134-434) 04/24/20 06:20 INR 1.49 (0.83-1.09) H 04/08/20 05:20 Sodium 135 mmol/L (136-145) L 04/24/20 06:20 Potassium 3.8 mmol/L (3.5-5.1) 04/24/20 06:20 Chloride 99 mmol/L (98-107) 04/24/20 06:20 Carbon Dioxide 21 mmol/L (21-32) 04/24/20 06:20 Anion Gap 14 MMOL/L (8-16) 04/24/20 06:20 BUN 112.2 mg/dL (7-18) H* 04/24/20 06:20 Creatinine 3.0 mg/dL (0.55-1.3) H 04/24/20 06:20 Random Glucose 131 mg/dL (74-106) H 04/24/20 06:20 Calcium 7.6 mg/dL (8.5-10.1) L 04/24/20 06:20 Blood Type O POSITIVE 04/12/20 07:10 Antibody Screen Negative 04/12/20 07:10 A/p: 79 yo male with septic chock, ARF, intubated and on pressure with poor prognosis. No surgical debridment needed at this time to his multiple decubitus ulcers. -Reposition every two hours while in bed -Air mattress recommended -Use drawsheets and Trendelenburg when repositioning to reduce friction and shear -Manage incontinence via timely cleansing, use of appropriate incontinence disposables and use of barrier ointment to intact skin> rectal tube in place -Ensure adequate hydration/nutrition, supplementation per primary team -Ensure off-loading to all bony areas (heels, ankles, hips and tailbone) with Allevyn/Optifoam -Clean open wounds with normal saline and apply (insert ointment/dressing). Continue silvadene to posterior thigh excoriations. b/l heel, knee and sacral chon D/w Dr. Zacarias and agrees with the above Visit type - Emergency Emergency Visit: Yes ED Registration Date: 04/07/20 Care time: The patient presented to the Emergency Department on the above date and was hospitalized for further evaluation of their emergent condition. - New patient This patient is new to me today: Yes Date on this admission: 04/24/20 - Critical Care Critical Care patient: No
[2020-04-24] MEDS ORDERED: PT OWN MED DRAWER 7, Y5N ONE ×2 (10:58→21:55)
[2020-04-24] MEDS: CHLORHEXIDINE GLUCONATE 0.12% 15ML CUP MM SCH ×2 (11:00→21:16)
--- NOTE | 2020-04-24 11:03 | PN ---
Teaching Attending Note Name of Resident: Markell Fuller ATTENDING PHYSICIAN STATEMENT I saw and evaluated the patient. I reviewed the resident's note and discussed the case with the resident. I agree with the resident's findings and plan as documented. SUBJECTIVE: Pt seen and examined in the ICU. Remains intubated, sedated. Back on levophed gtt. Positive net fluid balance despite lasix BID. OBJECTIVE: Vital Signs Period Temp Pulse Resp BP Sys/Cesar Pulse Ox Last 24 Hr 96.9 F-99.2 F 75-90 - 103-112/46-60 97-100 Intake & Output 04/21/20 04/22/20 04/23/20 04/24/20 23:59 23:59 23:59 23:59 Intake Total 1836.8 3065 2353 1021.8 Output Total 800 1700 930 Balance 1036.8 1365 1423 1021.8 Weight 106.231 kg 105.8 kg 106.282 kg Gen: intubated, sedated Heart: RRR Lung: scattered rhonchi Abd: soft, nontender Ext: + edema CBC, BMP 04/24/20 06:20 04/24/20 06:20 Active Medications Acetaminophen (Ofirmev Injection -) 1,000 mg IVPB Q6H PRN PRN Reason: FEVER Albumin Human (Albumin Human 25%) 25 gm IVPB Q6H EAN Stop: 04/24/20 23:01 Albuterol Sulfate (Ventolin Hfa Inhaler -) 2 puff IH Q4H PRN PRN Reason: SHORT OF BREATH/WHEEZING Chlorhexidine Gluconate (Hibiclens For Decolonization -) 1 applic TP HS EAN Last Admin: 04/23/20 22:45 Dose: 1 applic Documented by: Chlorhexidine Gluconate (Peridex -) 15 ml MM BID EAN Last Admin: 04/24/20 11:00 Dose: 15 ml Documented by: Heparin Sodium (Porcine) (Heparin -) 5,000 unit SQ BID EAN Last Admin: 04/24/20 09:49 Dose: 5,000 unit Documented by: Cefepime HCl 1 gm/ Dextrose 100 mls @ 200 mls/hr IVPB Q8H-IV EAN; Protocol Last Admin: 04/24/20 09:49 Dose: 200 mls/hr Documented by: Propofol (Diprivan -) 1,000,000 mcg in 100 mls @ 3.168 mls/hr IVPB TITR EAN; Protocol Last Admin: 04/23/20 17:16 Dose: 10 mcg/kg/min, 6.336 mls/hr Documented by: Fentanyl (Sublimaze Ivpb) 500 mcg in 100 mls @ 527.98 mls/hr IVPB TITR EAN Last Admin: 04/24/20 08:13 Dose: 0.95 mcg/kg/hr, 20 mls/hr Documented by: Norepinephrine Bitartrate (Levophed Bag) 8,000 mcg in 500 mls @ 18.75 mls/hr IVPB TITR EAN; Protocol Last Titration: 04/24/20 06:57 Dose: 4 mcg/min, 15 mls/hr Documented by: Furosemide 100 mg/ Sodium (Chloride) 50 mls @ 2.5 mls/hr IVPB TITR EAN; Protocol Metoprolol Tartrate (Lopressor Injection -) 5 mg IVPUSH Q4H PRN PRN Reason: TACHYCARDIA Nystatin (Mycostatin Cream -) 1 applic TP PRN PRN PRN Reason: HYGEINE Last Admin: 04/20/20 02:47 Dose: 1 applic Documented by: Pantoprazole Sodium (Protonix Iv) 40 mg IVPUSH DAILY EAN Last Admin: 04/24/20 09:49 Dose: 40 mg Documented by: Silver Sulfadiazine (Silvadene -) 1 applic TP DAILY EAN Last Admin: 04/24/20 09:50 Dose: 1 applic Documented by: ASSESSMENT AND PLAN: Acute Hypoxic Respiratory Failure MRSA Pneumonia UTI Sacral Decubitus Ulcers Septic Shock Lactic Acidosis Acute Kidney Injury +Troponins likely Demand Ischemia Atrial Fibrillation Acute on Chronic Diastolic Heart Failure Pulmonary HTN Volume Overload COPD HTN Hyperlipidemia Bacteremia Anemia - continue antibiotics - albumin/lasix today - transfuse PRBC - monitor urine output, creatinine - may need HD for volume status - titrate pressors to maintain MAP >65 - rate control - daily sedation vacations to assess mental status - spontaneous breathing trials when volume status improved - enteral feeds - DVT/GI prophylaxis - continue ICU monitoring critical care time spent in reviewing chart, evaluating patient and formulating plan 35 min
--- NOTE | 2020-04-24 11:10 | PN ---
Physical Exam: SUBJECTIVE: Patient seen and examined at bedside. Overnight there were no acute events. This AM he is intubated, sedated, and unable to participate in medical interview. OBJECTIVE: Vital Signs Period Temp Pulse Resp BP Sys/Cesar Pulse Ox Last 24 Hr 96.9 F-99.2 F 75-90 11-22 103-112/46-60 97-100 GENERAL: The patient is intubated NECK: Trachea midline LUNGS: Breath sounds equal, clear to auscultation bilaterally, no wheezes, no crackles, no accessory muscle use. HEART: Regular rate and rhythm, S1, S2 without murmur, rub or gallop. ABDOMEN: Soft, nontender, nondistended, normoactive bowel sounds, no guarding, no rebound, no hepatosplenomegaly, no masses. EXTREMITIES: 2+ pulses, warm, well-perfused, no edema. NEUROLOGICAL: unable to obtain as patient sedated. SKIN: Stage 2 sacral decub. Anasarca. Multiple eccymoses and brusing, periorally. Laboratory Results - last 24 hr 04/22/20 04/22/20 04/22/20 11:48 11:48 11:48 WBC RBC Hgb Hct MCV MCH MCHC RDW Plt Count MPV Neutrophils % (Manual) Band Neutrophils % Lymphocytes % (Manual) Monocytes % (Manual) Eosinophils % (Manual) Basophils % (Manual) Myelocytes % (Man) Promyelocytes % (Man) Blast Cells % (Manual) Nucleated RBC % Metamyelocytes Hypochromia Platelet Estimate Polychromasia Poikilocytosis Basophilic Stippling Anisocytosis Microcytosis Macrocytosis Spherocytes Ovalocytes Sodium Potassium Chloride Carbon Dioxide Anion Gap BUN Creatinine Est GFR (CKD-EPI)AfAm Est GFR (CKD-EPI)NonAf Random Glucose Calcium Phosphorus Magnesium Total Bilirubin AST ALT Alkaline Phosphatase Total Protein Albumin Urine Color Yellow Urine Appearance Turbid Urine pH 5.5 Ur Specific [place] 1.016 Urine Protein Negative Urine Glucose (UA) Negative Urine Ketones Negative Urine Blood 3+ H Urine Nitrite Negative Urine Bilirubin Negative Urine Urobilinogen 0.2 Ur Leukocyte Esterase 3+ H Urine WBC (Auto) 83886.3 Urine RBC (Auto) 824.1 Urine Casts (Auto) 23.46 U Pathogenic Cast Auto None seen U Epithel Cells (Auto) 25.7 Urine Bacteria (Auto) 90.8 Urine Yeast (Auto) Few Ur Random Creatinine 31.0 Ur Random Sodium 25 L Ur Random Potassium Ur Random Chloride Random Vancomycin 04/23/20 04/23/20 04/24/20 05:02 11:48 06:20 WBC RBC Hgb Hct MCV MCH MCHC RDW Plt Count MPV Neutrophils % (Manual) 68.1 Band Neutrophils % 1.0 Lymphocytes % (Manual) 10.3 Monocytes % (Manual) 13 H D Eosinophils % (Manual) 1.0 Basophils % (Manual) 1.0 D Myelocytes % (Man) 0 Promyelocytes % (Man) 0 Blast Cells % (Manual) 0 Nucleated RBC % 0 Metamyelocytes 2 D Hypochromia 0 Platelet Estimate Decreased Polychromasia 1+ Poikilocytosis 1+ Basophilic Stippling 2+ Anisocytosis 1+ Microcytosis 1+ Macrocytosis 0 Spherocytes 1+ Ovalocytes 1+ Sodium Potassium Chloride Carbon Dioxide Anion Gap BUN Creatinine Est GFR (CKD-EPI)AfAm Est GFR (CKD-EPI)NonAf Random Glucose Calcium Phosphorus Magnesium Total Bilirubin AST ALT Alkaline Phosphatase Total Protein Albumin Urine Color Urine Appearance Urine pH Ur Specific [place] Urine Protein Urine Glucose (UA) Urine Ketones Urine Blood Urine Nitrite Urine Bilirubin Urine Urobilinogen Ur Leukocyte Esterase Urine WBC (Auto) Urine RBC (Auto) Urine Casts (Auto) U Pathogenic Cast Auto U Epithel Cells (Auto) Urine Bacteria (Auto) Urine Yeast (Auto) Ur Random Creatinine 32.0 Ur Random Sodium 28 L Ur Random Potassium 56.0 Ur Random Chloride 29 L Random Vancomycin 20.3 04/24/20 04/24/20 06:20 06:20 WBC 9.0 RBC 2.39 L Hgb 7.3 L Hct 21.9 L MCV 91.5 MCH 30.3 MCHC 33.2 RDW 18.0 H Plt Count 148 MPV 8.2 Neutrophils % (Manual) Band Neutrophils % Lymphocytes % (Manual) Monocytes % (Manual) Eosinophils % (Manual) Basophils % (Manual) Myelocytes % (Man) Promyelocytes % (Man) Blast Cells % (Manual) Nucleated RBC % Metamyelocytes Hypochromia Platelet Estimate Polychromasia Poikilocytosis Basophilic Stippling Anisocytosis Microcytosis Macrocytosis Spherocytes Ovalocytes Sodium 135 L Potassium 3.8 Chloride 99 Carbon Dioxide 21 Anion Gap 14 BUN 112.2 H* Creatinine 3.0 H Est GFR (CKD-EPI)AfAm 21.58 Est GFR (CKD-EPI)NonAf 18.62 Random Glucose 131 H Calcium 7.6 L Phosphorus 5.3 H Magnesium 2.0 Total Bilirubin 0.6 AST 25 ALT 15 Alkaline Phosphatase 128 H Total Protein 5.3 L Albumin 1.3 L Urine Color Urine Appearance Urine pH Ur Specific [place] Urine Protein Urine Glucose (UA) Urine Ketones Urine Blood Urine Nitrite Urine Bilirubin Urine Urobilinogen Ur Leukocyte Esterase Urine WBC (Auto) Urine RBC (Auto) Urine Casts (Auto) U Pathogenic Cast Auto U Epithel Cells (Auto) Urine Bacteria (Auto) Urine Yeast (Auto) Ur Random Creatinine Ur Random Sodium Ur Random Potassium Ur Random Chloride Random Vancomycin Active Medications Generic Name Dose Route Start Last Admin Trade Name Freq PRN Reason Stop Dose Admin Acetaminophen 1,000 mg 04/08/20 08:58 Ofirmev Injection - IVPB Q6H PRN FEVER Albumin Human 25 gm 04/24/20 11:00 Albumin Human 25% IVPB 04/24/20 23:01 Q6H EAN Albuterol Sulfate 2 puff 04/22/20 08:21 Ventolin Hfa Inhaler - IH Q4H PRN SHORT OF BREATH/WHEEZING Chlorhexidine Gluconate 1 applic 04/07/20 22:00 04/23/20 22:45 Hibiclens For Decolonization - TP 1 applic HS EAN Administration Chlorhexidine Gluconate 15 ml 04/18/20 22:00 04/24/20 11:00 Peridex - MM 15 ml BID EAN Administration Heparin Sodium (Porcine) 5,000 unit 04/10/20 15:15 04/24/20 09:49 Heparin - SQ 5,000 unit BID EAN Administration Cefepime HCl 1 gm/ Dextrose 100 mls @ 200 mls/hr 04/11/20 18:00 04/24/20 09:49 IVPB 200 mls/hr Q8H-IV EAN Administration Protocol Propofol 1,000,000 mcg in 100 mls @ 3.168 mls/hr 04/18/20 13:00 04/23/20 17:16 Diprivan - IVPB 10 mcg/kg/min TITR EAN 6.336 mls/hr Administration Protocol 5 MCG/KG/MIN Fentanyl 500 mcg in 100 mls @ 527.98 mls/hr 04/18/20 22:00 04/24/20 08:13 Sublimaze Ivpb IVPB 0.95 mcg/kg/hr TITR EAN 20 mls/hr Administration 25 MCG/KG/HR Norepinephrine Bitartrate 8,000 mcg in 500 mls @ 18.75 mls/hr 04/21/20 00:15 04/24/20 06:57 Levophed Bag IVPB 4 mcg/min TITR EAN 15 mls/hr Titration Protocol 5 MCG/MIN Furosemide 100 mg/ Sodium 50 mls @ 2.5 mls/hr 04/24/20 11:00 Chloride IVPB TITR EAN Protocol 5 MG/HR Metoprolol Tartrate 5 mg 04/07/20 22:50 Lopressor Injection - IVPUSH Q4H PRN TACHYCARDIA Nystatin 1 applic 04/19/20 23:58 04/20/20 02:47 Mycostatin Cream - TP 1 applic PRN PRN Administration HYGEINE Pantoprazole Sodium 40 mg 04/08/20 10:00 04/24/20 09:49 Protonix Iv IVPUSH 40 mg DAILY EAN Administration Silver Sulfadiazine 1 applic 04/23/20 20:45 04/24/20 09:50 Silvadene - TP 1 applic DAILY EAN Administration ASSESSMENT/PLAN: 79 y/o male PMH CHF, COPD, CVA, HTN, HLD, and A-fib on Eliquis BIBEMS from [facility] for seizure-like episode, found in ED to be septic with UTI suspected source, needed to be intubated for acute hypoxic respiratory failure. # Neuro Propofol 40 If neuro symptoms worsen or upward gaze persists- CT head # CVS: CHF exacerbation, troponinemia For now will place pt on ppx dose- heparin, if pt tolerates and hb stable, will restart eliquis Levophed 4 and fentanyl ECHO showing moderate/severe , pulm htn Lasix drip #Pulm Pulmonary edema, b/l pleural effusions, COPD exacerbation CXR: worsening pleural effusion 10/400/40/5 #Heme 1 unit PRBC today #Renal Cr 3 Albumin, keep net neg #Genitourinary: Continue Saavedra Accurate i/o #Infectious Disease: Cefepime Vanc level 20 #FEN Hold Monitor Glucerna + h20 #Prophylaxis DVT: heparin 5k sq bid GI: Protonix 40 mg iv qd #Lines: [facility] 04/19 Saavedra # Disposition: ICU Full code Visit type - Emergency Visit Emergency Visit: No - New Patient This patient is new to me today: No - Critical Care Critical Care patient: Yes Total Critical Care Time (in minutes): 35 Critical Care Statement: The care of this patient involved high complexity decision making to prevent further life threatening deterioration of the patient's condition and/or to evaluate & treat vital organ system(s) failure or risk of failure. ATTENDING PHYSICIAN STATEMENT I saw and evaluated the patient. I reviewed the resident's note and discussed the case with the resident. I agree with the resident's findings and plan as documented. SUBJECTIVE: OBJECTIVE: ASSESSMENT AND PLAN:
[2020-04-24] MEDS: ALBUMIN HUMAN 25% 12.5 GM/50 ML VIAL IVPB SCH ×2 (11:26→16:20)
[2020-04-24] MEDS: FUROSEMIDE INJECTION 100 MG in SODIUM CHLORIDE 40 ML IVPB SCH (11:33)
[2020-04-24] MEDS: PROPOFOL 1,000,000 MCG/100 ML VIAL IVPB SCH (17:15)
[2020-04-24] MEDS: CHLORHEXIDINE GLUCONATE 4% CLEANSER FOR DECOLONIZATION TP SCH (21:16)
--- NOTE | 2020-04-24 23:41 | PN ---
Progress Note, Physician History of Present Illness: POORLY RESPONSIVE SEDATED ON VENTILATOR BREATHING NON LABORED AFEBRILE AZOTEMIA WORSENED - Current Medication List Current Medications: Active Medications Acetaminophen (Ofirmev Injection -) 1,000 mg IVPB Q6H PRN PRN Reason: FEVER Albuterol Sulfate (Ventolin Hfa Inhaler -) 2 puff IH Q4H PRN PRN Reason: SHORT OF BREATH/WHEEZING Chlorhexidine Gluconate (Hibiclens For Decolonization -) 1 applic TP HS EAN Last Admin: 04/24/20 21:16 Dose: 1 applic Documented by: Chlorhexidine Gluconate (Peridex -) 15 ml MM BID EAN Last Admin: 04/24/20 21:16 Dose: 15 ml Documented by: Heparin Sodium (Porcine) (Heparin -) 5,000 unit SQ BID EAN Last Admin: 04/24/20 21:16 Dose: 5,000 unit Documented by: Cefepime HCl 1 gm/ Dextrose 100 mls @ 200 mls/hr IVPB Q8H-IV EAN; Protocol Last Admin: 04/24/20 17:07 Dose: 200 mls/hr Documented by: Propofol (Diprivan -) 1,000,000 mcg in 100 mls @ 3.168 mls/hr IVPB TITR EAN; Protocol Last Admin: 04/24/20 17:15 Dose: 10 mcg/kg/min, 6.336 mls/hr Documented by: Fentanyl (Sublimaze Ivpb) 500 mcg in 100 mls @ 527.98 mls/hr IVPB TITR EAN Last Admin: 04/24/20 16:21 Dose: 0.95 mcg/kg/hr, 20 mls/hr Documented by: Norepinephrine Bitartrate (Levophed Bag) 8,000 mcg in 500 mls @ 18.75 mls/hr IVPB TITR EAN; Protocol Last Titration: 04/24/20 18:38 Dose: 3 mcg/min, 11.25 mls/hr Documented by: Furosemide 100 mg/ Sodium (Chloride) 50 mls @ 2.5 mls/hr IVPB TITR EAN; Protocol Last Admin: 04/24/20 11:33 Dose: 5 mg/hr, 2.5 mls/hr Documented by: Metoprolol Tartrate (Lopressor Injection -) 5 mg IVPUSH Q4H PRN PRN Reason: TACHYCARDIA Nystatin (Mycostatin Cream -) 1 applic TP PRN PRN PRN Reason: HYGEINE Last Admin: 04/20/20 02:47 Dose: 1 applic Documented by: Pantoprazole Sodium (Protonix Iv) 40 mg IVPUSH DAILY COUNTS INCLUDE 234 BEDS AT THE [facility] Last Admin: 04/24/20 09:49 Dose: 40 mg Documented by: Silver Sulfadiazine (Silvadene -) 1 applic TP DAILY COUNTS INCLUDE 234 BEDS AT THE [facility] Last Admin: 04/24/20 09:50 Dose: 1 applic Documented by: - Objective Vital Signs: Vital Signs Temperature 96.5 F L 04/24/20 22:00 Pulse Rate 72 04/24/20 22:00 Respiratory Rate 11 04/24/20 22:00 Blood Pressure 122/64 04/24/20 22:00 O2 Sat by Pulse Oximetry (%) 98 04/24/20 21:00 Constitutional: Yes: No Distress, Pallor Cardiovascular: Yes: Regular Rate and Rhythm, S1, S2 Respiratory: Yes: Mechanically Ventilated Gastrointestinal: Yes: Normal Bowel Sounds, Soft Edema: Yes Labs: CBC, BMP 04/24/20 06:20 04/24/20 06:20 INR, PTT INR 1.49 (0.83-1.09) H 04/08/20 05:20 Assessment/Plan ACUTE RESP FAILURE SEPSIS/ SEPTIC SHOCK LACTIC ACIDOSIS S/P SEIZURE PROBABLE ASP PNEUMONIA COPD AZOTEMIA PCN ALLERGY COVID-19 (-) CONTINUE CEFEPIME; VANCOMYCIN PER LEVEL VENTILATORY/ HEMODYNAMIC SUPPORT PROGNOSIS GUARDED
[2020-04-25] MEDS: ALBUMIN HUMAN 25% 12.5 GM/50 ML VIAL IVPB SCH
[2020-04-25] MEDS: CEFEPIME 1 GM in DEXTROSE 5%-WATER 100 ML IVPB SCH ×3 (04:00→17:19)
[2020-04-25] MEDS: NOREPINEPHRINE BITARTRATE 8,000 MCG/500 ML BAG IVPB SCH (05:49)
[2020-04-25 06:26] LABS: ARTERIAL BLD GAS O2 SATURATION 97.4 mmHg (95-98); ARTERIAL BLOOD GAS PO2 105.4 mmHg (80-100); ARTERIAL BLOOD GAS pH 7.299 (7.350-7.450)
[2020-04-25 07:00] LABS: VENT MODE A/C; VENT RATE 12
[2020-04-25 07:28] LABS: ALBUMIN 1.8 g/dl (3.4-5.0); BILIRUBIN,TOTAL 0.7 mg/dL (0.2-1); CALCIUM 7.4 mg/dL (8.5-10.1); CREATININE 3.5 mg/dL (0.55-1.3); MAGNESIUM 1.9 mg/dL (1.8-2.4); PHOSPHOROUS 5.5 mg/dL (2.5-4.9); POTASSIUM 3.9 mmol/L (3.5-5.1); TOT PROT 5.8 g/dl (6.4-8.2)
[2020-04-25 07:34] LABS: HEMATOCRIT 24.8 % (35.4-49); HEMOGLOBIN 8.1 GM/dL (11.7-16.9); MCH 29.8 pg (25.7-33.7); MCHC 32.6 g/dl (32.0-35.9); MEAN CELL VOLUME 91.4 fl (80-96); MEAN PLT VOLUME 8.7 fl (7.5-11.1); PLATELET COUNT 148 K/MM3 (134-434); RBC 2.72 M/mm3 (4.00-5.60); RDW 17.6 % (11.9-15.9); WHITE BLOOD COUNT 10.1 K/mm3 (4.0-10.0)
[2020-04-25 08:00] LABS: BLOOD UREA NITROGEN 115.2 mg/dL (7-18)
[2020-04-25] MEDS ORDERED: PT OWN MED DRAWER 7, Y5N ONE ×2 (08:55→16:37)
[2020-04-25] MEDS: CHLORHEXIDINE GLUCONATE 0.12% 15ML CUP MM SCH ×2 (09:12→21:27)
[2020-04-25] MEDS: PANTOPRAZOLE SODIUM 40 MG VIAL IVPUSH SCH (09:12)
[2020-04-25] MEDS: SILVER SULFADIAZINE 1% TOP CREAM 50 GM JAR TP SCH (09:12)
[2020-04-25] MEDS ORDERED: DEXTROSE 5%-WATER 100 ML IVPB ONE ×2 (10:29→17:16)
[2020-04-25] MEDS ORDERED: CEFEPIME HCL 1 GM VIAL (RESTRICTED TO ID) ONE ×2 (10:29→17:15)
[2020-04-25] MEDS: HEPARIN NA (PORCINE) 5,000 UNITS/ML 1ML VIAL SQ SCH ×2 (10:49→21:27)
--- NOTE | 2020-04-25 10:58 | PN ---
Teaching Attending Note Name of Resident: Wilman Connolly ATTENDING PHYSICIAN STATEMENT I saw and evaluated the patient. I reviewed the resident's note and discussed the case with the resident. I agree with the resident's findings and plan as documented. SUBJECTIVE: Pt seen and examined in the ICU. Remains intubated, sedated on levophed gtt. P ositive net fluid balance despite lasix gtt. OBJECTIVE: Vital Signs Period Temp Pulse Resp BP Sys/Cesar Pulse Ox Last 24 Hr 96.2 F-99.1 F 72-87 8-19 89-122/44-64 97-100 Intake & Output 04/22/20 04/23/20 04/24/20 04/25/20 23:59 23:59 23:59 23:59 Intake Total 3065 2353 3131.3 761.1 Output Total 7946 369 3409 1000 Balance 1365 1423 2121.3 -238.9 Weight 105.8 kg 106.282 kg 108.771 kg Gen: intubated, sedated Heart: RRR Lung: scattered rhonchi Abd: soft, nontender Ext: + edema CBC, BMP 04/25/20 05:00 04/25/20 05:00 Active Medications Acetaminophen (Ofirmev Injection -) 1,000 mg IVPB Q6H PRN PRN Reason: FEVER Albumin Human (Albumin Human 25%) 12.5 gm IVPB Q30M EAN Albuterol Sulfate (Ventolin Hfa Inhaler -) 2 puff IH Q4H PRN PRN Reason: SHORT OF BREATH/WHEEZING Chlorhexidine Gluconate (Hibiclens For Decolonization -) 1 applic TP HS EAN Last Admin: 04/24/20 21:16 Dose: 1 applic Documented by: Chlorhexidine Gluconate (Peridex -) 15 ml MM BID EAN Last Admin: 04/25/20 09:12 Dose: 15 ml Documented by: Heparin Sodium (Porcine) (Heparin -) 5,000 unit SQ BID EAN Last Admin: 04/25/20 10:49 Dose: 5,000 unit Documented by: Cefepime HCl 1 gm/ Dextrose 100 mls @ 200 mls/hr IVPB Q8H-IV EAN; Protocol Last Admin: 04/25/20 10:49 Dose: 200 mls/hr Documented by: Propofol (Diprivan -) 1,000,000 mcg in 100 mls @ 3.168 mls/hr IVPB TITR EAN; Protocol Last Titration: 04/25/20 06:33 Dose: 10 mcg/kg/min, 6.336 mls/hr Documented by: Fentanyl (Sublimaze Ivpb) 500 mcg in 100 mls @ 527.98 mls/hr IVPB TITR EAN Last Titration: 04/25/20 10:50 Dose: 0.76 mcg/kg/hr, 16 mls/hr Documented by: Norepinephrine Bitartrate (Levophed Bag) 8,000 mcg in 500 mls @ 18.75 mls/hr IVPB TITR EAN; Protocol Last Titration: 04/25/20 07:33 Dose: 10 mcg/min, 37.5 mls/hr Documented by: Furosemide 100 mg/ Sodium (Chloride) 50 mls @ 2.5 mls/hr IVPB TITR EAN; Protocol Last Titration: 04/25/20 10:50 Dose: 0 mg/hr, 0 mls/hr Documented by: Sodium Chloride (Normal Saline -) 250 mls @ 3,000 mls/hr IV PRN PRN PRN Reason: Hypotension during Dialysis Stop: 04/26/20 10:30 Metoprolol Tartrate (Lopressor Injection -) 5 mg IVPUSH Q4H PRN PRN Reason: TACHYCARDIA Nystatin (Mycostatin Cream -) 1 applic TP PRN PRN PRN Reason: HYGEINE Last Admin: 04/20/20 02:47 Dose: 1 applic Documented by: Pantoprazole Sodium (Protonix Iv) 40 mg IVPUSH DAILY [facility] [place] Last Admin: 04/25/20 09:12 Dose: 40 mg Documented by: Silver Sulfadiazine (Silvadene -) 1 applic TP DAILY [facility] [place] Last Admin: 04/25/20 09:12 Dose: 1 applic Documented by: ASSESSMENT AND PLAN: Acute Hypoxic Respiratory Failure MRSA Pneumonia UTI Sacral Decubitus Ulcers Septic Shock Lactic Acidosis Acute Kidney Injury +Troponins likely Demand Ischemia Atrial Fibrillation Acute on Chronic Diastolic Heart Failure Pulmonary HTN Volume Overload COPD HTN Hyperlipidemia Bacteremia Anemia - continue antibiotics - HD per renal with ultrafiltration, will place HD catheter - monitor urine output, creatinine - titrate pressors to maintain MAP >65 - rate control - daily sedation vacations to assess mental status - spontaneous breathing trials when volume status improved - enteral feeds - DVT/GI prophylaxis - continue ICU monitoring - will likely need tracheostomy for prolonged intubation and failure to wean critical care time spent in reviewing chart, evaluating patient and formulating plan 35 min
--- NOTE | 2020-04-25 11:27 | PN ---
Progress Note, Physician History of Present Illness: POORLY RESPONSIVE SEDATED ON VENTILATOR BREATHING NON LABORED AFEBRILE AZOTEMIA WORSENED FOR DIALYSIS CATHETER - Current Medication List Current Medications: Active Medications Acetaminophen (Ofirmev Injection -) 1,000 mg IVPB Q6H PRN PRN Reason: FEVER Albumin Human (Albumin Human 25%) 12.5 gm IVPB Q30M EAN Albuterol Sulfate (Ventolin Hfa Inhaler -) 2 puff IH Q4H PRN PRN Reason: SHORT OF BREATH/WHEEZING Chlorhexidine Gluconate (Hibiclens For Decolonization -) 1 applic TP HS EAN Last Admin: 04/24/20 21:16 Dose: 1 applic Documented by: Chlorhexidine Gluconate (Peridex -) 15 ml MM BID EAN Last Admin: 04/25/20 09:12 Dose: 15 ml Documented by: Heparin Sodium (Porcine) (Heparin -) 5,000 unit SQ BID EAN Last Admin: 04/25/20 10:49 Dose: 5,000 unit Documented by: Cefepime HCl 1 gm/ Dextrose 100 mls @ 200 mls/hr IVPB Q8H-IV EAN; Protocol Last Admin: 04/25/20 10:49 Dose: 200 mls/hr Documented by: Propofol (Diprivan -) 1,000,000 mcg in 100 mls @ 3.168 mls/hr IVPB TITR EAN; Protocol Last Titration: 04/25/20 06:33 Dose: 10 mcg/kg/min, 6.336 mls/hr Documented by: Fentanyl (Sublimaze Ivpb) 500 mcg in 100 mls @ 527.98 mls/hr IVPB TITR EAN Last Titration: 04/25/20 10:50 Dose: 0.76 mcg/kg/hr, 16 mls/hr Documented by: Norepinephrine Bitartrate (Levophed Bag) 8,000 mcg in 500 mls @ 18.75 mls/hr IVPB TITR EAN; Protocol Last Titration: 04/25/20 07:33 Dose: 10 mcg/min, 37.5 mls/hr Documented by: Furosemide 100 mg/ Sodium (Chloride) 50 mls @ 2.5 mls/hr IVPB TITR EAN; Protocol Last Titration: 04/25/20 10:50 Dose: 0 mg/hr, 0 mls/hr Documented by: Sodium Chloride (Normal Saline -) 250 mls @ 3,000 mls/hr IV PRN PRN PRN Reason: Hypotension during Dialysis Stop: 04/26/20 10:30 Metoprolol Tartrate (Lopressor Injection -) 5 mg IVPUSH Q4H PRN PRN Reason: TACHYCARDIA Nystatin (Mycostatin Cream -) 1 applic TP PRN PRN PRN Reason: HYGEINE Last Admin: 04/20/20 02:47 Dose: 1 applic Documented by: Pantoprazole Sodium (Protonix Iv) 40 mg IVPUSH DAILY [facility] Last Admin: 04/25/20 09:12 Dose: 40 mg Documented by: Silver Sulfadiazine (Silvadene -) 1 applic TP DAILY [facility] Last Admin: 04/25/20 09:12 Dose: 1 applic Documented by: - Objective Vital Signs: Vital Signs Temperature 96.6 F L 04/25/20 08:00 Pulse Rate 96 H 04/25/20 10:00 Respiratory Rate 16 04/25/20 10:00 Blood Pressure 102/51 L 04/25/20 10:00 O2 Sat by Pulse Oximetry (%) 98 04/25/20 09:00 Constitutional: Yes: No Distress Eyes: Yes: Conjunctiva Clear Cardiovascular: Yes: Regular Rate and Rhythm, S1, S2 Respiratory: Yes: Mechanically Ventilated Gastrointestinal: Yes: Normal Bowel Sounds, Soft, Abdomen, Obese. No: Tenderness Edema: Yes Labs: CBC, BMP 04/25/20 05:00 04/25/20 05:00 INR, PTT INR 1.49 (0.83-1.09) H 04/08/20 05:20 Assessment/Plan ACUTE RESP FAILURE SEPSIS/ SEPTIC SHOCK LACTIC ACIDOSIS S/P SEIZURE PROBABLE ASP PNEUMONIA COPD AZOTEMIA PCN ALLERGY COVID-19 (-) CONTINUE CEFEPIME VENTILATORY/ HEMODYNAMIC SUPPORT PROGNOSIS GUARDED
[2020-04-25] MEDS: FUROSEMIDE INJECTION 100 MG in SODIUM CHLORIDE 40 ML IVPB SCH (12:35)
[2020-04-25] MEDS: FENTANYL NS IVPB 500 MCG/100 ML BAG IVPB SCH ×2 (12:35→17:18)
--- NOTE | 2020-04-25 12:36 | PROC ---
Central Line Insertion Indication: Other Risks and Benefits Explained: Yes Consent on Chart: Yes Central Line: Triple Lumen Catheter, Dialysis Cath, Tri Lumen Anesthesia: other Sterile Technique: Yes Ultrasound Guided Assistance: Yes Position: Right Internal Jugular Post Insertion: Yes: Chest X-Ray Ordered Sterile Dressing Applied: Yes
--- NOTE | 2020-04-25 12:40 | PN ---
Physical Exam: SUBJECTIVE: Patient seen and examined. Persistent third spacing despite lasix drip and albumin. S/p 1 U PRBC yesterday. Discussed with renal regarding pt's worsening renal function. ICU and renal agreed to dialyze pt. Consent obtained, discussed with in length. Will run HD today. OBJECTIVE: Vital Signs Period Temp Pulse Resp BP Sys/Cesar Pulse Ox Last 24 Hr 96.2 F-99.1 F 72-97 8-19 89-122/44-64 97-100 GENERAL: The patient is intubated NECK: Trachea midline, full range of motion, supple. LUNGS: Breath sounds equal, clear to auscultation bilaterally, no wheezes, no crackles, no accessory muscle use. HEART: Regular rate and rhythm, S1, S2 without murmur, rub or gallop. ABDOMEN: Soft, nontender, nondistended, normoactive bowel sounds, no guarding, no rebound, no hepatosplenomegaly, no masses. EXTREMITIES: 2+ pulses, warm, well-perfused, no edema. NEUROLOGICAL: unable to obtain as patient sedated. Laboratory Results - last 24 hr 04/24/20 04/25/20 04/25/20 11:40 05:00 05:00 WBC 10.1 H RBC 2.72 L Hgb 8.1 L Hct 24.8 L MCV 91.4 MCH 29.8 MCHC 32.6 RDW 17.6 H Plt Count 148 MPV 8.7 Anticoagulation Therapy Puncture Site Patient Temperature ABG pH ABG pCO2 ABG pO2 ABG HCO3 ABG O2 Sat (Measured) ABG O2 Content ABG Base Excess Wally Test Patient On Oxygen O2 Delivery Device Oxygen Flow Rate Vent Mode Vent Rate Mechanical Rate PEEP Pressure Support Vent Sodium 132 L Potassium 3.9 Chloride 98 Carbon Dioxide 22 Anion Gap 13 BUN 115.2 H* Creatinine 3.5 H Est GFR (CKD-EPI)AfAm 17.91 Est GFR (CKD-EPI)NonAf 15.45 Random Glucose 141 H Calcium 7.4 L Phosphorus 5.5 H Magnesium 1.9 Total Bilirubin 0.7 AST 22 ALT 12 L Alkaline Phosphatase 114 Total Protein 5.8 L Albumin 1.8 L Blood Type O POSITIVE Antibody Screen Negative Crossmatch See Detail 04/25/20 06:00 WBC RBC Hgb Hct MCV MCH MCHC RDW Plt Count MPV Anticoagulation Therapy No Result Required. Puncture Site Right brachial Patient Temperature No Result Required. ABG pH 7.299 L ABG pCO2 37.00 ABG pO2 105.4 H ABG HCO3 17.8 L ABG O2 Sat (Measured) 97.4 ABG O2 Content No Result Required. ABG Base Excess -8.0 L Wally Test Not applicable Patient On Oxygen Yes O2 Delivery Device Vent Oxygen Flow Rate 40% Vent Mode A/c Vent Rate 12 Mechanical Rate Yes PEEP 5.0 Pressure Support Vent 400 Sodium Potassium Chloride Carbon Dioxide Anion Gap BUN Creatinine Est GFR (CKD-EPI)AfAm Est GFR (CKD-EPI)NonAf Random Glucose Calcium Phosphorus Magnesium Total Bilirubin AST ALT Alkaline Phosphatase Total Protein Albumin Blood Type Antibody Screen Crossmatch Active Medications Generic Name Dose Route Start Last Admin Trade Name Freq PRN Reason Stop Dose Admin Acetaminophen 1,000 mg 04/08/20 08:58 Ofirmev Injection - IVPB Q6H PRN FEVER Albumin Human 12.5 gm 04/25/20 10:30 Albumin Human 25% IVPB Q30M EAN Albuterol Sulfate 2 puff 04/22/20 08:21 Ventolin Hfa Inhaler - IH Q4H PRN SHORT OF BREATH/WHEEZING Chlorhexidine Gluconate 1 applic 04/07/20 22:00 04/24/20 21:16 Hibiclens For Decolonization - TP 1 applic HS EAN Administration Chlorhexidine Gluconate 15 ml 04/18/20 22:00 04/25/20 09:12 Peridex - MM 15 ml BID EAN Administration Heparin Sodium (Porcine) 5,000 unit 04/10/20 15:15 04/25/20 10:49 Heparin - SQ 5,000 unit BID EAN Administration Cefepime HCl 1 gm/ Dextrose 100 mls @ 200 mls/hr 04/11/20 18:00 04/25/20 10:49 IVPB 200 mls/hr Q8H-IV EAN Administration Protocol Propofol 1,000,000 mcg in 100 mls @ 3.168 mls/hr 04/18/20 13:00 04/25/20 06:33 Diprivan - IVPB 10 mcg/kg/min TITR EAN 6.336 mls/hr Titration Protocol 5 MCG/KG/MIN Fentanyl 500 mcg in 100 mls @ 527.98 mls/hr 04/18/20 22:00 04/25/20 12:35 Sublimaze Ivpb IVPB 0.76 mcg/kg/hr TITR EAN 16 mls/hr Administration 25 MCG/KG/HR Norepinephrine Bitartrate 8,000 mcg in 500 mls @ 18.75 mls/hr 04/21/20 00:15 04/25/20 07:33 Levophed Bag IVPB 10 mcg/min TITR EAN 37.5 mls/hr Titration Protocol 5 MCG/MIN Furosemide 100 mg/ Sodium 50 mls @ 2.5 mls/hr 04/24/20 11:00 04/25/20 12:35 Chloride IVPB Not Given TITR EAN Protocol 5 MG/HR Sodium Chloride 250 mls @ 3,000 mls/hr 04/25/20 10:30 Normal Saline - IV 04/26/20 10:30 PRN PRN Hypotension during Dialysis Metoprolol Tartrate 5 mg 04/07/20 22:50 Lopressor Injection - IVPUSH Q4H PRN TACHYCARDIA Nystatin 1 applic 04/19/20 23:58 04/20/20 02:47 Mycostatin Cream - TP 1 applic PRN PRN Administration HYGEINE Pantoprazole Sodium 40 mg 04/08/20 10:00 04/25/20 09:12 Protonix Iv IVPUSH 40 mg DAILY EAN Administration Silver Sulfadiazine 1 applic 04/23/20 20:45 04/25/20 09:12 Silvadene - TP 1 applic DAILY EAN Administration ASSESSMENT/PLAN: 79YOM with CHF, COPD, CVA, HTN, HLD, and A-fib on Eliquis BIBEMS from [facility] for seizure-like episode, found in ED to be septic with UTI suspected source, needed to be intubated for respiratory failure. #Neuro / Psych: Serial neuro checks. Placed on sedation, propofol 10, fentanyl 100 If neuro symptoms worsen or upward gaze persists- CT head #Cardiovascular: CHF exacerbation, troponinemia For now will place pt on ppx dose- heparin, if pt tolerates and hb stable, will restart eliquis On NE 10 Pt has multiple eccymotic and brusing periorally due to ETT cotton Vent on wean settings s/p 1 U PRBC #Pulm Pulmonary edema, b/l pleural effusions, COPD exacerbation given COPD history, pt likely has pulmonary HTN- ECHO showing moderate/severe , pulm htn CXR: improved mildly cont lasix drip 12/400/40/5 Plat 17 PIP 22 vent pressures improved #Gastrointestinal: started feeds/glucerna PEG tube feeds #Heme stable #Renal Pt appears extremely fluid overloaded, b/l UE + LE edema, scrotal edema, lungs appear without crackles - pt third spacing. Pt's albumin low. SURESH- BUN 115 Cre 3.5 Hold fluids has pt is volume overload Urine studies pending FeNa 1.6%, Intrinsic Discussed with renal regarding pt's worsening renal function. ICU and renal agreed to dialyze pt. Consent obtained, discussed with in length. Will run HD today. #Genitourinary: Continue Saavedra Monitor I/O- 3L input and only 1L output, cont lasix Serial BUN/Cr especially given need for diuresis #Infectious Disease: Cefepime started D14 Vanc - hold for now, f/u Vanc level random r/p Van levels ID onboard FEN: lytes WNL, replete PRN Feeds started d/c fluids Prophylaxis: DVT: heparin GI: Protonix qd Lines: LIJ 04/19 R TLC 04/25 Dispo: cont abx, reposition pt to ventilate better, percussion modulator, tube irrigation as needed, wean off vent, HD today Visit type - Emergency Visit Emergency Visit: Yes ED Registration Date: 04/07/20 Care time: The patient presented to the Emergency Department on the above date and was hospitalized for further evaluation of their emergent condition. - New Patient This patient is new to me today: Yes Date on this admission: 05/01/20 - Critical Care Critical Care patient: No - Discharge Referral Referred to [facility] Med P.C.: No ATTENDING PHYSICIAN STATEMENT I saw and evaluated the patient. I reviewed the resident's note and discussed the case with the resident. I agree with the resident's findings and plan as documented. SUBJECTIVE: OBJECTIVE: ASSESSMENT AND PLAN:
--- NOTE | 2020-04-25 13:15 | PN ---
Progress Note, Physician History of Present Illness: Pt seen and examined at bedside. He remains in the ICU. He remains overloaded. - Current Medication List Current Medications: Active Medications Acetaminophen (Ofirmev Injection -) 1,000 mg IVPB Q6H PRN PRN Reason: FEVER Albumin Human (Albumin Human 25%) 12.5 gm IVPB Q30M EAN Albuterol Sulfate (Ventolin Hfa Inhaler -) 2 puff IH Q4H PRN PRN Reason: SHORT OF BREATH/WHEEZING Chlorhexidine Gluconate (Hibiclens For Decolonization -) 1 applic TP HS EAN Last Admin: 04/24/20 21:16 Dose: 1 applic Documented by: Chlorhexidine Gluconate (Peridex -) 15 ml MM BID EAN Last Admin: 04/25/20 09:12 Dose: 15 ml Documented by: Heparin Sodium (Porcine) (Heparin -) 5,000 unit SQ BID EAN Last Admin: 04/25/20 10:49 Dose: 5,000 unit Documented by: Cefepime HCl 1 gm/ Dextrose 100 mls @ 200 mls/hr IVPB Q8H-IV EAN; Protocol Last Admin: 04/25/20 10:49 Dose: 200 mls/hr Documented by: Propofol (Diprivan -) 1,000,000 mcg in 100 mls @ 3.168 mls/hr IVPB TITR EAN; Protocol Last Titration: 04/25/20 06:33 Dose: 10 mcg/kg/min, 6.336 mls/hr Documented by: Fentanyl (Sublimaze Ivpb) 500 mcg in 100 mls @ 527.98 mls/hr IVPB TITR EAN Last Admin: 04/25/20 12:35 Dose: 0.76 mcg/kg/hr, 16 mls/hr Documented by: Norepinephrine Bitartrate (Levophed Bag) 8,000 mcg in 500 mls @ 18.75 mls/hr IVPB TITR EAN; Protocol Last Titration: 04/25/20 07:33 Dose: 10 mcg/min, 37.5 mls/hr Documented by: Furosemide 100 mg/ Sodium (Chloride) 50 mls @ 2.5 mls/hr IVPB TITR EAN; Protocol Last Admin: 04/25/20 12:35 Dose: Not Given Documented by: Sodium Chloride (Normal Saline -) 250 mls @ 3,000 mls/hr IV PRN PRN PRN Reason: Hypotension during Dialysis Stop: 04/26/20 10:30 Metoprolol Tartrate (Lopressor Injection -) 5 mg IVPUSH Q4H PRN PRN Reason: TACHYCARDIA Nystatin (Mycostatin Cream -) 1 applic TP PRN PRN PRN Reason: HYGEINE Last Admin: 04/20/20 02:47 Dose: 1 applic Documented by: Pantoprazole Sodium (Protonix Iv) 40 mg IVPUSH DAILY EAN Last Admin: 04/25/20 09:12 Dose: 40 mg Documented by: Silver Sulfadiazine (Silvadene -) 1 applic TP DAILY EAN Last Admin: 04/25/20 09:12 Dose: 1 applic Documented by: - Objective Vital Signs: Vital Signs Temperature 99.6 F 04/25/20 12:00 Pulse Rate 97 H 04/25/20 12:00 Respiratory Rate 18 04/25/20 12:00 Blood Pressure 106/49 L 04/25/20 12:00 O2 Sat by Pulse Oximetry (%) 98 04/25/20 09:00 Constitutional: Yes: Calm Eyes: Yes: Conjunctiva Clear HENT: Yes: Atraumatic Neck: Yes: Supple Cardiovascular: Yes: S1, S2 Respiratory: Yes: Mechanically Ventilated Gastrointestinal: Yes: Soft Genitourinary: Yes: Saavedra Present Musculoskeletal: Yes: Muscle Weakness Edema: Yes Edema: LLE: 3+, RLE: 3+ Neurological: Yes: Lethargy Labs: CBC, BMP 04/25/20 05:00 04/25/20 05:00 INR, PTT INR 1.49 (0.83-1.09) H 04/08/20 05:20 Problem List - Problems (1) CHF exacerbation Code(s): I50.9 - HEART FAILURE, UNSPECIFIED (2) Sepsis Code(s): A41.9 - SEPSIS, UNSPECIFIED ORGANISM (3) SURESH (acute kidney injury) Code(s): N17.9 - ACUTE KIDNEY FAILURE, UNSPECIFIED Assessment/Plan Current Medications Generic Name Dose Route Start Last Admin Trade Name Freq PRN Reason Stop Dose Admin Acetaminophen 1,000 mg 04/08/20 08:58 Ofirmev Injection - IVPB Q6H PRN FEVER Albumin Human 12.5 gm 04/25/20 10:30 Albumin Human 25% IVPB Q30M [facility] Albuterol Sulfate 2 puff 04/22/20 08:21 Ventolin Hfa Inhaler - IH Q4H PRN SHORT OF BREATH/WHEEZING Chlorhexidine Gluconate 1 applic 04/07/20 22:00 04/24/20 21:16 Hibiclens For Decolonization - TP 1 applic HS EAN Administration Chlorhexidine Gluconate 15 ml 04/18/20 22:00 04/25/20 09:12 Peridex - MM 15 ml BID EAN Administration Heparin Sodium (Porcine) 5,000 unit 04/10/20 15:15 04/25/20 10:49 Heparin - SQ 5,000 unit BID EAN Administration Cefepime HCl 1 gm/ Dextrose 100 mls @ 200 mls/hr 04/11/20 18:00 04/25/20 10:49 IVPB 200 mls/hr Q8H-IV EAN Administration Protocol Propofol 1,000,000 mcg in 100 mls @ 3.168 mls/hr 04/18/20 13:00 04/25/20 06: 33 Diprivan - IVPB 10 mcg/kg/min TITR EAN 6.336 mls/hr Titration Protocol 5 MCG/KG/MIN Fentanyl 500 mcg in 100 mls @ 527.98 mls/hr 04/18/20 22:00 04/25/20 12:35 Sublimaze Ivpb IVPB 0.76 mcg/kg/hr TITR EAN 16 mls/hr Administration 25 MCG/KG/HR Norepinephrine Bitartrate 8,000 mcg in 500 mls @ 18.75 mls/hr 04/21/20 00:15 04/25/20 07:33 Levophed Bag IVPB 10 mcg/min TITR EAN 37.5 mls/hr Titration Protocol 5 MCG/MIN Furosemide 100 mg/ Sodium 50 mls @ 2.5 mls/hr 04/24/20 11:00 04/25/20 12:35 Chloride IVPB Not Given TITR EAN Protocol 5 MG/HR Sodium Chloride 250 mls @ 3,000 mls/hr 04/25/20 10:30 Normal Saline - IV 04/26/20 10:30 PRN PRN Hypotension during Dialysis Metoprolol Tartrate 5 mg 04/07/20 22:50 Lopressor Injection - IVPUSH Q4H PRN TACHYCARDIA Nystatin 1 applic 04/19/20 23:58 04/20/20 02:47 Mycostatin Cream - TP 1 applic PRN PRN Administration HYGEINE Pantoprazole Sodium 40 mg 04/08/20 10:00 04/25/20 09:12 Protonix Iv IVPUSH 40 mg DAILY EAN Administration Silver Sulfadiazine 1 applic 04/23/20 20:45 04/25/20 09:12 Silvadene - TP 1 applic DAILY EAN Administration Impression 1. SURESH 2. hyperkalemia 3. resp failure 4. UTI 5. sepsis 6. shock 7. MRSA Pneumonia 8. Lactic Acidosis 9. +Troponins 10. Atrial Fibrillation 11. LV Diastolic Dysfunction 12. Pulmonary HTN 13. Bacteremia 14. anemia Plan - wll dialyze for UF - consent obtained from - discussed with ICU - would cont lasix as well as he does make urine - monitor lytes - 3 k bath on hd - cont pressors to map 65 - keep net negative - daily cxr - discussed with ICU team - cont vent support
[2020-04-25] MEDS ORDERED: ALBUMIN HUMAN 25% 12.5 GM/50 ML VIAL IVPB SCH (13:45)
[2020-04-25] MEDS ORDERED: SODIUM CHLORIDE 250 ML IV PRN (13:46)
[2020-04-25] MEDS: PROPOFOL 1,000,000 MCG/100 ML VIAL IVPB SCH (17:19)
[2020-04-25] MEDS: CHLORHEXIDINE GLUCONATE 4% CLEANSER FOR DECOLONIZATION TP SCH (21:27)
[2020-04-25] MEDS ORDERED: fentaNYL CITRATE 250 MCG/5 ML VIAL ONE (23:24)
[2020-04-26] MEDS ORDERED: DEXTROSE 5%-WATER 100 ML IVPB ONE ×3 (01:23→16:17)
[2020-04-26] MEDS ORDERED: CEFEPIME HCL 1 GM VIAL (RESTRICTED TO ID) ONE ×3 (01:23→16:17)
[2020-04-26] MEDS: CEFEPIME 1 GM in DEXTROSE 5%-WATER 100 ML IVPB SCH ×3 (01:26→17:09)
[2020-04-26] MEDS: NOREPINEPHRINE BITARTRATE 8,000 MCG/500 ML BAG IVPB SCH ×2 (01:44→06:26)
[2020-04-26] MEDS: FUROSEMIDE INJECTION 100 MG in SODIUM CHLORIDE 40 ML IVPB SCH ×2 (01:45→11:04)
[2020-04-26] MEDS: FENTANYL NS IVPB 500 MCG/100 ML BAG IVPB SCH ×2 (06:25→11:00)
[2020-04-26] MEDS: PROPOFOL 1,000,000 MCG/100 ML VIAL IVPB SCH (06:26)
[2020-04-26 07:18] LABS: HEMATOCRIT 24.6 % (35.4-49); HEMOGLOBIN 8.2 GM/dL (11.7-16.9); MCH 29.8 pg (25.7-33.7); MCHC 33.3 g/dl (32.0-35.9); MEAN CELL VOLUME 89.5 fl (80-96); MEAN PLT VOLUME 8.3 fl (7.5-11.1); PLATELET COUNT 139 K/MM3 (134-434); RBC 2.75 M/mm3 (4.00-5.60); RDW 17.3 % (11.9-15.9); WHITE BLOOD COUNT 10.3 K/mm3 (4.0-10.0)
[2020-04-26 07:34] LABS: ALBUMIN 1.6 g/dl (3.4-5.0); BILIRUBIN,TOTAL 0.5 mg/dL (0.2-1); CALCIUM 7.7 mg/dL (8.5-10.1); CREATININE 2.9 mg/dL (0.55-1.3); MAGNESIUM 1.9 mg/dL (1.8-2.4); PHOSPHOROUS 3.7 mg/dL (2.5-4.9); POTASSIUM 3.3 mmol/L (3.5-5.1); TOT PROT 5.5 g/dl (6.4-8.2)
[2020-04-26 07:43] LABS: BLOOD UREA NITROGEN 79.4 mg/dL (7-18)
[2020-04-26] MEDS: KCL 10 MEQ IVPB 10 MEQ/100 ML INFUS.BAG IVPB SCH ×3 (08:43→10:57)
[2020-04-26] MEDS ORDERED: PT OWN MED DRAWER 7, Y5N ONE (09:56)
[2020-04-26] MEDS: PANTOPRAZOLE SODIUM 40 MG VIAL IVPUSH SCH (10:05)
[2020-04-26] MEDS: HEPARIN NA (PORCINE) 5,000 UNITS/ML 1ML VIAL SQ SCH ×2 (10:05→21:04)
[2020-04-26] MEDS: CHLORHEXIDINE GLUCONATE 0.12% 15ML CUP MM SCH ×2 (10:05→21:04)
[2020-04-26] MEDS ORDERED: MIDAZOLAM HCL 2 MG/2 ML SINGLE DOSE VIAL IVPUSH PRN (10:36)
--- NOTE | 2020-04-26 10:50 | PN ---
Physical Exam: SUBJECTIVE: Patient seen and examined. Afebrile, asymptomatic. OFf sedation, will reassess mental status. Titrate down NE. Discussed with yesterday about pt's options including tracheostomy vs comfort care. Pt's will discuss with family. OBJECTIVE: Vital Signs Period Temp Pulse Resp BP Sys/Cesar Pulse Ox Last 24 Hr 98 F-99.7 F 74-103 12-19 99-120/46-59 90-98 GENERAL: The patient is intubated NECK: Trachea midline, full range of motion, supple. LUNGS: Breath sounds equal, clear to auscultation bilaterally, no wheezes, no crackles, no accessory muscle use. HEART: Regular rate and rhythm, S1, S2 without murmur, rub or gallop. ABDOMEN: Soft, nontender, nondistended, normoactive bowel sounds, no guarding, no rebound, no hepatosplenomegaly, no masses. EXTREMITIES: 2+ pulses, warm, well-perfused, no edema. NEUROLOGICAL: unable to obtain as patient sedated. Laboratory Results - last 24 hr 04/25/20 04/26/20 04/26/20 13:00 06:00 06:00 WBC 10.3 H RBC 2.75 L Hgb 8.2 L Hct 24.6 L MCV 89.5 MCH 29.8 MCHC 33.3 RDW 17.3 H Plt Count 139 MPV 8.3 Sodium 133 L Potassium 3.3 L Chloride 99 Carbon Dioxide 22 Anion Gap 12 BUN 79.4 H Creatinine 2.9 H Est GFR (CKD-EPI)AfAm 22.48 Est GFR (CKD-EPI)NonAf 19.40 Random Glucose 201 H Calcium 7.7 L Phosphorus 3.7 Magnesium 1.9 Total Bilirubin 0.5 AST 22 ALT 12 L Alkaline Phosphatase 125 H Total Protein 5.5 L Albumin 1.6 L Random Vancomycin 20.0 Active Medications Generic Name Dose Route Start Last Admin Trade Name Freq PRN Reason Stop Dose Admin Acetaminophen 1,000 mg 04/08/20 08:58 Ofirmev Injection - IVPB Q6H PRN FEVER Albumin Human 12.5 gm 04/25/20 13:45 Albumin Human 25% IVPB Q30M EAN Albuterol Sulfate 2 puff 04/22/20 08:21 Ventolin Hfa Inhaler - IH Q4H PRN SHORT OF BREATH/WHEEZING Chlorhexidine Gluconate 1 applic 04/07/20 22:00 04/25/20 21:27 Hibiclens For Decolonization - TP 1 applic HS EAN Administration Chlorhexidine Gluconate 15 ml 04/18/20 22:00 04/26/20 10:05 Peridex - MM 15 ml BID EAN Administration Heparin Sodium (Porcine) 5,000 unit 04/10/20 15:15 04/26/20 10:05 Heparin - SQ 5,000 unit BID EAN Administration Cefepime HCl 1 gm/ Dextrose 100 mls @ 200 mls/hr 04/11/20 18:00 04/26/20 10:0 5 IVPB 200 mls/hr Q8H-IV EAN Administration Protocol Fentanyl 500 mcg in 100 mls @ 527.98 mls/hr 04/18/20 22:00 04/26/20 08:49 Sublimaze Ivpb IVPB 0 mcg/kg/hr TITR EAN 0 mls/hr Titration 25 MCG/KG/HR Norepinephrine Bitartrate 8,000 mcg in 500 mls @ 18.75 mls/hr 04/21/20 00:15 04/26/20 06:26 Levophed Bag IVPB 10 mcg/min TITR EAN 37.5 mls/hr Administration Protocol 5 MCG/MIN Furosemide 100 mg/ Sodium 50 mls @ 2.5 mls/hr 04/24/20 11:00 04/26/20 01:45 Chloride IVPB 5 mg/hr TITR EAN 2.5 mls/hr Administration Protocol 5 MG/HR Sodium Chloride 250 mls @ 3,000 mls/hr 04/25/20 13:46 Normal Saline - IV 04/26/20 13:45 PRN PRN Hypotension during Dialysis Potassium Chloride 10 meq in 100 mls @ 100 mls/hr 04/26/20 08:00 04/26/20 09:53 Potassium Chloride 10 Meq Premix Ivpb - IVPB 04/26/20 10:59 100 mls/hr Q60M EAN Administration Metoprolol Tartrate 5 mg 04/07/20 22:50 Lopressor Injection - IVPUSH Q4H PRN TACHYCARDIA Midazolam HCl 2 mg 04/26/20 10:36 Versed - IVPUSH Q4H PRN AGITATION Nystatin 1 applic 04/19/20 23:58 04/20/20 02:47 Mycostatin Cream - TP 1 applic PRN PRN Administration HYGEINE Pantoprazole Sodium 40 mg 04/08/20 10:00 04/26/20 10:05 Protonix Iv IVPUSH 40 mg DAILY EAN Administration Silver Sulfadiazine 1 applic 04/23/20 20:45 04/25/20 09:12 Silvadene - TP 1 applic DAILY EAN Administration ASSESSMENT/PLAN: 79YOM with CHF, COPD, CVA, HTN, HLD, and A-fib on Eliquis BIBEMS from [facility] for seizure-like episode, found in ED to be septic with UTI suspected source, needed to be intubated for respiratory failure. #Neuro / Psych: Serial neuro checks. Off sedation, maintain analgesic of fentalyn If neuro symptoms worsen or upward gaze persists- CT head #Cardiovascular: CHF exacerbation, troponinemia For now will place pt on ppx dose- heparin, if pt tolerates and hb stable, will restart eliquis On NE 10, will titrate down Pt has multiple eccymotic and brusing periorally due to ETT cotton Vent on wean settings #Pulm Pulmonary edema, b/l pleural effusions, COPD exacerbation given COPD history, pt likely has pulmonary HTN- ECHO showing moderate/severe , pulm htn CXR cont lasix drip 12/400/35/5 Plat 14 PIP 25 vent pressures improved #Gastrointestinal: started feeds/glucerna PEG tube feeds #Heme stable #Renal Pt appears extremely fluid overloaded, b/l UE + LE edema, scrotal edema, lungs appear without crackles - pt third spacing. Pt's albumin low. Hold fluids has pt is volume overload FeNa 1.6%, Intrinsic Discussed with renal regarding pt's worsening renal function. ICU and renal agreed to dialyze pt. Consent obtained, discussed with in length. Will run HD today. S/p HD 2Kg removed, renal function improved #Genitourinary: Continue Saavedra Monitor I/O- 3.6L input and only 3.5L output, cont lasix Serial BUN/Cr especially given need for diuresis #Infectious Disease: Cefepime started D15 Vanc - hold for now, f/u Vanc level random r/p Van levels ID onboard FEN: lytes WNL, replete PRN Feeds started d/c fluids Prophylaxis: DVT: heparin GI: Protonix qd Lines: LIJ 04/19 R TLC 04/25 Dispo: cont abx, reposition pt to ventilate better, percussion modulator, tube irrigation as needed, wean off vent Visit type - Emergency Visit Emergency Visit: Yes ED Registration Date: 04/07/20 Care time: The patient presented to the Emergency Department on the above date and was hospitalized for further evaluation of their emergent condition. - New Patient This patient is new to me today: Yes Date on this admission: 05/01/20 - Critical Care Critical Care patient: No - Discharge Referral Referred to [facility] Med P.C.: No ATTENDING PHYSICIAN STATEMENT I saw and evaluated the patient. I reviewed the resident's note and discussed the case with the resident. I agree with the resident's findings and plan as documented. SUBJECTIVE: OBJECTIVE: ASSESSMENT AND PLAN:
--- NOTE | 2020-04-26 11:07 | PN ---
Teaching Attending Note Name of Resident: Wilman Connolly ATTENDING PHYSICIAN STATEMENT I saw and evaluated the patient. I reviewed the resident's note and discussed the case with the resident. I agree with the resident's findings and plan as documented. SUBJECTIVE: Pt seen and examined in the ICU. Remains intubated, sedated on levophed gtt. T olerated HD session yesterday. OBJECTIVE: Vital Signs Period Temp Pulse Resp BP Sys/Cesar Pulse Ox Last 24 Hr 98 F-99.7 F 74-103 12-19 99-120/46-59 90-98 Intake & Output 04/23/20 04/24/20 04/25/20 04/26/20 23:59 23:59 23:59 23:59 Intake Total 2353 3131.3 2333.1 1351 Output Total 930 1010 3555 Balance 1423 2121.3 -1221.9 1351 Weight 106.282 kg 108.771 kg 105.506 kg Gen: intubated, sedated Heart: RRR Lung: scattered rhonchi Abd: soft, nontender Ext: + edema CBC, BMP 04/26/20 06:00 04/26/20 06:00 Active Medications Acetaminophen (Ofirmev Injection -) 1,000 mg IVPB Q6H PRN PRN Reason: FEVER Albumin Human (Albumin Human 25%) 12.5 gm IVPB Q30M EAN Albuterol Sulfate (Ventolin Hfa Inhaler -) 2 puff IH Q4H PRN PRN Reason: SHORT OF BREATH/WHEEZING Chlorhexidine Gluconate (Hibiclens For Decolonization -) 1 applic TP HS EAN Last Admin: 04/25/20 21:27 Dose: 1 applic Documented by: Chlorhexidine Gluconate (Peridex -) 15 ml MM BID EAN Last Admin: 04/26/20 10:05 Dose: 15 ml Documented by: Heparin Sodium (Porcine) (Heparin -) 5,000 unit SQ BID EAN Last Admin: 04/26/20 10:05 Dose: 5,000 unit Documented by: Cefepime HCl 1 gm/ Dextrose 100 mls @ 200 mls/hr IVPB Q8H-IV EAN; Protocol Last Admin: 04/26/20 10:05 Dose: 200 mls/hr Documented by: Norepinephrine Bitartrate (Levophed Bag) 8,000 mcg in 500 mls @ 18.75 mls/hr IVPB TITR EAN; Protocol Last Admin: 04/26/20 06:26 Dose: 10 mcg/min, 37.5 mls/hr Documented by: Furosemide 100 mg/ Sodium (Chloride) 50 mls @ 2.5 mls/hr IVPB TITR EAN; Protocol Last Admin: 04/26/20 11:04 Dose: Not Given Documented by: Sodium Chloride (Normal Saline -) 250 mls @ 3,000 mls/hr IV PRN PRN PRN Reason: Hypotension during Dialysis Stop: 04/26/20 13:45 Fentanyl (Sublimaze Ivpb) 500 mcg in 100 mls @ 21.101 mls/hr IVPB TITR EAN Metoprolol Tartrate (Lopressor Injection -) 5 mg IVPUSH Q4H PRN PRN Reason: TACHYCARDIA Midazolam HCl (Versed -) 2 mg IVPUSH Q4H PRN PRN Reason: AGITATION Nystatin (Mycostatin Cream -) 1 applic TP PRN PRN PRN Reason: HYGEINE Last Admin: 04/20/20 02:47 Dose: 1 applic Documented by: Pantoprazole Sodium (Protonix Iv) 40 mg IVPUSH DAILY [facility] Last Admin: 04/26/20 10:05 Dose: 40 mg Documented by: Silver Sulfadiazine (Silvadene -) 1 applic TP DAILY [facility] Last Admin: 04/25/20 09:12 Dose: 1 applic Documented by: ASSESSMENT AND PLAN: Acute Hypoxic Respiratory Failure MRSA Pneumonia UTI Sacral Decubitus Ulcers Septic Shock Lactic Acidosis Acute Kidney Injury +Troponins likely Demand Ischemia Atrial Fibrillation Acute on Chronic Diastolic Heart Failure Pulmonary HTN Volume Overload COPD HTN Hyperlipidemia Bacteremia Anemia - continue antibiotics - HD per renal - monitor urine output, creatinine - titrate pressors to maintain MAP >65 - rate control - daily sedation vacations to assess mental status - spontaneous breathing trials when volume status improved - enteral feeds - DVT/GI prophylaxis - continue ICU monitoring - will likely need tracheostomy for prolonged intubation and failure to wean critical care time spent in reviewing chart, evaluating patient and formulating plan 35 min
[2020-04-26] MEDS: SILVER SULFADIAZINE 1% TOP CREAM 50 GM JAR TP SCH (12:10)
--- NOTE | 2020-04-26 14:54 | PN ---
Progress Note, Physician History of Present Illness: POORLY RESPONSIVE SEDATED ON VENTILATOR BREATHING NON LABORED AFEBRILE AZOTEMIA IMPROVED - Current Medication List Current Medications: Active Medications Acetaminophen (Ofirmev Injection -) 1,000 mg IVPB Q6H PRN PRN Reason: FEVER Albumin Human (Albumin Human 25%) 12.5 gm IVPB Q30M EAN Albuterol Sulfate (Ventolin Hfa Inhaler -) 2 puff IH Q4H PRN PRN Reason: SHORT OF BREATH/WHEEZING Chlorhexidine Gluconate (Hibiclens For Decolonization -) 1 applic TP HS EAN Last Admin: 04/25/20 21:27 Dose: 1 applic Documented by: Chlorhexidine Gluconate (Peridex -) 15 ml MM BID EAN Last Admin: 04/26/20 10:05 Dose: 15 ml Documented by: Heparin Sodium (Porcine) (Heparin -) 5,000 unit SQ BID EAN Last Admin: 04/26/20 10:05 Dose: 5,000 unit Documented by: Cefepime HCl 1 gm/ Dextrose 100 mls @ 200 mls/hr IVPB Q8H-IV EAN; Protocol Last Admin: 04/26/20 10:05 Dose: 200 mls/hr Documented by: Norepinephrine Bitartrate (Levophed Bag) 8,000 mcg in 500 mls @ 18.75 mls/hr IVPB TITR EAN; Protocol Last Admin: 04/26/20 06:26 Dose: 10 mcg/min, 37.5 mls/hr Documented by: Furosemide 100 mg/ Sodium (Chloride) 50 mls @ 2.5 mls/hr IVPB TITR EAN; Protocol Last Titration: 04/26/20 12:37 Dose: 0 mg/hr, 0 mls/hr Documented by: Fentanyl (Sublimaze Ivpb) 500 mcg in 100 mls @ 21.101 mls/hr IVPB TITR EAN; Protocol Last Admin: 04/26/20 11:00 Dose: 0.47 mcg/kg/hr, 10 mls/hr Documented by: Metoprolol Tartrate (Lopressor Injection -) 5 mg IVPUSH Q4H PRN PRN Reason: TACHYCARDIA Midazolam HCl (Versed -) 2 mg IVPUSH Q4H PRN PRN Reason: AGITATION Last Admin: 04/26/20 12:05 Dose: 2 mg Documented by: Nystatin (Mycostatin Cream -) 1 applic TP PRN PRN PRN Reason: HYGEINE Last Admin: 04/20/20 02:47 Dose: 1 applic Documented by: Pantoprazole Sodium (Protonix Iv) 40 mg IVPUSH DAILY [facility] Last Admin: 04/26/20 10:05 Dose: 40 mg Documented by: Silver Sulfadiazine (Silvadene -) 1 applic TP DAILY [facility] Last Admin: 04/26/20 12:10 Dose: 1 applic Documented by: - Objective Vital Signs: Vital Signs Temperature 97.9 F 04/26/20 14:00 Pulse Rate 89 04/26/20 14:00 Respiratory Rate 16 04/26/20 14:00 Blood Pressure 117/60 04/26/20 14:00 O2 Sat by Pulse Oximetry (%) 98 04/26/20 11:35 Constitutional: Yes: Well Nourished Eyes: Yes: Conjunctiva Clear HENT: Yes: Atraumatic Cardiovascular: Yes: Regular Rate and Rhythm, S1, S2 Respiratory: Yes: CTA Bilaterally Gastrointestinal: Yes: Normal Bowel Sounds, Soft Edema: No Labs: CBC, BMP 04/26/20 06:00 04/26/20 06:00 INR, PTT INR 1.49 (0.83-1.09) H 04/08/20 05:20 Assessment/Plan ACUTE RESP FAILURE SEPSIS/ SEPTIC SHOCK LACTIC ACIDOSIS S/P SEIZURE PROBABLE ASP PNEUMONIA COPD AZOTEMIA PCN ALLERGY COVID-19 (-) CONTINUE CEFEPIME VENTILATORY/ HEMODYNAMIC SUPPORT PROGNOSIS GUARDED
--- NOTE | 2020-04-26 17:28 | PN ---
Progress Note, Physician History of Present Illness: Pt seen and examined at bedside. He remains in the ICU. He remains intubated. Pt is lethargic. - Current Medication List Current Medications: Active Medications Acetaminophen (Ofirmev Injection -) 1,000 mg IVPB Q6H PRN PRN Reason: FEVER Albumin Human (Albumin Human 25%) 12.5 gm IVPB Q30M EAN Albuterol Sulfate (Ventolin Hfa Inhaler -) 2 puff IH Q4H PRN PRN Reason: SHORT OF BREATH/WHEEZING Chlorhexidine Gluconate (Hibiclens For Decolonization -) 1 applic TP HS EAN Last Admin: 04/25/20 21:27 Dose: 1 applic Documented by: Chlorhexidine Gluconate (Peridex -) 15 ml MM BID EAN Last Admin: 04/26/20 10:05 Dose: 15 ml Documented by: Furosemide (Lasix Injection -) 80 mg IVPB DAILY EAN Heparin Sodium (Porcine) (Heparin -) 5,000 unit SQ BID EAN Last Admin: 04/26/20 10:05 Dose: 5,000 unit Documented by: Cefepime HCl 1 gm/ Dextrose 100 mls @ 200 mls/hr IVPB Q8H-IV EAN; Protocol Last Admin: 04/26/20 17:09 Dose: 200 mls/hr Documented by: Norepinephrine Bitartrate (Levophed Bag) 8,000 mcg in 500 mls @ 18.75 mls/hr IVPB TITR EAN; Protocol Last Titration: 04/26/20 12:00 Dose: 6 mcg/min, 22.5 mls/hr Documented by: Fentanyl (Sublimaze Ivpb) 500 mcg in 100 mls @ 21.101 mls/hr IVPB TITR EAN; Protocol Last Admin: 04/26/20 11:00 Dose: 0.47 mcg/kg/hr, 10 mls/hr Documented by: Metoprolol Tartrate (Lopressor Injection -) 5 mg IVPUSH Q4H PRN PRN Reason: TACHYCARDIA Midazolam HCl (Versed -) 2 mg IVPUSH Q4H PRN PRN Reason: AGITATION Last Admin: 04/26/20 12:05 Dose: 2 mg Documented by: Nystatin (Mycostatin Cream -) 1 applic TP PRN PRN PRN Reason: HYGEINE Last Admin: 04/20/20 02:47 Dose: 1 applic Documented by: Pantoprazole Sodium (Protonix Iv) 40 mg IVPUSH DAILY [facility] Last Admin: 04/26/20 10:05 Dose: 40 mg Documented by: Silver Sulfadiazine (Silvadene -) 1 applic TP DAILY [facility] Last Admin: 04/26/20 12:10 Dose: 1 applic Documented by: - Objective Vital Signs: Vital Signs Temperature 97.8 F 04/26/20 16:00 Pulse Rate 81 04/26/20 16:00 Respiratory Rate 18 04/26/20 16:00 Blood Pressure 115/56 L 04/26/20 16:00 O2 Sat by Pulse Oximetry (%) 96 04/26/20 15:25 Constitutional: Yes: Calm Eyes: Yes: Conjunctiva Clear Cardiovascular: Yes: S1, S2 Respiratory: Yes: Mechanically Ventilated Gastrointestinal: Yes: Soft Genitourinary: Yes: Saavedra Present, Oliguria Musculoskeletal: Yes: Muscle Weakness Edema: Yes Edema: LUE: 2+, RUE: 2+, LLE: 2+, RLE: 2+ Neurological: Yes: Lethargy Labs: CBC, BMP 04/26/20 06:00 04/26/20 06:00 INR, PTT INR 1.49 (0.83-1.09) H 04/08/20 05:20 - ....Imaging Chest X-ray: Report Reviewed Problem List - Problems (1) CHF exacerbation Code(s): I50.9 - HEART FAILURE, UNSPECIFIED (2) Sepsis Code(s): A41.9 - SEPSIS, UNSPECIFIED ORGANISM (3) SURESH (acute kidney injury) Code(s): N17.9 - ACUTE KIDNEY FAILURE, UNSPECIFIED Assessment/Plan Current Medications Generic Name Dose Route Start Last Admin Trade Name Freq PRN Reason Stop Dose Admin Acetaminophen 1,000 mg 04/08/20 08:58 Ofirmev Injection - IVPB Q6H PRN FEVER Albumin Human 12.5 gm 04/25/20 13:45 Albumin Human 25% IVPB Q30M EAN Albuterol Sulfate 2 puff 04/22/20 08:21 Ventolin Hfa Inhaler - IH Q4H PRN SHORT OF BREATH/WHEEZING Chlorhexidine Gluconate 1 applic 04/07/20 22:00 04/25/20 21:27 Hibiclens For Decolonization - TP 1 applic HS EAN Administration Chlorhexidine Gluconate 15 ml 04/18/20 22:00 04/26/20 10:05 Peridex - MM 15 ml BID EAN Administration Furosemide 80 mg 04/26/20 17:30 Lasix Injection - IVPB DAILY EAN Heparin Sodium (Porcine) 5,000 unit 04/10/20 15:15 04/26/20 10:05 Heparin - SQ 5,000 unit BID EAN Administration Cefepime HCl 1 gm/ Dextrose 100 mls @ 200 mls/hr 04/11/20 18:00 04/26/20 17:09 IVPB 200 mls/hr Q8H-IV EAN Administration Protocol Norepinephrine Bitartrate 8,000 mcg in 500 mls @ 18.75 mls/hr 04/21/20 00:15 04/26/20 12:00 Levophed Bag IVPB 6 mcg/min TITR EAN 22.5 mls/hr Titration Protocol 5 MCG/MIN Fentanyl 500 mcg in 100 mls @ 21.101 mls/hr 04/26/20 11:00 04/26/20 11:00 Sublimaze Ivpb IVPB 0.47 mcg/kg/hr TITR EAN 10 mls/hr Administration Protocol 1 MCG/KG/HR Metoprolol Tartrate 5 mg 04/07/20 22:50 Lopressor Injection - IVPUSH Q4H PRN TACHYCARDIA Midazolam HCl 2 mg 04/26/20 10:36 04/26/20 12:05 Versed - IVPUSH 2 mg Q4H PRN Administration AGITATION Nystatin 1 applic 04/19/20 23:58 04/20/20 02:47 Mycostatin Cream - TP 1 applic PRN PRN Administration HYGEINE Pantoprazole Sodium 40 mg 04/08/20 10:00 04/26/20 10:05 Protonix Iv IVPUSH 40 mg DAILY EAN Administration Silver Sulfadiazine 1 applic 04/23/20 20:45 04/26/20 12:10 Silvadene - TP 1 applic DAILY EAN Administration Impression 1. SURESH 2. hyperkalemia 3. resp failure 4. UTI 5. sepsis 6. shock 7. MRSA Pneumonia 8. Lactic Acidosis 9. +Troponins 10. Atrial Fibrillation 11. LV Diastolic Dysfunction 12. Pulmonary HTN 13. Bacteremia 14. anemia Plan - replace potassium - lasix today - HD tomorrow for UF - cont vent support - repeat cxr in am - discussed with ICU team - pressors to map 65 - prognosis guarded - keep net negative - daily cxr
[2020-04-26] MEDS: FUROSEMIDE 40 MG/4 ML INJECTABLE VIAL IVPB SCH (17:56)
[2020-04-26] MEDS: CHLORHEXIDINE GLUCONATE 4% CLEANSER FOR DECOLONIZATION TP SCH (21:04)
[2020-04-27] MEDS: NOREPINEPHRINE BITARTRATE 8,000 MCG/500 ML BAG IVPB SCH (01:02)
[2020-04-27] MEDS: CEFEPIME 1 GM in DEXTROSE 5%-WATER 100 ML IVPB SCH ×2 (01:02→09:18)
[2020-04-27] MEDS: FENTANYL NS IVPB 500 MCG/100 ML BAG IVPB SCH ×2 (01:04→11:09)
[2020-04-27] MEDS ORDERED: SODIUM CHLORIDE 250 ML IV PRN (06:33)
[2020-04-27 07:11] LABS: BLOOD UREA NITROGEN 85.2 mg/dL (7-18); CALCIUM 7.6 mg/dL (8.5-10.1); CREATININE 3.2 mg/dL (0.55-1.3); POTASSIUM 3.4 mmol/L (3.5-5.1)
[2020-04-27] MEDS ORDERED: DEXTROSE 5%-WATER 100 ML IVPB ONE (09:04)
[2020-04-27] MEDS ORDERED: CEFEPIME HCL 1 GM VIAL (RESTRICTED TO ID) ONE ×2 (09:04→09:13)
[2020-04-27] MEDS: KCL 10 MEQ IVPB 10 MEQ/100 ML INFUS.BAG IVPB SCH ×3 (09:15→11:14)
[2020-04-27] MEDS: HEPARIN NA (PORCINE) 5,000 UNITS/ML 1ML VIAL SQ SCH ×2 (09:18→21:33)
[2020-04-27] MEDS: SILVER SULFADIAZINE 1% TOP CREAM 50 GM JAR TP SCH (09:18)
[2020-04-27] MEDS: CHLORHEXIDINE GLUCONATE 0.12% 15ML CUP MM SCH ×2 (09:18→21:33)
[2020-04-27] MEDS: PANTOPRAZOLE SODIUM 40 MG VIAL IVPUSH SCH (09:18)
[2020-04-27] MEDS: FUROSEMIDE 40 MG/4 ML INJECTABLE VIAL IVPB SCH (09:53)
--- NOTE | 2020-04-27 09:55 | PN ---
Progress Note, Physician History of Present Illness: Pt seen and examined at bedside. He remains in the ICU. He remains intubated. - Current Medication List Current Medications: Active Medications Acetaminophen (Ofirmev Injection -) 1,000 mg IVPB Q6H PRN PRN Reason: FEVER Albumin Human (Albumin Human 25%) 12.5 gm IVPB Q30M EAN Stop: 04/27/20 11:31 Albuterol Sulfate (Ventolin Hfa Inhaler -) 2 puff IH Q4H PRN PRN Reason: SHORT OF BREATH/WHEEZING Chlorhexidine Gluconate (Hibiclens For Decolonization -) 1 applic TP HS EAN Last Admin: 04/26/20 21:04 Dose: 1 applic Documented by: Chlorhexidine Gluconate (Peridex -) 15 ml MM BID EAN Last Admin: 04/27/20 09:18 Dose: 15 ml Documented by: Furosemide (Lasix Injection -) 80 mg IVPB DAILY EAN Last Admin: 04/26/20 17:56 Dose: 80 mg Documented by: Heparin Sodium (Porcine) (Heparin -) 5,000 unit SQ BID EAN Last Admin: 04/27/20 09:18 Dose: 5,000 unit Documented by: Cefepime HCl 1 gm/ Dextrose 100 mls @ 200 mls/hr IVPB Q8H-IV EAN; Protocol Last Admin: 04/27/20 09:18 Dose: 200 mls/hr Documented by: Norepinephrine Bitartrate (Levophed Bag) 8,000 mcg in 500 mls @ 18.75 mls/hr IVPB TITR EAN; Protocol Last Titration: 04/27/20 04:00 Dose: 3 mcg/min, 11.25 mls/hr Documented by: Fentanyl (Sublimaze Ivpb) 500 mcg in 100 mls @ 21.101 mls/hr IVPB TITR EAN; Protocol Last Admin: 04/27/20 01:04 Dose: 0.47 mcg/kg/hr, 10 mls/hr Documented by: Sodium Chloride (Normal Saline -) 250 mls @ 3,000 mls/hr IV PRN PRN PRN Reason: Hypotension during Dialysis Stop: 04/28/20 06:32 Potassium Chloride (Potassium Chloride 10 Meq Premix Ivpb -) 10 meq in 100 mls @ 100 mls/hr IVPB Q60M EAN Stop: 04/27/20 11:29 Last Admin: 04/27/20 09:15 Dose: 100 mls/hr Documented by: Metoprolol Tartrate (Lopressor Injection -) 5 mg IVPUSH Q4H PRN PRN Reason: TACHYCARDIA Midazolam HCl (Versed -) 2 mg IVPUSH Q4H PRN PRN Reason: AGITATION Last Admin: 04/26/20 12:05 Dose: 2 mg Documented by: Nystatin (Mycostatin Cream -) 1 applic TP PRN PRN PRN Reason: HYGEINE Last Admin: 04/20/20 02:47 Dose: 1 applic Documented by: Pantoprazole Sodium (Protonix Iv) 40 mg IVPUSH DAILY [facility] Last Admin: 04/27/20 09:18 Dose: 40 mg Documented by: Silver Sulfadiazine (Silvadene -) 1 applic TP DAILY [facility] Last Admin: 04/27/20 09:18 Dose: 1 applic Documented by: - Objective Vital Signs: Vital Signs Temperature 97.6 F 04/27/20 06:00 Pulse Rate 85 04/27/20 08:00 Respiratory Rate 16 04/27/20 08:00 Blood Pressure 104/55 L 04/27/20 08:00 O2 Sat by Pulse Oximetry (%) 100 04/27/20 09:00 Constitutional: Yes: Calm Eyes: Yes: Conjunctiva Clear HENT: Yes: Atraumatic Neck: Yes: Supple Cardiovascular: Yes: S1, S2 Respiratory: Yes: Mechanically Ventilated Gastrointestinal: Yes: Soft Genitourinary: Yes: Saavedra Present Musculoskeletal: Yes: Muscle Weakness Edema: Yes Edema: LUE: 1+, RUE: 1+, LLE: 2+, RLE: 2+ Neurological: Yes: Lethargy Labs: CBC, BMP 04/26/20 06:00 04/27/20 05:30 INR, PTT INR 1.49 (0.83-1.09) H 04/08/20 05:20 - ....Imaging Chest X-ray: Report Reviewed Problem List - Problems (1) CHF exacerbation Code(s): I50.9 - HEART FAILURE, UNSPECIFIED (2) Sepsis Code(s): A41.9 - SEPSIS, UNSPECIFIED ORGANISM (3) SURESH (acute kidney injury) Code(s): N17.9 - ACUTE KIDNEY FAILURE, UNSPECIFIED Assessment/Plan Current Medications Generic Name Dose Route Start Last Admin Trade Name Freq PRN Reason Stop Dose Admin Acetaminophen 1,000 mg 04/08/20 08:58 Ofirmev Injection - IVPB Q6H PRN FEVER Albumin Human 12.5 gm 04/27/20 10:00 Albumin Human 25% IVPB 04/27/20 11:31 Q30M EAN Albuterol Sulfate 2 puff 04/22/20 08:21 Ventolin Hfa Inhaler - IH Q4H PRN SHORT OF BREATH/WHEEZING Chlorhexidine Gluconate 1 applic 04/07/20 22:00 04/26/20 21:04 Hibiclens For Decolonization - TP 1 applic HS EAN Administration Chlorhexidine Gluconate 15 ml 04/18/20 22:00 04/27/20 09:18 Peridex - MM 15 ml BID EAN Administration Furosemide 80 mg 04/26/20 17:30 04/26/20 17:56 Lasix Injection - IVPB 80 mg DAILY EAN Administration Heparin Sodium (Porcine) 5,000 unit 04/10/20 15:15 04/27/20 09:18 Heparin - SQ 5,000 unit BID EAN Administration Cefepime HCl 1 gm/ Dextrose 100 mls @ 200 mls/hr 04/11/20 18:00 04/27/20 09:18 IVPB 200 mls/hr Q8H-IV EAN Administration Protocol Norepinephrine Bitartrate 8,000 mcg in 500 mls @ 18.75 mls/hr 04/21/20 00:15 04/27/20 04:00 Levophed Bag IVPB 3 mcg/min TITR EAN 11.25 mls/hr Titration Protocol 5 MCG/MIN Fentanyl 500 mcg in 100 mls @ 21.101 mls/hr 04/26/20 11:00 04/27/20 01:04 Sublimaze Ivpb IVPB 0.47 mcg/kg/hr TITR EAN 10 mls/hr Administration Protocol 1 MCG/KG/HR Sodium Chloride 250 mls @ 3,000 mls/hr 04/27/20 06:33 Normal Saline - IV 04/28/20 06:32 PRN PRN Hypotension during Dialysis Potassium Chloride 10 meq in 100 mls @ 100 mls/hr 04/27/20 08:30 04/27/20 09:15 Potassium Chloride 10 Meq Premix Ivpb - IVPB 04/27/20 11:29 100 mls/hr Q60M EAN Administration Metoprolol Tartrate 5 mg 04/07/20 22:50 Lopressor Injection - IVPUSH Q4H PRN TACHYCARDIA Midazolam HCl 2 mg 04/26/20 10:36 04/26/20 12:05 Versed - IVPUSH 2 mg Q4H PRN Administration AGITATION Nystatin 1 applic 04/19/20 23:58 04/20/20 02:47 Mycostatin Cream - TP 1 applic PRN PRN Administration HYGEINE Pantoprazole Sodium 40 mg 04/08/20 10:00 04/27/20 09:18 Protonix Iv IVPUSH 40 mg DAILY EAN Administration Silver Sulfadiazine 1 applic 04/23/20 20:45 04/27/20 09:18 Silvadene - TP 1 applic DAILY EAN Administration Impression 1. SURESH 2. hyperkalemia 3. resp failure 4. UTI 5. sepsis 6. shock 7. MRSA Pneumonia 8. Lactic Acidosis 9. +Troponins 10. Atrial Fibrillation 11. LV Diastolic Dysfunction 12. Pulmonary HTN 13. Bacteremia 14. anemia 15. hypokalemia Plan - HD today for UF - cont to monitor volume status - replace potassium - cont vent support - discuss GOC with family - discussed with ICU team - pressors to map 65 - prognosis guarded - keep net negative - daily cxr
--- NOTE | 2020-04-27 11:36 | PN ---
Progress Note, Physician History of Present Illness: POORLY RESPONSIVE REMAINS SEDATED ON VENTILATOR BREATHING NON LABORED HYPOTENSIVE ON PRESSORS AFEBRILE WBC SL ELEVATED RECEIVING HEMODIALYSIS VANCOMYCIN T 15 - Current Medication List Current Medications: Active Medications Acetaminophen (Ofirmev Injection -) 1,000 mg IVPB Q6H PRN PRN Reason: FEVER Albuterol Sulfate (Ventolin Hfa Inhaler -) 2 puff IH Q4H PRN PRN Reason: SHORT OF BREATH/WHEEZING Chlorhexidine Gluconate (Hibiclens For Decolonization -) 1 applic TP HS [facility] Last Admin: 04/26/20 21:04 Dose: 1 applic Documented by: Chlorhexidine Gluconate (Peridex -) 15 ml MM BID EAN Last Admin: 04/27/20 09:18 Dose: 15 ml Documented by: Furosemide (Lasix Injection -) 80 mg IVPB DAILY [facility] Last Admin: 04/27/20 09:53 Dose: 80 mg Documented by: Heparin Sodium (Porcine) (Heparin -) 5,000 unit SQ BID EAN Last Admin: 04/27/20 09:18 Dose: 5,000 unit Documented by: Cefepime HCl 1 gm/ Dextrose 100 mls @ 200 mls/hr IVPB Q8H-IV EAN; Protocol Last Admin: 04/27/20 09:18 Dose: 200 mls/hr Documented by: Norepinephrine Bitartrate (Levophed Bag) 8,000 mcg in 500 mls @ 18.75 mls/hr IVPB TITR EAN; Protocol Last Titration: 04/27/20 04:00 Dose: 3 mcg/min, 11.25 mls/hr Documented by: Fentanyl (Sublimaze Ivpb) 500 mcg in 100 mls @ 21.101 mls/hr IVPB TITR EAN; Protocol Last Admin: 04/27/20 11:09 Dose: Not Given Documented by: Sodium Chloride (Normal Saline -) 250 mls @ 3,000 mls/hr IV PRN PRN PRN Reason: Hypotension during Dialysis Stop: 04/28/20 06:32 Metoprolol Tartrate (Lopressor Injection -) 5 mg IVPUSH Q4H PRN PRN Reason: TACHYCARDIA Midazolam HCl (Versed -) 2 mg IVPUSH Q4H PRN PRN Reason: AGITATION Last Admin: 04/26/20 12:05 Dose: 2 mg Documented by: Nystatin (Mycostatin Cream -) 1 applic TP PRN PRN PRN Reason: HYGEINE Last Admin: 04/20/20 02:47 Dose: 1 applic Documented by: Pantoprazole Sodium (Protonix Iv) 40 mg IVPUSH DAILY [facility] Last Admin: 04/27/20 09:18 Dose: 40 mg Documented by: Silver Sulfadiazine (Silvadene -) 1 applic TP DAILY [facility] Last Admin: 04/27/20 09:18 Dose: 1 applic Documented by: - Objective Vital Signs: Vital Signs Temperature 97.6 F 04/27/20 10:00 Pulse Rate 83 04/27/20 10:00 Respiratory Rate 15 04/27/20 10:00 Blood Pressure 103/55 L 04/27/20 10:00 O2 Sat by Pulse Oximetry (%) 100 04/27/20 09:00 Constitutional: Yes: No Distress, Pallor Cardiovascular: Yes: Regular Rate and Rhythm, S1, S2 Respiratory: Yes: Mechanically Ventilated Gastrointestinal: Yes: Normal Bowel Sounds, Soft Genitourinary: Yes: Scrotal Edema Edema: Yes Edema: LUE: 3+, RUE: 3+, LLE: 3+, RLE: 3+ Labs: CBC, BMP 04/26/20 06:00 04/27/20 05:30 INR, PTT INR 1.49 (0.83-1.09) H 04/08/20 05:20 Assessment/Plan ACUTE RESP FAILURE SEPSIS/ SEPTIC SHOCK RENAL FAILURE LACTIC ACIDOSIS S/P SEIZURE PROBABLE ASP PNEUMONIA COPD PCN ALLERGY COVID-19 (-) DAY # 18 VANCOMYCIN/ CEFEPIME WILL D/C, OBSERVE OFF VENTILATORY/ HEMODYNAMIC SUPPORT PROGNOSIS GUARDED
--- NOTE | 2020-04-27 12:02 | PN ---
Teaching Attending Note Name of Resident: Markell Fuller ATTENDING PHYSICIAN STATEMENT I saw and evaluated the patient. I reviewed the resident's note and discussed the case with the resident. I agree with the resident's findings and plan as documented. SUBJECTIVE: Patient seen and examined in the ICU. Remains intubated, sedated on NE drip @ 3 mcq for hemodynamic support. Doing overall poorly. For HD today. OBJECTIVE: Intake & Output 04/24/20 04/25/20 04/26/20 04/27/20 23:59 23:59 23:59 23:59 Intake Total 3131.3 2333.1 2328 926 Output Total 1010 3555 50 50 Balance 2121.3 -1221.9 2278 876 Weight 239 lb 12.8 oz 232 lb 9.6 oz 232 lb Last Vital Signs Temp Pulse Resp BP Pulse Ox 97.6 F 83 15 103/55 L 100 04/27/20 10:00 04/27/20 10:00 04/27/20 10:00 04/27/20 10:00 04/27/20 09:00 Active Medications Acetaminophen (Ofirmev Injection -) 1,000 mg IVPB Q6H PRN PRN Reason: FEVER Albuterol Sulfate (Ventolin Hfa Inhaler -) 2 puff IH Q4H PRN PRN Reason: SHORT OF BREATH/WHEEZING Chlorhexidine Gluconate (Hibiclens For Decolonization -) 1 applic TP HS [facility] Last Admin: 04/26/20 21:04 Dose: 1 applic Documented by: Chlorhexidine Gluconate (Peridex -) 15 ml MM BID [facility] Last Admin: 04/27/20 09:18 Dose: 15 ml Documented by: Furosemide (Lasix Injection -) 80 mg IVPB DAILY [facility] Last Admin: 04/27/20 09:53 Dose: 80 mg Documented by: Heparin Sodium (Porcine) (Heparin -) 5,000 unit SQ BID [facility] Last Admin: 04/27/20 09:18 Dose: 5,000 unit Documented by: Norepinephrine Bitartrate (Levophed Bag) 8,000 mcg in 500 mls @ 18.75 mls/hr IVPB TITR EAN; Protocol Last Titration: 04/27/20 04:00 Dose: 3 mcg/min, 11.25 mls/hr Documented by: Fentanyl (Sublimaze Ivpb) 500 mcg in 100 mls @ 21.101 mls/hr IVPB TITR EAN; Protocol Last Admin: 04/27/20 11:09 Dose: Not Given Documented by: Sodium Chloride (Normal Saline -) 250 mls @ 3,000 mls/hr IV PRN PRN PRN Reason: Hypotension during Dialysis Stop: 04/28/20 06:32 Metoprolol Tartrate (Lopressor Injection -) 5 mg IVPUSH Q4H PRN PRN Reason: TACHYCARDIA Midazolam HCl (Versed -) 2 mg IVPUSH Q4H PRN PRN Reason: AGITATION Last Admin: 04/26/20 12:05 Dose: 2 mg Documented by: Nystatin (Mycostatin Cream -) 1 applic TP PRN PRN PRN Reason: HYGEINE Last Admin: 04/20/20 02:47 Dose: 1 applic Documented by: Pantoprazole Sodium (Protonix Iv) 40 mg IVPUSH DAILY [facility] Last Admin: 04/27/20 09:18 Dose: 40 mg Documented by: Silver Sulfadiazine (Silvadene -) 1 applic TP DAILY [facility] Last Admin: 04/27/20 09:18 Dose: 1 applic Documented by: Gen: intubated, sedated Heart: RRR Lung: scattered rhonchi Abd: soft, nontender Ext: + edema Laboratory Results - last 24 hr 04/25/20 04/27/20 04/27/20 14:30 05:30 05:30 Sodium 133 L Potassium 3.4 L Chloride 98 Carbon Dioxide 21 Anion Gap 14 BUN 85.2 H Creatinine 3.2 H Est GFR (CKD-EPI)AfAm 19.96 Est GFR (CKD-EPI)NonAf 17.22 Random Glucose 192 H Calcium 7.6 L Random Vancomycin 15.1 Hep C Ab Diagnostic <0.1 ASSESSMENT AND PLAN: Acute Hypoxic Respiratory Failure MRSA Pneumonia UTI Sacral Decubitus Ulcers Septic Shock Lactic Acidosis Acute Kidney Injury +Troponins likely Demand Ischemia Atrial Fibrillation Acute on Chronic Diastolic Heart Failure Pulmonary HTN Volume Overload COPD HTN Hyperlipidemia Bacteremia Anemia - continue antibiotics - HD per renal - monitor urine output, creatinine - titrate pressors to maintain MAP >65 - rate control - daily sedation vacations to assess mental status - spontaneous breathing trials when volume status improved - enteral feeds - DVT/GI prophylaxis - continue ICU monitoring - will likely need tracheostomy for prolonged intubation and failure to wean Versus compassionate extubation due to likely overall poor outcome Dr Fulton Critical care time spent in reviewing chart, evaluating patient and formulating plan 35 min
[2020-04-27] MEDS: ALBUMIN HUMAN 25% 12.5 GM/50 ML VIAL IVPB SCH ×4 (12:30→14:15)
[2020-04-27] MEDS ORDERED: ARTIFICIAL TEARS (POLYVINYL ALCOHOL) OPTH DROPS OU PRN (13:51)
--- NOTE | 2020-04-27 14:20 | PN ---
Physical Exam: SUBJECTIVE: Patient seen and examined at bedside. Overnight there were no acute events. This AM he is intubated, sedated, and unable to participate in medical interview. OBJECTIVE: Vital Signs Period Temp Pulse Resp BP Sys/Cesar Pulse Ox Last 24 Hr 97.6 F-98.2 F 79-90 12- 94-123/50-60 95-100 GENERAL: The patient is intubated NECK: Trachea midline LUNGS: Breath sounds equal, clear to auscultation bilaterally, no wheezes, no crackles, no accessory muscle use. HEART: Regular rate and rhythm, S1, S2 without murmur, rub or gallop. ABDOMEN: Soft, nontender, nondistended, normoactive bowel sounds, no guarding, no rebound, no hepatosplenomegaly, no masses. EXTREMITIES: 2+ pulses, warm, well-perfused, no edema. NEUROLOGICAL: unable to obtain as patient sedated. SKIN: Stage 2 sacral decub. Anasarca. Multiple eccymoses and brusing, periorally. Laboratory Results - last 24 hr 04/24/20 04/25/20 04/27/20 11:40 14:30 05:30 Sodium Potassium Chloride Carbon Dioxide Anion Gap BUN Creatinine Est GFR (CKD-EPI)AfAm Est GFR (CKD-EPI)NonAf Random Glucose Calcium Random Vancomycin 15.1 Hep C Ab Diagnostic <0.1 Blood Type O POSITIVE Antibody Screen Negative Crossmatch See Detail 04/27/20 05:30 Sodium 133 L Potassium 3.4 L Chloride 98 Carbon Dioxide 21 Anion Gap 14 BUN 85.2 H Creatinine 3.2 H Est GFR (CKD-EPI)AfAm 19.96 Est GFR (CKD-EPI)NonAf 17.22 Random Glucose 192 H Calcium 7.6 L Random Vancomycin Hep C Ab Diagnostic Blood Type Antibody Screen Crossmatch Active Medications Generic Name Dose Route Start Last Admin Trade Name Freq PRN Reason Stop Dose Admin Acetaminophen 1,000 mg 04/08/20 08:58 Ofirmev Injection - IVPB Q6H PRN FEVER Albuterol Sulfate 2 puff 04/22/20 08:21 Ventolin Hfa Inhaler - IH Q4H PRN SHORT OF BREATH/WHEEZING Artificial Tears 1 drop 04/27/20 13:51 Artificial Tears OU BID PRN DRY EYES Chlorhexidine Gluconate 1 applic 04/07/20 22:00 04/26/20 21:04 Hibiclens For Decolonization - TP 1 applic HS EAN Administration Chlorhexidine Gluconate 15 ml 04/18/20 22:00 04/27/20 09:18 Peridex - MM 15 ml BID EAN Administration Furosemide 80 mg 04/26/20 17:30 04/27/20 09:53 Lasix Injection - IVPB 80 mg DAILY EAN Administration Heparin Sodium (Porcine) 5,000 unit 04/10/20 15:15 04/27/20 09:18 Heparin - SQ 5,000 unit BID EAN Administration Norepinephrine Bitartrate 8,000 mcg in 500 mls @ 18.75 mls/hr 04/21/20 00:15 04/27/20 13:00 Levophed Bag IVPB 5 mcg/min TITR EAN 18.75 mls/hr Titration Protocol 5 MCG/MIN Fentanyl 500 mcg in 100 mls @ 21.101 mls/hr 04/26/20 11:00 04/27/20 11:09 Sublimaze Ivpb IVPB Not Given TITR EAN Protocol 1 MCG/KG/HR Sodium Chloride 250 mls @ 3,000 mls/hr 04/27/20 06:33 Normal Saline - IV 04/28/20 06:32 PRN PRN Hypotension during Dialysis Metoprolol Tartrate 5 mg 04/07/20 22:50 Lopressor Injection - IVPUSH Q4H PRN TACHYCARDIA Midazolam HCl 2 mg 04/26/20 10:36 04/26/20 12:05 Versed - IVPUSH 2 mg Q4H PRN Administration AGITATION Nystatin 1 applic 04/19/20 23:58 04/20/20 02:47 Mycostatin Cream - TP 1 applic PRN PRN Administration HYGEINE Pantoprazole Sodium 40 mg 04/08/20 10:00 04/27/20 09:18 Protonix Iv IVPUSH 40 mg DAILY EAN Administration Silver Sulfadiazine 1 applic 04/23/20 20:45 04/27/20 09:18 Silvadene - TP 1 applic DAILY EAN Administration ASSESSMENT/PLAN: 79 y/o male PMH CHF, COPD, CVA, HTN, HLD, and A-fib on Eliquis BIBEMS from [facility] for seizure-like episode, found in ED to be septic with UTI suspected source, needed to be intubated for acute hypoxic respiratory failure. # Neuro Fentanyl 50 Daily sedation vacations to assess mental status # CVS: CHF exacerbation, troponinemia Levophed 3 ECHO showing moderate/severe , pulm htn Lasix drip #Pulm Pulmonary edema, b/l pleural effusions, COPD exacerbation CXR: worsening pleural effusion 12/400/40/5 #Renal Cr 3.2 from 3 Albumin HD today #Genitourinary: Continue Saavedra Accurate i/o #Infectious Disease: Cefepime/vanc day 18 Vanc level 20 #FEN Hold Monitor and replete electrolyte. Hypokalemic today. Nephro + 10 h20 #Prophylaxis DVT: heparin 5k sq bid GI: Protonix 40 mg iv qd #Lines: [facility] 04/19 Saavedra # Disposition: ICU Full code. Family educated on implication of comfort care/compassionate extubation. , Shanique, would like to speak with children and decide on following through with tracheostomy for chronic ventilator care VS comfort care. Visit type - Emergency Visit Emergency Visit: No - New Patient This patient is new to me today: No - Critical Care Critical Care patient: Yes Total Critical Care Time (in minutes): 36 Critical Care Statement: The care of this patient involved high complexity decision making to prevent further life threatening deterioration of the patient's condition and/or to evaluate & treat vital organ system(s) failure or risk of failure. ATTENDING PHYSICIAN STATEMENT I saw and evaluated the patient. I reviewed the resident's note and discussed the case with the resident. I agree with the resident's findings and plan as documented. SUBJECTIVE: OBJECTIVE: ASSESSMENT AND PLAN:
--- NOTE | 2020-04-27 14:48 | EKG ---
Test Reason : Blood Pressure : / mmHG Vent. Rate : 084 BPM Atrial Rate : 192 BPM P-R Int : 000 ms QRS Dur : 086 ms QT Int : 444 ms P-R-T Axes : 000 013 231 degrees QTc Int : 524 ms POOR DATA QUALITY, INTERPRETATION MAY BE ADVERSELY AFFECTED ATRIAL FIBRILLATION PROLONGED QT ABNORMAL ECG WHEN COMPARED WITH ECG OF 22-APR-2020 09:21, T WAVE INVERSION NOW EVIDENT IN INFERIOR LEADS T WAVE INVERSION NOW EVIDENT IN LATERAL LEADS QT HAS LENGTHENED Confirmed by ZARI FIELDS MD ([id number]) on 04/27/2020 2:47:57 PM Referred By: Confirmed By:ZARI FIELDS MD
[2020-04-27 21:06] LABS: HEP B CORE AB, TOT Negative (Negative)
[2020-04-27] MEDS: CHLORHEXIDINE GLUCONATE 4% CLEANSER FOR DECOLONIZATION TP SCH (21:33)
[2020-04-28] MEDS: NOREPINEPHRINE BITARTRATE 8,000 MCG/500 ML BAG IVPB SCH ×2 (03:37→10:56)
[2020-04-28] MEDS: FENTANYL NS IVPB 500 MCG/100 ML BAG IVPB SCH ×3 (03:40→11:00)
[2020-04-28 05:49] LABS: HEMATOCRIT 23.3 % (35.4-49); HEMOGLOBIN 7.8 GM/dL (11.7-16.9); MCH 30.2 pg (25.7-33.7); MCHC 33.6 g/dl (32.0-35.9); MEAN CELL VOLUME 90.1 fl (80-96); MEAN PLT VOLUME 8.5 fl (7.5-11.1); PLATELET COUNT 120 K/MM3 (134-434); RBC 2.58 M/mm3 (4.00-5.60); RDW 17.5 % (11.9-15.9); WHITE BLOOD COUNT 8.3 K/mm3 (4.0-10.0)
[2020-04-28 06:10] LABS: ARTERIAL BLD GAS O2 SATURATION 97.5 mmHg (95-98); ARTERIAL BLOOD GAS PO2 101.2 mmHg (80-100); ARTERIAL BLOOD GAS pH 7.369 (7.350-7.450)
[2020-04-28 06:14] LABS: ALLENS TEST POSITIVE; VENT MODE A/C; VENT RATE 12
[2020-04-28 06:16] LABS: ALBUMIN 1.8 g/dl (3.4-5.0); BILIRUBIN,TOTAL 0.5 mg/dL (0.2-1); CREATININE 2.7 mg/dL (0.55-1.3); MAGNESIUM 1.8 mg/dL (1.8-2.4); PHOSPHOROUS 2.6 mg/dL (2.5-4.9); POTASSIUM 3.2 mmol/L (3.5-5.1); TOT PROT 5.5 g/dl (6.4-8.2)
[2020-04-28] MEDS ORDERED: SODIUM CHLORIDE 250 ML IV PRN (08:11)
[2020-04-28] MEDS ORDERED: POTASSIUM CHLORIDE ORAL LIQUID 20 MEQ/15 ML PO ONE (08:30)
[2020-04-28] MEDS: KCL 10 MEQ IVPB 10 MEQ/100 ML INFUS.BAG IVPB SCH ×3 (08:44→10:41)
[2020-04-28] MEDS: ALBUMIN HUMAN 25% 12.5 GM/50 ML VIAL IVPB SCH ×4 (09:00→11:15)
[2020-04-28] MEDS ORDERED: FENTANYL IVPB 500 MCG/100 ML BAG IVPB ONE (09:55)
[2020-04-28] MEDS: CHLORHEXIDINE GLUCONATE 0.12% 15ML CUP MM SCH ×2 (09:57→21:12)
[2020-04-28] MEDS: HEPARIN NA (PORCINE) 5,000 UNITS/ML 1ML VIAL SQ SCH ×2 (09:57→21:12)
[2020-04-28] MEDS: PANTOPRAZOLE SODIUM 40 MG VIAL IVPUSH SCH (09:57)
[2020-04-28] MEDS: SILVER SULFADIAZINE 1% TOP CREAM 50 GM JAR TP SCH (09:59)
[2020-04-28] MEDS: NYSTATIN 100,000 UNIT/GM TOPICAL CREAM 15 GM TUBE TP PRN (09:59)
--- NOTE | 2020-04-28 11:51 | PN ---
Progress Note (short form) - Note Progress Note: PULM/CCM Patient seen and examined in the ICU. Remains intubated, sedated on low dose Levo. HD in progress. Active Medications Acetaminophen (Ofirmev Injection -) 1,000 mg IVPB Q6H PRN PRN Reason: FEVER Albuterol Sulfate (Ventolin Hfa Inhaler -) 2 puff IH Q4H PRN PRN Reason: SHORT OF BREATH/WHEEZING Artificial Tears (Artificial Tears) 1 drop OU BID PRN PRN Reason: DRY EYES Chlorhexidine Gluconate (Hibiclens For Decolonization -) 1 applic TP HS EAN Last Admin: 04/27/20 21:33 Dose: 1 applic Documented by: Chlorhexidine Gluconate (Peridex -) 15 ml MM BID [facility] Last Admin: 04/28/20 09:57 Dose: 15 ml Documented by: Heparin Sodium (Porcine) (Heparin -) 5,000 unit SQ BID EAN Last Admin: 04/28/20 09:57 Dose: 5,000 unit Documented by: Norepinephrine Bitartrate (Levophed Bag) 8,000 mcg in 500 mls @ 18.75 mls/hr IVPB TITR EAN; Protocol Last Admin: 04/28/20 10:56 Dose: 10 mcg/min, 37.5 mls/hr Documented by: Fentanyl (Sublimaze Ivpb) 500 mcg in 100 mls @ 21.101 mls/hr IVPB TITR EAN; Protocol Last Admin: 04/28/20 09:56 Dose: 1 mcg/kg/hr, 21.101 mls/hr Documented by: Sodium Chloride (Normal Saline -) 250 mls @ 3,000 mls/hr IV PRN PRN PRN Reason: Hypotension during Dialysis Stop: 04/29/20 08:11 Metoprolol Tartrate (Lopressor Injection -) 5 mg IVPUSH Q4H PRN PRN Reason: TACHYCARDIA Midazolam HCl (Versed -) 2 mg IVPUSH Q4H PRN PRN Reason: AGITATION Last Admin: 04/26/20 12:05 Dose: 2 mg Documented by: Nystatin (Mycostatin Cream -) 1 applic TP PRN PRN PRN Reason: HYGEINE Last Admin: 04/28/20 09:59 Dose: 1 applic Documented by: Pantoprazole Sodium (Protonix Iv) 40 mg IVPUSH DAILY [facility] Last Admin: 04/28/20 09:57 Dose: 40 mg Documented by: Silver Sulfadiazine (Silvadene -) 1 applic TP DAILY EAN Last Admin: 04/28/20 09:59 Dose: 1 applic Documented by: Vital Signs Period Temp Pulse Resp BP Sys/Cesar Pulse Ox Last 24 Hr 97.5 F-98.6 F 81-102 13-19 94-126/47-64 98-100 Intake & Output 04/25/20 04/26/20 04/27/20 04/28/20 23:59 23:59 23:59 23:59 Intake Total 2333.1 2328 2529 300 Output Total 3555 50 100 10 Balance -1221.9 2278 2429 290 Weight 108.771 kg 105.506 kg 105.233 kg 106 kg Gen: intubated, sedated Heart: RRR Lung: scattered rhonchi Abd: soft, nontender Ext: + edema CBC, BMP 04/28/20 05:30 04/28/20 05:30 Microbiology 04/16/20 07:15 Blood - Peripheral Venous Blood Culture - Final NO GROWTH AFTER 5 DAYS INCUBATION 04/16/20 14:00 Blood - Peripheral Venous Blood Culture - Final NO GROWTH AFTER 5 DAYS INCUBATION 04/12/20 05:40 Blood - Peripheral Venous Blood Culture - Final NO GROWTH AFTER 5 DAYS INCUBATION 04/12/20 05:52 Blood - Peripheral Venous Blood Culture - Final Staph Hominis Sub Sp Hominis 04/07/20 13:50 Blood - Peripheral Venous Blood Culture - Final NO GROWTH AFTER 5 DAYS INCUBATION 04/07/20 14:00 Blood - Peripheral Venous Blood Culture - Final NO GROWTH AFTER 5 DAYS INCUBATION 04/09/20 22:20 Sputum - Endotrachea Suction/Ventilator Gram Stain - Final 04/09/20 22:20 Sputum - Endotrachea Suction/Ventilator Sputum Culture - Final Mr S Aureus 04/07/20 15:50 Urine - Urine Saavedra Urine Culture - Final Normal Urogenital Carla RECENT STUDIES TO NOTE: CXR 04/28: R IJ Dialysis Cath, ETT in good position, B/L multi-focal PNA (My Read). ASSESSMENT AND PLAN: Acute Hypoxic Respiratory Failure MRSA Pneumonia UTI Sacral Decubitus Ulcers Septic Shock Lactic Acidosis Acute Kidney Injury +Troponins likely Demand Ischemia Atrial Fibrillation Acute on Chronic Diastolic Heart Failure Pulmonary HTN Volume Overload COPD HTN Hyperlipidemia Bacteremia Anemia - continue antibiotics - HD per renal - monitor urine output, creatinine - titrate pressors to maintain MAP >65 - rate control - daily sedation vacations to assess mental status - spontaneous breathing trials when volume status improved - enteral feeds - DVT/GI prophylaxis - continue ICU monitoring - will likely need tracheostomy for prolonged intubation and failure to wean Versus compassionate extubation due to likely overall poor outcome MARIELLE REBOLLEDO-[facility] ICU PULM/CCM [id number]
--- NOTE | 2020-04-28 16:48 | PN ---
Progress Note, Physician History of Present Illness: Pt seen and examined at bedside. He remains in the ICU. He tolerated HD. - Current Medication List Current Medications: Active Medications Acetaminophen (Ofirmev Injection -) 1,000 mg IVPB Q6H PRN PRN Reason: FEVER Albuterol Sulfate (Ventolin Hfa Inhaler -) 2 puff IH Q4H PRN PRN Reason: SHORT OF BREATH/WHEEZING Artificial Tears (Artificial Tears) 1 drop OU BID PRN PRN Reason: DRY EYES Chlorhexidine Gluconate (Hibiclens For Decolonization -) 1 applic TP HS [facility] Last Admin: 04/27/20 21:33 Dose: 1 applic Documented by: Chlorhexidine Gluconate (Peridex -) 15 ml MM BID EAN Last Admin: 04/28/20 09:57 Dose: 15 ml Documented by: Heparin Sodium (Porcine) (Heparin -) 5,000 unit SQ BID EAN Last Admin: 04/28/20 09:57 Dose: 5,000 unit Documented by: Norepinephrine Bitartrate (Levophed Bag) 8,000 mcg in 500 mls @ 18.75 mls/hr IVPB TITR [facility]; Protocol Last Admin: 04/28/20 10:56 Dose: 10 mcg/min, 37.5 mls/hr Documented by: Fentanyl (Sublimaze Ivpb) 500 mcg in 100 mls @ 21.101 mls/hr IVPB TITR EAN; Protocol Last Admin: 04/28/20 11:00 Dose: Not Given Documented by: Sodium Chloride (Normal Saline -) 250 mls @ 3,000 mls/hr IV PRN PRN PRN Reason: Hypotension during Dialysis Stop: 04/29/20 08:11 Metoprolol Tartrate (Lopressor Injection -) 5 mg IVPUSH Q4H PRN PRN Reason: TACHYCARDIA Midazolam HCl (Versed -) 2 mg IVPUSH Q4H PRN PRN Reason: AGITATION Last Admin: 04/26/20 12:05 Dose: 2 mg Documented by: Nystatin (Mycostatin Cream -) 1 applic TP PRN PRN PRN Reason: HYGEINE Last Admin: 04/28/20 09:59 Dose: 1 applic Documented by: Pantoprazole Sodium (Protonix Iv) 40 mg IVPUSH DAILY [facility] Last Admin: 04/28/20 09:57 Dose: 40 mg Documented by: Silver Sulfadiazine (Silvadene -) 1 applic TP DAILY EAN Last Admin: 04/28/20 09:59 Dose: 1 applic Documented by: - Objective Vital Signs: Vital Signs Temperature 98.5 F 04/28/20 16:00 Pulse Rate 91 H 04/28/20 16:00 Respiratory Rate 15 04/28/20 16:38 Blood Pressure 100/66 04/28/20 16:00 O2 Sat by Pulse Oximetry (%) 98 04/28/20 10:00 Constitutional: Yes: Calm Eyes: Yes: Conjunctiva Clear HENT: Yes: Atraumatic Neck: Yes: Supple Cardiovascular: Yes: S1, S2 Respiratory: Yes: Mechanically Ventilated Gastrointestinal: Yes: Soft Genitourinary: Yes: Saavedra Present Musculoskeletal: Yes: Muscle Weakness Edema: Yes Edema: LLE: 1+, RLE: 1+ Neurological: Yes: Lethargy Labs: CBC, BMP 04/28/20 05:30 04/28/20 05:30 INR, PTT INR 1.49 (0.83-1.09) H 04/08/20 05:20 - ....Imaging Chest X-ray: Report Reviewed Problem List - Problems (1) CHF exacerbation Code(s): I50.9 - HEART FAILURE, UNSPECIFIED (2) Sepsis Code(s): A41.9 - SEPSIS, UNSPECIFIED ORGANISM (3) SURESH (acute kidney injury) Code(s): N17.9 - ACUTE KIDNEY FAILURE, UNSPECIFIED Assessment/Plan Current Medications Generic Name Dose Route Start Last Admin Trade Name Freq PRN Reason Stop Dose Admin Acetaminophen 1,000 mg 04/08/20 08:58 Ofirmev Injection - IVPB Q6H PRN FEVER Albuterol Sulfate 2 puff 04/22/20 08:21 Ventolin Hfa Inhaler - IH Q4H PRN SHORT OF BREATH/WHEEZING Artificial Tears 1 drop 04/27/20 13:51 Artificial Tears OU BID PRN DRY EYES Chlorhexidine Gluconate 1 applic 04/07/20 22:00 04/27/20 21:33 Hibiclens For Decolonization - TP 1 applic HS EAN Administration Chlorhexidine Gluconate 15 ml 04/18/20 22:00 04/28/20 09:57 Peridex - MM 15 ml BID EAN Administration Heparin Sodium (Porcine) 5,000 unit 04/10/20 15:15 04/28/20 09:57 Heparin - SQ 5,000 unit BID EAN Administration Norepinephrine Bitartrate 8,000 mcg in 500 mls @ 18.75 mls/hr 04/21/20 00:15 04/28/20 10:56 Levophed Bag IVPB 10 mcg/min TITR EAN 37.5 mls/hr Administration Protocol 5 MCG/MIN Fentanyl 500 mcg in 100 mls @ 21.101 mls/hr 04/26/20 11:00 04/28/20 11:00 Sublimaze Ivpb IVPB Not Given TITR EAN Protocol 1 MCG/KG/HR Sodium Chloride 250 mls @ 3,000 mls/hr 04/28/20 08:11 Normal Saline - IV 04/29/20 08:11 PRN PRN Hypotension during Dialysis Metoprolol Tartrate 5 mg 04/07/20 22:50 Lopressor Injection - IVPUSH Q4H PRN TACHYCARDIA Midazolam HCl 2 mg 04/26/20 10:36 04/26/20 12:05 Versed - IVPUSH 2 mg Q4H PRN Administration AGITATION Nystatin 1 applic 04/19/20 23:58 04/28/20 09:59 Mycostatin Cream - TP 1 applic PRN PRN Administration HYGEINE Pantoprazole Sodium 40 mg 04/08/20 10:00 04/28/20 09:57 Protonix Iv IVPUSH 40 mg DAILY EAN Administration Silver Sulfadiazine 1 applic 04/23/20 20:45 04/28/20 09:59 Silvadene - TP 1 applic DAILY EAN Administration Impression 1. SURESH 2. hyperkalemia 3. resp failure 4. UTI 5. sepsis 6. shock 7. MRSA Pneumonia 8. Lactic Acidosis 9. +Troponins 10. Atrial Fibrillation 11. LV Diastolic Dysfunction 12. Pulmonary HTN 13. Bacteremia 14. anemia 15. hypokalemia Plan - HD today - vent support - volume status improving - replace potassium - maintain map 65 - prognosis guarded - keep net negative - daily cxr - discussed with ICU
[2020-04-28] MEDS: CHLORHEXIDINE GLUCONATE 4% CLEANSER FOR DECOLONIZATION TP SCH (21:12)
[2020-04-29] MEDS: NOREPINEPHRINE BITARTRATE 8,000 MCG/500 ML BAG IVPB SCH ×3 (00:51→21:00)
[2020-04-29] MEDS: FENTANYL NS IVPB 500 MCG/100 ML BAG IVPB SCH ×4 (00:52→17:31)
[2020-04-29 06:56] LABS: HEMOGLOBIN 7.8 GM/dL (11.7-16.9); MCH 29.5 pg (25.7-33.7); MCHC 32.6 g/dl (32.0-35.9); MEAN CELL VOLUME 90.6 fl (80-96); PLATELET COUNT 132 K/MM3 (134-434); RBC 2.65 M/mm3 (4.00-5.60); RDW 18.1 % (11.9-15.9); WHITE BLOOD COUNT 8.8 K/mm3 (4.0-10.0)
[2020-04-29 07:05] LABS: BLOOD UREA NITROGEN 41.7 mg/dL (7-18); CREATININE 2.4 mg/dL (0.55-1.3); MAGNESIUM 1.7 mg/dL (1.8-2.4); PHOSPHOROUS 1.5 mg/dL (2.5-4.9); POTASSIUM 3.7 mmol/L (3.5-5.1)
[2020-04-29] MEDS ORDERED: MAGNESIUM SULF 50% (8.12 MEQ/2 ML-1 GM VIAL) IVPB ONE (08:31)
--- NOTE | 2020-04-29 08:34 | PN ---
Progress Note (short form) - Note Progress Note: PULM/CCM Patient seen and examined in the ICU. Remains intubated, sedated on low dose Levo, currently 12 mcg. Vital Signs Period Temp Pulse Resp BP Sys/Cesar Pulse Ox Last 24 Hr 98.2 F-98.8 F 83-104 13-20 100-129/49-67 98-100 Intake & Output 04/26/20 04/27/20 04/28/20 04/29/20 23:59 23:59 23:59 23:59 Intake Total 2328 2529 1475 1651 Output Total 50 100 30 Balance 2278 2429 1445 1651 Weight 105.506 kg 105.233 kg 106 kg 101.605 kg Gen: intubated, sedated Heart: RRR Lung: scattered rhonchi Abd: soft, nontender Ext: + edema CBC, BMP 04/29/20 05:11 04/29/20 05:11 Active Medications Acetaminophen (Ofirmev Injection -) 1,000 mg IVPB Q6H PRN PRN Reason: FEVER Albuterol Sulfate (Ventolin Hfa Inhaler -) 2 puff IH Q4H PRN PRN Reason: SHORT OF BREATH/WHEEZING Artificial Tears (Artificial Tears) 1 drop OU BID PRN PRN Reason: DRY EYES Chlorhexidine Gluconate (Hibiclens For Decolonization -) 1 applic TP HS [facility] Last Admin: 04/28/20 21:12 Dose: 1 applic Documented by: Chlorhexidine Gluconate (Peridex -) 15 ml MM BID [facility] Last Admin: 04/29/20 09:08 Dose: 15 ml Documented by: Heparin Sodium (Porcine) (Heparin -) 5,000 unit SQ BID EAN Last Admin: 04/29/20 09:00 Dose: 5,000 unit Documented by: Norepinephrine Bitartrate (Levophed Bag) 8,000 mcg in 500 mls @ 18.75 mls/hr IVPB TITR EAN; Protocol Last Titration: 04/29/20 06:28 Dose: 12 mcg/min, 45 mls/hr Documented by: Fentanyl (Sublimaze Ivpb) 500 mcg in 100 mls @ 21.101 mls/hr IVPB TITR EAN; Protocol Last Admin: 04/29/20 06:43 Dose: 1 mcg/kg/hr, 21.101 mls/hr Documented by: Metoprolol Tartrate (Lopressor Injection -) 5 mg IVPUSH Q4H PRN PRN Reason: TACHYCARDIA Midazolam HCl (Versed -) 2 mg IVPUSH Q4H PRN PRN Reason: AGITATION Last Admin: 04/26/20 12:05 Dose: 2 mg Documented by: Nystatin (Mycostatin Cream -) 1 applic TP PRN PRN PRN Reason: HYGEINE Last Admin: 04/28/20 09:59 Dose: 1 applic Documented by: Pantoprazole Sodium (Protonix Iv) 40 mg IVPUSH DAILY [facility] Last Admin: 04/29/20 09:00 Dose: 40 mg Documented by: Potassium Phos/Sodium Phos (Phos-Nak Packet -) 2 packet PO BID [facility] Stop: 04/29/20 22:00 Last Admin: 04/29/20 09:01 Dose: 2 packet Documented by: Silver Sulfadiazine (Silvadene -) 1 applic TP DAILY [facility] Last Admin: 04/29/20 09:08 Dose: 1 applic Documented by: Microbiology 04/16/20 07:15 Blood - Peripheral Venous Blood Culture - Final NO GROWTH AFTER 5 DAYS INCUBATION 04/16/20 14:00 Blood - Peripheral Venous Blood Culture - Final NO GROWTH AFTER 5 DAYS INCUBATION 04/12/20 05:40 Blood - Peripheral Venous Blood Culture - Final NO GROWTH AFTER 5 DAYS INCUBATION 04/12/20 05:52 Blood - Peripheral Venous Blood Culture - Final Staph Hominis Sub Sp Hominis 04/07/20 13:50 Blood - Peripheral Venous Blood Culture - Final NO GROWTH AFTER 5 DAYS INCUBATION 04/07/20 14:00 Blood - Peripheral Venous Blood Culture - Final NO GROWTH AFTER 5 DAYS INCUBATION 04/09/20 22:20 Sputum - Endotrachea Suction/Ventilator Gram Stain - Final 04/09/20 22:20 Sputum - Endotrachea Suction/Ventilator Sputum Culture - Final Mr S Aureus 04/07/20 15:50 Urine - Urine Saavedra Urine Culture - Final Normal Urogenital Carla ASSESSMENT AND PLAN: Acute Hypoxic Respiratory Failure MRSA Pneumonia UTI Sacral Decubitus Ulcers Septic Shock Lactic Acidosis Acute Kidney Injury +Troponins likely Demand Ischemia Atrial Fibrillation Acute on Chronic Diastolic Heart Failure Pulmonary HTN Volume Overload COPD HTN Hyperlipidemia Bacteremia Anemia - continue antibiotics - HD per renal - Strict I/Os, trend and replete electrolytes, keep Mg >2, K>4 - titrate pressors to maintain MAP >65 - rate control - daily sedation vacations to assess mental status - spontaneous breathing trials when volume status improved - enteral feeds - DVT/GI prophylaxis - continue ICU monitoring - will likely need tracheostomy for prolonged intubation and failure to wean Versus compassionate extubation due to likely overall poor outcome - Please continue discussion re [facility] MARIELLE David-[facility] ICU PULM/CCM [id number]
[2020-04-29] MEDS ORDERED: PT OWN MED DRAWER 7, Y5N ONE (08:45)
[2020-04-29] MEDS: PANTOPRAZOLE SODIUM 40 MG VIAL IVPUSH SCH (09:00)
[2020-04-29] MEDS: HEPARIN NA (PORCINE) 5,000 UNITS/ML 1ML VIAL SQ SCH ×2 (09:00→20:59)
[2020-04-29] MEDS: NAPH,MB-DB/K PH,MBDB POWDER PACKET PO SCH ×2 (09:01→20:59)
[2020-04-29] MEDS: SILVER SULFADIAZINE 1% TOP CREAM 50 GM JAR TP SCH (09:08)
[2020-04-29] MEDS: CHLORHEXIDINE GLUCONATE 0.12% 15ML CUP MM SCH ×2 (09:08→20:59)
[2020-04-29] MEDS ORDERED: FUROSEMIDE 40 MG/4 ML INJECTABLE VIAL IVPB ONE (12:24)
--- NOTE | 2020-04-29 12:24 | PN ---
Progress Note, Physician History of Present Illness: Pt seen and examined at bedside. He remains in the ICU. He remains intubated. - Current Medication List Current Medications: Active Medications Acetaminophen (Ofirmev Injection -) 1,000 mg IVPB Q6H PRN PRN Reason: FEVER Albuterol Sulfate (Ventolin Hfa Inhaler -) 2 puff IH Q4H PRN PRN Reason: SHORT OF BREATH/WHEEZING Artificial Tears (Artificial Tears) 1 drop OU BID PRN PRN Reason: DRY EYES Chlorhexidine Gluconate (Hibiclens For Decolonization -) 1 applic TP HS [facility] Last Admin: 04/28/20 21:12 Dose: 1 applic Documented by: Chlorhexidine Gluconate (Peridex -) 15 ml MM BID [facility] Last Admin: 04/29/20 09:08 Dose: 15 ml Documented by: Heparin Sodium (Porcine) (Heparin -) 5,000 unit SQ BID [facility] Last Admin: 04/29/20 09:00 Dose: 5,000 unit Documented by: Norepinephrine Bitartrate (Levophed Bag) 8,000 mcg in 500 mls @ 18.75 mls/hr IVPB TITR EAN; Protocol Last Admin: 04/29/20 10:05 Dose: 12 mcg/min, 45 mls/hr Documented by: Metoprolol Tartrate (Lopressor Injection -) 5 mg IVPUSH Q4H PRN PRN Reason: TACHYCARDIA Nystatin (Mycostatin Cream -) 1 applic TP PRN PRN PRN Reason: HYGEINE Last Admin: 04/28/20 09:59 Dose: 1 applic Documented by: Pantoprazole Sodium (Protonix Iv) 40 mg IVPUSH DAILY [facility] Last Admin: 04/29/20 09:00 Dose: 40 mg Documented by: Potassium Phos/Sodium Phos (Phos-Nak Packet -) 2 packet PO BID [facility] Stop: 04/29/20 22:00 Last Admin: 04/29/20 09:01 Dose: 2 packet Documented by: Silver Sulfadiazine (Silvadene -) 1 applic TP DAILY [facility] Last Admin: 04/29/20 09:08 Dose: 1 applic Documented by: - Objective Vital Signs: Vital Signs Temperature 99.2 F 04/29/20 10:00 Pulse Rate 96 H 04/29/20 10:00 Respiratory Rate 16 04/29/20 10:00 Blood Pressure 116/62 04/29/20 10:00 O2 Sat by Pulse Oximetry (%) 99 04/29/20 08:29 Constitutional: Yes: Calm Cardiovascular: Yes: S1, S2 Respiratory: Yes: Mechanically Ventilated Gastrointestinal: Yes: Soft Genitourinary: Yes: Saavedra Present Musculoskeletal: Yes: Muscle Weakness Edema: Yes Edema: LUE: 1+, RUE: 1+, LLE: 2+, RLE: 2+ Labs: CBC, BMP 04/29/20 05:11 04/29/20 05:11 INR, PTT INR 1.49 (0.83-1.09) H 04/08/20 05:20 Problem List - Problems (1) CHF exacerbation Code(s): I50.9 - HEART FAILURE, UNSPECIFIED (2) Sepsis Code(s): A41.9 - SEPSIS, UNSPECIFIED ORGANISM (3) SURESH (acute kidney injury) Code(s): N17.9 - ACUTE KIDNEY FAILURE, UNSPECIFIED Assessment/Plan Current Medications Generic Name Dose Route Start Last Admin Trade Name Elio PRN Reason Stop Dose Admin Acetaminophen 1,000 mg 04/08/20 08:58 Ofirmev Injection - IVPB Q6H PRN FEVER Albuterol Sulfate 2 puff 04/22/20 08:21 Ventolin Hfa Inhaler - IH Q4H PRN SHORT OF BREATH/WHEEZING Artificial Tears 1 drop 04/27/20 13:51 Artificial Tears OU BID PRN DRY EYES Chlorhexidine Gluconate 1 applic 04/07/20 22:00 04/28/20 21:12 Hibiclens For Decolonization - TP 1 applic HS EAN Administration Chlorhexidine Gluconate 15 ml 04/18/20 22:00 04/29/20 09:08 Peridex - MM 15 ml BID EAN Administration Heparin Sodium (Porcine) 5,000 unit 04/10/20 15:15 04/29/20 09:00 Heparin - SQ 5,000 unit BID EAN Administration Norepinephrine Bitartrate 8,000 mcg in 500 mls @ 18.75 mls/hr 04/21/20 00:15 04/29/20 10:05 Levophed Bag IVPB 12 mcg/min TITR EAN 45 mls/hr Administration Protocol 5 MCG/MIN Metoprolol Tartrate 5 mg 04/07/20 22:50 Lopressor Injection - IVPUSH Q4H PRN TACHYCARDIA Nystatin 1 applic 04/19/20 23:58 04/28/20 09:59 Mycostatin Cream - TP 1 applic PRN PRN Administration HYGEINE Pantoprazole Sodium 40 mg 04/08/20 10:00 04/29/20 09:00 Protonix Iv IVPUSH 40 mg DAILY [facility] Administration Potassium Phos/Sodium Phos 2 packet 04/29/20 10:00 04/29/20 09:01 Phos-Nak Packet - PO 04/29/20 22:00 2 packet BID EAN Administration Silver Sulfadiazine 1 applic 04/23/20 20:45 04/29/20 09:08 Silvadene - TP 1 applic DAILY EAN Administration Impression 1. SURESH 2. hyperkalemia 3. resp failure 4. UTI 5. sepsis 6. shock 7. MRSA Pneumonia 8. Lactic Acidosis 9. +Troponins 10. Atrial Fibrillation 11. LV Diastolic Dysfunction 12. Pulmonary HTN 13. Bacteremia 14. anemia 15. hypokalemia Plan - will give lasix - hd tomorrow for uf - cont vent support - discussed with ICU team - volume status improving - maintain map 65 - prognosis guarded - keep net negative - daily cxr
[2020-04-29] MEDS ORDERED: SODIUM CHLORIDE 250 ML IV PRN (12:25)
[2020-04-29] MEDS: CHLORHEXIDINE GLUCONATE 4% CLEANSER FOR DECOLONIZATION TP SCH (21:00)
[2020-04-30] MEDS ORDERED: FENTANYL IVPB 500 MCG/100 ML BAG IVPB ONE (00:12)
[2020-04-30] MEDS: NOREPINEPHRINE BITARTRATE 8,000 MCG/500 ML BAG IVPB SCH (03:23)
[2020-04-30] MEDS: FENTANYL NS IVPB 500 MCG/100 ML BAG IVPB SCH ×4 (03:24→21:06)
[2020-04-30 05:52] LABS: ARTERIAL BLD GAS O2 SATURATION 97.8 mmHg (95-98); ARTERIAL BLOOD GAS BASE EXCESS -3.2 mmol/L (-2-2); ARTERIAL BLOOD GAS PO2 108.6 mmHg (80-100); ARTERIAL BLOOD GAS pH 7.356 (7.350-7.450)
[2020-04-30 06:10] LABS: ALLENS TEST POSITIVE
[2020-04-30 06:11] LABS: VENT MODE A/C; VENT RATE 12
[2020-04-30 06:56] LABS: BASO % 0.9 % (0-2.0); EOS % 3.1 % (0-4.5); HEMATOCRIT 23.7 % (35.4-49); HEMOGLOBIN 7.7 GM/dL (11.7-16.9); LYMPH % 9.1 % (8-40); MCH 30.1 pg (25.7-33.7); MCHC 32.6 g/dl (32.0-35.9); MEAN CELL VOLUME 92.3 fl (80-96); MONO % 18.2 % (3.8-10.2); NEUT % 68.7 % (42.8-82.8); PLATELET COUNT 134 K/MM3 (134-434); RBC 2.57 M/mm3 (4.00-5.60); RDW 18.1 % (11.9-15.9); WHITE BLOOD COUNT 8.8 K/mm3 (4.0-10.0)
[2020-04-30 07:26] LABS: ALBUMIN 1.7 g/dl (3.4-5.0); BILIRUBIN,TOTAL 0.6 mg/dL (0.2-1); BLOOD UREA NITROGEN 52.7 mg/dL (7-18); CALCIUM 7.7 mg/dL (8.5-10.1); CREATININE 2.8 mg/dL (0.55-1.3); MAGNESIUM 1.9 mg/dL (1.8-2.4); PHOSPHOROUS 2.2 mg/dL (2.5-4.9); POTASSIUM 3.8 mmol/L (3.5-5.1); TOT PROT 5.3 g/dl (6.4-8.2)
[2020-04-30] MEDS ORDERED: MAGNESIUM SULF 50% (8.12 MEQ/2 ML-1 GM VIAL) IVPB ONE (08:11)
[2020-04-30] MEDS ORDERED: SODIUM PHOSPHATE - 30 MM in SODIUM CHLORIDE 250 ML IVPB ONE (08:15)
[2020-04-30] MEDS ORDERED: MAGNESIUM SULF 50% (8.12 MEQ/2 ML-1 GM VIAL) ONE (08:59)
[2020-04-30] MEDS ORDERED: SODIUM PHOSPHATE - 10 MM in SODIUM CHLORIDE 250 ML IVPB ONE (09:00)
[2020-04-30] MEDS: HEPARIN NA (PORCINE) 5,000 UNITS/ML 1ML VIAL SQ SCH ×2 (09:03→21:06)
[2020-04-30] MEDS: CHLORHEXIDINE GLUCONATE 0.12% 15ML CUP MM SCH ×2 (09:03→21:06)
[2020-04-30] MEDS: SILVER SULFADIAZINE 1% TOP CREAM 50 GM JAR TP SCH (09:04)
[2020-04-30] MEDS: PANTOPRAZOLE SODIUM 40 MG VIAL IVPUSH SCH (09:04)
[2020-04-30] MEDS ORDERED: PT OWN MED DRAWER 7, Y5N ONE ×3 (10:03→12:43)
[2020-04-30] MEDS: ALBUMIN HUMAN 25% 12.5 GM/50 ML VIAL IVPB SCH ×4 (10:05→11:35)
[2020-04-30] MEDS ORDERED: SODIUM CHLORIDE 250 ML IV PRN (10:13)
[2020-04-30 11:38] LABS: ANISOCYTOSIS 1+; MACROCYTOSIS 0; OVALOCYTE 1+; PLATELET ESTIMATE DECREASED; TOXIC GRANULATION 2+
--- NOTE | 2020-04-30 12:18 | PN ---
Physical Exam: SUBJECTIVE: Patient seen and examined. Afebrile, asymptomatic. Off sedation, will reassess mental status. Titrate down NE. Will discuss with pt's daughter about pt's options including tracheostomy vs comfort care. Will attempt to set up a meeting for daughter. OBJECTIVE: Vital Signs Period Temp Pulse Resp BP Sys/Cesar Pulse Ox Last 24 Hr 97.7 F-99.2 F 82-104 13-20 102-145/53-80 97-100 GENERAL: The patient is intubated NECK: Trachea midline, full range of motion, supple. LUNGS: Breath sounds equal, clear to auscultation bilaterally, no wheezes, no crackles, no accessory muscle use. HEART: Regular rate and rhythm, S1, S2 without murmur, rub or gallop. ABDOMEN: Soft, nontender, nondistended, normoactive bowel sounds, no guarding, no rebound, no hepatosplenomegaly, no masses. EXTREMITIES: 2+ pulses, warm, well-perfused, no edema. NEUROLOGICAL: unable to obtain as patient sedated. Laboratory Results - last 24 hr 04/30/20 04/30/20 04/30/20 05:00 05:00 05:15 WBC 8.8 RBC 2.57 L Hgb 7.7 L Hct 23.7 L MCV 92.3 MCH 30.1 MCHC 32.6 RDW 18.1 H Plt Count 134 MPV 9.0 Absolute Neuts (auto) 6.1 Neutrophils % 68.7 Neutrophils % (Manual) 67.3 Band Neutrophils % 3.1 Lymphocytes % 9.1 Lymphocytes % (Manual) 12.2 Monocytes % 18.2 H Monocytes % (Manual) 13 H Eosinophils % 3.1 D Eosinophils % (Manual) 0.0 D Basophils % 0.9 Basophils % (Manual) 0.0 Myelocytes % (Man) 0 Promyelocytes % (Man) 0 Blast Cells % (Manual) 0 Nucleated RBC % 1 H Metamyelocytes 0 D Hypochromia 0 Toxic Granulation 2+ Platelet Estimate Decreased Platelet Comment Present Polychromasia 1+ Poikilocytosis 1+ Basophilic Stippling 1+ Anisocytosis 1+ Microcytosis 1+ Macrocytosis 0 Spherocytes 1+ Ovalocytes 1+ Anticoagulation Therapy No Result Required. Puncture Site Left radial Patient Temperature No Result Required. ABG pH 7.356 ABG pCO2 40.20 ABG pO2 108.6 H ABG HCO3 22.0 ABG O2 Sat (Measured) 97.8 ABG O2 Content No Result Required. ABG Base Excess -3.2 L Wally Test Positive Patient On Oxygen Yes O2 Delivery Device Vent Oxygen Flow Rate 40% Vent Mode A/c Vent Rate 12 Mechanical Rate Yes PEEP 5.0 Pressure Support Vent 400 Sodium 132 L Potassium 3.8 Chloride 98 Carbon Dioxide 22 Anion Gap 13 BUN 52.7 H Creatinine 2.8 H Est GFR (CKD-EPI)AfAm 23.46 Est GFR (CKD-EPI)NonAf 20.24 Random Glucose 225 H Calcium 7.7 L Phosphorus 2.2 L Magnesium 1.9 Total Bilirubin 0.6 AST 23 ALT 13 Alkaline Phosphatase 164 H Total Protein 5.3 L Albumin 1.7 L Active Medications Generic Name Dose Route Start Last Admin Trade Name Freq PRN Reason Stop Dose Admin Acetaminophen 1,000 mg 04/08/20 08:58 Ofirmev Injection - IVPB Q6H PRN FEVER Albuterol Sulfate 2 puff 04/22/20 08:21 Ventolin Hfa Inhaler - IH Q4H PRN SHORT OF BREATH/WHEEZING Artificial Tears 1 drop 04/27/20 13:51 Artificial Tears OU BID PRN DRY EYES Chlorhexidine Gluconate 1 applic 04/07/20 22:00 04/29/20 21:00 Hibiclens For Decolonization - TP 1 applic HS EAN Administration Chlorhexidine Gluconate 15 ml 04/18/20 22:00 04/30/20 09:03 Peridex - MM 15 ml BID EAN Administration Heparin Sodium (Porcine) 5,000 unit 04/10/20 15:15 04/30/20 09:03 Heparin - SQ 5,000 unit BID EAN Administration Norepinephrine Bitartrate 8,000 mcg in 500 mls @ 18.75 mls/hr 04/21/20 00:15 04/30/20 10:07 Levophed Bag IVPB 8 mcg/min TITR EAN 30 mls/hr Titration Protocol 5 MCG/MIN Sodium Chloride 250 mls @ 3,000 mls/hr 04/30/20 10:13 Normal Saline - IV PRN PRN Hypotension during Dialysis Fentanyl 500 mcg in 100 mls @ 508.025 mls/hr 04/29/20 13:15 04/30/20 11:17 Sublimaze Ivpb IVPB 0 mcg/kg/hr TITR EAN 0 mls/hr Titration Protocol 25 MCG/KG/HR Sodium Phosphate 10 mm/ Sodium 253.3333 mls @ 62.5 mls/hr 04/30/20 09:00 04/30/20 11:11 Chloride IVPB 04/30/20 13:03 62.5 mls/hr ONCE ONE Administration Metoprolol Tartrate 5 mg 04/07/20 22:50 Lopressor Injection - IVPUSH Q4H PRN TACHYCARDIA Nystatin 1 applic 04/19/20 23:58 04/28/20 09:59 Mycostatin Cream - TP 1 applic PRN PRN Administration HYGEINE Pantoprazole Sodium 40 mg 04/08/20 10:00 04/30/20 09:04 Protonix Iv IVPUSH 40 mg DAILY EAN Administration Silver Sulfadiazine 1 applic 04/23/20 20:45 04/30/20 09:04 Silvadene - TP 1 applic DAILY EAN Administration Vitamin A/Vitamin D 1 applic 04/30/20 12:00 Vitamin A & D Top Oint - TP Q6HPO [facility] ASSESSMENT/PLAN: 79YOM with CHF, COPD, CVA, HTN, HLD, and A-fib on Eliquis BIBEMS from [facility] for seizure-like episode, found in ED to be septic with UTI suspected source, needed to be intubated for respiratory failure. #Neuro / Psych: Serial neuro checks. Off sedation If neuro symptoms worsen or upward gaze persists- CT head #Cardiovascular: CHF exacerbation, troponinemia For now will place pt on ppx dose- heparin, if pt tolerates and hb stable, will restart eliquis On NE 10, will titrate down Pt has multiple eccymotic and brusing periorally due to ETT cotton Vent on wean settings #Pulm Pulmonary edema, b/l pleural effusions, COPD exacerbation given COPD history, pt likely has pulmonary HTN- ECHO showing moderate/severe , pulm htn CXR cont lasix drip 12/400/40/5 Plat 15 PIP 27 vent pressures improved #Gastrointestinal: started feeds/glucerna PEG tube feeds #Heme stable #Renal Pt appears extremely fluid overloaded, b/l UE + LE edema, scrotal edema, lungs appear without crackles - pt third spacing. Pt's albumin low. Hold fluids has pt is volume overload FeNa 1.6%, Intrinsic Will run HD today lasix d/daria #Genitourinary: Continue Saavedra- oliguric Monitor I/O- 2L input and only 510ml output, cont lasix Serial BUN/Cr especially given need for diuresis #Infectious Disease: Cefepime d/daria D18 Vanc d/daria D18 ID onboard Hep A abs FEN: lytes WNL, replete PRN Feeds at 45 d/c fluids Prophylaxis: DVT: heparin GI: Protonix qd Lines: R TLC 04/25 Dispo: cont abx, reposition pt to ventilate better, percussion modulator, tube irrigation as needed, wean off vent Visit type - Emergency Visit Emergency Visit: Yes ED Registration Date: 04/07/20 Care time: The patient presented to the Emergency Department on the above date and was hospitalized for further evaluation of their emergent condition. - New Patient This patient is new to me today: Yes Date on this admission: 05/01/20 - Critical Care Critical Care patient: No - Discharge Referral Referred to [facility] No ATTENDING PHYSICIAN STATEMENT I saw and evaluated the patient. I reviewed the resident's note and discussed the case with the resident. I agree with the resident's findings and plan as documented. SUBJECTIVE: OBJECTIVE: ASSESSMENT AND PLAN:
[2020-04-30] MEDS: VITAMINS A AND D TOPICAL OINTMENT 60 GM TUBE TP SCH ×2 (12:50→17:16)
--- NOTE | 2020-04-30 13:11 | PN ---
Teaching Attending Note Name of Resident: Wilman Connolly ATTENDING PHYSICIAN STATEMENT I saw and evaluated the patient. I reviewed the resident's note and discussed the case with the resident. I agree with the resident's findings and plan as documented. SUBJECTIVE: Patient seen and examined in the ICU. Remains intubated, sedated on NE drip @ 10 mcq for hemodynamic support. Doing overall poorly. On HD currently. OBJECTIVE: Intake & Output 04/27/20 04/28/20 04/29/20 04/30/20 23:59 23:59 23:59 23:59 Intake Total 2529 1475 3067.3 2126 Output Total 100 30 500 10 Balance 2429 1445 2567.3 2116 Weight 232 lb 233 lb 11.04 oz 224 lb 224 lb 13.944 oz Last Vital Signs Temp Pulse Resp BP Pulse Ox 97.7 F 99 H 17 102/92 97 04/30/20 10:00 04/30/20 12:35 04/30/20 12:35 04/30/20 12:35 04/30/20 12:02 Active Medications Acetaminophen (Ofirmev Injection -) 1,000 mg IVPB Q6H PRN PRN Reason: FEVER Albuterol Sulfate (Ventolin Hfa Inhaler -) 2 puff IH Q4H PRN PRN Reason: SHORT OF BREATH/WHEEZING Artificial Tears (Artificial Tears) 1 drop OU BID PRN PRN Reason: DRY EYES Chlorhexidine Gluconate (Hibiclens For Decolonization -) 1 applic TP HS [facility] Last Admin: 04/29/20 21:00 Dose: 1 applic Documented by: Chlorhexidine Gluconate (Peridex -) 15 ml MM BID [facility] Last Admin: 04/30/20 09:03 Dose: 15 ml Documented by: Heparin Sodium (Porcine) (Heparin -) 5,000 unit SQ BID [facility] Last Admin: 04/30/20 09:03 Dose: 5,000 unit Documented by: Norepinephrine Bitartrate (Levophed Bag) 8,000 mcg in 500 mls @ 18.75 mls/hr IVPB TITR [facility]; Protocol Last Titration: 04/30/20 10:07 Dose: 8 mcg/min, 30 mls/hr Documented by: Sodium Chloride (Normal Saline -) 250 mls @ 3,000 mls/hr IV PRN PRN PRN Reason: Hypotension during Dialysis Fentanyl (Sublimaze Ivpb) 500 mcg in 100 mls @ 508.025 mls/hr IVPB TITR E[facility]; Protocol Last Titration: 04/30/20 11:17 Dose: 0 mcg/kg/hr, 0 mls/hr Documented by: Metoprolol Tartrate (Lopressor Injection -) 5 mg IVPUSH Q4H PRN PRN Reason: TACHYCARDIA Nystatin (Mycostatin Cream -) 1 applic TP PRN PRN PRN Reason: HYGEINE Last Admin: 04/28/20 09:59 Dose: 1 applic Documented by: Pantoprazole Sodium (Protonix Iv) 40 mg IVPUSH DAILY [facility] Last Admin: 04/30/20 09:04 Dose: 40 mg Documented by: Silver Sulfadiazine (Silvadene -) 1 applic TP DAILY [facility] Last Admin: 04/30/20 09:04 Dose: 1 applic Documented by: Vitamin A/Vitamin D (Vitamin A & D Top Oint -) 1 applic TP Q6HPO [facility] Last Admin: 04/30/20 12:50 Dose: 1 applic Documented by: Gen: intubated, sedated Heart: RRR Lung: scattered rhonchi Abd: soft, nontender Ext: + edema Laboratory Results - last 24 hr 04/30/20 04/30/20 04/30/20 05:00 05:00 05:15 WBC 8.8 RBC 2.57 L Hgb 7.7 L Hct 23.7 L MCV 92.3 MCH 30.1 MCHC 32.6 RDW 18.1 H Plt Count 134 MPV 9.0 Absolute Neuts (auto) 6.1 Neutrophils % 68.7 Neutrophils % (Manual) 67.3 Band Neutrophils % 3.1 Lymphocytes % 9.1 Lymphocytes % (Manual) 12.2 Monocytes % 18.2 H Monocytes % (Manual) 13 H Eosinophils % 3.1 D Eosinophils % (Manual) 0.0 D Basophils % 0.9 Basophils % (Manual) 0.0 Myelocytes % (Man) 0 Promyelocytes % (Man) 0 Blast Cells % (Manual) 0 Nucleated RBC % 1 H Metamyelocytes 0 D Hypochromia 0 Toxic Granulation 2+ Platelet Estimate Decreased Platelet Comment Present Polychromasia 1+ Poikilocytosis 1+ Basophilic Stippling 1+ Anisocytosis 1+ Microcytosis 1+ Macrocytosis 0 Spherocytes 1+ Ovalocytes 1+ Anticoagulation Therapy No Result Required. Puncture Site Left radial Patient Temperature No Result Required. ABG pH 7.356 ABG pCO2 40.20 ABG pO2 108.6 H ABG HCO3 22.0 ABG O2 Sat (Measured) 97.8 ABG O2 Content No Result Required. ABG Base Excess -3.2 L Wally Test Positive Patient On Oxygen Yes O2 Delivery Device Vent Oxygen Flow Rate 40% Vent Mode A/c Vent Rate 12 Mechanical Rate Yes PEEP 5.0 Pressure Support Vent 400 Sodium 132 L Potassium 3.8 Chloride 98 Carbon Dioxide 22 Anion Gap 13 BUN 52.7 H Creatinine 2.8 H Est GFR (CKD-EPI)AfAm 23.46 Est GFR (CKD-EPI)NonAf 20.24 Random Glucose 225 H Calcium 7.7 L Phosphorus 2.2 L Magnesium 1.9 Total Bilirubin 0.6 AST 23 ALT 13 Alkaline Phosphatase 164 H Total Protein 5.3 L Albumin 1.7 L ASSESSMENT AND PLAN: Acute Hypoxic Respiratory Failure MRSA Pneumonia UTI Sacral Decubitus Ulcers Septic Shock Lactic Acidosis Acute Kidney Injury +Troponins likely Demand Ischemia Atrial Fibrillation Acute on Chronic Diastolic Heart Failure Pulmonary HTN Volume Overload COPD HTN Hyperlipidemia Bacteremia Anemia - continue antibiotics - HD per renal - monitor urine output, creatinine - titrate pressors to maintain MAP >65 - rate control - daily sedation vacations to assess mental status - spontaneous breathing trials when volume status improved - enteral feeds - DVT/GI prophylaxis - continue ICU monitoring - will either need tracheostomy for prolonged intubation and failure to wean Versus compassionate extubation due to likely overall poor outcome Dr Fulton Critical care time spent in reviewing chart, evaluating patient and formulating plan 35 min
--- NOTE | 2020-04-30 15:00 | PN ---
Progress Note, Physician History of Present Illness: Pt seen and examined at bedside. HE remains in the ICU. He remains intubated. - Current Medication List Current Medications: Active Medications Acetaminophen (Ofirmev Injection -) 1,000 mg IVPB Q6H PRN PRN Reason: FEVER Albuterol Sulfate (Ventolin Hfa Inhaler -) 2 puff IH Q4H PRN PRN Reason: SHORT OF BREATH/WHEEZING Artificial Tears (Artificial Tears) 1 drop OU BID PRN PRN Reason: DRY EYES Chlorhexidine Gluconate (Hibiclens For Decolonization -) 1 applic TP HS [facility] Last Admin: 04/29/20 21:00 Dose: 1 applic Documented by: Chlorhexidine Gluconate (Peridex -) 15 ml MM BID [facility] Last Admin: 04/30/20 09:03 Dose: 15 ml Documented by: Heparin Sodium (Porcine) (Heparin -) 5,000 unit SQ BID [facility] Last Admin: 04/30/20 09:03 Dose: 5,000 unit Documented by: Norepinephrine Bitartrate (Levophed Bag) 8,000 mcg in 500 mls @ 18.75 mls/hr IVPB TITR [facility]; Protocol Last Titration: 04/30/20 10:07 Dose: 8 mcg/min, 30 mls/hr Documented by: Sodium Chloride (Normal Saline -) 250 mls @ 3,000 mls/hr IV PRN PRN PRN Reason: Hypotension during Dialysis Fentanyl (Sublimaze Ivpb) 500 mcg in 100 mls @ 508.025 mls/hr IVPB TITR [facility]; Protocol Last Titration: 04/30/20 11:17 Dose: 0 mcg/kg/hr, 0 mls/hr Documented by: Metoprolol Tartrate (Lopressor Injection -) 5 mg IVPUSH Q4H PRN PRN Reason: TACHYCARDIA Nystatin (Mycostatin Cream -) 1 applic TP PRN PRN PRN Reason: HYGEINE Last Admin: 04/28/20 09:59 Dose: 1 applic Documented by: Pantoprazole Sodium (Protonix Iv) 40 mg IVPUSH DAILY [facility] Last Admin: 04/30/20 09:04 Dose: 40 mg Documented by: Silver Sulfadiazine (Silvadene -) 1 applic TP DAILY [facility] Last Admin: 04/30/20 09:04 Dose: 1 applic Documented by: Vitamin A/Vitamin D (Vitamin A & D Top Oint -) 1 applic TP Q6HPO [facility] Last Admin: 04/30/20 12:50 Dose: 1 applic Documented by: - Objective Vital Signs: Vital Signs Temperature 97.1 F L 04/30/20 13:30 Pulse Rate 111 H 04/30/20 13:30 Respiratory Rate 22 H 04/30/20 13:30 Blood Pressure 124/59 L 04/30/20 13:30 O2 Sat by Pulse Oximetry (%) 97 04/30/20 12:02 Constitutional: Yes: Calm Eyes: Yes: Conjunctiva Clear HENT: Yes: Atraumatic Cardiovascular: Yes: S1, S2 Respiratory: Yes: Mechanically Ventilated Gastrointestinal: Yes: Soft Genitourinary: Yes: Saavedra Present Musculoskeletal: Yes: Muscle Weakness Edema: Yes Integumentary: Yes: Skin Tear, Venous Stasis Changes Neurological: Yes: Lethargy Labs: CBC, BMP 04/30/20 05:00 04/30/20 05:00 INR, PTT INR 1.49 (0.83-1.09) H 04/08/20 05:20 Problem List - Problems (1) CHF exacerbation Code(s): I50.9 - HEART FAILURE, UNSPECIFIED (2) Sepsis Code(s): A41.9 - SEPSIS, UNSPECIFIED ORGANISM (3) SURESH (acute kidney injury) Code(s): N17.9 - ACUTE KIDNEY FAILURE, UNSPECIFIED Assessment/Plan Current Medications Generic Name Dose Route Start Last Admin Trade Name Freq PRN Reason Stop Dose Admin Acetaminophen 1,000 mg 04/08/20 08:58 Ofirmev Injection - IVPB Q6H PRN FEVER Albuterol Sulfate 2 puff 04/22/20 08:21 Ventolin Hfa Inhaler - IH Q4H PRN SHORT OF BREATH/WHEEZING Artificial Tears 1 drop 04/27/20 13:51 Artificial Tears OU BID PRN DRY EYES Chlorhexidine Gluconate 1 applic 04/07/20 22:00 04/29/20 21:00 Hibiclens For Decolonization - TP 1 applic HS EAN Administration Chlorhexidine Gluconate 15 ml 04/18/20 22:00 04/30/20 09:03 Peridex - MM 15 ml BID EAN Administration Heparin Sodium (Porcine) 5,000 unit 04/10/20 15:15 04/30/20 09:03 Heparin - SQ 5,000 unit BID EAN Administration Norepinephrine Bitartrate 8,000 mcg in 500 mls @ 18.75 mls/hr 04/21/20 00:15 04/30/20 10:07 Levophed Bag IVPB 8 mcg/min TITR E[facility] 30 mls/hr Titration Protocol 5 MCG/MIN Sodium Chloride 250 mls @ 3,000 mls/hr 04/30/20 10:13 Normal Saline - IV PRN PRN Hypotension during Dialysis Fentanyl 500 mcg in 100 mls @ 508.025 mls/hr 04/29/20 13:15 04/30/20 11:17 Sublimaze Ivpb IVPB 0 mcg/kg/hr TITR E[facility] 0 mls/hr Titration Protocol 25 MCG/KG/HR Metoprolol Tartrate 5 mg 04/07/20 22:50 Lopressor Injection - IVPUSH Q4H PRN TACHYCARDIA Nystatin 1 applic 04/19/20 23:58 04/28/20 09:59 Mycostatin Cream - TP 1 applic PRN PRN Administration HYGEINE Pantoprazole Sodium 40 mg 04/08/20 10:00 04/30/20 09:04 Protonix Iv IVPUSH 40 mg DAILY EAN Administration Silver Sulfadiazine 1 applic 04/23/20 20:45 04/30/20 09:04 Silvadene - TP 1 applic DAILY EAN Administration Vitamin A/Vitamin D 1 applic 04/30/20 12:00 04/30/20 12:50 Vitamin A & D Top Oint - TP 1 applic Q6HPO [facility] Administration Impression 1. SURESH 2. hyperkalemia 3. resp failure 4. UTI 5. sepsis 6. shock 7. MRSA Pneumonia 8. Lactic Acidosis 9. +Troponins 10. Atrial Fibrillation 11. LV Diastolic Dysfunction 12. Pulmonary HTN 13. Bacteremia 14. anemia 15. hypokalemia Plan - HD today - pt tolerating HD - pt tolerating UF - volume status improving - maintain map 65 - prognosis guarded - keep net negative - daily cxr - discuss GOC with family
[2020-04-30] MEDS: CHLORHEXIDINE GLUCONATE 4% CLEANSER FOR DECOLONIZATION TP SCH (21:06)
[2020-05-01] MEDS: VITAMINS A AND D TOPICAL OINTMENT 60 GM TUBE TP SCH ×4 (00:35→18:37)
[2020-05-01 06:15] LABS: HEMATOCRIT 22.8 % (35.4-49); HEMOGLOBIN 7.5 GM/dL (11.7-16.9); MCH 29.9 pg (25.7-33.7); MCHC 33.1 g/dl (32.0-35.9); MEAN CELL VOLUME 90.3 fl (80-96); MEAN PLT VOLUME 8.8 fl (7.5-11.1); PLATELET COUNT 131 K/MM3 (134-434); RBC 2.53 M/mm3 (4.00-5.60); RDW 17.9 % (11.9-15.9); WHITE BLOOD COUNT 7.1 K/mm3 (4.0-10.0)
[2020-05-01] MEDS: NOREPINEPHRINE BITARTRATE 8,000 MCG/500 ML BAG IVPB SCH (06:34)
[2020-05-01 06:49] LABS: BLOOD UREA NITROGEN 37.7 mg/dL (7-18); CALCIUM 7.9 mg/dL (8.5-10.1); CREATININE 2.4 mg/dL (0.55-1.3); MAGNESIUM 1.8 mg/dL (1.8-2.4); POTASSIUM 3.7 mmol/L (3.5-5.1)
[2020-05-01] MEDS ORDERED: NAPH,MB-DB/K PH,MBDB POWDER PACKET PO ONE ×2 (07:45→08:30)
[2020-05-01] MEDS ORDERED: PT OWN MED DRAWER 7, Y5N ONE (09:19)
[2020-05-01] MEDS: HEPARIN NA (PORCINE) 5,000 UNITS/ML 1ML VIAL SQ SCH ×2 (09:23→21:24)
[2020-05-01] MEDS: CHLORHEXIDINE GLUCONATE 0.12% 15ML CUP MM SCH ×2 (09:24→21:24)
[2020-05-01] MEDS: SILVER SULFADIAZINE 1% TOP CREAM 50 GM JAR TP SCH (09:24)
[2020-05-01] MEDS: PANTOPRAZOLE SODIUM 40 MG VIAL IVPUSH SCH (09:24)
--- NOTE | 2020-05-01 11:31 | PN ---
Teaching Attending Note Name of Resident: Wilman Connolly ATTENDING PHYSICIAN STATEMENT I saw and evaluated the patient. I reviewed the resident's note and discussed the case with the resident. I agree with the resident's findings and plan as documented. SUBJECTIVE: Patient seen and examined in the ICU. Remains intubated, sedated on NE drip @ 6 mcq for hemodynamic support. Doing overall poorly. On HD currently. OBJECTIVE: Intake & Output 04/28/20 04/29/20 04/30/20 05/01/20 23:59 23:59 23:59 23:59 Intake Total 1475 3067.3 2794 259 Output Total 30 500 4260 Balance 1445 2567.3 -1466 259 Weight 233 lb 11.04 oz 224 lb 224 lb 13.944 oz 225 lb 4 oz Last Vital Signs Temp Pulse Resp BP Pulse Ox 98.7 F 98 H 18 107/55 L 100 05/01/20 10:00 05/01/20 10:00 05/01/20 10:00 05/01/20 10:00 05/01/20 08:07 Active Medications Acetaminophen (Ofirmev Injection -) 1,000 mg IVPB Q6H PRN PRN Reason: FEVER Albuterol Sulfate (Ventolin Hfa Inhaler -) 2 puff IH Q4H PRN PRN Reason: SHORT OF BREATH/WHEEZING Artificial Tears (Artificial Tears) 1 drop OU BID PRN PRN Reason: DRY EYES Chlorhexidine Gluconate (Hibiclens For Decolonization -) 1 applic TP HS [facility] Last Admin: 04/30/20 21:06 Dose: 1 applic Documented by: Chlorhexidine Gluconate (Peridex -) 15 ml MM BID [facility] Last Admin: 05/01/20 09:24 Dose: 15 ml Documented by: Heparin Sodium (Porcine) (Heparin -) 5,000 unit SQ BID [facility] Last Admin: 05/01/20 09:23 Dose: 5,000 unit Documented by: Norepinephrine Bitartrate (Levophed Bag) 8,000 mcg in 500 mls @ 18.75 mls/hr IVPB TITR [facility]; Protocol Last Admin: 05/01/20 06:34 Dose: 5 mcg/min, 18.75 mls/hr Documented by: Sodium Chloride (Normal Saline -) 250 mls @ 3,000 mls/hr IV PRN PRN PRN Reason: Hypotension during Dialysis Fentanyl (Sublimaze Ivpb) 500 mcg in 100 mls @ 508.025 mls/hr IVPB TITR [facility]; Protocol Last Admin: 04/30/20 21:06 Dose: 0.25 mcg/kg/hr, 5 mls/hr Documented by: Metoprolol Tartrate (Lopressor Injection -) 5 mg IVPUSH Q4H PRN PRN Reason: TACHYCARDIA Nystatin (Mycostatin Cream -) 1 applic TP PRN PRN PRN Reason: HYGEINE Last Admin: 04/28/20 09:59 Dose: 1 applic Documented by: Pantoprazole Sodium (Protonix Iv) 40 mg IVPUSH DAILY [facility] Last Admin: 05/01/20 09:24 Dose: 40 mg Documented by: Silver Sulfadiazine (Silvadene -) 1 applic TP DAILY [facility] [place] Last Admin: 05/01/20 09:24 Dose: 1 applic Documented by: Vitamin A/Vitamin D (Vitamin A & D Top Oint -) 1 applic TP Q6HPO [facility] Last Admin: 05/01/20 06:34 Dose: 1 applic Documented by: Gen: intubated, sedated Heart: RRR Lung: scattered rhonchi Abd: soft, nontender Ext: + edema Laboratory Results - last 24 hr 04/30/20 05/01/20 05/01/20 05:00 05:30 05:30 WBC 7.1 RBC 2.53 L Hgb 7.5 L Hct 22.8 L MCV 90.3 MCH 29.9 MCHC 33.1 RDW 17.9 H Plt Count 131 L MPV 8.8 Neutrophils % (Manual) 67.3 Band Neutrophils % 3.1 Lymphocytes % (Manual) 12.2 Monocytes % (Manual) 13 H Eosinophils % (Manual) 0.0 D Basophils % (Manual) 0.0 Myelocytes % (Man) 0 Promyelocytes % (Man) 0 Blast Cells % (Manual) 0 Nucleated RBC % 1 H Metamyelocytes 0 D Hypochromia 0 Toxic Granulation 2+ Platelet Estimate Decreased Platelet Comment Present Polychromasia 1+ Poikilocytosis 1+ Basophilic Stippling 1+ Anisocytosis 1+ Microcytosis 1+ Macrocytosis 0 Spherocytes 1+ Ovalocytes 1+ Sodium 134 L Potassium 3.7 Chloride 97 L Carbon Dioxide 29 Anion Gap 7 L BUN 37.7 H Creatinine 2.4 H Est GFR (CKD-EPI)AfAm 28.26 Est GFR (CKD-EPI)NonAf 24.38 Random Glucose 173 H Calcium 7.9 L Phosphorus 2.0 L Magnesium 1.8 ASSESSMENT AND PLAN: Acute Hypoxic Respiratory Failure MRSA Pneumonia UTI Sacral Decubitus Ulcers Septic Shock Lactic Acidosis Acute Kidney Injury +Troponins likely Demand Ischemia Atrial Fibrillation Acute on Chronic Diastolic Heart Failure Pulmonary HTN Volume Overload COPD HTN Hyperlipidemia Bacteremia Anemia - continue antibiotics - HD per renal - monitor urine output, creatinine - titrate pressors to maintain MAP >65 - rate control - daily sedation vacations to assess mental status - spontaneous breathing trials when volume status improved - enteral feeds - DVT/GI prophylaxis - continue ICU monitoring - will either need tracheostomy for prolonged intubation and failure to wean Versus compassionate extubation due to likely overall poor outcome Dr Fulton Critical care time spent in reviewing chart, evaluating patient and formulating plan 35 min
--- NOTE | 2020-05-01 12:37 | PN ---
Physical Exam: SUBJECTIVE: Patient seen and examined. Afebrile, asymptomatic. Off sedation, will reassess mental status. Titrate down NE. Will discuss with pt's daughter about pt's options including tracheostomy vs comfort care. Will attempt to set up a meeting for daughter. OBJECTIVE: Vital Signs Period Temp Pulse Resp BP Sys/Cesar Pulse Ox Last 24 Hr 97.1 F-98.7 F 84-111 14-22 90-124/47-92 98-100 GENERAL: The patient is intubated NECK: Trachea midline, full range of motion, supple. LUNGS: Breath sounds equal, clear to auscultation bilaterally, no wheezes, no crackles, no accessory muscle use. HEART: Regular rate and rhythm, S1, S2 without murmur, rub or gallop. ABDOMEN: Soft, nontender, nondistended, normoactive bowel sounds, no guarding, no rebound, no hepatosplenomegaly, no masses. EXTREMITIES: 2+ pulses, warm, well-perfused, no edema. NEUROLOGICAL: unable to obtain as patient sedated. Laboratory Results - last 24 hr 05/01/20 05/01/20 05:30 05:30 WBC 7.1 RBC 2.53 L Hgb 7.5 L Hct 22.8 L MCV 90.3 MCH 29.9 MCHC 33.1 RDW 17.9 H Plt Count 131 L MPV 8.8 Sodium 134 L Potassium 3.7 Chloride 97 L Carbon Dioxide 29 Anion Gap 7 L BUN 37.7 H Creatinine 2.4 H Est GFR (CKD-EPI)AfAm 28.26 Est GFR (CKD-EPI)NonAf 24.38 Random Glucose 173 H Calcium 7.9 L Phosphorus 2.0 L Magnesium 1.8 Active Medications Generic Name Dose Route Start Last Admin Trade Name Freq PRN Reason Stop Dose Admin Acetaminophen 1,000 mg 04/08/20 08:58 Ofirmev Injection - IVPB Q6H PRN FEVER Albuterol Sulfate 2 puff 04/22/20 08:21 Ventolin Hfa Inhaler - IH Q4H PRN SHORT OF BREATH/WHEEZING Artificial Tears 1 drop 04/27/20 13:51 Artificial Tears OU BID PRN DRY EYES Chlorhexidine Gluconate 1 applic 04/07/20 22:00 04/30/20 21:06 Hibiclens For Decolonization - TP 1 applic HS EAN Administration Chlorhexidine Gluconate 15 ml 04/18/20 22:00 05/01/20 09:24 Peridex - MM 15 ml BID EAN Administration Heparin Sodium (Porcine) 5,000 unit 04/10/20 15:15 05/01/20 09:23 Heparin - SQ 5,000 unit BID EAN Administration Norepinephrine Bitartrate 8,000 mcg in 500 mls @ 18.75 mls/hr 04/21/20 00:15 05/01/20 06:34 Levophed Bag IVPB 5 mcg/min TITR EAN 18.75 mls/hr Administration Protocol 5 MCG/MIN Sodium Chloride 250 mls @ 3,000 mls/hr 04/30/20 10:13 Normal Saline - IV PRN PRN Hypotension during Dialysis Fentanyl 500 mcg in 100 mls @ 508.025 mls/hr 04/29/20 13:15 04/30/20 21:06 Sublimaze Ivpb IVPB 0.25 mcg/kg/hr TITR EAN 5 mls/hr Administration Protocol 25 MCG/KG/HR Metoprolol Tartrate 5 mg 04/07/20 22:50 Lopressor Injection - IVPUSH Q4H PRN TACHYCARDIA Nystatin 1 applic 04/19/20 23:58 04/28/20 09:59 Mycostatin Cream - TP 1 applic PRN PRN Administration HYGEINE Pantoprazole Sodium 40 mg 04/08/20 10:00 05/01/20 09:24 Protonix Iv IVPUSH 40 mg DAILY EAN Administration Silver Sulfadiazine 1 applic 04/23/20 20:45 05/01/20 09:24 Silvadene - TP 1 applic DAILY EAN Administration Vitamin A/Vitamin D 1 applic 04/30/20 12:00 05/01/20 06:34 Vitamin A & D Top Oint - TP 1 applic Q6HPO EAN Administration ASSESSMENT/PLAN: 79YOM with CHF, COPD, CVA, HTN, HLD, and A-fib on Eliquis BIBEMS from [facility] for seizure-like episode, found in ED to be septic with UTI suspected source, needed to be intubated for respiratory failure. #Neuro / Psych: Serial neuro checks. Fentanyl 25 If neuro symptoms worsen or upward gaze persists- CT head #Cardiovascular: CHF exacerbation, troponinemia For now will place pt on ppx dose- heparin, if pt tolerates and hb stable, will restart eliquis On NE 6, will titrate down Pt has multiple eccymotic and brusing periorally due to ETT cotton Vent on wean settings #Pulm Pulmonary edema, b/l pleural effusions, COPD exacerbation 12/400/40/5 Plat 18 PIP 43 vent pressures improved Family amenable to trach, will plan for trach this week Consent to be approved #Gastrointestinal: started feeds/glucerna PEG tube feeds #Heme stable #Renal Pt appears extremely fluid overloaded, b/l UE + LE edema, scrotal edema, lungs appear without crackles - pt third spacing. Pt's albumin low. Will run HD tomorrow, will discuss with Nephro on assisted HD plans and then speak to finally regarding HD #Genitourinary: Continue Saavedra- oliguric Monitor I/O Serial BUN/Cr especially given need for diuresis #Infectious Disease: Cefepime d/daria D18 Vanc d/daria D18 ID onboard Hep A abs FEN: lytes WNL, replete PRN Feeds at 45 d/c fluids Prophylaxis: DVT: heparin GI: Protonix qd Lines: R TLC 24 Dispo: cont abx, reposition pt to ventilate better, percussion modulator, tube irrigation as needed, wean off vent Visit type - Emergency Visit Emergency Visit: Yes ED Registration Date: 04/07/20 Care time: The patient presented to the Emergency Department on the above date and was hospitalized for further evaluation of their emergent condition. - New Patient This patient is new to me today: Yes Date on this admission: 05/01/20 - Critical Care Critical Care patient: No - Discharge Referral Referred to [facility] Med P.C[facility] No ATTENDING PHYSICIAN STATEMENT I saw and evaluated the patient. I reviewed the resident's note and discussed the case with the resident. I agree with the resident's findings and plan as documented. SUBJECTIVE: OBJECTIVE: ASSESSMENT AND PLAN:
[2020-05-01 12:51] VITALS: BMI 29.7
[2020-05-01] MEDS: FENTANYL NS IVPB 500 MCG/100 ML BAG IVPB SCH (15:19)
[2020-05-01] MEDS ORDERED: FUROSEMIDE 40 MG/4 ML INJECTABLE VIAL IVPUSH ONE (16:00)
[2020-05-01] MEDS: ALBUMIN HUMAN 25% 100 ML VIAL IVPB SCH ×2 (16:32→21:23)
--- NOTE | 2020-05-01 18:31 | PN ---
Progress Note, Physician History of Present Illness: Pt seen and examined at bedside. He remains in the ICU. He remains intubated. - Current Medication List Current Medications: Active Medications Acetaminophen (Ofirmev Injection -) 1,000 mg IVPB Q6H PRN PRN Reason: FEVER Albumin Human (Albumin Human 25% -) 25 gm IVPB Q6H EAN Stop: 05/02/20 08:46 Last Admin: 05/01/20 16:32 Dose: 25 gm Documented by: Albuterol Sulfate (Ventolin Hfa Inhaler -) 2 puff IH Q4H PRN PRN Reason: SHORT OF BREATH/WHEEZING Artificial Tears (Artificial Tears) 1 drop OU BID PRN PRN Reason: DRY EYES Chlorhexidine Gluconate (Hibiclens For Decolonization -) 1 applic TP HS EAN Last Admin: 04/30/20 21:06 Dose: 1 applic Documented by: Chlorhexidine Gluconate (Peridex -) 15 ml MM BID EAN Last Admin: 05/01/20 09:24 Dose: 15 ml Documented by: Heparin Sodium (Porcine) (Heparin -) 5,000 unit SQ BID EAN Last Admin: 05/01/20 09:23 Dose: 5,000 unit Documented by: Norepinephrine Bitartrate (Levophed Bag) 8,000 mcg in 500 mls @ 18.75 mls/hr IVPB [facility]; Protocol Last Admin: 05/01/20 06:34 Dose: 5 mcg/min, 18.75 mls/hr Documented by: Sodium Chloride (Normal Saline -) 250 mls @ 3,000 mls/hr IV PRN PRN PRN Reason: Hypotension during Dialysis Fentanyl (Sublimaze Ivpb) 500 mcg in 100 mls @ 508.025 mls/hr IVPB TITR EAN; Protocol Last Admin: 05/01/20 15:19 Dose: Not Given Documented by: Metoprolol Tartrate (Lopressor Injection -) 5 mg IVPUSH Q4H PRN PRN Reason: TACHYCARDIA Nystatin (Mycostatin Cream -) 1 applic TP PRN PRN PRN Reason: HYGEINE Last Admin: 04/28/20 09:59 Dose: 1 applic Documented by: Pantoprazole Sodium (Protonix Iv) 40 mg IVPUSH DAILY EAN Last Admin: 05/01/20 09:24 Dose: 40 mg Documented by: Silver Sulfadiazine (Silvadene -) 1 applic TP DAILY EAN Last Admin: 05/01/20 09:24 Dose: 1 applic Documented by: Vitamin A/Vitamin D (Vitamin A & D Top Oint -) 1 applic TP Q6HPO EAN Last Admin: 05/01/20 15:18 Dose: 1 applic Documented by: - Objective Vital Signs: Vital Signs Temperature 99.9 F H 05/01/20 16:00 Pulse Rate 102 H 05/01/20 16:00 Respiratory Rate 17 05/01/20 16:38 Blood Pressure 102/52 L 05/01/20 16:00 O2 Sat by Pulse Oximetry (%) 100 05/01/20 08:07 Constitutional: Yes: Calm Cardiovascular: Yes: S1, S2 Respiratory: Yes: Mechanically Ventilated Gastrointestinal: Yes: Soft Musculoskeletal: Yes: Muscle Weakness Edema: Yes Integumentary: Yes: Venous Stasis Changes Neurological: Yes: Lethargy Labs: CBC, BMP 05/01/20 05:30 05/01/20 05:30 INR, PTT INR 1.49 (0.83-1.09) H 04/08/20 05:20 - ....Imaging Chest X-ray: Report Reviewed Problem List - Problems (1) CHF exacerbation Code(s): I50.9 - HEART FAILURE, UNSPECIFIED (2) Sepsis Code(s): A41.9 - SEPSIS, UNSPECIFIED ORGANISM (3) SURESH (acute kidney injury) Code(s): N17.9 - ACUTE KIDNEY FAILURE, UNSPECIFIED Assessment/Plan Current Medications Generic Name Dose Route Start Last Admin Trade Name Freq PRN Reason Stop Dose Admin Acetaminophen 1,000 mg 04/08/20 08:58 Ofirmev Injection - IVPB Q6H PRN FEVER Albumin Human 25 gm 05/01/20 14:45 05/01/20 16:32 Albumin Human 25% - IVPB 05/02/20 08:46 25 gm Q6H EAN Administration Albuterol Sulfate 2 puff 04/22/20 08:21 Ventolin Hfa Inhaler - IH Q4H PRN SHORT OF BREATH/WHEEZING Artificial Tears 1 drop 04/27/20 13:51 Artificial Tears OU BID PRN DRY EYES Chlorhexidine Gluconate 1 applic 04/07/20 22:00 04/30/20 21:06 Hibiclens For Decolonization - TP 1 applic HS EAN Administration Chlorhexidine Gluconate 15 ml 04/18/20 22:00 05/01/20 09:24 Peridex - MM 15 ml BID EAN Administration Heparin Sodium (Porcine) 5,000 unit 04/10/20 15:15 05/01/20 09:23 Heparin - SQ 5,000 unit BID EAN Administration Norepinephrine Bitartrate 8,000 mcg in 500 mls @ 18.75 mls/hr 04/21/20 00:15 05/01/20 06:34 Levophed Bag IVPB 5 mcg/min TITR EAN 18.75 mls/hr Administration Protocol 5 MCG/MIN Sodium Chloride 250 mls @ 3,000 mls/hr 04/30/20 10:13 Normal Saline - IV PRN PRN Hypotension during Dialysis Fentanyl 500 mcg in 100 mls @ 508.025 mls/hr 04/29/20 13:15 05/01/20 15:19 Sublimaze Ivpb IVPB Not Given TITR EAN Protocol 25 MCG/KG/HR Metoprolol Tartrate 5 mg 04/07/20 22:50 Lopressor Injection - IVPUSH Q4H PRN TACHYCARDIA Nystatin 1 applic 04/19/20 23:58 04/28/20 09:59 Mycostatin Cream - TP 1 applic PRN PRN Administration HYGEINE Pantoprazole Sodium 40 mg 04/08/20 10:00 05/01/20 09:24 Protonix Iv IVPUSH 40 mg DAILY EAN Administration Silver Sulfadiazine 1 applic 04/23/20 20:45 05/01/20 09:24 Silvadene - TP 1 applic DAILY EAN Administration Vitamin A/Vitamin D 1 applic 04/30/20 12:00 05/01/20 15:18 Vitamin A & D Top Oint - TP 1 applic Q6HPO EAN Administration Impression 1. SURESH 2. hyperkalemia 3. resp failure 4. UTI 5. sepsis 6. shock 7. MRSA Pneumonia 8. Lactic Acidosis 9. +Troponins 10. Atrial Fibrillation 11. LV Diastolic Dysfunction 12. Pulmonary HTN 13. Bacteremia 14. anemia 15. hypokalemia Plan - HD tomorrow - will need to change catheter this week - cont vent support - pt remains oliguric - maintain map 65 - prognosis guarded - keep net negative - daily cxr - discuss GOC with family
[2020-05-01] MEDS: CHLORHEXIDINE GLUCONATE 4% CLEANSER FOR DECOLONIZATION TP SCH (21:24)
[2020-05-01] MEDS: ACETAMINOPHEN 1000 MG/100 ML VIAL (NON FORMULARY) IVPB PRN (22:12)
[2020-05-02] MEDS: VITAMINS A AND D TOPICAL OINTMENT 60 GM TUBE TP SCH ×3 (00:20→21:16)
[2020-05-02] MEDS: ALBUMIN HUMAN 25% 100 ML VIAL IVPB SCH ×2 (02:01→09:00)
[2020-05-02 06:27] LABS: HEMATOCRIT 22.4 % (35.4-49); HEMOGLOBIN 7.4 GM/dL (11.7-16.9); MCH 29.9 pg (25.7-33.7); MCHC 32.9 g/dl (32.0-35.9); MEAN PLT VOLUME 8.5 fl (7.5-11.1); PLATELET COUNT 136 K/MM3 (134-434); RBC 2.46 M/mm3 (4.00-5.60); RDW 18.1 % (11.9-15.9); WHITE BLOOD COUNT 6.6 K/mm3 (4.0-10.0)
[2020-05-02] MEDS: FENTANYL NS IVPB 500 MCG/100 ML BAG IVPB SCH ×2 (07:00→14:43)
[2020-05-02 07:04] LABS: BLOOD UREA NITROGEN 43.4 mg/dL (7-18); CALCIUM 8.1 mg/dL (8.5-10.1); CREATININE 2.9 mg/dL (0.55-1.3); MAGNESIUM 1.9 mg/dL (1.8-2.4); PHOSPHOROUS 2.5 mg/dL (2.5-4.9); POTASSIUM 3.9 mmol/L (3.5-5.1)
[2020-05-02] MEDS ORDERED: PROPOFOL 1,000,000 MCG/100 ML VIAL ONE (08:14)
[2020-05-02] MEDS: HEPARIN NA (PORCINE) 5,000 UNITS/ML 1ML VIAL SQ SCH ×2 (10:02→21:17)
[2020-05-02] MEDS: SILVER SULFADIAZINE 1% TOP CREAM 50 GM JAR TP SCH (10:02)
[2020-05-02] MEDS: PANTOPRAZOLE SODIUM 40 MG VIAL IVPUSH SCH (10:03)
[2020-05-02] MEDS: CHLORHEXIDINE GLUCONATE 0.12% 15ML CUP MM SCH ×2 (10:03→21:17)
[2020-05-02] MEDS: NOREPINEPHRINE BITARTRATE 8,000 MCG/500 ML BAG IVPB SCH (10:32)
--- NOTE | 2020-05-02 11:25 | PN ---
Teaching Attending Note Name of Resident: Mitali Madrid ATTENDING PHYSICIAN STATEMENT I saw and evaluated the patient. I reviewed the resident's note and discussed the case with the resident. I agree with the resident's findings and plan as documented. SUBJECTIVE: Patient seen and examined in the ICU. Remains intubated, sedated on NE drip @ 4 mcq for hemodynamic support. Doing overall poorly. On HD currently. OBJECTIVE: Intake & Output 04/29/20 04/30/20 05/01/20 05/02/20 23:59 23:59 23:59 23:59 Intake Total 3067.3 2794 662 Output Total 500 4260 65 Balance 2567.3 -1466 597 Weight 224 lb 224 lb 13.944 oz 225 lb 4 oz Last Vital Signs Temp Pulse Resp BP Pulse Ox 97.6 F 83 14 128/63 100 05/02/20 10:00 05/02/20 10:00 05/02/20 08:44 05/02/20 08:00 05/02/20 08:44 Active Medications Acetaminophen (Ofirmev Injection -) 1,000 mg IVPB Q6H PRN PRN Reason: FEVER Last Admin: 05/01/20 22:12 Dose: 1,000 mg Documented by: Albumin Human (Albumin Human 25%) 12.5 gm IVPB Q30M [facility] Stop: 05/02/20 20:16 Albuterol Sulfate (Ventolin Hfa Inhaler -) 2 puff IH Q4H PRN PRN Reason: SHORT OF BREATH/WHEEZING Artificial Tears (Artificial Tears) 1 drop OU BID PRN PRN Reason: DRY EYES Chlorhexidine Gluconate (Hibiclens For Decolonization -) 1 applic TP HS [facility] Last Admin: 05/01/20 21:24 Dose: 1 applic Documented by: Chlorhexidine Gluconate (Peridex -) 15 ml MM BID [facility] Last Admin: 05/02/20 10:03 Dose: 15 ml Documented by: Heparin Sodium (Porcine) (Heparin -) 5,000 unit SQ BID [facility] Last Admin: 05/02/20 10:02 Dose: 5,000 unit Documented by: Norepinephrine Bitartrate (Levophed Bag) 8,000 mcg in 500 mls @ 18.75 mls/hr IVPB TITR [facility]; Protocol Last Admin: 05/02/20 10:32 Dose: 4 mcg/min, 15 mls/hr Documented by: Sodium Chloride (Normal Saline -) 250 mls @ 3,000 mls/hr IV PRN PRN PRN Reason: Hypotension during Dialysis Fentanyl (Sublimaze Ivpb) 500 mcg in 100 mls @ 508.025 mls/hr IVPB TITR [facility]; Protocol Last Admin: 05/02/20 07:00 Dose: 0.98 mcg/kg/hr, 19.915 mls/hr Documented by: Sodium Chloride (Normal Saline -) 250 mls @ 3,000 mls/hr IV PRN PRN PRN Reason: Hypotension during Dialysis Stop: 05/02/20 18:31 Metoprolol Tartrate (Lopressor Injection -) 5 mg IVPUSH Q4H PRN PRN Reason: TACHYCARDIA Nystatin (Mycostatin Cream -) 1 applic TP PRN PRN PRN Reason: HYGEINE Last Admin: 04/28/20 09:59 Dose: 1 applic Documented by: Pantoprazole Sodium (Protonix Iv) 40 mg IVPUSH DAILY [facility] Last Admin: 05/02/20 10:03 Dose: 40 mg Documented by: Silver Sulfadiazine (Silvadene -) 1 applic TP DAILY [facility] Last Admin: 05/01/20 09:24 Dose: 1 applic Documented by: Vitamin A/Vitamin D (Vitamin A & D Top Oint -) 1 applic TP Q6HPO [facility] Last Admin: 05/02/20 00:20 Dose: 1 applic Documented by: Gen: intubated, sedated Heart: RRR Lung: scattered rhonchi Abd: soft, nontender Ext: + edema Laboratory Results - last 24 hr 05/02/20 05/02/20 05:00 05:00 WBC 6.6 RBC 2.46 L Hgb 7.4 L Hct 22.4 L MCV 91.0 MCH 29.9 MCHC 32.9 RDW 18.1 H Plt Count 136 MPV 8.5 Sodium 132 L Potassium 3.9 Chloride 95 L Carbon Dioxide 29 Anion Gap 8 BUN 43.4 H Creatinine 2.9 H Est GFR (CKD-EPI)AfAm 22.48 Est GFR (CKD-EPI)NonAf 19.40 Random Glucose 152 H Calcium 8.1 L Phosphorus 2.5 Magnesium 1.9 ASSESSMENT AND PLAN: Acute Hypoxic Respiratory Failure MRSA Pneumonia UTI Sacral Decubitus Ulcers Septic Shock Lactic Acidosis Acute Kidney Injury +Troponins likely Demand Ischemia Atrial Fibrillation Acute on Chronic Diastolic Heart Failure Pulmonary HTN Volume Overload COPD HTN Hyperlipidemia Bacteremia Anemia - continue antibiotics - HD per renal - monitor urine output, creatinine - titrate pressors to maintain MAP >65 - rate control - daily sedation vacations to assess mental status - spontaneous breathing trials when volume status improved - enteral feeds - DVT/GI prophylaxis - continue ICU monitoring - will either need tracheostomy for prolonged intubation and failure to wean Versus compassionate extubation due to likely overall poor outcome : Schedule family meeting to review GOC Dr F[place]on Critical care time spent in reviewing chart, evaluating patient and formulating plan 35 min
--- NOTE | 2020-05-02 11:37 | PN ---
Progress Note, Physician History of Present Illness: Pt seen and examined at bedside. He remains in the ICU. He remains intubated. - Current Medication List Current Medications: Active Medications Acetaminophen (Ofirmev Injection -) 1,000 mg IVPB Q6H PRN PRN Reason: FEVER Last Admin: 05/01/20 22:12 Dose: 1,000 mg Documented by: Albumin Human (Albumin Human 25%) 12.5 gm IVPB Q30M [facility] Stop: 05/02/20 20:16 Albuterol Sulfate (Ventolin Hfa Inhaler -) 2 puff IH Q4H PRN PRN Reason: SHORT OF BREATH/WHEEZING Artificial Tears (Artificial Tears) 1 drop OU BID PRN PRN Reason: DRY EYES Chlorhexidine Gluconate (Hibiclens For Decolonization -) 1 applic TP HS [facility] Last Admin: 05/01/20 21:24 Dose: 1 applic Documented by: Chlorhexidine Gluconate (Peridex -) 15 ml MM BID [facility] Last Admin: 05/02/20 10:03 Dose: 15 ml Documented by: Heparin Sodium (Porcine) (Heparin -) 5,000 unit SQ BID [facility] Last Admin: 05/02/20 10:02 Dose: 5,000 unit Documented by: Norepinephrine Bitartrate (Levophed Bag) 8,000 mcg in 500 mls @ 18.75 mls/hr IVPB TITR [facility]; Protocol Last Admin: 05/02/20 10:32 Dose: 4 mcg/min, 15 mls/hr Documented by: Sodium Chloride (Normal Saline -) 250 mls @ 3,000 mls/hr IV PRN PRN PRN Reason: Hypotension during Dialysis Fentanyl (Sublimaze Ivpb) 500 mcg in 100 mls @ 508.025 mls/hr IVPB TITR [facility]; Protocol Last Admin: 05/02/20 07:00 Dose: 0.98 mcg/kg/hr, 19.915 mls/hr Documented by: Sodium Chloride (Normal Saline -) 250 mls @ 3,000 mls/hr IV PRN PRN PRN Reason: Hypotension during Dialysis Stop: 05/02/20 18:31 Metoprolol Tartrate (Lopressor Injection -) 5 mg IVPUSH Q4H PRN PRN Reason: TACHYCARDIA Nystatin (Mycostatin Cream -) 1 applic TP PRN PRN PRN Reason: HYGEINE Last Admin: 04/28/20 09:59 Dose: 1 applic Documented by: Pantoprazole Sodium (Protonix Iv) 40 mg IVPUSH DAILY [facility] Last Admin: 05/02/20 10:03 Dose: 40 mg Documented by: Silver Sulfadiazine (Silvadene -) 1 applic TP DAILY [facility] Last Admin: 05/01/20 09:24 Dose: 1 applic Documented by: Vitamin A/Vitamin D (Vitamin A & D Top Oint -) 1 applic TP Q6HPO [facility] Last Admin: 05/02/20 00:20 Dose: 1 applic Documented by: - Objective Vital Signs: Vital Signs Temperature 97.6 F 05/02/20 10:00 Pulse Rate 83 05/02/20 10:00 Respiratory Rate 14 05/02/20 08:44 Blood Pressure 128/63 05/02/20 08:00 O2 Sat by Pulse Oximetry (%) 100 05/02/20 08:44 Constitutional: Yes: Calm Eyes: Yes: Conjunctiva Clear HENT: Yes: Atraumatic Neck: Yes: Supple Cardiovascular: Yes: S1, S2 Respiratory: Yes: Mechanically Ventilated Gastrointestinal: Yes: Soft Genitourinary: Yes: WNL, Saavedra Present Musculoskeletal: Yes: Muscle Weakness Edema: Yes Edema: LLE: 2+, RLE: 2+ Neurological: Yes: Lethargy Labs: CBC, BMP 05/02/20 05:00 05/02/20 05:00 INR, PTT INR 1.49 (0.83-1.09) H 04/08/20 05:20 Problem List - Problems (1) CHF exacerbation Code(s): I50.9 - HEART FAILURE, UNSPECIFIED (2) Sepsis Code(s): A41.9 - SEPSIS, UNSPECIFIED ORGANISM (3) SURESH (acute kidney injury) Code(s): N17.9 - ACUTE KIDNEY FAILURE, UNSPECIFIED Assessment/Plan Current Medications Generic Name Dose Route Start Last Admin Trade Name Freq PRN Reason Stop Dose Admin Acetaminophen 1,000 mg 04/08/20 08:58 05/01/20 22:12 Ofirmev Injection - IVPB 1,000 mg Q6H PRN Administration FEVER Albumin Human 12.5 gm 05/02/20 18:45 Albumin Human 25% IVPB 05/02/20 20:16 Q30M [facility] Albuterol Sulfate 2 puff 04/22/20 08:21 Ventolin Hfa Inhaler - IH Q4H PRN SHORT OF BREATH/WHEEZING Artificial Tears 1 drop 04/27/20 13:51 Artificial Tears OU BID PRN DRY EYES Chlorhexidine Gluconate 1 applic 04/07/20 22:00 05/01/20 21:24 Hibiclens For Decolonization - TP 1 applic HS [facility] Administration Chlorhexidine Gluconate 15 ml 04/18/20 22:00 05/02/20 10:03 Peridex - MM 15 ml BID [facility] Administration Heparin Sodium (Porcine) 5,000 unit 04/10/20 15:15 05/02/20 10:02 Heparin - SQ 5,000 unit BID [facility] Administration Norepinephrine Bitartrate 8,000 mcg in 500 mls @ 18.75 mls/hr 04/21/20 00:15 05/02/20 10:32 Levophed Bag IVPB 4 mcg/min TITR [facility] 15 mls/hr Administration Protocol 5 MCG/MIN Sodium Chloride 250 mls @ 3,000 mls/hr 04/30/20 10:13 Normal Saline - IV PRN PRN Hypotension during Dialysis Fentanyl 500 mcg in 100 mls @ 508.025 mls/hr 04/29/20 13:15 05/02/20 07:00 Sublimaze Ivpb IVPB 0.98 mcg/kg/hr TITR [facility] 19.915 mls/hr Administration Protocol 25 MCG/KG/HR Sodium Chloride 250 mls @ 3,000 mls/hr 05/01/20 18:31 Normal Saline - IV 05/02/20 18:31 PRN PRN Hypotension during Dialysis Metoprolol Tartrate 5 mg 04/07/20 22:50 Lopressor Injection - IVPUSH Q4H PRN TACHYCARDIA Nystatin 1 applic 04/19/20 23:58 04/28/20 09:59 Mycostatin Cream - TP 1 applic PRN PRN Administration HYGEINE Pantoprazole Sodium 40 mg 04/08/20 10:00 05/02/20 10:03 Protonix Iv IVPUSH 40 mg DAILY [facility] Administration Silver Sulfadiazine 1 applic 04/23/20 20:45 05/01/20 09:24 Silvadene - TP 1 applic DAILY [facility] Administration Vitamin A/Vitamin D 1 applic 04/30/20 12:00 05/02/20 00:20 Vitamin A & D Top Oint - TP 1 applic Q6HPO [facility] Administration Impression 1. SURESH 2. hyperkalemia 3. resp failure 4. UTI 5. sepsis 6. shock 7. MRSA Pneumonia 8. Lactic Acidosis 9. +Troponins 10. Atrial Fibrillation 11. LV Diastolic Dysfunction 12. Pulmonary HTN 13. Bacteremia 14. anemia 15. hypokalemia Plan - HD today - cont vent support - cont feeds - will UF volume as tolerated - can d/c [facility] after HD - pt remains oliguric - maintain map 65 - discussed with ICU team - keep net negative - daily cxr - discuss GOC with family
[2020-05-02] MEDS ORDERED: SODIUM CHLORIDE 250 ML IV PRN (13:39)
[2020-05-02] MEDS: ALBUMIN HUMAN 25% 12.5 GM/50 ML VIAL IVPB SCH ×2 (14:53→14:54)
--- NOTE | 2020-05-02 19:15 | PN ---
Physical Exam: SUBJECTIVE: Patient seen and examined patient was seen this morning, sedated on fentanyl and intubated. When sedation was decreased, patient showed clear signs of discomfort. Ongoing discussions with the family in regards to tracheostomy placement and dialysis vs. confort care. Spoke to Shanique and set up meeting for tomorrow (05/03/2020) at noon. OBJECTIVE: Vital Signs Period Temp Pulse Resp BP Sys/Cesar Pulse Ox Last 24 Hr 97.4 F-100.1 F 70-105 14-24 92-134/46-63 100-100 Ventilator settings: RR 12, TV 400, FiO2 60%, PEEP 5 GENERAL: sedated and intubated, responds to painful stimuli HEAD: mouth permanently open with visible dried/crusted blood around lips EYES: opened occasionally LUNGS: Breath sounds from vent are equal, clear to auscultation bilaterally, no wheezes, no crackles. HEART: Regular rate and rhythm, S1, S2 without murmur, rub or gallop. ABDOMEN: nondistended, soft EXTREMITIES: 1+ pitting edema on hands and feet, scattered ecchymoses on arms bilaterally NEUROLOGICAL: responds to painful stimuli SKIN: stage 4 sacral ulcer Last CXR 04/30: "little change in diffuse consolidation/congestion and bilateral pleural effusions" Laboratory Results - last 24 hr 05/02/20 05/02/20 05:00 05:00 WBC 6.6 RBC 2.46 L Hgb 7.4 L Hct 22.4 L MCV 91.0 MCH 29.9 MCHC 32.9 RDW 18.1 H Plt Count 136 MPV 8.5 Sodium 132 L Potassium 3.9 Chloride 95 L Carbon Dioxide 29 Anion Gap 8 BUN 43.4 H Creatinine 2.9 H Est GFR (CKD-EPI)AfAm 22.48 Est GFR (CKD-EPI)NonAf 19.40 Random Glucose 152 H Calcium 8.1 L Phosphorus 2.5 Magnesium 1.9 Active Medications Generic Name Dose Route Start Last Admin Trade Name Freq PRN Reason Stop Dose Admin Acetaminophen 1,000 mg 04/08/20 08:58 05/01/20 22:12 Ofirmev Injection - IVPB 1,000 mg Q6H PRN Administration FEVER Albuterol Sulfate 2 puff 04/22/20 08:21 Ventolin Hfa Inhaler - IH Q4H PRN SHORT OF BREATH/WHEEZING Artificial Tears 1 drop 04/27/20 13:51 Artificial Tears OU BID PRN DRY EYES Chlorhexidine Gluconate 1 applic 04/07/20 22:00 05/01/20 21:24 Hibiclens For Decolonization - TP 1 applic HS EAN Administration Chlorhexidine Gluconate 15 ml 04/18/20 22:00 05/02/20 10:03 Peridex - MM 15 ml BID EAN Administration Heparin Sodium (Porcine) 5,000 unit 04/10/20 15:15 05/02/20 10:02 Heparin - SQ 5,000 unit BID EAN Administration Norepinephrine Bitartrate 8,000 mcg in 500 mls @ 18.75 mls/hr 04/21/20 00:15 05/02/20 10:32 Levophed Bag IVPB 4 mcg/min TITR EAN 15 mls/hr Administration Protocol 5 MCG/MIN Sodium Chloride 250 mls @ 3,000 mls/hr 04/30/20 10:13 Normal Saline - IV PRN PRN Hypotension during Dialysis Fentanyl 500 mcg in 100 mls @ 508.025 mls/hr 04/29/20 13:15 05/02/20 14:43 Sublimaze Ivpb IVPB 0.98 mcg/kg/hr TITR EAN 19.915 mls/hr Administration Protocol 25 MCG/KG/HR Sodium Chloride 250 mls @ 3,000 mls/hr 05/02/20 13:39 Normal Saline - IV 05/02/20 19:00 PRN PRN Hypotension during Dialysis Metoprolol Tartrate 5 mg 04/07/20 22:50 Lopressor Injection - IVPUSH Q4H PRN TACHYCARDIA Nystatin 1 applic 04/19/20 23:58 04/28/20 09:59 Mycostatin Cream - TP 1 applic PRN PRN Administration HYGEINE Pantoprazole Sodium 40 mg 04/08/20 10:00 05/02/20 10:03 Protonix Iv IVPUSH 40 mg DAILY EAN Administration Silver Sulfadiazine 1 applic 04/23/20 20:45 05/02/20 10:02 Silvadene - TP 1 applic DAILY EAN Administration Vitamin A/Vitamin D 1 applic 04/30/20 12:00 05/02/20 12:59 Vitamin A & D Top Oint - TP 1 applic Q6HPO EAN Administration ASSESSMENT/PLAN: 79yo M with PMHx of CHF, COPD, CVA, HTN, HLD, and afib on eliquis brought in by EMS from [facility] for seizure-like episode, ED course concerning for sepsis (source unclear), intubated for acute respiratory failure. #Neuro - sedated with fentanyl - responsive to painful stimuli #Cardio CHF exacerbation, afib, inverted T waves - on heparin ppx, will restart eliquis when patient tolerates - goal MAPs >65, NE as needed #Pulm pulmonary edema, bilateral pleural effusions, COPD exacerbation - currently intubated, will decide with family if trach placement #GI - PEG tube feeds #Renal fluid overloaded, bilateral UE + LE pitting edema - HD today, continuing albumin - will discuss long-term HD with family #ID - completed 18 days of cefepime and vancomycin #FEN electrolytes WNL, replete as needed #PPX - DVT: heparin - GI: pentoprazole #LTD - PEG tube - R trialysis catheter 04/25 - Saavedra - fecal management system (since patient has stage 4 sacral ulcer) Visit type - Emergency Visit Emergency Visit: Yes ED Registration Date: 04/07/20 Care time: The patient presented to the Emergency Department on the above date and was hospitalized for further evaluation of their emergent condition. - New Patient This patient is new to me today: Yes Date on this admission: 05/02/20 - Critical Care Critical Care patient: Yes Total Critical Care Time (in minutes): 45 Critical Care Statement: The care of this patient involved high complexity decision making to prevent further life threatening deterioration of the patient's condition and/or to evaluate & treat vital organ system(s) failure or risk of failure. ATTENDING PHYSICIAN STATEMENT I saw and evaluated the patient. I reviewed the resident's note and discussed the case with the resident. I agree with the resident's findings and plan as documented. SUBJECTIVE: OBJECTIVE: ASSESSMENT AND PLAN:
[2020-05-02] MEDS ORDERED: MIDAZOLAM IN 0.9 % SOD.CHLORID 1 MG/1 ML PLAST..BAG ONE (20:24)
[2020-05-02] MEDS: MIDAZOLAM 100 MG in SODIUM CHLORIDE 100 ML IVPB SCH (21:00)
[2020-05-02] MEDS: CHLORHEXIDINE GLUCONATE 4% CLEANSER FOR DECOLONIZATION TP SCH (21:17)
[2020-05-03] MEDS: VITAMINS A AND D TOPICAL OINTMENT 60 GM TUBE TP SCH ×6 (00:10→23:59)
[2020-05-03] MEDS: NOREPINEPHRINE BITARTRATE 8,000 MCG/500 ML BAG IVPB SCH ×2 (03:15)
[2020-05-03] MEDS: FENTANYL NS IVPB 500 MCG/100 ML BAG IVPB SCH ×4 (03:16→17:28)
[2020-05-03 07:05] LABS: ARTERIAL BLD GAS O2 SATURATION 98.6 mmHg (95-98); ARTERIAL BLOOD GAS BASE EXCESS 1.6 mmol/L (-2-2); ARTERIAL BLOOD GAS PO2 132.7 mmHg (80-100); ARTERIAL BLOOD GAS pH 7.377 (7.350-7.450)
[2020-05-03 07:13] LABS: ALLENS TEST POSITIVE; VENT MODE VOL A/C
[2020-05-03 07:14] LABS: VENT RATE 12
[2020-05-03 07:40] LABS: ALBUMIN 2.5 g/dl (3.4-5.0); BLOOD UREA NITROGEN 31.2 mg/dL (7-18); CALCIUM 8.5 mg/dL (8.5-10.1); CREATININE 2.5 mg/dL (0.55-1.3); MAGNESIUM 1.8 mg/dL (1.8-2.4); PHOSPHOROUS 2.2 mg/dL (2.5-4.9); POTASSIUM 3.7 mmol/L (3.5-5.1); TOT PROT 5.8 g/dl (6.4-8.2)
[2020-05-03 07:42] LABS: BASO % 0.9 % (0-2.0); EOS % 5.1 % (0-4.5); HEMATOCRIT 22.6 % (35.4-49); HEMOGLOBIN 7.3 GM/dL (11.7-16.9); LYMPH % 13.4 % (8-40); MCHC 32.5 g/dl (32.0-35.9); MEAN CELL VOLUME 92.5 fl (80-96); MEAN PLT VOLUME 8.6 fl (7.5-11.1); NEUT % 63.6 % (42.8-82.8); PLATELET COUNT 163 K/MM3 (134-434); RBC 2.44 M/mm3 (4.00-5.60); RDW 18.6 % (11.9-15.9); WHITE BLOOD COUNT 6.8 K/mm3 (4.0-10.0)
[2020-05-03] MEDS: HEPARIN NA (PORCINE) 5,000 UNITS/ML 1ML VIAL SQ SCH ×2 (09:50→23:11)
[2020-05-03] MEDS: CHLORHEXIDINE GLUCONATE 0.12% 15ML CUP MM SCH ×2 (09:50→23:11)
[2020-05-03] MEDS: SILVER SULFADIAZINE 1% TOP CREAM 50 GM JAR TP SCH (09:50)
[2020-05-03] MEDS: PANTOPRAZOLE SODIUM 40 MG VIAL IVPUSH SCH (09:50)
[2020-05-03 09:54] LABS: ANISOCYTOSIS 1+; MACROCYTOSIS 0; PLATELET ESTIMATE NORMAL
--- NOTE | 2020-05-03 12:26 | PN ---
Teaching Attending Note Name of Resident: Mitali Madrid ATTENDING PHYSICIAN STATEMENT I saw and evaluated the patient. I reviewed the resident's note and discussed the case with the resident. I agree with the resident's findings and plan as documented. SUBJECTIVE: Patient seen and examined in the ICU. Remains intubated, sedated on NE drip for hemodynamic support. Doing overall poorly. OBJECTIVE: Intake & Output 04/30/20 05/01/20 05/02/20 05/03/20 23:59 23:59 23:59 23:59 Intake Total 2794 662 1285 1029.7 Output Total 4260 65 3365 Balance -1466 597 -2080 1029.7 Weight 224 lb 13.944 oz 225 lb 4 oz Last Vital Signs Temp Pulse Resp BP Pulse Ox 97.5 F L 81 14 104/58 L 100 05/03/20 12:01 05/03/20 12:01 05/03/20 12:10 05/03/20 12:05/03/20 12:10 Active Medications Acetaminophen (Ofirmev Injection -) 1,000 mg IVPB Q6H PRN PRN Reason: FEVER Last Admin: 05/01/20 22:12 Dose: 1,000 mg Documented by: Albuterol Sulfate (Ventolin Hfa Inhaler -) 2 puff IH Q4H PRN PRN Reason: SHORT OF BREATH/WHEEZING Artificial Tears (Artificial Tears) 1 drop OU BID PRN PRN Reason: DRY EYES Chlorhexidine Gluconate (Hibiclens For Decolonization -) 1 applic TP HS [facility] Last Admin: 05/02/20 21:17 Dose: 1 applic Documented by: Chlorhexidine Gluconate (Peridex -) 15 ml MM BID EAN Last Admin: 05/03/20 09:50 Dose: 15 ml Documented by: Heparin Sodium (Porcine) (Heparin -) 5,000 unit SQ BID EAN Last Admin: 05/03/20 09:50 Dose: 5,000 unit Documented by: Norepinephrine Bitartrate (Levophed Bag) 8,000 mcg in 500 mls @ 18.75 mls/hr IVPB TITR EAN; Protocol Last Titration: 05/03/20 07:14 Dose: 4 mcg/min, 15 mls/hr Documented by: Sodium Chloride (Normal Saline -) 250 mls @ 3,000 mls/hr IV PRN PRN PRN Reason: Hypotension during Dialysis Fentanyl (Sublimaze Ivpb) 500 mcg in 100 mls @ 508.025 mls/hr IVPB TITR [facility]; Protocol Last Admin: 05/03/20 11:22 Dose: 0.98 mcg/kg/hr, 19.915 mls/hr Documented by: Midazolam HCl 100 mg/ Sodium (Chloride) 100 mls @ 1 mls/hr IVPB TITR [facility]; Protocol Last Titration: 05/03/20 09:51 Dose: 0 mg/hr, 0 mls/hr Documented by: Metoprolol Tartrate (Lopressor Injection -) 5 mg IVPUSH Q4H PRN PRN Reason: TACHYCARDIA Nystatin (Mycostatin Cream -) 1 applic TP PRN PRN PRN Reason: HYGEINE Last Admin: 04/28/20 09:59 Dose: 1 applic Documented by: Pantoprazole Sodium (Protonix Iv) 40 mg IVPUSH DAILY [facility] Last Admin: 05/03/20 09:50 Dose: 40 mg Documented by: Silver Sulfadiazine (Silvadene -) 1 applic TP DAILY [facility] Last Admin: 05/03/20 09:50 Dose: 1 applic Documented by: Vitamin A/Vitamin D (Vitamin A & D Top Oint -) 1 applic TP Q6HPO [facility] Last Admin: 05/03/20 11:19 Dose: 1 applic Documented by: Gen: intubated, sedated Heart: RRR Lung: scattered rhonchi Abd: soft, nontender Ext: + edema Laboratory Results - last 24 hr 05/03/20 05/03/20 05/03/20 05:00 05:00 06:20 WBC 6.8 RBC 2.44 L Hgb 7.3 L Hct 22.6 L MCV 92.5 MCH 30.0 MCHC 32.5 RDW 18.6 H Plt Count 163 MPV 8.6 Absolute Neuts (auto) 4.3 Neutrophils % 63.6 Neutrophils % (Manual) 62.4 Band Neutrophils % 1.0 Lymphocytes % 13.4 D Lymphocytes % (Manual) 12.8 Monocytes % 17.0 H Monocytes % (Manual) 9 Eosinophils % 5.1 H Eosinophils % (Manual) 8.9 H D Basophils % 0.9 Basophils % (Manual) 2.0 D Myelocytes % (Man) 2 D Promyelocytes % (Man) 0 Blast Cells % (Manual) 0 Nucleated RBC % 0 Metamyelocytes 2 D Hypochromia 0 Platelet Estimate Normal Polychromasia 1+ Poikilocytosis 0 Basophilic Stippling 1+ Anisocytosis 1+ Microcytosis 1+ Macrocytosis 0 Anticoagulation Therapy No Result Required. Puncture Site Right radial Patient Temperature No Result Required. ABG pH 7.377 ABG pCO2 47.10 H ABG pO2 132.7 H ABG HCO3 27.0 ABG O2 Sat (Measured) 98.6 H ABG O2 Content No Result Required. ABG Base Excess 1.6 Wally Test Positive Patient On Oxygen Yes O2 Delivery Device Vent Oxygen Flow Rate 40% Vent Mode Vol a/c Vent Rate 12 Mechanical Rate No Result Required. PEEP 5.0 Pressure Support Vent 400 Sodium 136 Potassium 3.7 Chloride 98 Carbon Dioxide 31 Anion Gap 7 L BUN 31.2 H Creatinine 2.5 H Est GFR (CKD-EPI)AfAm 26.90 Est GFR (CKD-EPI)NonAf 23.21 Random Glucose 142 H Calcium 8.5 Phosphorus 2.2 L Magnesium 1.8 Total Bilirubin 1.0 AST 22 ALT 11 L Alkaline Phosphatase 135 H Total Protein 5.8 L Albumin 2.5 L ASSESSMENT AND PLAN: Acute Hypoxic Respiratory Failure MRSA Pneumonia UTI Sacral Decubitus Ulcers Septic Shock Lactic Acidosis Acute Kidney Injury +Troponins likely Demand Ischemia Atrial Fibrillation Acute on Chronic Diastolic Heart Failure Pulmonary HTN Volume Overload COPD HTN Hyperlipidemia Bacteremia Anemia - continue antibiotics - HD per renal - monitor urine output, creatinine - titrate pressors to maintain MAP >65 - rate control - daily sedation vacations to assess mental status - spontaneous breathing trials when volume status improved - enteral feeds - DVT/GI prophylaxis - continue ICU monitoring - will either need tracheostomy for prolonged intubation and failure to wean Versus compassionate extubation due to likely overall poor outcome Dr Fulton Critical care time spent in reviewing chart, evaluating patient and formulating plan 35 min
--- NOTE | 2020-05-03 15:26 | PN ---
Physical Exam: SUBJECTIVE: Patient seen and examined, unchanged and no events overnight. Met with , son, and daughter for goals of care discussion. They will discuss the options as a family and get back to us. OBJECTIVE: Vital Signs Period Temp Pulse Resp BP Sys/Cesar Pulse Ox Last 24 Hr 97.2 F-98.6 F 81-100 12-24 104-132/50-74 100-100 GENERAL: sedated and intubated, responds to painful stimuli HEAD: mouth permanently open with visible dried/crusted blood around lips EYES: open occasionally, tends to have an upward gaze LUNGS: Breath sounds from vent are equal, clear to auscultation bilaterally, no wheezes, no crackles. HEART: Regular rate and rhythm, S1, S2 without murmur, rub or gallop. ABDOMEN: nondistended, soft EXTREMITIES: 1+ pitting edema on hands and feet, scattered ecchymoses on arms bilaterally NEUROLOGICAL: responds to painful stimuli SKIN: stage 4 sacral ulcer, wet sloughing skin on posterior legs bilaterally reaching the calf on the L leg, ulcer in the penile area Laboratory Results - last 24 hr 05/03/20 05/03/20 05/03/20 05:00 05:00 06:20 WBC 6.8 RBC 2.44 L Hgb 7.3 L Hct 22.6 L MCV 92.5 MCH 30.0 MCHC 32.5 RDW 18.6 H Plt Count 163 MPV 8.6 Absolute Neuts (auto) 4.3 Neutrophils % 63.6 Neutrophils % (Manual) 62.4 Band Neutrophils % 1.0 Lymphocytes % 13.4 D Lymphocytes % (Manual) 12.8 Monocytes % 17.0 H Monocytes % (Manual) 9 Eosinophils % 5.1 H Eosinophils % (Manual) 8.9 H D Basophils % 0.9 Basophils % (Manual) 2.0 D Myelocytes % (Man) 2 D Promyelocytes % (Man) 0 Blast Cells % (Manual) 0 Nucleated RBC % 0 Metamyelocytes 2 D Hypochromia 0 Platelet Estimate Normal Polychromasia 1+ Poikilocytosis 0 Basophilic Stippling 1+ Anisocytosis 1+ Microcytosis 1+ Macrocytosis 0 Anticoagulation Therapy No Result Required. Puncture Site Right radial Patient Temperature No Result Required. ABG pH 7.377 ABG pCO2 47.10 H ABG pO2 132.7 H ABG HCO3 27.0 ABG O2 Sat (Measured) 98.6 H ABG O2 Content No Result Required. ABG Base Excess 1.6 Wally Test Positive Patient On Oxygen Yes O2 Delivery Device Vent Oxygen Flow Rate 40% Vent Mode Vol a/c Vent Rate 12 Mechanical Rate No Result Required. PEEP 5.0 Pressure Support Vent 400 Sodium 136 Potassium 3.7 Chloride 98 Carbon Dioxide 31 Anion Gap 7 L BUN 31.2 H Creatinine 2.5 H Est GFR (CKD-EPI)AfAm 26.90 Est GFR (CKD-EPI)NonAf 23.21 Random Glucose 142 H Calcium 8.5 Phosphorus 2.2 L Magnesium 1.8 Total Bilirubin 1.0 AST 22 ALT 11 L Alkaline Phosphatase 135 H Total Protein 5.8 L Albumin 2.5 L Active Medications Generic Name Dose Route Start Last Admin Trade Name Freq PRN Reason Stop Dose Admin Acetaminophen 1,000 mg 04/08/20 08:58 05/01/20 22:12 Ofirmev Injection - IVPB 1,000 mg Q6H PRN Administration FEVER Albuterol Sulfate 2 puff 04/22/20 08:21 Ventolin Hfa Inhaler - IH Q4H PRN SHORT OF BREATH/WHEEZING Artificial Tears 1 drop 04/27/20 13:51 Artificial Tears OU BID PRN DRY EYES Chlorhexidine Gluconate 1 applic 04/07/20 22:00 05/02/20 21:17 Hibiclens For Decolonization - TP 1 applic HS EAN Administration Chlorhexidine Gluconate 15 ml 04/18/20 22:00 05/03/20 09:50 Peridex - MM 15 ml BID EAN Administration Heparin Sodium (Porcine) 5,000 unit 04/10/20 15:15 05/03/20 09:50 Heparin - SQ 5,000 unit BID EAN Administration Norepinephrine Bitartrate 8,000 mcg in 500 mls @ 18.75 mls/hr 04/21/20 00:15 05/03/20 07:14 Levophed Bag IVPB 4 mcg/min TITR EAN 15 mls/hr Titration Protocol 5 MCG/MIN Sodium Chloride 250 mls @ 3,000 mls/hr 04/30/20 10:13 Normal Saline - IV PRN PRN Hypotension during Dialysis Fentanyl 500 mcg in 100 mls @ 508.025 mls/hr 04/29/20 13:15 05/03/20 11:22 Sublimaze Ivpb IVPB 0.98 mcg/kg/hr TITR EAN 19.915 mls/hr Administration Protocol 25 MCG/KG/HR Midazolam HCl 100 mg/ Sodium 100 mls @ 1 mls/hr 05/02/20 21:45 05/03/20 09:51 Chloride IVPB 0 mg/hr TITR EAN 0 mls/hr Titration Protocol 1 MG/HR Metoprolol Tartrate 5 mg 04/07/20 22:50 Lopressor Injection - IVPUSH Q4H PRN TACHYCARDIA Nystatin 1 applic 04/19/20 23:58 04/28/20 09:59 Mycostatin Cream - TP 1 applic PRN PRN Administration HYGEINE Pantoprazole Sodium 40 mg 04/08/20 10:00 05/03/20 09:50 Protonix Iv IVPUSH 40 mg DAILY EAN Administration Silver Sulfadiazine 1 applic 04/23/20 20:45 05/03/20 09:50 Silvadene - TP 1 applic DAILY EAN Administration Vitamin A/Vitamin D 1 applic 04/30/20 12:00 05/03/20 11:19 Vitamin A & D Top Oint - TP 1 applic Q6HPO EAN Administration Vent: RR 12, TV 400, FiO2 40, PEEP 5 Drips: 4 NE, 100 fentanyl, 4 versed ASSESSMENT/PLAN: 79yo M with PMHx of CHF, COPD, CVA, HTN, HLD, and afib on eliquis, with DNR sta tus brought in by EMS from [facility] for seizure-like episode, ED course concerning for sepsis (source unclear), intubated for acute respiratory failure. #Neuro - sedated with fentanyl and versed - responsive to painful stimuli #Cardio CHF exacerbation, afib, inverted T waves - on heparin ppx, will restart eliquis when patient tolerates - goal MAPs >65, NE as needed #Pulm pulmonary edema, bilateral pleural effusions, COPD exacerbation - currently intubated, will decide with family if trach placement #GI - PEG tube feeds #Renal fluid overloaded, bilateral UE + LE pitting edema - HD yesterday, discontinued albumin - further renal recs pending depending on fullow up goals of care discussion with family #ID - completed 18 days of cefepime and vancomycin #Skin stage 4 sacral ulcer, extensive skin sloughing on posterior legs bilaterally - continue nursing care #FEN electrolytes WNL, replete as needed #PPX - DVT: heparin - GI: pentoprazole #LTD - PEG tube - R trialysis catheter 04/25 - Saavedra - fecal management system (since patient has stage 4 sacral ulcer) Visit type - Emergency Visit Emergency Visit: Yes ED Registration Date: 04/07/20 Care time: The patient presented to the Emergency Department on the above date and was hospitalized for further evaluation of their emergent condition. - New Patient This patient is new to me today: No - Critical Care Critical Care patient: Yes Total Critical Care Time (in minutes): 36 Critical Care Statement: The care of this patient involved high complexity decision making to prevent further life threatening deterioration of the patient's condition and/or to evaluate & treat vital organ system(s) failure or risk of failure. ATTENDING PHYSICIAN STATEMENT I saw and evaluated the patient. I reviewed the resident's note and discussed the case with the resident. I agree with the resident's findings and plan as documented. SUBJECTIVE: OBJECTIVE: ASSESSMENT AND PLAN:
--- NOTE | 2020-05-03 18:03 | PN ---
Progress Note, Physician History of Present Illness: Pt seen and examined at bedside. He remains in the ICU. He remains intubated. - Current Medication List Current Medications: Active Medications Acetaminophen (Ofirmev Injection -) 1,000 mg IVPB Q6H PRN PRN Reason: FEVER Last Admin: 05/01/20 22:12 Dose: 1,000 mg Documented by: Albuterol Sulfate (Ventolin Hfa Inhaler -) 2 puff IH Q4H PRN PRN Reason: SHORT OF BREATH/WHEEZING Artificial Tears (Artificial Tears) 1 drop OU BID PRN PRN Reason: DRY EYES Chlorhexidine Gluconate (Hibiclens For Decolonization -) 1 applic TP HS [facility] Last Admin: 05/02/20 21:17 Dose: 1 applic Documented by: Chlorhexidine Gluconate (Peridex -) 15 ml MM BID E[facility] Last Admin: 05/03/20 09:50 Dose: 15 ml Documented by: Heparin Sodium (Porcine) (Heparin -) 5,000 unit SQ BID EAN Last Admin: 05/03/20 09:50 Dose: 5,000 unit Documented by: Norepinephrine Bitartrate (Levophed Bag) 8,000 mcg in 500 mls @ 18.75 mls/hr IVPB TITR E[facility]; Protocol Last Titration: 05/03/20 07:14 Dose: 4 mcg/min, 15 mls/hr Documented by: Sodium Chloride (Normal Saline -) 250 mls @ 3,000 mls/hr IV PRN PRN PRN Reason: Hypotension during Dialysis Fentanyl (Sublimaze Ivpb) 500 mcg in 100 mls @ 508.025 mls/hr IVPB TITR [facility]; Protocol Last Admin: 05/03/20 11:22 Dose: 0.98 mcg/kg/hr, 19.915 mls/hr Documented by: Midazolam HCl 100 mg/ Sodium (Chloride) 100 mls @ 1 mls/hr IVPB TITR [facility]; Protocol Last Titration: 05/03/20 09:51 Dose: 0 mg/hr, 0 mls/hr Documented by: Metoprolol Tartrate (Lopressor Injection -) 5 mg IVPUSH Q4H PRN PRN Reason: TACHYCARDIA Nystatin (Mycostatin Cream -) 1 applic TP PRN PRN PRN Reason: HYGEINE Last Admin: 04/28/20 09:59 Dose: 1 applic Documented by: Pantoprazole Sodium (Protonix Iv) 40 mg IVPUSH DAILY [facility] Last Admin: 05/03/20 09:50 Dose: 40 mg Documented by: Silver Sulfadiazine (Silvadene -) 1 applic TP DAILY [facility] Last Admin: 05/03/20 09:50 Dose: 1 applic Documented by: Vitamin A/Vitamin D (Vitamin A & D Top Oint -) 1 applic TP Q6HPO [facility] Last Admin: 05/03/20 17:07 Dose: 1 applic Documented by: - Objective Vital Signs: Vital Signs Temperature 98.1 F 05/03/20 14:00 Pulse Rate 81 05/03/20 16:00 Respiratory Rate 14 05/03/20 16:09 Blood Pressure 105/52 L 05/03/20 16:00 O2 Sat by Pulse Oximetry (%) 100 05/03/20 16:09 Constitutional: Yes: Calm Eyes: Yes: Conjunctiva Clear HENT: Yes: Atraumatic Cardiovascular: Yes: S1, S2 Respiratory: Yes: Mechanically Ventilated Gastrointestinal: Yes: Soft Genitourinary: Yes: Saavedra Present Edema: Yes Edema: LLE: 2+, RLE: 2+ Neurological: Yes: Lethargy Labs: CBC, BMP 05/03/20 05:00 05/03/20 05:00 INR, PTT INR 1.49 (0.83-1.09) H 04/08/20 05:20 - ....Imaging Chest X-ray: Report Reviewed Problem List - Problems (1) CHF exacerbation Code(s): I50.9 - HEART FAILURE, UNSPECIFIED (2) Sepsis Code(s): A41.9 - SEPSIS, UNSPECIFIED ORGANISM (3) SURESH (acute kidney injury) Code(s): N17.9 - ACUTE KIDNEY FAILURE, UNSPECIFIED Assessment/Plan Current Medications Generic Name Dose Route Start Last Admin Trade Name Freq PRN Reason Stop Dose Admin Acetaminophen 1,000 mg 04/08/20 08:58 05/01/20 22:12 Ofirmev Injection - IVPB 1,000 mg Q6H PRN Administration FEVER Albuterol Sulfate 2 puff 04/22/20 08:21 Ventolin Hfa Inhaler - IH Q4H PRN SHORT OF BREATH/WHEEZING Artificial Tears 1 drop 04/27/20 13:51 Artificial Tears OU BID PRN DRY EYES Chlorhexidine Gluconate 1 applic 04/07/20 22:00 05/02/20 21:17 Hibiclens For Decolonization - TP 1 applic HS EAN Administration Chlorhexidine Gluconate 15 ml 04/18/20 22:00 05/03/20 09:50 Peridex - MM 15 ml BID EAN Administration Heparin Sodium (Porcine) 5,000 unit 04/10/20 15:15 05/03/20 09:50 Heparin - SQ 5,000 unit BID EAN Administration Norepinephrine Bitartrate 8,000 mcg in 500 mls @ 18.75 mls/hr 04/21/20 00:15 05/03/20 07:14 Levophed Bag IVPB 4 mcg/min TITR EAN 15 mls/hr Titration Protocol 5 MCG/MIN Sodium Chloride 250 mls @ 3,000 mls/hr 04/30/20 10:13 Normal Saline - IV PRN PRN Hypotension during Dialysis Fentanyl 500 mcg in 100 mls @ 508.025 mls/hr 04/29/20 13:15 05/03/20 17:28 Sublimaze Ivpb IVPB 0.98 mcg/kg/hr TITR EAN 19.915 mls/hr Administration Protocol 25 MCG/KG/HR Midazolam HCl 100 mg/ Sodium 100 mls @ 1 mls/hr 05/02/20 21:45 05/03/20 09:51 Chloride IVPB 0 mg/hr TITR EAN 0 mls/hr Titration Protocol 1 MG/HR Metoprolol Tartrate 5 mg 04/07/20 22:50 Lopressor Injection - IVPUSH Q4H PRN TACHYCARDIA Nystatin 1 applic 04/19/20 23:58 04/28/20 09:59 Mycostatin Cream - TP 1 applic PRN PRN Administration HYGEINE Pantoprazole Sodium 40 mg 04/08/20 10:00 05/03/20 09:50 Protonix Iv IVPUSH 40 mg DAILY EAN Administration Silver Sulfadiazine 1 applic 04/23/20 20:45 05/03/20 09:50 Silvadene - TP 1 applic DAILY EAN Administration Vitamin A/Vitamin D 1 applic 04/30/20 12:00 05/03/20 17:07 Vitamin A & D Top Oint - TP 1 applic Q6HPO EAN Administration Impression 1. SURESH 2. hyperkalemia 3. resp failure 4. UTI 5. sepsis 6. shock 7. MRSA Pneumonia 8. Lactic Acidosis 9. +Troponins 10. Atrial Fibrillation 11. LV Diastolic Dysfunction 12. Pulmonary HTN 13. Bacteremia 14. anemia 15. hypokalemia Plan - pt had HD yesterday - case discussed with at bedside. She is discussing GOC with the rest of the family. She will let us know about her decision tomorrow - vent support - monitor output - pt remains overloaded - he did not respond to HD - shiley remains in place as he needs access - discussed with ICU team
[2020-05-03] MEDS: CHLORHEXIDINE GLUCONATE 4% CLEANSER FOR DECOLONIZATION TP SCH (23:11)
[2020-05-03] MEDS: MIDAZOLAM 100 MG in SODIUM CHLORIDE 100 ML IVPB SCH (23:11)
[2020-05-04 06:13] LABS: HEMATOCRIT 22.8 % (35.4-49); HEMOGLOBIN 7.2 GM/dL (11.7-16.9); MCH 29.3 pg (25.7-33.7); MCHC 31.6 g/dl (32.0-35.9); MEAN CELL VOLUME 92.8 fl (80-96); PLATELET COUNT 189 K/MM3 (134-434); RBC 2.46 M/mm3 (4.00-5.60); RDW 19.2 % (11.9-15.9); WHITE BLOOD COUNT 6.6 K/mm3 (4.0-10.0)
[2020-05-04 06:14] LABS: BASO % 1.2 % (0-2.0); EOS % 5.1 % (0-4.5); LYMPH % 15.2 % (8-40); MEAN PLT VOLUME 8.5 fl (7.5-11.1); MONO % 16.4 % (3.8-10.2); NEUT % 62.1 % (42.8-82.8)
[2020-05-04 06:29] LABS: ALBUMIN 2.1 g/dl (3.4-5.0); BILIRUBIN,TOTAL 0.7 mg/dL (0.2-1); CALCIUM 8.1 mg/dL (8.5-10.1); MAGNESIUM 1.8 mg/dL (1.8-2.4); PHOSPHOROUS 2.4 mg/dL (2.5-4.9); POTASSIUM 3.9 mmol/L (3.5-5.1); TOT PROT 5.4 g/dl (6.4-8.2)
[2020-05-04] MEDS: NOREPINEPHRINE BITARTRATE 8,000 MCG/500 ML BAG IVPB SCH (06:58)
[2020-05-04] MEDS: VITAMINS A AND D TOPICAL OINTMENT 60 GM TUBE TP SCH ×3 (06:58→17:58)
[2020-05-04] MEDS: CHLORHEXIDINE GLUCONATE 0.12% 15ML CUP MM SCH ×2 (09:10→21:27)
[2020-05-04] MEDS: HEPARIN NA (PORCINE) 5,000 UNITS/ML 1ML VIAL SQ SCH ×2 (09:10→21:27)
[2020-05-04] MEDS: PANTOPRAZOLE SODIUM 40 MG VIAL IVPUSH SCH (09:10)
[2020-05-04] MEDS: SILVER SULFADIAZINE 1% TOP CREAM 50 GM JAR TP SCH (09:11)
[2020-05-04] MEDS: FENTANYL NS IVPB 500 MCG/100 ML BAG IVPB SCH ×2 (09:12→14:29)
[2020-05-04 10:36] LABS: ANISOCYTOSIS 1+; MACROCYTOSIS 1+; PLATELET ESTIMATE NORMAL
--- NOTE | 2020-05-04 12:14 | PN ---
Teaching Attending Note Name of Resident: Martha Figueroa ATTENDING PHYSICIAN STATEMENT I saw and evaluated the patient. I reviewed the resident's note and discussed the case with the resident. I agree with the resident's findings and plan as documented. SUBJECTIVE: Patient seen and examined in the ICU. Remains intubated, sedated on NE drip @ 3mcq for hemodynamic support. Doing overall poorly. OBJECTIVE: Intake & Output 05/01/20 05/02/20 05/03/20 05/04/20 23:59 23:59 23:59 23:59 Intake Total 662 1285 2053.2 820 Output Total 65 3365 50 Balance 597 -2080 2003.2 820 Weight 225 lb 4 oz Last Vital Signs Temp Pulse Resp BP Pulse Ox 98.8 F 79 14 108/52 L 100 05/04/20 11:29 05/04/20 11:29 05/04/20 11:31 05/04/20 11:29 05/04/20 11:31 Active Medications Acetaminophen (Ofirmev Injection -) 1,000 mg IVPB Q6H PRN PRN Reason: FEVER Last Admin: 05/01/20 22:12 Dose: 1,000 mg Documented by: Albuterol Sulfate (Ventolin Hfa Inhaler -) 2 puff IH Q4H PRN PRN Reason: SHORT OF BREATH/WHEEZING Artificial Tears (Artificial Tears) 1 drop OU BID PRN PRN Reason: DRY EYES Chlorhexidine Gluconate (Hibiclens For Decolonization -) 1 applic TP HS [facility] Last Admin: 05/03/20 23:11 Dose: 1 applic Documented by: Chlorhexidine Gluconate (Peridex -) 15 ml MM BID [facility] Last Admin: 05/04/20 09:10 Dose: 15 ml Documented by: Heparin Sodium (Porcine) (Heparin -) 5,000 unit SQ BID [facility] Last Admin: 05/04/20 09:10 Dose: 5,000 unit Documented by: Norepinephrine Bitartrate (Levophed Bag) 8,000 mcg in 500 mls @ 18.75 mls/hr IVPB TITR [facility]; Protocol Last Admin: 05/04/20 06:58 Dose: 4 mcg/min, 15 mls/hr Documented by: Sodium Chloride (Normal Saline -) 250 mls @ 3,000 mls/hr IV PRN PRN PRN Reason: Hypotension during Dialysis Fentanyl (Sublimaze Ivpb) 500 mcg in 100 mls @ 508.025 mls/hr IVPB TITR [facility]; Protocol Last Admin: 05/04/20 09:12 Dose: 0.98 mcg/kg/hr, 19.915 mls/hr Documented by: Midazolam HCl 100 mg/ Sodium (Chloride) 100 mls @ 1 mls/hr IVPB TITR [facility]; Protocol Last Admin: 05/03/20 23:11 Dose: Not Given Documented by: Metoprolol Tartrate (Lopressor Injection -) 5 mg IVPUSH Q4H PRN PRN Reason: TACHYCARDIA Nystatin (Mycostatin Cream -) 1 applic TP PRN PRN PRN Reason: HYGEINE Last Admin: 04/28/20 09:59 Dose: 1 applic Documented by: Pantoprazole Sodium (Protonix Iv) 40 mg IVPUSH DAILY [facility] Last Admin: 05/04/20 09:10 Dose: 40 mg Documented by: Silver Sulfadiazine (Silvadene -) 1 applic TP DAILY [facility] Last Admin: 05/04/20 09:11 Dose: 1 applic Documented by: Vitamin A/Vitamin D (Vitamin A & D Top Oint -) 1 applic TP Q6HPO [facility] Last Admin: 05/04/20 06:58 Dose: 1 applic Documented by: Gen: intubated, sedated Heart: RRR Lung: scattered rhonchi Abd: soft, nontender Ext: + edema Laboratory Results - last 24 hr 05/04/20 05/04/20 05:30 05:30 WBC 6.6 RBC 2.46 L Hgb 7.2 L Hct 22.8 L MCV 92.8 MCH 29.3 MCHC 31.6 L RDW 19.2 H Plt Count 189 MPV 8.5 Absolute Neuts (auto) 4.1 Neutrophils % 62.1 Lymphocytes % 15.2 Monocytes % 16.4 H Eosinophils % 5.1 H Basophils % 1.2 Nucleated RBC % 0 Sodium 134 L Potassium 3.9 Chloride 98 Carbon Dioxide 29 Anion Gap 7 L BUN 37.0 H Creatinine 3.0 H Est GFR (CKD-EPI)AfAm 21.58 Est GFR (CKD-EPI)NonAf 18.62 Random Glucose 188 H Calcium 8.1 L Phosphorus 2.4 L Magnesium 1.8 Total Bilirubin 0.7 AST 24 ALT 12 L Alkaline Phosphatase 147 H Total Protein 5.4 L Albumin 2.1 L ASSESSMENT AND PLAN: Acute Hypoxic Respiratory Failure MRSA Pneumonia UTI Sacral Decubitus Ulcers Septic Shock Lactic Acidosis Acute Kidney Injury +Troponins likely Demand Ischemia Atrial Fibrillation Acute on Chronic Diastolic Heart Failure Pulmonary HTN Volume Overload COPD HTN Hyperlipidemia Bacteremia Anemia - continue antibiotics - HD per renal - monitor urine output, creatinine - titrate pressors to maintain MAP >65 - rate control - daily sedation vacations to assess mental status - spontaneous breathing trials when volume status improved - enteral feeds - DVT/GI prophylaxis - continue ICU monitoring - will either need tracheostomy for prolonged intubation and failure to wean Versus compassionate extubation due to likely overall poor outcome : Would favor compassionate extubation Dr Fulton Critical care time spent in reviewing chart, evaluating patient and formulating plan 35 min
[2020-05-04] MEDS: LYTES/YERBA SANTA 240 ML BOTTLE MM SCH (13:30)
--- NOTE | 2020-05-04 13:36 | PN ---
Progress Note, Physician History of Present Illness: Pt seen and examined at bedside. He remains in the ICU. He remains lethargic. He remains on vent. - Current Medication List Current Medications: Active Medications Acetaminophen (Ofirmev Injection -) 1,000 mg IVPB Q6H PRN PRN Reason: FEVER Last Admin: 05/01/20 22:12 Dose: 1,000 mg Documented by: Albuterol Sulfate (Ventolin Hfa Inhaler -) 2 puff IH Q4H PRN PRN Reason: SHORT OF BREATH/WHEEZING Artificial Tears (Artificial Tears) 1 drop OU BID PRN PRN Reason: DRY EYES Chlorhexidine Gluconate (Hibiclens For Decolonization -) 1 applic TP HS [facility] Last Admin: 05/03/20 23:11 Dose: 1 applic Documented by: Chlorhexidine Gluconate (Peridex -) 15 ml MM BID [facility] Last Admin: 05/04/20 09:10 Dose: 15 ml Documented by: Heparin Sodium (Porcine) (Heparin -) 5,000 unit SQ BID [facility] Last Admin: 05/04/20 09:10 Dose: 5,000 unit Documented by: Norepinephrine Bitartrate (Levophed Bag) 8,000 mcg in 500 mls @ 18.75 mls/hr IVPB TITR [facility]; Protocol Last Admin: 05/04/20 06:58 Dose: 4 mcg/min, 15 mls/hr Documented by: Sodium Chloride (Normal Saline -) 250 mls @ 3,000 mls/hr IV PRN PRN PRN Reason: Hypotension during Dialysis Fentanyl (Sublimaze Ivpb) 500 mcg in 100 mls @ 508.025 mls/hr IVPB TITR [facility]; Protocol Last Admin: 05/04/20 09:12 Dose: 0.98 mcg/kg/hr, 19.915 mls/hr Documented by: Midazolam HCl 100 mg/ Sodium (Chloride) 100 mls @ 1 mls/hr IVPB TITR [facility]; Protocol Last Admin: 05/03/20 23:11 Dose: Not Given Documented by: Metoprolol Tartrate (Lopressor Injection -) 5 mg IVPUSH Q4H PRN PRN Reason: TACHYCARDIA Nystatin (Mycostatin Cream -) 1 applic TP PRN PRN PRN Reason: HYGEINE Last Admin: 04/28/20 09:59 Dose: 1 applic Documented by: Pantoprazole Sodium (Protonix Iv) 40 mg IVPUSH DAILY [facility] Last Admin: 05/04/20 09:10 Dose: 40 mg Documented by: Saliva Substitute (Mouthkote Solution -) 1 applic MM DAILY [facility] Last Admin: 05/04/20 13:30 Dose: 1 applic Documented by: Silver Sulfadiazine (Silvadene -) 1 applic TP DAILY [facility] Last Admin: 05/04/20 09:11 Dose: 1 applic Documented by: Vitamin A/Vitamin D (Vitamin A & D Top Oint -) 1 applic TP Q6HPO [facility] Last Admin: 05/04/20 13:12 Dose: 1 applic Documented by: - Objective Vital Signs: Vital Signs Temperature 98.8 F 05/04/20 11:29 Pulse Rate 88 05/04/20 13:27 Respiratory Rate 15 05/04/20 13:27 Blood Pressure 106/54 L 05/04/20 13:27 O2 Sat by Pulse Oximetry (%) 100 05/04/20 11:31 Constitutional: Yes: Calm Eyes: Yes: Conjunctiva Clear HENT: Yes: Atraumatic Neck: Yes: Supple Cardiovascular: Yes: S1, S2 Respiratory: Yes: Mechanically Ventilated Gastrointestinal: Yes: Soft Genitourinary: Yes: Saavedra Present Edema: Yes Edema: LLE: 2+, RLE: 2+ Neurological: Yes: Lethargy Labs: CBC, BMP 05/04/20 05:30 05/04/20 05:30 INR, PTT INR 1.49 (0.83-1.09) H 04/08/20 05:20 Problem List - Problems (1) CHF exacerbation Code(s): I50.9 - HEART FAILURE, UNSPECIFIED (2) Sepsis Code(s): A41.9 - SEPSIS, UNSPECIFIED ORGANISM (3) SURESH (acute kidney injury) Code(s): N17.9 - ACUTE KIDNEY FAILURE, UNSPECIFIED Assessment/Plan Current Medications Generic Name Dose Route Start Last Admin Trade Name Freq PRN Reason Stop Dose Admin Acetaminophen 1,000 mg 04/08/20 08:58 05/01/20 22:12 Ofirmev Injection - IVPB 1,000 mg Q6H PRN Administration FEVER Albuterol Sulfate 2 puff 04/22/20 08:21 Ventolin Hfa Inhaler - IH Q4H PRN SHORT OF BREATH/WHEEZING Artificial Tears 1 drop 04/27/20 13:51 Artificial Tears OU BID PRN DRY EYES Chlorhexidine Gluconate 1 applic 04/07/20 22:00 05/03/20 23:11 Hibiclens For Decolonization - TP 1 applic HS [facility] Administration Chlorhexidine Gluconate 15 ml 04/18/20 22:00 05/04/20 09:10 Peridex - MM 15 ml BID [facility] Administration Heparin Sodium (Porcine) 5,000 unit 04/10/20 15:15 05/04/20 09:10 Heparin - SQ 5,000 unit BID [facility] Administration Norepinephrine Bitartrate 8,000 mcg in 500 mls @ 18.75 mls/hr 04/21/20 00:15 05/04/20 06:58 Levophed Bag IVPB 4 mcg/min TITR [facility] 15 mls/hr Administration Protocol 5 MCG/MIN Sodium Chloride 250 mls @ 3,000 mls/hr 04/30/20 10:13 Normal Saline - IV PRN PRN Hypotension during Dialysis Fentanyl 500 mcg in 100 mls @ 508.025 mls/hr 04/29/20 13:15 05/04/20 09:12 Sublimaze Ivpb IVPB 0.98 mcg/kg/hr TITR [facility] 19.915 mls/hr Administration Protocol 25 MCG/KG/HR Midazolam HCl 100 mg/ Sodium 100 mls @ 1 mls/hr 05/02/20 21:45 05/03/20 23:11 Chloride IVPB Not Given TITR [facility] Protocol 1 MG/HR Metoprolol Tartrate 5 mg 04/07/20 22:50 Lopressor Injection - IVPUSH Q4H PRN TACHYCARDIA Nystatin 1 applic 04/19/20 23:58 04/28/20 09:59 Mycostatin Cream - TP 1 applic PRN PRN Administration HYGEINE Pantoprazole Sodium 40 mg 04/08/20 10:00 05/04/20 09:10 Protonix Iv IVPUSH 40 mg DAILY [facility] Administration Saliva Substitute 1 applic 05/04/20 12:15 05/04/20 13:30 Mouthkote Solution - MM 1 applic DAILY [facility] Administration Silver Sulfadiazine 1 applic 04/23/20 20:45 05/04/20 09:11 Silvadene - TP 1 applic DAILY [facility] Administration Vitamin A/Vitamin D 1 applic 04/30/20 12:00 05/04/20 13:12 Vitamin A & D Top Oint - TP 1 applic Q6HPO [facility] Administration Impression 1. SURESH 2. hyperkalemia 3. resp failure 4. UTI 5. sepsis 6. shock 7. MRSA Pneumonia 8. Lactic Acidosis 9. +Troponins 10. Atrial Fibrillation 11. LV Diastolic Dysfunction 12. Pulmonary HTN 13. Bacteremia 14. anemia 15. hypokalemia Plan - called and discussed care with his . SHe does not want any more dialysis therapy - family are still discussing goc - resume lasix trial - monitor output - cont vent support for now - d/c shiley catheter - discussed with ICU team
--- NOTE | 2020-05-04 16:12 | PN ---
Physical Exam: SUBJECTIVE: Patient seen and examined. Sedated and intubated. 12/400/5/40. 500cc OBJECTIVE: Vital Signs Period Temp Pulse Resp BP Sys/Cesar Pulse Ox Last 24 Hr 97.6 F-98.8 F 79-97 12-25 105-126/52-69 100-100 GENERAL: Sedated and intubated. HEAD: Normal with no signs of trauma. EYES: Conjunctiva clear. ENT: Ears normal, nares patent, perioral and palatine ulcers, moist mucous membranes. ET tube present. NECK: Trachea midline. LUNGS: Clear to auscultation anteriorly. HEART: Regular rate and rhythm, no murmur appreciated. ABDOMEN: Soft, nontender, mild distention, normoactive bowel sounds. EXTREMITIES: Warm, well-perfused, +1 pitting edema all extremities. Erythema of right popliteal fossa. NEUROLOGICAL: cannot assess PSYCH: cannot assess SKIN: Warm, dry, normal turgor. Laboratory Results - last 24 hr 05/04/20 05/04/20 05:30 05:30 WBC 6.6 RBC 2.46 L Hgb 7.2 L Hct 22.8 L MCV 92.8 MCH 29.3 MCHC 31.6 L RDW 19.2 H Plt Count 189 MPV 8.5 Absolute Neuts (auto) 4.1 Neutrophils % 62.1 Neutrophils % (Manual) 70.7 Band Neutrophils % 2.0 Lymphocytes % 15.2 Lymphocytes % (Manual) 17.2 D Monocytes % 16.4 H Monocytes % (Manual) 5 Eosinophils % 5.1 H Eosinophils % (Manual) 2.0 Basophils % 1.2 Basophils % (Manual) 0.0 Myelocytes % (Man) 1 D Promyelocytes % (Man) 0 Blast Cells % (Manual) 0 Nucleated RBC % 0 Metamyelocytes 1 D Hypochromia 0 Platelet Estimate Normal Polychromasia 1+ Poikilocytosis 0 Basophilic Stippling 1+ Anisocytosis 1+ Microcytosis 0 Macrocytosis 1+ Stomatocytes 1+ Sodium 134 L Potassium 3.9 Chloride 98 Carbon Dioxide 29 Anion Gap 7 L BUN 37.0 H Creatinine 3.0 H Est GFR (CKD-EPI)AfAm 21.58 Est GFR (CKD-EPI)NonAf 18.62 Random Glucose 188 H Calcium 8.1 L Phosphorus 2.4 L Magnesium 1.8 Total Bilirubin 0.7 AST 24 ALT 12 L Alkaline Phosphatase 147 H Total Protein 5.4 L Albumin 2.1 L Active Medications Generic Name Dose Route Start Last Admin Trade Name Danielq PRN Reason Stop Dose Admin Acetaminophen 1,000 mg 04/08/20 08:58 05/01/20 22:12 Ofirmev Injection - IVPB 1,000 mg Q6H PRN Administration FEVER Albuterol Sulfate 2 puff 04/22/20 08:21 Ventolin Hfa Inhaler - IH Q4H PRN SHORT OF BREATH/WHEEZING Artificial Tears 1 drop 04/27/20 13:51 Artificial Tears OU BID PRN DRY EYES Chlorhexidine Gluconate 1 applic 04/07/20 22:00 05/03/20 23:11 Hibiclens For Decolonization - TP 1 applic HS [facility] Administration Chlorhexidine Gluconate 15 ml 04/18/20 22:00 05/04/20 09:10 Peridex - MM 15 ml BID [facility] Administration Heparin Sodium (Porcine) 5,000 unit 04/10/20 15:15 05/04/20 09:10 Heparin - SQ 5,000 unit BID [facility] Administration Norepinephrine Bitartrate 8,000 mcg in 500 mls @ 18.75 mls/hr 04/21/20 00:15 05/04/20 06:58 Levophed Bag IVPB 4 mcg/min TITR [facility] 15 mls/hr Administration Protocol 5 MCG/MIN Sodium Chloride 250 mls @ 3,000 mls/hr 04/30/20 10:13 Normal Saline - IV PRN PRN Hypotension during Dialysis Fentanyl 500 mcg in 100 mls @ 508.025 mls/hr 04/29/20 13:15 05/04/20 14:29 Sublimaze Ivpb IVPB 0.98 mcg/kg/hr TITR [facility] 19.915 mls/hr Administration Protocol 25 MCG/KG/HR Midazolam HCl 100 mg/ Sodium 100 mls @ 1 mls/hr 05/02/20 21:45 05/03/20 23:11 Chloride IVPB Not Given TITR [facility] Protocol 1 MG/HR Metoprolol Tartrate 5 mg 04/07/20 22:50 Lopressor Injection - IVPUSH Q4H PRN TACHYCARDIA Nystatin 1 applic 04/19/20 23:58 04/28/20 09:59 Mycostatin Cream - TP 1 applic PRN PRN Administration HYGEINE Pantoprazole Sodium 40 mg 04/08/20 10:00 05/04/20 09:10 Protonix Iv IVPUSH 40 mg DAILY [facility] Administration Saliva Substitute 1 applic 05/04/20 12:15 05/04/20 13:30 Mouthkote Solution - MM 1 applic DAILY [facility] Administration Silver Sulfadiazine 1 applic 04/23/20 20:45 05/04/20 09:11 Silvadene - TP 1 applic DAILY [facility] Administration Vitamin A/Vitamin D 1 applic 04/30/20 12:00 05/04/20 13:12 Vitamin A & D Top Oint - TP 1 applic Q6HPO [facility] Administration ASSESSMENT/PLAN: 79YOM with CHF, COPD, CVA, HTN, HLD, and A-fib on Eliquis BIBEMS from [facility] for seizure-like episode, found in ED to be septic with UTI suspected source, needed to be intubated for respiratory failure. #Neuro -fentanyl 100 #Cardiovascular: -CHF exacerbation, troponinemia -heparin BID -levo 3, pressure stable #Pulm -Pulmonary edema, b/l pleural effusions, COPD exacerbation -/ #Gastrointestinal: -PEG Glucerna feeds #Heme -normocytic anemia -Hb 7.2, been in 7s -monitor #Renal -SURESH -Cr 3 today -borderline hypophosphatemia 2.4, recheck tomorrow -pt's wants compassionate extubation on 05/09, will discuss updates with her in case she changes her decision on tx and HD -output 50cc -Lasix 80mg IV x1, reassess urine output then may have second -renal following #Genitourinary: Continue Saavedra- oliguric #Infectious Disease: -Cefepime d/daria D18 -Vanc d/daria D18 -ID onboard -Hep A abs #Integumentary: -Oral care for perioral/oral ulcers -Wound care for body ulcers on back and extremities FEN: no standing fluids monitor Hb, Cr Nepro Prophylaxis: DVT: heparin GI: Protonix qd Lines: R TLC 04/25 Dispo: ICU Spoke to , Shanique, today over the phone who states she would like to have compassionate extubation on 05/09/20. Pt's daughter's birthday is on 05[birth year]08, and she does not want to withdraw care before then. DNR Visit type - Emergency Visit Emergency Visit: Yes ED Registration Date: 04/07/20 Care time: The patient presented to the Emergency Department on the above date and was hospitalized for further evaluation of their emergent condition. - New Patient This patient is new to me today: Yes Date on this admission: 05/04/20 - Critical Care Critical Care patient: Yes Total Critical Care Time (in minutes): 38 Critical Care Statement: The care of this patient involved high complexity decision making to prevent further life threatening deterioration of the patient's condition and/or to evaluate & treat vital organ system(s) failure or risk of failure. ATTENDING PHYSICIAN STATEMENT I saw and evaluated the patient. I reviewed the resident's note and discussed the case with the resident. I agree with the resident's findings and plan as documented. SUBJECTIVE: OBJECTIVE: ASSESSMENT AND PLAN:
[2020-05-04] MEDS ORDERED: FUROSEMIDE 40 MG/4 ML INJECTABLE VIAL IVPUSH ONE (18:22)
[2020-05-04] MEDS: CHLORHEXIDINE GLUCONATE 4% CLEANSER FOR DECOLONIZATION TP SCH (21:37)
[2020-05-05] MEDS: VITAMINS A AND D TOPICAL OINTMENT 60 GM TUBE TP SCH ×4 (00:10→18:26)
[2020-05-05] MEDS: MIDAZOLAM 100 MG in SODIUM CHLORIDE 100 ML IVPB SCH (00:11)
[2020-05-05] MEDS: NOREPINEPHRINE BITARTRATE 8,000 MCG/500 ML BAG IVPB SCH (05:19)
[2020-05-05] MEDS: FENTANYL NS IVPB 500 MCG/100 ML BAG IVPB SCH ×2 (05:27→21:11)
[2020-05-05 08:17] LABS: BILIRUBIN,TOTAL 0.9 mg/dL (0.2-1); BLOOD UREA NITROGEN 46.5 mg/dL (7-18); CALCIUM 7.9 mg/dL (8.5-10.1); CREATININE 3.6 mg/dL (0.55-1.3); MAGNESIUM 1.8 mg/dL (1.8-2.4); PHOSPHOROUS 2.4 mg/dL (2.5-4.9); POTASSIUM 4.2 mmol/L (3.5-5.1); TOT PROT 5.6 g/dl (6.4-8.2)
[2020-05-05] MEDS ORDERED: PT OWN MED DRAWER 7, Y5N ONE ×2 (08:23→09:02)
[2020-05-05 08:39] LABS: BASO % 0.7 % (0-2.0); EOS % 0.3 % (0-4.5); HEMOGLOBIN 7.6 GM/dL (11.7-16.9); LYMPH % 4.5 % (8-40); MCH 29.5 pg (25.7-33.7); MCHC 31.7 g/dl (32.0-35.9); MEAN CELL VOLUME 93.2 fl (80-96); MEAN PLT VOLUME 8.1 fl (7.5-11.1); MONO % 5.1 % (3.8-10.2); NEUT % 89.4 % (42.8-82.8); PLATELET COUNT 222 K/MM3 (134-434); RBC 2.58 M/mm3 (4.00-5.60); RDW 18.4 % (11.9-15.9); WHITE BLOOD COUNT 19.6 K/mm3 (4.0-10.0)
[2020-05-05] MEDS: SILVER SULFADIAZINE 1% TOP CREAM 50 GM JAR TP SCH (09:03)
[2020-05-05] MEDS: CHLORHEXIDINE GLUCONATE 0.12% 15ML CUP MM SCH ×2 (09:03→21:04)
[2020-05-05] MEDS: PANTOPRAZOLE SODIUM 40 MG VIAL IVPUSH SCH (09:03)
[2020-05-05] MEDS: HEPARIN NA (PORCINE) 5,000 UNITS/ML 1ML VIAL SQ SCH ×2 (09:03→21:03)
[2020-05-05] MEDS: LYTES/YERBA SANTA 240 ML BOTTLE MM SCH (10:04)
--- NOTE | 2020-05-05 10:15 | PN ---
Progress Note (short form) - Note Progress Note: RENAL Pt is in icu intubated, not responding Last Vital Signs Temp Pulse Resp BP Pulse Ox 100.1 F H 104 H 18 92/40 L 96 05/05/20 06:00 05/05/20 08:00 05/05/20 08:00 05/05/20 08:00 05/04/20 20:38 bilat air entry cvs s1s2 rr abd soft ext +edema neuro sedated CBC, BMP 05/05/20 06:00 05/05/20 06:00 Current Medications Generic Name Dose Route Start Last Admin Trade Name Freq PRN Reason Stop Dose Admin Acetaminophen 1,000 mg 04/08/20 08:58 05/01/20 22:12 Ofirmev Injection - IVPB 1,000 mg Q6H PRN Administration FEVER Albuterol Sulfate 2 puff 04/22/20 08:21 Ventolin Hfa Inhaler - IH Q4H PRN SHORT OF BREATH/WHEEZING Artificial Tears 1 drop 04/27/20 13:51 Artificial Tears OU BID PRN DRY EYES Chlorhexidine Gluconate 1 applic 04/07/20 22:00 05/04/20 21:37 Hibiclens For Decolonization - TP 1 applic HS [facility] Administration Chlorhexidine Gluconate 15 ml 04/18/20 22:00 05/05/20 09:03 Peridex - MM 15 ml BID [facility] Administration Heparin Sodium (Porcine) 5,000 unit 04/10/20 15:15 05/05/20 09:03 Heparin - SQ 5,000 unit BID [facility] Administration Norepinephrine Bitartrate 8,000 mcg in 500 mls @ 18.75 mls/hr 04/21/20 00:15 05/05/20 05:19 Levophed Bag IVPB 4 mcg/min TITR [facility] 15 mls/hr Administration Protocol 5 MCG/MIN Sodium Chloride 250 mls @ 3,000 mls/hr 04/30/20 10:13 Normal Saline - IV PRN PRN Hypotension during Dialysis Fentanyl 500 mcg in 100 mls @ 508.025 mls/hr 04/29/20 13:15 05/05/20 05:27 Sublimaze Ivpb IVPB 0.57 mcg/kg/hr TITR [facility] 11.583 mls/hr Administration Protocol 25 MCG/KG/HR Midazolam HCl 100 mg/ Sodium 100 mls @ 1 mls/hr 05/02/20 21:45 05/05/20 00:11 Chloride IVPB Not Given TITR [facility] Protocol 1 MG/HR Metoprolol Tartrate 5 mg 04/07/20 22:50 Lopressor Injection - IVPUSH Q4H PRN TACHYCARDIA Nystatin 1 applic 04/19/20 23:58 04/28/20 09:59 Mycostatin Cream - TP 1 applic PRN PRN Administration HYGEINE Pantoprazole Sodium 40 mg 04/08/20 10:00 05/05/20 09:03 Protonix Iv IVPUSH 40 mg DAILY [facility] Administration Saliva Substitute 1 applic 05/04/20 12:15 05/04/20 13:30 Mouthkote Solution - MM 1 applic DAILY [facility] Administration Silver Sulfadiazine 1 applic 04/23/20 20:45 05/05/20 09:03 Silvadene - TP 1 applic DAILY [facility] Administration Vitamin A/Vitamin D 1 applic 04/30/20 12:00 05/05/20 05:20 Vitamin A & D Top Oint - TP 1 applic Q6HPO [facility] Administration Impression 1. SURESH 2. hyperkalemia 3. resp failure 4. UTI 5. sepsis 6. shock 7. MRSA Pneumonia 8. Lactic Acidosis 9. +Troponins 10. Atrial Fibrillation 11. LV Diastolic Dysfunction 12. Pulmonary HTN 13. Bacteremia 14. anemia 15. hypokalemia Plan Await family decision regarding goals of care pressors to maintain bp above 65 map can hold hd for now. No acute indication MV
--- NOTE | 2020-05-05 11:01 | PN ---
Teaching Attending Note Name of Resident: Mitali Madrid ATTENDING PHYSICIAN STATEMENT I saw and evaluated the patient. I reviewed the resident's note and discussed the case with the resident. I agree with the resident's findings and plan as documented. SUBJECTIVE: Pt seen and examined in the ICU. Remains intubated, sedated on levophed gtt. Low grade fevers overnight. Vented on volume assist control with 40% FiO2 PEEP 5. OBJECTIVE: Vital Signs Period Temp Pulse Resp BP Sys/Cesar Pulse Ox Last 24 Hr 98.8 F-100.9 F 79-117 13-93 92-124/40-69 95-100 Intake & Output 05/02/20 05/03/20 05/04/20 05/05/20 23:59 23:59 23:59 23:59 Intake Total 1285 2053.2 1685.0 864 Output Total 3365 50 100 50 Balance -2079 2003.2 1585.0 814 Weight 102.603 kg Gen: intubated, sedated Heart: RRR Lung: scattered rhonchi Abd: soft, nontender Ext: + edema CBC, BMP 05/05/20 06:00 05/05/20 06:00 Active Medications Acetaminophen (Ofirmev Injection -) 1,000 mg IVPB Q6H PRN PRN Reason: FEVER Last Admin: 05/01/20 22:12 Dose: 1,000 mg Documented by: Albuterol Sulfate (Ventolin Hfa Inhaler -) 2 puff IH Q4H PRN PRN Reason: SHORT OF BREATH/WHEEZING Artificial Tears (Artificial Tears) 1 drop OU BID PRN PRN Reason: DRY EYES Chlorhexidine Gluconate (Hibiclens For Decolonization -) 1 applic TP HS [facility] Last Admin: 05/04/20 21:37 Dose: 1 applic Documented by: Chlorhexidine Gluconate (Peridex -) 15 ml MM BID [facility] Last Admin: 05/05/20 09:03 Dose: 15 ml Documented by: Heparin Sodium (Porcine) (Heparin -) 5,000 unit SQ BID [facility] Last Admin: 05/05/20 09:03 Dose: 5,000 unit Documented by: Norepinephrine Bitartrate (Levophed Bag) 8,000 mcg in 500 mls @ 18.75 mls/hr I VPB TITR [facility]; Protocol Last Admin: 05/05/20 05:19 Dose: 4 mcg/min, 15 mls/hr Documented by: Sodium Chloride (Normal Saline -) 250 mls @ 3,000 mls/hr IV PRN PRN PRN Reason: Hypotension during Dialysis Fentanyl (Sublimaze Ivpb) 500 mcg in 100 mls @ 508.025 mls/hr IVPB TITR [facility]; Protocol Last Admin: 05/05/20 05:27 Dose: 0.57 mcg/kg/hr, 11.583 mls/hr Documented by: Midazolam HCl 100 mg/ Sodium (Chloride) 100 mls @ 1 mls/hr IVPB TITR [facility]; Protocol Last Admin: 05/05/20 00:11 Dose: Not Given Documented by: Metoprolol Tartrate (Lopressor Injection -) 5 mg IVPUSH Q4H PRN PRN Reason: TACHYCARDIA Nystatin (Mycostatin Cream -) 1 applic TP PRN PRN PRN Reason: HYGEINE Last Admin: 04/28/20 09:59 Dose: 1 applic Documented by: Pantoprazole Sodium (Protonix Iv) 40 mg IVPUSH DAILY [facility] Last Admin: 05/05/20 09:03 Dose: 40 mg Documented by: Saliva Substitute (Mouthkote Solution -) 1 applic MM DAILY [facility] Last Admin: 05/04/20 13:30 Dose: 1 applic Documented by: Silver Sulfadiazine (Silvadene -) 1 applic TP DAILY [facility] Last Admin: 05/05/20 09:03 Dose: 1 applic Documented by: Vitamin A/Vitamin D (Vitamin A & D Top Oint -) 1 applic TP Q6HPO [facility] Last Admin: 05/05/20 05:20 Dose: 1 applic Documented by: ASSESSMENT AND PLAN: Acute Hypoxic Respiratory Failure MRSA Pneumonia UTI Sacral Decubitus Ulcers Septic Shock Lactic Acidosis Acute Kidney Injury requiring HD +Troponins likely Demand Ischemia Atrial Fibrillation Acute on Chronic Diastolic Heart Failure Pulmonary HTN Volume Overload COPD HTN Hyperlipidemia Bacteremia Anemia - completed antibiotics - HD per renal - monitor urine output, creatinine - titrate pressors to maintain MAP >65 - rate control - continue volume assist control - enteral feeds - DVT/GI prophylaxis - continue ICU monitoring - will either need tracheostomy for prolonged intubation and failure to wean vs compassionate extubation - continue discussions regarding goals of care critical care time spent in reviewing chart, evaluating patient and formulating plan 35 min
[2020-05-05 13:39] LABS: ANISOCYTOSIS 1+; MACROCYTOSIS 0; OVALOCYTE 1+; PLATELET ESTIMATE NORMAL
[2020-05-05] MEDS: ACETAMINOPHEN 1000 MG/100 ML VIAL (NON FORMULARY) IVPB PRN (18:27)
[2020-05-05] MEDS ORDERED: VANCOMYCIN 1 GM in D5W (PRE-DOCKED) 1,000 MG/250 ML IVPB ONE (19:09)
[2020-05-05] MEDS ORDERED: CEFEPIME 1 GM in DEXTROSE 5%-WATER 100 ML IVPB ONE (19:11)
[2020-05-05 19:55] LABS: BASO % 0.6 % (0-2.0); EOS % 0.9 % (0-4.5); HEMATOCRIT 24.2 % (35.4-49); HEMOGLOBIN 7.6 GM/dL (11.7-16.9); LYMPH % 6.5 % (8-40); MCH 29.2 pg (25.7-33.7); MCHC 31.3 g/dl (32.0-35.9); MEAN CELL VOLUME 93.2 fl (80-96); MEAN PLT VOLUME 8.1 fl (7.5-11.1); MONO % 7.5 % (3.8-10.2); NEUT % 84.5 % (42.8-82.8); PLATELET COUNT 256 K/MM3 (134-434); RDW 18.3 % (11.9-15.9); WHITE BLOOD COUNT 19.8 K/mm3 (4.0-10.0)
[2020-05-05 20:27] LABS: ALBUMIN 1.9 g/dl (3.4-5.0); BILIRUBIN,TOTAL 0.9 mg/dL (0.2-1); BLOOD UREA NITROGEN 52.6 mg/dL (7-18); CALCIUM 8.1 mg/dL (8.5-10.1); CREATININE 3.8 mg/dL (0.55-1.3); MAGNESIUM 1.7 mg/dL (1.8-2.4); PHOSPHOROUS 2.3 mg/dL (2.5-4.9); POTASSIUM 4.1 mmol/L (3.5-5.1); TOT PROT 5.7 g/dl (6.4-8.2)
[2020-05-05] MEDS ORDERED: MAGNESIUM SULF 50% (8.12 MEQ/2 ML-1 GM VIAL) IVPB ONE (20:29)
[2020-05-05] MEDS ORDERED: NAPH,MB-DB/K PH,MBDB POWDER PACKET PO ONE (20:30)
[2020-05-05] MEDS ORDERED: CEFEPIME HCL 1 GM VIAL (RESTRICTED TO ID) ONE (20:30)
[2020-05-05] MEDS ORDERED: DEXTROSE 5%-WATER 100 ML IVPB ONE (20:30)
[2020-05-05] MEDS ORDERED: SODIUM CHLORIDE 1,000 ML IV STA (20:31)
[2020-05-05] MEDS ORDERED: SODIUM CHLORIDE 500 ML IV STA (20:34)
--- NOTE | 2020-05-05 20:40 | PN ---
Physical Exam: SUBJECTIVE: Patient seen and examined, remains intubated and sedated. Was febrile overnight ranging 100.1 - 100.9. Family wants to withdraw care on May 09 (daughter's birthday is [birth year]). OBJECTIVE: Vital Signs Period Temp Pulse Resp BP Sys/Cesar Pulse Ox Last 24 Hr 99.1 F-101.6 F 90-117 16-30 92-127/40-81 96-96 GENERAL: sedated and intubated, responds to painful stimuli HEAD: mouth permanently open with visible dried/crusted blood around lips EYES: open occasionally, tends to have an upward gaze LUNGS: Breath sounds from vent are equal, clear to auscultation bilaterally, no wheezes, no crackles. HEART: Regular rate and rhythm, S1, S2 without murmur, rub or gallop. ABDOMEN: nondistended, soft EXTREMITIES: 1+ pitting edema on hands and feet, scattered ecchymoses on arms bilaterally NEUROLOGICAL: responds to painful stimuli SKIN: stage 4 sacral ulcer, wet sloughing skin on posterior legs bilaterally reaching the calf on the L leg, ulcer in the penile area Laboratory Results - last 24 hr 05/05/20 05/05/20 06:00 06:00 WBC 19.6 H RBC 2.58 L Hgb 7.6 L Hct 24.0 L MCV 93.2 MCH 29.5 MCHC 31.7 L RDW 18.4 H Plt Count 222 MPV 8.1 Absolute Neuts (auto) 17.5 H Neutrophils % 89.4 H D Neutrophils % (Manual) 73.0 Band Neutrophils % 12.0 Lymphocytes % 4.5 L D Lymphocytes % (Manual) 9.0 D Monocytes % 5.1 Monocytes % (Manual) 4 Eosinophils % 0.3 D Eosinophils % (Manual) 1.0 Basophils % 0.7 Basophils % (Manual) 0.0 Myelocytes % (Man) 0 D Promyelocytes % (Man) 0 Blast Cells % (Manual) 0 Nucleated RBC % 0 Metamyelocytes 1 Hypochromia 0 Platelet Estimate Normal Polychromasia 1+ Poikilocytosis 1+ Basophilic Stippling 1+ Anisocytosis 1+ Microcytosis 1+ Macrocytosis 0 Spherocytes 1+ Ovalocytes 1+ Sodium 134 L Potassium 4.2 Chloride 97 L Carbon Dioxide 27 Anion Gap 10 BUN 46.5 H Creatinine 3.6 H Est GFR (CKD-EPI)AfAm 17.31 Est GFR (CKD-EPI)NonAf 14.94 Random Glucose 199 H Calcium 7.9 L Phosphorus 2.4 L Magnesium 1.8 Total Bilirubin 0.9 AST 27 ALT 12 L Alkaline Phosphatase 165 H Total Protein 5.6 L Albumin 2.0 L Active Medications Generic Name Dose Route Start Last Admin Trade Name Freq PRN Reason Stop Dose Admin Acetaminophen 1,000 mg 04/08/20 08:58 05/05/20 18:27 Ofirmev Injection - IVPB 1,000 mg Q6H PRN Administration FEVER Albuterol Sulfate 2 puff 04/22/20 08:21 Ventolin Hfa Inhaler - IH Q4H PRN SHORT OF BREATH/WHEEZING Artificial Tears 1 drop 04/27/20 13:51 Artificial Tears OU BID PRN DRY EYES Chlorhexidine Gluconate 1 applic 04/07/20 22:00 05/04/20 21:37 Hibiclens For Decolonization - TP 1 applic HS EAN Administration Chlorhexidine Gluconate 15 ml 04/18/20 22:00 05/05/20 09:03 Peridex - MM 15 ml BID EAN Administration Heparin Sodium (Porcine) 5,000 unit 04/10/20 15:15 05/05/20 09:03 Heparin - SQ 5,000 unit BID EAN Administration Norepinephrine Bitartrate 8,000 mcg in 500 mls @ 18.75 mls/hr 04/21/20 00:15 05/05/20 05:19 Levophed Bag IVPB 4 mcg/min TITR EAN 15 mls/hr Administration Protocol 5 MCG/MIN Sodium Chloride 250 mls @ 3,000 mls/hr 04/30/20 10:13 Normal Saline - IV PRN PRN Hypotension during Dialysis Fentanyl 500 mcg in 100 mls @ 508.025 mls/hr 04/29/20 13:15 05/05/20 05:27 Sublimaze Ivpb IVPB 0.57 mcg/kg/hr TITR EAN 11.583 mls/hr Administration Protocol 25 MCG/KG/HR Midazolam HCl 100 mg/ Sodium 100 mls @ 1 mls/hr 05/02/20 21:45 05/05/20 00:11 Chloride IVPB Not Given TITR EAN Protocol 1 MG/HR Cefepime HCl 1 gm/ Dextrose 100 mls @ 200 mls/hr 05/05/20 19:11 IVPB 05/05/20 19:40 ONCE ONE Protocol Metoprolol Tartrate 5 mg 04/07/20 22:50 Lopressor Injection - IVPUSH Q4H PRN TACHYCARDIA Nystatin 1 applic 04/19/20 23:58 04/28/20 09:59 Mycostatin Cream - TP 1 applic PRN PRN Administration HYGEINE Pantoprazole Sodium 40 mg 04/08/20 10:00 05/05/20 09:03 Protonix Iv IVPUSH 40 mg DAILY EAN Administration Saliva Substitute 1 applic 05/04/20 12:15 05/05/20 10:04 Mouthkote Solution - MM 1 applic DAILY EAN Administration Silver Sulfadiazine 1 applic 04/23/20 20:45 05/05/20 09:03 Silvadene - TP 1 applic DAILY EAN Administration Vitamin A/Vitamin D 1 applic 04/30/20 12:00 05/05/20 18:26 Vitamin A & D Top Oint - TP 1 applic Q6HPO EAN Administration Drips: 3 NE, 100 fentanyl Vent: RR 12, TV 400, FiO2 40, PEEP 5 (sat 95%) ASSESSMENT/PLAN: 79yo M with PMHx of CHF, COPD, CVA, HTN, HLD, and afib on eliquis, with DNR status brought in by EMS from [facility] for seizure-like episode, ED course concerning for sepsis (source unclear), intubated for acute respiratory failure. Family has decided to withdraw care, preferrably May 09. #Neuro - sedated and intubated - responsive to painful stimuli #Cardio CHF exacerbation, afib, inverted T waves - on heparin ppx, will restart eliquis when patient tolerates - goal MAPs >65, NE as needed #Pulm pulmonary edema, bilateral pleural effusions, COPD exacerbation - currently intubated, family decided to withdraw care (as opposed to tracheostomy) #GI - PEG tube feeds #Renal fluid overloaded, bilateral UE + LE pitting edema - HD yesterday, discontinued albumin - further renal recs pending depending on fullow up goals of care discussion with family #ID febrile overnight ranging 100.1 - 100.9 caused by sacral ulcer vs pneumonia vs unknown etiology - stared vancomycin and cefepime (vanc trough due 05/08) - ordered sepsis workup: CXR, UA, blood cx, sputum cx, lactic acid, tylenol - changed simon (no urine output) - change central line tomorrow #Skin stage 4 sacral ulcer, extensive skin sloughing on posterior legs bilaterally - continue nursing care #FEN electrolytes WNL, replete as needed #PPX - DVT: heparin - GI: pentoprazole #LTD - PEG tube - R trialysis catheter 04/25 - Simon - fecal management system (since patient has stage 4 sacral ulcer) #Dispo will continue monitoring in the ICU Visit type - Emergency Visit Emergency Visit: Yes ED Registration Date: 04/07/20 Care time: The patient presented to the Emergency Department on the above date and was hospitalized for further evaluation of their emergent condition. - New Patient This patient is new to me today: No - Critical Care Critical Care patient: Yes Total Critical Care Time (in minutes): 36 Critical Care Statement: The care of this patient involved high complexity decision making to prevent further life threatening deterioration of the patient's condition and/or to evaluate & treat vital organ system(s) failure or risk of failure. ATTENDING PHYSICIAN STATEMENT I saw and evaluated the patient. I reviewed the resident's note and discussed the case with the resident. I agree with the resident's findings and plan as documented. SUBJECTIVE: OBJECTIVE: ASSESSMENT AND PLAN:
[2020-05-05] MEDS: CHLORHEXIDINE GLUCONATE 4% CLEANSER FOR DECOLONIZATION TP SCH (21:03)
[2020-05-06] MEDS: VITAMINS A AND D TOPICAL OINTMENT 60 GM TUBE TP SCH ×5 (01:17→23:43)
[2020-05-06] MEDS: MIDAZOLAM 100 MG in SODIUM CHLORIDE 100 ML IVPB SCH ×2 (01:18→22:02)
[2020-05-06] MEDS: NOREPINEPHRINE BITARTRATE 8,000 MCG/500 ML BAG IVPB SCH (01:18)
[2020-05-06] MEDS: FENTANYL NS IVPB 500 MCG/100 ML BAG IVPB SCH ×2 (02:00→22:04)
[2020-05-06] MEDS ORDERED: fentaNYL CITRATE 250 MCG/5 ML VIAL ONE (02:18)
[2020-05-06 07:05] LABS: BASO % 0.5 % (0-2.0); EOS % 1.6 % (0-4.5); HEMATOCRIT 24.7 % (35.4-49); HEMOGLOBIN 7.7 GM/dL (11.7-16.9); LYMPH % 5.3 % (8-40); MCH 28.7 pg (25.7-33.7); MCHC 31.2 g/dl (32.0-35.9); MEAN CELL VOLUME 92.2 fl (80-96); MEAN PLT VOLUME 8.1 fl (7.5-11.1); MONO % 6.3 % (3.8-10.2); NEUT % 86.3 % (42.8-82.8); PLATELET COUNT 277 K/MM3 (134-434); RBC 2.68 M/mm3 (4.00-5.60); RDW 18.7 % (11.9-15.9); WHITE BLOOD COUNT 18.9 K/mm3 (4.0-10.0)
[2020-05-06 07:39] LABS: ALBUMIN 1.8 g/dl (3.4-5.0); BILIRUBIN,TOTAL 0.8 mg/dL (0.2-1); CREATININE 3.9 mg/dL (0.55-1.3); PHOSPHOROUS 2.5 mg/dL (2.5-4.9); POTASSIUM 4.3 mmol/L (3.5-5.1); TOT PROT 5.7 g/dl (6.4-8.2)
--- NOTE | 2020-05-06 09:03 | PN ---
Progress Note (short form) - Note Progress Note: RENAL Pt is in icu intubated, Last Vital Signs Temp Pulse Resp BP Pulse Ox 99.1 F 102 H 27 H 99/56 L 96 05/06/20 06:00 05/06/20 06:00 05/06/20 06:00 05/06/20 06:00 05/05/20 20:[address] bilat air entry cvs s1s2 rr abd soft ext +edema neuro sedated CBC, BMP 05/06/20 05:30 05/06/20 05:30 Current Medications Generic Name Dose Route Start Last Admin Trade Name Freq PRN Reason Stop Dose Admin Acetaminophen 1,000 mg 04/08/20 08:58 05/05/20 18:27 Ofirmev Injection - IVPB 1,000 mg Q6H PRN Administration FEVER Albuterol Sulfate 2 puff 04/22/20 08:21 Ventolin Hfa Inhaler - IH Q4H PRN SHORT OF BREATH/WHEEZING Artificial Tears 1 drop 04/27/20 13:51 Artificial Tears OU BID PRN DRY EYES Chlorhexidine Gluconate 1 applic 04/07/20 22:00 05/05/20 21:03 Hibiclens For Decolonization - TP 1 applic HS EAN Administration Chlorhexidine Gluconate 15 ml 04/18/20 22:00 05/05/20 21:04 Peridex - MM 15 ml BID EAN Administration Heparin Sodium (Porcine) 5,000 unit 04/10/20 15:15 05/05/20 21:03 Heparin - SQ 5,000 unit BID EAN Administration Norepinephrine Bitartrate 8,000 mcg in 500 mls @ 18.75 mls/hr 04/21/20 00:15 05/06/20 06:47 Levophed Bag IVPB 5 mcg/min TITR EAN 18.75 mls/hr Titration Protocol 5 MCG/MIN Sodium Chloride 250 mls @ 3,000 mls/hr 04/30/20 10:13 Normal Saline - IV PRN PRN Hypotension during Dialysis Fentanyl 500 mcg in 100 mls @ 508.025 mls/hr 04/29/20 13:15 05/06/20 02:00 Sublimaze Ivpb IVPB 0.57 mcg/kg/hr TITR EAN 11.583 mls/hr Administration Protocol 25 MCG/KG/HR Midazolam HCl 100 mg/ Sodium 100 mls @ 1 mls/hr 05/02/20 21:45 05/06/20 01:18 Chloride IVPB Not Given TITR EAN Protocol 1 MG/HR Cefepime HCl 1 gm in 50 mls @ 100 mls/hr 05/06/20 10:00 Maxipime 1 Gm Premix Ivpb IVPB Q8H-IV EAN Protocol Metoprolol Tartrate 5 mg 04/07/20 22:50 Lopressor Injection - IVPUSH Q4H PRN TACHYCARDIA Nystatin 1 applic 04/19/20 23:58 04/28/20 09:59 Mycostatin Cream - TP 1 applic PRN PRN Administration HYGEINE Pantoprazole Sodium 40 mg 04/08/20 10:00 05/05/20 09:03 Protonix Iv IVPUSH 40 mg DAILY EAN Administration Saliva Substitute 1 applic 05/04/20 12:15 05/05/20 10:04 Mouthkote Solution - MM 1 applic DAILY EAN Administration Silver Sulfadiazine 1 applic 04/23/20 20:45 05/05/20 09:03 Silvadene - TP 1 applic DAILY EAN Administration Vitamin A/Vitamin D 1 applic 04/30/20 12:00 05/06/20 06:05 Vitamin A & D Top Oint - TP 1 applic Q6HPO EAN Administration Impression 1. SURESH 2. hyperkalemia 3. resp failure 4. UTI 5. sepsis 6. shock 7. MRSA Pneumonia 8. Lactic Acidosis 9. +Troponins 10. Atrial Fibrillation 11. LV Diastolic Dysfunction 12. Pulmonary HTN 13. Bacteremia 14. anemia 15. hypokalemia Plan Await family decision regarding goals of care pressors to maintain bp above 65 map can hold hd for now. No acute indication may remove catheter MV
[2020-05-06 09:15] LABS: ANISOCYTOSIS 1+; MACROCYTOSIS 1+; PLATELET ESTIMATE NORMAL
[2020-05-06] MEDS: CHLORHEXIDINE GLUCONATE 0.12% 15ML CUP MM SCH ×2 (09:40→21:33)
[2020-05-06] MEDS: HEPARIN NA (PORCINE) 5,000 UNITS/ML 1ML VIAL SQ SCH ×2 (09:40→21:33)
[2020-05-06] MEDS: LYTES/YERBA SANTA 240 ML BOTTLE MM SCH (09:40)
[2020-05-06] MEDS: PANTOPRAZOLE SODIUM 40 MG VIAL IVPUSH SCH (09:41)
[2020-05-06] MEDS: SILVER SULFADIAZINE 1% TOP CREAM 50 GM JAR TP SCH (09:41)
[2020-05-06] MEDS ORDERED: CEFEPIME HCL/D5W 1 GM/50 ML BAG IVPB SCH (10:00)
[2020-05-06 10:29] LABS: EPI CELLS >36 /uL (0-25.1); HYALINE CASTS 1349 /uL (0-3.1); URINE APPEARANCE Turbid; URINE BACTERIA 433 /uL (0-1359); URINE BILIRUBIN Small (NEGATIVE); URINE COLOR DK YELLOW; URINE GLUCOSE (UA) Negative (NEGATIVE); URINE KETONE Negative (NEGATIVE); URINE LEUK ESTERASE Large (NEGATIVE); URINE NITRITE Negative (NEGATIVE); URINE PROTEIN 300 (NEGATIVE); URINE RBC 1067 /uL (0-23.9); URINE UROBILINOGEN 0.2 mg/dL (0.2-1.0); URINE WBC 20559 /uL (0-25.8)
--- NOTE | 2020-05-06 11:06 | PN ---
Teaching Attending Note Name of Resident: Deandra Gilmore ATTENDING PHYSICIAN STATEMENT I saw and evaluated the patient. I reviewed the resident's note and discussed the case with the resident. I agree with the resident's findings and plan as documented. SUBJECTIVE: Pt seen and examined in the ICU. Remains intubated, sedated on levophed gtt. Low grade fevers overnight. Vented on volume assist control with 40% FiO2 PEEP 5. OBJECTIVE: Vital Signs Period Temp Pulse Resp BP Sys/Cesar Pulse Ox Last 24 Hr 98.4 F-101.6 F 86-104 17-32 88-127/44-81 91-96 Intake & Output 05/03/20 05/04/20 05/05/20 05/06/20 23:59 23:59 23:59 23:59 Intake Total 2053.2 1685.0 1864 1780 Output Total 50 100 50 10 Balance 2003.2 1585.0 1814 1770 Weight 102.603 kg 102.013 kg Gen: intubated, sedated Heart: RRR Lung: scattered rhonchi Abd: soft, nontender Ext: + edema CBC, BMP 05/06/20 05:30 05/06/20 05:30 Active Medications Acetaminophen (Ofirmev Injection -) 1,000 mg IVPB Q6H PRN PRN Reason: FEVER Last Admin: 05/05/20 18:27 Dose: 1,000 mg Documented by: Albuterol Sulfate (Ventolin Hfa Inhaler -) 2 puff IH Q4H PRN PRN Reason: SHORT OF BREATH/WHEEZING Artificial Tears (Artificial Tears) 1 drop OU BID PRN PRN Reason: DRY EYES Chlorhexidine Gluconate (Hibiclens For Decolonization -) 1 applic TP HS [facility] Last Admin: 05/05/20 21:03 Dose: 1 applic Documented by: Chlorhexidine Gluconate (Peridex -) 15 ml MM BID EAN Last Admin: 05/06/20 09:40 Dose: 15 ml Documented by: Heparin Sodium (Porcine) (Heparin -) 5,000 unit SQ BID [facility] Last Admin: 05/06/20 09:40 Dose: 5,000 unit Documented by: Norepinephrine Bitartrate (Levophed Bag) 8,000 mcg in 500 mls @ 18.75 mls/hr IVPB TITR [facility]; Protocol Last Titration: 07/05/20 06:47 Dose: 5 mcg/min, 18.75 mls/hr Documented by: Sodium Chloride (Normal Saline -) 250 mls @ 3,000 mls/hr IV PRN PRN PRN Reason: Hypotension during Dialysis Fentanyl (Sublimaze Ivpb) 500 mcg in 100 mls @ 508.025 mls/hr IVPB TITR EAN; Protocol Last Admin: 05/06/20 02:00 Dose: 0.57 mcg/kg/hr, 11.583 mls/hr Documented by: Midazolam HCl 100 mg/ Sodium (Chloride) 100 mls @ 1 mls/hr IVPB TITR EAN; Protocol Last Admin: 05/06/20 01:18 Dose: Not Given Documented by: Cefepime HCl (Maxipime 1 Gm Premix Ivpb) 1 gm in 50 mls @ 100 mls/hr IVPB Q8H- IV EAN; Protocol Cefepime HCl 1 gm/ Dextrose 100 mls @ 200 mls/hr IVPB ONCE ONE Stop: 05/06/20 11:59 Metoprolol Tartrate (Lopressor Injection -) 5 mg IVPUSH Q4H PRN PRN Reason: TACHYCARDIA Nystatin (Mycostatin Cream -) 1 applic TP PRN PRN PRN Reason: HYGEINE Last Admin: 04/28/20 09:59 Dose: 1 applic Documented by: Pantoprazole Sodium (Protonix Iv) 40 mg IVPUSH DAILY [facility] Last Admin: 05/06/20 09:41 Dose: 40 mg Documented by: Saliva Substitute (Mouthkote Solution -) 1 applic MM DAILY [facility] Last Admin: 05/06/20 09:40 Dose: 1 applic Documented by: Silver Sulfadiazine (Silvadene -) 1 applic TP DAILY [facility] Last Admin: 05/06/20 09:41 Dose: 1 applic Documented by: Vitamin A/Vitamin D (Vitamin A & D Top Oint -) 1 applic TP Q6HPO [facility] Last Admin: 05/06/20 06:05 Dose: 1 applic Documented by: ASSESSMENT AND PLAN: Acute Hypoxic Respiratory Failure MRSA Pneumonia UTI Sacral Decubitus Ulcers Septic Shock Lactic Acidosis Acute Kidney Injury requiring HD +Troponins likely Demand Ischemia Atrial Fibrillation Acute on Chronic Diastolic Heart Failure Pulmonary HTN Volume Overload COPD HTN Hyperlipidemia Bacteremia Anemia - completed antibiotics - HD per renal - monitor urine output, creatinine - titrate pressors to maintain MAP >65 - rate control - continue volume assist control - enteral feeds - DVT/GI prophylaxis - continue ICU monitoring - will either need tracheostomy for prolonged intubation and failure to wean vs compassionate extubation - continue discussions regarding goals of care, recommend compassionate extubation critical care time spent in reviewing chart, evaluating patient and formulating plan 35 min
[2020-05-06] MEDS ORDERED: CEFEPIME 1 GM in DEXTROSE 5%-WATER 100 ML IVPB ONE (11:30)
--- NOTE | 2020-05-06 11:59 | PN ---
Physical Exam: SUBJECTIVE: Patient seen and no acute events overnight. OBJECTIVE: Vital Signs Period Temp Pulse Resp BP Sys/Cesar Pulse Ox Last 24 Hr 98.4 F-101.6 F 86-104 17-32 88-127/44-81 91-96 GENERAL: The patient is sedated intubated ENT: dried blood in mouth and around teeth NECK: RIJ LUNGS: Breath sounds equal, clear to auscultation bilaterally, no wheezes, no crackles, no accessory muscle use. HEART: Regular rate and rhythm, S1, S2 without murmur, rub or gallop. ABDOMEN: Soft, nontender, nondistended, normoactive bowel sounds, no guarding, EXTREMITIES: less pitting edema SKIN: many ulcers on back, no visualized today CBC, BMP 05/06/20 05:30 05/06/20 05:30 Active Medications Acetaminophen (Ofirmev Injection -) 1,000 mg IVPB Q6H PRN PRN Reason: FEVER Last Admin: 05/05/20 18:27 Dose: 1,000 mg Documented by: Albuterol Sulfate (Ventolin Hfa Inhaler -) 2 puff IH Q4H PRN PRN Reason: SHORT OF BREATH/WHEEZING Artificial Tears (Artificial Tears) 1 drop OU BID PRN PRN Reason: DRY EYES Chlorhexidine Gluconate (Hibiclens For Decolonization -) 1 applic TP HS [facility] Last Admin: 05/05/20 21:03 Dose: 1 applic Documented by: Chlorhexidine Gluconate (Peridex -) 15 ml MM BID [facility] Last Admin: 05/06/20 09:40 Dose: 15 ml Documented by: Heparin Sodium (Porcine) (Heparin -) 5,000 unit SQ BID [facility] Last Admin: 05/06/20 09:40 Dose: 5,000 unit Documented by: Norepinephrine Bitartrate (Levophed Bag) 8,000 mcg in 500 mls @ 18.75 mls/hr IVPB TITR [facility]; Protocol Last Titration: 05/06/20 06:47 Dose: 5 mcg/min, 18.75 mls/hr Documented by: Sodium Chloride (Normal Saline -) 250 mls @ 3,000 mls/hr IV PRN PRN PRN Reason: Hypotension during Dialysis Fentanyl (Sublimaze Ivpb) 500 mcg in 100 mls @ 508.025 mls/hr IVPB TITR [facility]; Protocol Last Admin: 05/06/20 02:00 Dose: 0.57 mcg/kg/hr, 11.583 mls/hr Documented by: Midazolam HCl 100 mg/ Sodium (Chloride) 100 mls @ 1 mls/hr IVPB TITR EAN; Protocol Last Admin: 05/06/20 01:18 Dose: Not Given Documented by: Cefepime HCl (Maxipime 1 Gm Premix Ivpb) 1 gm in 50 mls @ 100 mls/hr IVPB Q8H- IV EAN; Protocol Cefepime HCl 1 gm/ Dextrose 100 mls @ 200 mls/hr IVPB ONCE ONE Stop: 05/06/20 11:59 Metoprolol Tartrate (Lopressor Injection -) 5 mg IVPUSH Q4H PRN PRN Reason: TACHYCARDIA Nystatin (Mycostatin Cream -) 1 applic TP PRN PRN PRN Reason: HYGEINE Last Admin: 04/28/20 09:59 Dose: 1 applic Documented by: Pantoprazole Sodium (Protonix Iv) 40 mg IVPUSH DAILY EAN Last Admin: 05/06/20 09:41 Dose: 40 mg Documented by: Saliva Substitute (Mouthkote Solution -) 1 applic MM DAILY EAN Last Admin: 05/06/20 09:40 Dose: 1 applic Documented by: Silver Sulfadiazine (Silvadene -) 1 applic TP DAILY EAN Last Admin: 05/06/20 09:41 Dose: 1 applic Documented by: Vitamin A/Vitamin D (Vitamin A & D Top Oint -) 1 applic TP Q6HPO EAN Last Admin: 05/06/20 06:05 Dose: 1 applic Documented by: ASSESSMENT/PLAN: Patient is a 79 y/o male with a history of HF, COPD, CVA, HTN, HLD, and A-fib on Eliquis who is admitted for hypoxic hypercapnic respiratory failure. #Neuro - maintain sedated and intubated - on Propofol and Fentanyl - keep patient comfortable #Cardio - hx afib, CHF, HTN - on low dose Levophed to maintain pressors, 2/2 septic shock - hold anticoagulation #Pulm - hypoxic respiratory failure, 2/2 to mucous plugging (resolved) , PNA - intubated, Rate: 18, TV: 450, FiO2: 50%, PEEP 18 - did not tolerate weaning - CXR: pleaural changes on the left #GI - protonix 40 IV daily - ppx dosing #Nephro - family would not like to continue detention dialysis - will leave trialysis catheter in place for access #ID - recent fever - repeat chávez culture - given Vanc once and Cefepime - discussed with ID and will continue abx #DVT ppx - heparin bid Dispo: to be terminally weaned on Thursday Visit type - Emergency Visit Emergency Visit: No - New Patient This patient is new to me today: No - Critical Care Critical Care patient: Yes Total Critical Care Time (in minutes): 40 Critical Care Statement: The care of this patient involved high complexity decision making to prevent further life threatening deterioration of the patie nt's condition and/or to evaluate & treat vital organ system(s) failure or risk of failure. ATTENDING PHYSICIAN STATEMENT I saw and evaluated the patient. I reviewed the resident's note and discussed the case with the resident. I agree with the resident's findings and plan as documented. SUBJECTIVE: OBJECTIVE: ASSESSMENT AND PLAN:
[2020-05-06] MEDS ORDERED: DEXTROSE 5%-WATER 100 ML IVPB ONE (13:01)
[2020-05-06] MEDS ORDERED: CEFEPIME HCL 1 GM VIAL (RESTRICTED TO ID) ONE (13:01)
--- NOTE | 2020-05-06 13:23 | PN ---
Progress Note, Physician History of Present Illness: DOING POORLY REMAINS SEDATED ON VENTILATOR BREATHING NON LABORED HYPOTENSIVE ON PRESSORS ELEVATED TEMPS NOTED WBC ELEVATED - Current Medication List Current Medications: Active Medications Acetaminophen (Ofirmev Injection -) 1,000 mg IVPB Q6H PRN PRN Reason: FEVER Last Admin: 05/05/20 18:27 Dose: 1,000 mg Documented by: Albuterol Sulfate (Ventolin Hfa Inhaler -) 2 puff IH Q4H PRN PRN Reason: SHORT OF BREATH/WHEEZING Artificial Tears (Artificial Tears) 1 drop OU BID PRN PRN Reason: DRY EYES Chlorhexidine Gluconate (Hibiclens For Decolonization -) 1 applic TP HS [facility] Last Admin: 05/05/20 21:03 Dose: 1 applic Documented by: Chlorhexidine Gluconate (Peridex -) 15 ml MM BID EAN Last Admin: 05/06/20 09:40 Dose: 15 ml Documented by: Heparin Sodium (Porcine) (Heparin -) 5,000 unit SQ BID EAN Last Admin: 05/06/20 09:40 Dose: 5,000 unit Documented by: Norepinephrine Bitartrate (Levophed Bag) 8,000 mcg in 500 mls @ 18.75 mls/hr IVPB TITR EAN; Protocol Last Titration: 05/06/20 06:47 Dose: 5 mcg/min, 18.75 mls/hr Documented by: Sodium Chloride (Normal Saline -) 250 mls @ 3,000 mls/hr IV PRN PRN PRN Reason: Hypotension during Dialysis Midazolam HCl 100 mg/ Sodium (Chloride) 100 mls @ 1 mls/hr IVPB TITR [facility]; Protocol Last Admin: 05/06/20 01:18 Dose: Not Given Documented by: Cefepime HCl (Maxipime 1 Gm Premix Ivpb) 1 gm in 50 mls @ 100 mls/hr IVPB Q8H- IV EAN; Protocol Metoprolol Tartrate (Lopressor Injection -) 5 mg IVPUSH Q4H PRN PRN Reason: TACHYCARDIA Nystatin (Mycostatin Cream -) 1 applic TP PRN PRN PRN Reason: HYGEINE Last Admin: 04/28/20 09:59 Dose: 1 applic Documented by: Pantoprazole Sodium (Protonix Iv) 40 mg IVPUSH DAILY [facility] Last Admin: 05/06/20 09:41 Dose: 40 mg Documented by: Saliva Substitute (Mouthkote Solution -) 1 applic MM DAILY [facility] Last Admin: 05/06/20 09:40 Dose: 1 applic Documented by: Silver Sulfadiazine (Silvadene -) 1 applic TP DAILY [facility] Last Admin: 05/06/20 09:41 Dose: 1 applic Documented by: Vitamin A/Vitamin D (Vitamin A & D Top Oint -) 1 applic TP Q6HPO [facility] Last Admin: 05/06/20 13:06 Dose: 1 applic Documented by: - Objective Vital Signs: Vital Signs Temperature 98.4 F 05/06/20 10:00 Pulse Rate 100 H 05/06/20 12:00 Respiratory Rate 24 H 05/06/20 12:00 Blood Pressure 98/53 L 05/06/20 12:00 O2 Sat by Pulse Oximetry (%) 93 L 05/06/20 09:00 Constitutional: Yes: No Distress Eyes: Yes: Conjunctiva Clear Cardiovascular: Yes: Regular Rate and Rhythm, S1, S2 Respiratory: Yes: Mechanically Ventilated Gastrointestinal: Yes: Normal Bowel Sounds, Soft. No: Tenderness Edema: Yes Labs: CBC, BMP 05/06/20 05:30 05/06/20 05:30 INR, PTT INR 1.49 (0.83-1.09) H 04/08/20 05:20 Assessment/Plan FEVER/LEUKOCYTOSIS RESP FAILURE SEPSIS/ SEPTIC SHOCK RENAL FAILURE LACTIC ACIDOSIS S/P SEIZURE PROBABLE ASP PNEUMONIA COPD PCN ALLERGY COVID-19 (-) RECURRENT FEVER/ LEUKOCYTOSIS REPEAT CULTURES OBTAINED EMPIRIC VANCOMYCIN / CEFEPIME ADJUSTED FOR AZOTEMIA PROGNOSIS POOR
[2020-05-06] MEDS ORDERED: CEFEPIME HCL/D5W 1 GM/50 ML BAG IVPB ONE (13:28)
[2020-05-06] MEDS: PROPOFOL 1,000,000 MCG/100 ML VIAL IVPB SCH ×2 (16:34→22:01)
[2020-05-06] MEDS ORDERED: FENTANYL NS IVPB 500 MCG/100 ML BAG IVPB ONE (17:34)
[2020-05-06] MEDS: ACETAMINOPHEN 1000 MG/100 ML VIAL (NON FORMULARY) IVPB PRN (17:47)
[2020-05-06] MEDS ORDERED: VANCOMYCIN 1 GRAM (PRE-DOCKED) 1,000 MG/250 ML BAG IVPB ONE (20:00)
[2020-05-06] MEDS: CHLORHEXIDINE GLUCONATE 4% CLEANSER FOR DECOLONIZATION TP SCH (21:33)
[2020-05-07] MEDS: FENTANYL NS IVPB 500 MCG/100 ML BAG IVPB SCH ×4 (03:16→18:03)
[2020-05-07] MEDS: NOREPINEPHRINE BITARTRATE 8,000 MCG/500 ML BAG IVPB SCH ×2 (03:17→10:03)
[2020-05-07] MEDS: PROPOFOL 1,000,000 MCG/100 ML VIAL IVPB SCH ×2 (04:00→13:37)
[2020-05-07] MEDS: VITAMINS A AND D TOPICAL OINTMENT 60 GM TUBE TP SCH ×3 (05:21→17:27)
--- NOTE | 2020-05-07 06:42 | PN ---
Physical Exam: SUBJECTIVE: Patient seen and examined, remains intubated and sedated. Afebrile since 05/06/2020 at 2am. Urine 50cc - urine was seen in the simon. Notable that there is no more edema in his feet, only mild edema in his legs posteriorly and nonpitting edematous hands. Family wants to withdraw care on May 09 (daughter's birthday is [birth year]). OBJECTIVE: Vital Signs Period Temp Pulse Resp BP Sys/Cesar Pulse Ox Last 24 Hr 97.7 F-99.4 F 87-104 13-33 89-108/49-57 90-99 GENERAL: sedated and intubated, responds to painful stimuli HEAD: mouth permanently open with visible dried/crusted blood around lips EYES: open occasionally, tends to have an upward gaze LUNGS: Breath sounds from vent are equal, inspiratory wheeze on R side HEART: irregular rate and sinus rhythm, S1, S2 with systolic murmur, no rub or gallop. ABDOMEN: nondistended, soft EXTREMITIES: 1+ pitting edema on hands and feet, scattered ecchymoses on arms bilaterally NEUROLOGICAL: responds to painful stimuli SKIN: stage 4 sacral ulcer, wet sloughing skin on posterior legs bilaterally reaching the calf on the L leg, ulcer in the penile area Laboratory Results - last 24 hr 05/06/20 05/06/20 05/06/20 05:30 05:30 06:30 WBC 18.9 H RBC 2.68 L Hgb 7.7 L Hct 24.7 L MCV 92.2 MCH 28.7 MCHC 31.2 L RDW 18.7 H Plt Count 277 MPV 8.1 Absolute Neuts (auto) 16.3 H Neutrophils % 86.3 H Neutrophils % (Manual) 84.9 H Band Neutrophils % 2.0 Lymphocytes % 5.3 L Lymphocytes % (Manual) 9.1 Monocytes % 6.3 Monocytes % (Manual) 3 L Eosinophils % 1.6 Eosinophils % (Manual) 0.0 D Basophils % 0.5 Basophils % (Manual) 0.0 Myelocytes % (Man) 0 Promyelocytes % (Man) 0 Blast Cells % (Manual) 0 Nucleated RBC % 0 Metamyelocytes 0 D Hypochromia 0 Platelet Estimate Normal Polychromasia 0 Poikilocytosis 0 Anisocytosis 1+ Microcytosis 0 Macrocytosis 1+ Sodium 132 L Potassium 4.3 Chloride 95 L Carbon Dioxide 25 Anion Gap 11 BUN 55.0 H Creatinine 3.9 H Est GFR (CKD-EPI)AfAm 15.71 Est GFR (CKD-EPI)NonAf 13.56 Random Glucose 227 H Calcium 8.0 L Phosphorus 2.5 Magnesium 2.0 Total Bilirubin 0.8 AST 26 ALT 12 L Alkaline Phosphatase 172 H Total Protein 5.7 L Albumin 1.8 L Urine Color Dk yellow Urine Appearance Turbid Urine pH 6.0 Ur Specific [place] 1.022 Urine Protein 300 Urine Glucose (UA) Negative Urine Ketones Negative Urine Blood Large Urine Nitrite Negative Urine Bilirubin Small Urine Urobilinogen 0.2 Ur Leukocyte Esterase Large Urine WBC (Auto) 09927 Urine RBC (Auto) 1067 Urine Casts (Auto) 1349 U Epithel Cells (Auto) >36 Urine Bacteria (Auto) 433 Active Medications Generic Name Dose Route Start Last Admin Trade Name Freq PRN Reason Stop Dose Admin Acetaminophen 1,000 mg 04/08/20 08:58 05/06/20 17:47 Ofirmev Injection - IVPB 1,000 mg Q6H PRN Administration FEVER Albuterol Sulfate 2 puff 04/22/20 08:21 Ventolin Hfa Inhaler - IH Q4H PRN SHORT OF BREATH/WHEEZING Artificial Tears 1 drop 04/27/20 13:51 Artificial Tears OU BID PRN DRY EYES Chlorhexidine Gluconate 1 applic 04/07/20 22:00 05/06/20 21:33 Hibiclens For Decolonization - TP 1 applic HS EAN Administration Chlorhexidine Gluconate 15 ml 04/18/20 22:00 05/06/20 21:33 Peridex - MM 15 ml BID EAN Administration Heparin Sodium (Porcine) 5,000 unit 04/10/20 15:15 05/06/20 21:33 Heparin - SQ 5,000 unit BID EAN Administration Norepinephrine Bitartrate 8,000 mcg in 500 mls @ 18.75 mls/hr 04/21/20 00:15 05/07/20 03:17 Levophed Bag IVPB Not Given TITR EAN Protocol 5 MCG/MIN Sodium Chloride 250 mls @ 3,000 mls/hr 04/30/20 10:13 Normal Saline - IV PRN PRN Hypotension during Dialysis Midazolam HCl 100 mg/ Sodium 100 mls @ 1 mls/hr 05/02/20 21:45 05/06/20 22:02 Chloride IVPB Not Given TITR EAN Protocol 1 MG/HR Propofol 1,000,000 mcg in 100 mls @ 6.121 mls/hr 05/06/20 16:30 05/06/20 22:01 Diprivan - IVPB 20 mcg/kg/min TITR EAN 12.242 mls/hr Administration Protocol 10 MCG/KG/MIN Fentanyl 500 mcg in 100 mls @ 20.403 mls/hr 05/06/20 22:00 05/07/20 03:16 Sublimaze Ivpb IVPB 1 mcg/kg/hr TITR EAN 20.403 mls/hr Administration Protocol 1 MCG/KG/HR Metoprolol Tartrate 5 mg 04/07/20 22:50 Lopressor Injection - IVPUSH Q4H PRN TACHYCARDIA Nystatin 1 applic 04/19/20 23:58 04/28/20 09:59 Mycostatin Cream - TP 1 applic PRN PRN Administration HYGEINE Pantoprazole Sodium 40 mg 04/08/20 10:00 05/06/20 09:41 Protonix Iv IVPUSH 40 mg DAILY EAN Administration Saliva Substitute 1 applic 05/04/20 12:15 05/06/20 09:40 Mouthkote Solution - MM 1 applic DAILY EAN Administration Silver Sulfadiazine 1 applic 04/23/20 20:45 05/06/20 09:41 Silvadene - TP 1 applic DAILY EAN Administration Vitamin A/Vitamin D 1 applic 04/30/20 12:00 05/07/20 05:21 Vitamin A & D Top Oint - TP 1 applic Q6HPO EAN Administration Drips: 9 NE, 100 fentanyl, 20 propofol Vent: RR 12, TV 400, FiO2 60, PEEP 5 (sat 94%) ASSESSMENT/PLAN: 79yo M with PMHx of CHF, COPD, CVA, HTN, HLD, and afib on eliquis, with DNR status brought in by EMS from [facility] for seizure-like episode, ED course concerning for sepsis (source unclear), intubated for acute respiratory failure. Condition has declined and patient has poor prognosis. Family has decided to withdraw care, preferably May 09. #Neuro - sedated and intubated - responsive to painful stimuli #Cardio CHF exacerbation, afib, inverted T waves - on heparin ppx - goal MAPs >65, NE as needed #Pulm pulmonary edema, bilateral pleural effusions, COPD exacerbation - will not place tracheostomy due to discontinuation of care on 05/09/2020 #GI - PEG tube feeds #Renal fluid overloaded, bilateral UE + LE pitting edema - largely resolved - holding HD for now per nephro recs, may remove catheter #ID sacral ulcer vs pneumonia vs unknown etiology - patient is currently afebrile (last seen febrile 05/06/2020) - continued vancomycin and cefepime (vanc trough due 05/08) - adjusted for azotemia per ID recs - sputum culture growing staph - not treating due to upcoming discontinuation of care #Skin stage 4 sacral ulcer, extensive skin sloughing on posterior legs bilaterally - continue nursing care #FEN electrolytes WNL, replete as needed #PPX - DVT: heparin - GI: pentoprazole #LTD - PEG tube - R trialysis catheter 04/25 - Simon - fecal management system (since patient has stage 4 sacral ulcer) #Dispo to be terminally weaned on Thursday05/09/2020 Visit type - Emergency Visit Emergency Visit: Yes ED Registration Date: 04/07/20 Care time: The patient presented to the Emergency Department on the above date and was hospitalized for further evaluation of their emergent condition. - New Patient This patient is new to me today: No - Critical Care Critical Care patient: Yes Total Critical Care Time (in minutes): 36 Critical Care Statement: The care of this patient involved high complexity decision making to prevent further life threatening deterioration of the patient's condition and/or to evaluate & treat vital organ system(s) failure or risk of failure. ATTENDING PHYSICIAN STATEMENT I saw and evaluated the patient. I reviewed the resident's note and discussed the case with the resident. I agree with the resident's findings and plan as documented. SUBJECTIVE: OBJECTIVE: ASSESSMENT AND PLAN:
[2020-05-07 07:32] LABS: HEMATOCRIT 23.7 % (35.4-49); HEMOGLOBIN 7.5 GM/dL (11.7-16.9); MCH 28.9 pg (25.7-33.7); MCHC 31.5 g/dl (32.0-35.9); MEAN CELL VOLUME 91.5 fl (80-96); MEAN PLT VOLUME 7.8 fl (7.5-11.1); PLATELET COUNT 293 K/MM3 (134-434); RBC 2.59 M/mm3 (4.00-5.60); WHITE BLOOD COUNT 16.1 K/mm3 (4.0-10.0)
[2020-05-07 08:03] LABS: ALBUMIN 1.6 g/dl (3.4-5.0); BILIRUBIN,TOTAL 0.7 mg/dL (0.2-1); BLOOD UREA NITROGEN 64.9 mg/dL (7-18); CALCIUM 7.8 mg/dL (8.5-10.1); CREATININE 4.1 mg/dL (0.55-1.3); MAGNESIUM 1.9 mg/dL (1.8-2.4); PHOSPHOROUS 2.7 mg/dL (2.5-4.9); POTASSIUM 4.4 mmol/L (3.5-5.1); TOT PROT 5.4 g/dl (6.4-8.2)
[2020-05-07] MEDS: CHLORHEXIDINE GLUCONATE 0.12% 15ML CUP MM SCH ×2 (10:05→21:27)
[2020-05-07] MEDS: HEPARIN NA (PORCINE) 5,000 UNITS/ML 1ML VIAL SQ SCH ×2 (10:05→21:27)
[2020-05-07] MEDS: PANTOPRAZOLE SODIUM 40 MG VIAL IVPUSH SCH (10:06)
[2020-05-07] MEDS: SILVER SULFADIAZINE 1% TOP CREAM 50 GM JAR TP SCH (10:07)
[2020-05-07] MEDS: LYTES/YERBA SANTA 240 ML BOTTLE MM SCH (10:07)
--- NOTE | 2020-05-07 11:29 | PN ---
Teaching Attending Note Name of Resident: Mitali Madrid ATTENDING PHYSICIAN STATEMENT I saw and evaluated the patient. I reviewed the resident's note and discussed the case with the resident. I agree with the resident's findings and plan as documented. SUBJECTIVE: Pt seen and examined in the ICU. Remains intubated, sedated on levophed gtt. No fevers recorded. Vented on volume assist control with 40% FiO2 PEEP 5. OBJECTIVE: Vital Signs Period Temp Pulse Resp BP Sys/Cesar Pulse Ox Last 24 Hr 97.7 F-99.4 F 87-101 13-33 89-108/49-57 90-99 Intake & Output 05/04/20 05/05/20 05/06/20 05/07/20 23:59 23:59 23:59 23:59 Intake Total 1685.0 1864 1780 1166 Output Total 100 50 10 Balance 1585.0 1814 1770 1166 Weight 102.603 kg 102.013 kg 102.512 kg Gen: intubated, sedated Heart: RRR Lung: scattered rhonchi Abd: soft, nontender Ext: + edema CBC, BMP 05/07/20 05:00 05/07/20 05:00 Active Medications Acetaminophen (Ofirmev Injection -) 1,000 mg IVPB Q6H PRN PRN Reason: FEVER Last Admin: 05/06/20 17:47 Dose: 1,000 mg Documented by: Albuterol Sulfate (Ventolin Hfa Inhaler -) 2 puff IH Q4H PRN PRN Reason: SHORT OF BREATH/WHEEZING Artificial Tears (Artificial Tears) 1 drop OU BID PRN PRN Reason: DRY EYES Last Admin: 05/07/20 10:08 Dose: 1 drop Documented by: Chlorhexidine Gluconate (Hibiclens For Decolonization -) 1 applic TP HS EAN Last Admin: 05/06/20 21:33 Dose: 1 applic Documented by: Chlorhexidine Gluconate (Peridex -) 15 ml MM BID EAN Last Admin: 05/07/20 10:05 Dose: 15 ml Documented by: Heparin Sodium (Porcine) (Heparin -) 5,000 unit SQ BID EAN Last Admin: 05/07/20 10:05 Dose: 5,000 unit Documented by: Norepinephrine Bitartrate (Levophed Bag) 8,000 mcg in 500 mls @ 18.75 mls/hr IVPB TITR EAN; Protocol Last Admin: 05/07/20 10:03 Dose: 8.96 mcg/min, 33.6 mls/hr Documented by: Sodium Chloride (Normal Saline -) 250 mls @ 3,000 mls/hr IV PRN PRN PRN Reason: Hypotension during Dialysis Midazolam HCl 100 mg/ Sodium (Chloride) 100 mls @ 1 mls/hr IVPB TITR EAN; Protocol Last Admin: 05/06/20 22:02 Dose: Not Given Documented by: Propofol (Diprivan -) 1,000,000 mcg in 100 mls @ 6.121 mls/hr IVPB TITR EAN; Pr otocol Last Admin: 05/07/20 04:00 Dose: 20 mcg/kg/min, 12.242 mls/hr Documented by: Fentanyl (Sublimaze Ivpb) 500 mcg in 100 mls @ 20.403 mls/hr IVPB TITR EAN; Protocol Last Admin: 05/07/20 10:05 Dose: 1 mcg/kg/hr, 20.403 mls/hr Documented by: Metoprolol Tartrate (Lopressor Injection -) 5 mg IVPUSH Q4H PRN PRN Reason: TACHYCARDIA Nystatin (Mycostatin Cream -) 1 applic TP PRN PRN PRN Reason: HYGEINE Last Admin: 04/28/20 09:59 Dose: 1 applic Documented by: Pantoprazole Sodium (Protonix Iv) 40 mg IVPUSH DAILY [facility] Last Admin: 05/07/20 10:06 Dose: 40 mg Documented by: Saliva Substitute (Mouthkote Solution -) 1 applic MM DAILY EAN Last Admin: 05/07/20 10:07 Dose: 1 applic Documented by: Silver Sulfadiazine (Silvadene -) 1 applic TP DAILY [facility] Last Admin: 05/07/20 10:07 Dose: 1 applic Documented by: Vitamin A/Vitamin D (Vitamin A & D Top Oint -) 1 applic TP Q6HPO [facility] Last Admin: 05/07/20 05:21 Dose: 1 applic Documented by: ASSESSMENT AND PLAN: Acute Hypoxic Respiratory Failure MRSA Pneumonia UTI Sacral Decubitus Ulcers Septic Shock Lactic Acidosis Acute Kidney Injury requiring HD +Troponins likely Demand Ischemia Atrial Fibrillation Acute on Chronic Diastolic Heart Failure Pulmonary HTN Volume Overload COPD HTN Hyperlipidemia Bacteremia Anemia - completed antibiotics - HD per renal - monitor urine output, creatinine - titrate pressors to maintain MAP >65 - rate control - continue volume assist control - enteral feeds - DVT/GI prophylaxis - continue ICU monitoring - continue discussions regarding goals of care, recommend compassionate extubation critical care time spent in reviewing chart, evaluating patient and formulating plan 35 min
--- NOTE | 2020-05-07 11:49 | PN ---
Progress Note, Physician History of Present Illness: DOING POORLY REMAINS SEDATED ON VENTILATOR BREATHING NON LABORED HYPOTENSIVE ON PRESSORS TEMPS DOWN WBC IMPROVED SPUTUM C/S STAPH AUREUS BC PENDING - Current Medication List Current Medications: Active Medications Acetaminophen (Ofirmev Injection -) 1,000 mg IVPB Q6H PRN PRN Reason: FEVER Last Admin: 05/06/20 17:47 Dose: 1,000 mg Documented by: Albuterol Sulfate (Ventolin Hfa Inhaler -) 2 puff IH Q4H PRN PRN Reason: SHORT OF BREATH/WHEEZING Artificial Tears (Artificial Tears) 1 drop OU BID PRN PRN Reason: DRY EYES Last Admin: 05/07/20 10:08 Dose: 1 drop Documented by: Chlorhexidine Gluconate (Hibiclens For Decolonization -) 1 applic TP HS EAN Last Admin: 05/06/20 21:33 Dose: 1 applic Documented by: Chlorhexidine Gluconate (Peridex -) 15 ml MM BID EAN Last Admin: 05/07/20 10:05 Dose: 15 ml Documented by: Heparin Sodium (Porcine) (Heparin -) 5,000 unit SQ BID EAN Last Admin: 05/07/20 10:05 Dose: 5,000 unit Documented by: Norepinephrine Bitartrate (Levophed Bag) 8,000 mcg in 500 mls @ 18.75 mls/hr IVPB TITR EAN; Protocol Last Admin: 05/07/20 10:03 Dose: 8.96 mcg/min, 33.6 mls/hr Documented by: Sodium Chloride (Normal Saline -) 250 mls @ 3,000 mls/hr IV PRN PRN PRN Reason: Hypotension during Dialysis Midazolam HCl 100 mg/ Sodium (Chloride) 100 mls @ 1 mls/hr IVPB TITR EAN; Protocol Last Admin: 05/06/20 22:02 Dose: Not Given Documented by: Propofol (Diprivan -) 1,000,000 mcg in 100 mls @ 6.121 mls/hr IVPB TITR EAN; Protocol Last Admin: 05/07/20 04:00 Dose: 20 mcg/kg/min, 12.242 mls/hr Documented by: Fentanyl (Sublimaze Ivpb) 500 mcg in 100 mls @ 20.403 mls/hr IVPB TITR EAN; Protocol Last Admin: 05/07/20 10:05 Dose: 1 mcg/kg/hr, 20.403 mls/hr Documented by: Metoprolol Tartrate (Lopressor Injection -) 5 mg IVPUSH Q4H PRN PRN Reason: TACHYCARDIA Nystatin (Mycostatin Cream -) 1 applic TP PRN PRN PRN Reason: HYGEINE Last Admin: 04/28/20 09:59 Dose: 1 applic Documented by: Pantoprazole Sodium (Protonix Iv) 40 mg IVPUSH DAILY [facility] Last Admin: 05/07/20 10:06 Dose: 40 mg Documented by: Saliva Substitute (Mouthkote Solution -) 1 applic MM DAILY [facility] Last Admin: 05/07/20 10:07 Dose: 1 applic Documented by: Silver Sulfadiazine (Silvadene -) 1 applic TP DAILY [facility] Last Admin: 05/07/20 10:07 Dose: 1 applic Documented by: Vitamin A/Vitamin D (Vitamin A & D Top Oint -) 1 applic TP Q6HPO [facility] Last Admin: 05/07/20 05:21 Dose: 1 applic Documented by: - Objective Vital Signs: Vital Signs Temperature 98.3 F 05/07/20 10:00 Pulse Rate 87 05/07/20 10:00 Respiratory Rate 20 05/07/20 10:00 Blood Pressure 101/57 L 05/07/20 10:00 O2 Sat by Pulse Oximetry (%) 96 05/07/20 10:00 Constitutional: Yes: No Distress Eyes: Yes: Conjunctiva Clear Cardiovascular: Yes: Regular Rate and Rhythm, S1, S2 Respiratory: Yes: Mechanically Ventilated Gastrointestinal: Yes: Normal Bowel Sounds, Soft, Abdomen, Obese Edema: Yes Labs: CBC, BMP 05/07/20 05:00 05/07/20 05:00 INR, PTT INR 1.49 (0.83-1.09) H 04/08/20 05:20 Assessment/Plan FEVER/LEUKOCYTOSIS RESP FAILURE SEPSIS/ SEPTIC SHOCK RENAL FAILURE LACTIC ACIDOSIS S/P SEIZURE PROBABLE ASP PNEUMONIA COPD PCN ALLERGY COVID-19 (-) RECURRENT FEVER/ LEUKOCYTOSIS REPEAT CULTURES OBTAINED EMPIRIC VANCOMYCIN / CEFEPIME ADJUSTED FOR AZOTEMIA PROGNOSIS POOR
[2020-05-07] MEDS ORDERED: DEXTROSE 5%-WATER 100 ML IVPB ONE (12:23)
[2020-05-07] MEDS ORDERED: CEFEPIME HCL 1 GM VIAL (RESTRICTED TO ID) ONE (12:23)
[2020-05-07] MEDS: CEFEPIME 1 GM in DEXTROSE 5%-WATER 100 ML IVPB SCH (12:32)
--- NOTE | 2020-05-07 13:05 | PN ---
Progress Note, Physician History of Present Illness: Pt seen and examined at bedside. He remains in the ICU. He remains intubated. - Current Medication List Current Medications: Active Medications Acetaminophen (Ofirmev Injection -) 1,000 mg IVPB Q6H PRN PRN Reason: FEVER Last Admin: 05/06/20 17:47 Dose: 1,000 mg Documented by: Albuterol Sulfate (Ventolin Hfa Inhaler -) 2 puff IH Q4H PRN PRN Reason: SHORT OF BREATH/WHEEZING Artificial Tears (Artificial Tears) 1 drop OU BID PRN PRN Reason: DRY EYES Last Admin: 05/07/20 10:08 Dose: 1 drop Documented by: Chlorhexidine Gluconate (Hibiclens For Decolonization -) 1 applic TP HS EAN Last Admin: 05/06/20 21:33 Dose: 1 applic Documented by: Chlorhexidine Gluconate (Peridex -) 15 ml MM BID EAN Last Admin: 05/07/20 10:05 Dose: 15 ml Documented by: Heparin Sodium (Porcine) (Heparin -) 5,000 unit SQ BID EAN Last Admin: 05/07/20 10:05 Dose: 5,000 unit Documented by: Norepinephrine Bitartrate (Levophed Bag) 8,000 mcg in 500 mls @ 18.75 mls/hr IVPB TITR EAN; Protocol Last Admin: 05/07/20 10:03 Dose: 8.96 mcg/min, 33.6 mls/hr Documented by: Sodium Chloride (Normal Saline -) 250 mls @ 3,000 mls/hr IV PRN PRN PRN Reason: Hypotension during Dialysis Midazolam HCl 100 mg/ Sodium (Chloride) 100 mls @ 1 mls/hr IVPB TITR EAN; Protocol Last Admin: 05/06/20 22:02 Dose: Not Given Documented by: Propofol (Diprivan -) 1,000,000 mcg in 100 mls @ 6.121 mls/hr IVPB TITR EAN; Protocol Last Admin: 05/07/20 04:00 Dose: 20 mcg/kg/min, 12.242 mls/hr Documented by: Fentanyl (Sublimaze Ivpb) 500 mcg in 100 mls @ 20.403 mls/hr IVPB TITR EAN; Protocol Last Admin: 05/07/20 10:05 Dose: 1 mcg/kg/hr, 20.403 mls/hr Documented by: Vancomycin HCl (Vancomycin (Pre-Docked)) 1,000 mg in 250 mls @ 166.667 mls/hr IVPB ONCE ONE; Protocol Stop: 05/07/20 22:29 Cefepime HCl 1 gm/ Dextrose 100 mls @ 200 mls/hr IVPB DAILY [facility]; Protocol Last Admin: 05/07/20 12:32 Dose: 200 mls/hr Documented by: Metoprolol Tartrate (Lopressor Injection -) 5 mg IVPUSH Q4H PRN PRN Reason: TACHYCARDIA Nystatin (Mycostatin Cream -) 1 applic TP PRN PRN PRN Reason: HYGEINE Last Admin: 04/28/20 09:59 Dose: 1 applic Documented by: Pantoprazole Sodium (Protonix Iv) 40 mg IVPUSH DAILY [facility] Last Admin: 05/07/20 10:06 Dose: 40 mg Documented by: Saliva Substitute (Mouthkote Solution -) 1 applic MM DAILY [facility] Last Admin: 05/07/20 10:07 Dose: 1 applic Documented by: Silver Sulfadiazine (Silvadene -) 1 applic TP DAILY [facility] Last Admin: 05/07/20 10:07 Dose: 1 applic Documented by: Vitamin A/Vitamin D (Vitamin A & D Top Oint -) 1 applic TP Q6HPO [facility] Last Admin: 05/07/20 12:33 Dose: 1 applic Documented by: - Objective Vital Signs: Vital Signs Temperature 98.3 F 05/07/20 10:00 Pulse Rate 90 05/07/20 12:00 Respiratory Rate 18 05/07/20 12:00 Blood Pressure 99/51 L 05/07/20 12:00 O2 Sat by Pulse Oximetry (%) 97 05/07/20 11:48 Constitutional: Yes: Calm Eyes: Yes: Conjunctiva Clear HENT: Yes: Atraumatic Cardiovascular: Yes: S1, S2 Respiratory: Yes: Mechanically Ventilated Gastrointestinal: Yes: Soft Genitourinary: Yes: Saavedra Present Musculoskeletal: Yes: Muscle Weakness Edema: Yes Edema: LLE: 2+, RLE: 2+ Neurological: Yes: Lethargy Labs: CBC, BMP 05/07/20 05:00 05/07/20 05:00 INR, PTT INR 1.49 (0.83-1.09) H 04/08/20 05:20 Problem List - Problems (1) CHF exacerbation Code(s): I50.9 - HEART FAILURE, UNSPECIFIED (2) Sepsis Code(s): A41.9 - SEPSIS, UNSPECIFIED ORGANISM (3) SURESH (acute kidney injury) Code(s): N17.9 - ACUTE KIDNEY FAILURE, UNSPECIFIED Assessment/Plan Current Medications Generic Name Dose Route Start Last Admin Trade Name Freq PRN Reason Stop Dose Admin Acetaminophen 1,000 mg 04/08/20 08:58 05/06/20 17:47 Ofirmev Injection - IVPB 1,000 mg Q6H PRN Administration FEVER Albuterol Sulfate 2 puff 04/22/20 08:21 Ventolin Hfa Inhaler - IH Q4H PRN SHORT OF BREATH/WHEEZING Artificial Tears 1 drop 04/27/20 13:51 05/07/20 10:08 Artificial Tears OU 1 drop BID PRN Administration DRY EYES Chlorhexidine Gluconate 1 applic 04/07/20 22:00 05/06/20 21:33 Hibiclens For Decolonization - TP 1 applic HS EAN Administration Chlorhexidine Gluconate 15 ml 04/18/20 22:00 05/07/20 10:05 Peridex - MM 15 ml BID EAN Administration Heparin Sodium (Porcine) 5,000 unit 04/10/20 15:15 05/07/20 10:05 Heparin - SQ 5,000 unit BID EAN Administration Norepinephrine Bitartrate 8,000 mcg in 500 mls @ 18.75 mls/hr 04/21/20 00:15 05/07/20 10:03 Levophed Bag IVPB 8.96 mcg/min TITR EAN 33.6 mls/hr Administration Protocol 5 MCG/MIN Sodium Chloride 250 mls @ 3,000 mls/hr 04/30/20 10:13 Normal Saline - IV PRN PRN Hypotension during Dialysis Midazolam HCl 100 mg/ Sodium 100 mls @ 1 mls/hr 05/02/20 21:45 05/06/20 22:02 Chloride IVPB Not Given TITR EAN Protocol 1 MG/HR Propofol 1,000,000 mcg in 100 mls @ 6.121 mls/hr 05/06/20 16:30 05/07/20 04:00 Diprivan - IVPB 20 mcg/kg/min TITR EAN 12.242 mls/hr Administration Protocol 10 MCG/KG/MIN Fentanyl 500 mcg in 100 mls @ 20.403 mls/hr 05/06/20 22:00 05/07/20 10:05 Sublimaze Ivpb IVPB 1 mcg/kg/hr TITR EAN 20.403 mls/hr Administration Protocol 1 MCG/KG/HR Vancomycin HCl 1,000 mg in 250 mls @ 166.667 mls/hr 05/07/20 21:00 Vancomycin (Pre-Docked) IVPB 05/07/20 22:29 ONCE ONE Protocol Cefepime HCl 1 gm/ Dextrose 100 mls @ 200 mls/hr 05/07/20 12:00 05/07/20 12:32 IVPB 200 mls/hr DAILY EAN Administration Protocol Metoprolol Tartrate 5 mg 04/07/20 22:50 Lopressor Injection - IVPUSH Q4H PRN TACHYCARDIA Nystatin 1 applic 04/19/20 23:58 04/28/20 09:59 Mycostatin Cream - TP 1 applic PRN PRN Administration HYGEINE Pantoprazole Sodium 40 mg 04/08/20 10:00 05/07/20 10:06 Protonix Iv IVPUSH 40 mg DAILY EAN Administration Saliva Substitute 1 applic 05/04/20 12:15 05/07/20 10:07 Mouthkote Solution - MM 1 applic DAILY EAN Administration Silver Sulfadiazine 1 applic 04/23/20 20:45 05/07/20 10:07 Silvadene - TP 1 applic DAILY EAN Administration Vitamin A/Vitamin D 1 applic 04/30/20 12:00 05/07/20 12:33 Vitamin A & D Top Oint - TP 1 applic Q6HPO EAN Administration Impression 1. SURESH 2. hyperkalemia 3. resp failure 4. UTI 5. sepsis 6. shock 7. MRSA Pneumonia 8. Lactic Acidosis 9. +Troponins 10. Atrial Fibrillation 11. LV Diastolic Dysfunction 12. Pulmonary HTN 13. Bacteremia 14. anemia 15. 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
--- NOTE | 2020-05-07 13:47 | PN ---
Physical Exam: SUBJECTIVE: Patient seen and examined, remains intubated and sedated. Afebrile since 05/06/2020 at 2am. Urine 50cc - urine was seen in the simon. Notable that there is no more edema in his feet, only mild edema in his legs posteriorly and nonpitting edematous hands. Family wants to withdraw care on May 09 (daughter's birthday is May 08). OBJECTIVE: Vital Signs Period Temp Pulse Resp BP Sys/Cesar Pulse Ox Last 24 Hr 97.7 F-99.4 F 87-101 13-33 89-108/49-57 94-99 GENERAL: sedated and intubated, responds to painful stimuli HEAD: mouth permanently open with visible dried/crusted blood around lips EYES: open occasionally, tends to have an upward gaze LUNGS: Breath sounds from vent are equal, inspiratory wheeze on R side HEART: irregular rate and sinus rhythm, S1, S2 with systolic murmur, no rub or gallop. ABDOMEN: nondistended, soft EXTREMITIES: 1+ pitting edema on hands and feet, scattered ecchymoses on arms bilaterally NEUROLOGICAL: responds to painful stimuli SKIN: stage 4 sacral ulcer, wet sloughing skin on posterior legs bilaterally reaching the calf on the L leg, ulcer in the penile area Laboratory Results - last 24 hr 05/07/20 05/07/20 05:00 05:00 WBC 16.1 H RBC 2.59 L Hgb 7.5 L Hct 23.7 L MCV 91.5 MCH 28.9 MCHC 31.5 L RDW 18.0 H Plt Count 293 MPV 7.8 Sodium 131 L Potassium 4.4 Chloride 94 L Carbon Dioxide 23 Anion Gap 14 BUN 64.9 H Creatinine 4.1 H Est GFR (CKD-EPI)AfAm 14.79 Est GFR (CKD-EPI)NonAf 12.76 Random Glucose 180 H Calcium 7.8 L Phosphorus 2.7 Magnesium 1.9 Total Bilirubin 0.7 AST 26 ALT 12 L Alkaline Phosphatase 170 H Total Protein 5.4 L Albumin 1.6 L Active Medications Generic Name Dose Route Start Last Admin Trade Name Freq PRN Reason Stop Dose Admin Acetaminophen 1,000 mg 04/08/20 08:58 05/06/20 17:47 Ofirmev Injection - IVPB 1,000 mg Q6H PRN Administration FEVER Albuterol Sulfate 2 puff 04/22/20 08:21 Ventolin Hfa Inhaler - IH Q4H PRN SHORT OF BREATH/WHEEZING Artificial Tears 1 drop 04/27/20 13:51 05/07/20 10:08 Artificial Tears OU 1 drop BID PRN Administration DRY EYES Chlorhexidine Gluconate 1 applic 04/07/20 22:00 05/06/20 21:33 Hibiclens For Decolonization - TP 1 applic HS EAN Administration Chlorhexidine Gluconate 15 ml 04/18/20 22:00 05/07/20 10:05 Peridex - MM 15 ml BID EAN Administration Heparin Sodium (Porcine) 5,000 unit 04/10/20 15:15 05/07/20 10:05 Heparin - SQ 5,000 unit BID EAN Administration Norepinephrine Bitartrate 8,000 mcg in 500 mls @ 18.75 mls/hr 04/21/20 00:15 05/07/20 10:03 Levophed Bag IVPB 8.96 mcg/min TITR EAN 33.6 mls/hr Administration Protocol 5 MCG/MIN Sodium Chloride 250 mls @ 3,000 mls/hr 04/30/20 10:13 Normal Saline - IV PRN PRN Hypotension during Dialysis Midazolam HCl 100 mg/ Sodium 100 mls @ 1 mls/hr 05/02/20 21:45 05/06/20 22:02 Chloride IVPB Not Given TITR EAN Protocol 1 MG/HR Propofol 1,000,000 mcg in 100 mls @ 6.121 mls/hr 05/06/20 16:30 05/07/20 13:37 Diprivan - IVPB 20 mcg/kg/min TITR EAN 12.242 mls/hr Administration Protocol 10 MCG/KG/MIN Fentanyl 500 mcg in 100 mls @ 20.403 mls/hr 05/06/20 22:00 05/07/20 13:38 Sublimaze Ivpb IVPB 1 mcg/kg/hr TITR EAN 20.403 mls/hr Administration Protocol 1 MCG/KG/HR Vancomycin HCl 1,000 mg in 250 mls @ 166.667 mls/hr 05/07/20 21:00 Vancomycin (Pre-Docked) IVPB 05/07/20 22:29 ONCE ONE Protocol Cefepime HCl 1 gm/ Dextrose 100 mls @ 200 mls/hr 05/07/20 12:00 05/07/20 12:32 IVPB 200 mls/hr DAILY EAN Administration Protocol Metoprolol Tartrate 5 mg 04/07/20 22:50 Lopressor Injection - IVPUSH Q4H PRN TACHYCARDIA Nystatin 1 applic 04/19/20 23:58 04/28/20 09:59 Mycostatin Cream - TP 1 applic PRN PRN Administration HYGEINE Pantoprazole Sodium 40 mg 04/08/20 10:00 05/07/20 10:06 Protonix Iv IVPUSH 40 mg DAILY EAN Administration Saliva Substitute 1 applic 05/04/20 12:15 05/07/20 10:07 Mouthkote Solution - MM 1 applic DAILY EAN Administration Silver Sulfadiazine 1 applic 04/23/20 20:45 05/07/20 10:07 Silvadene - TP 1 applic DAILY EAN Administration Vitamin A/Vitamin D 1 applic 04/30/20 12:00 05/07/20 12:33 Vitamin A & D Top Oint - TP 1 applic Q6HPO EAN Administration ASSESSMENT/PLAN: ATTENDING PHYSICIAN STATEMENT I saw and evaluated the patient. I reviewed the resident's note and discussed the case with the resident. I agree with the resident's findings and plan as documented. SUBJECTIVE: OBJECTIVE: ASSESSMENT AND PLAN:
[2020-05-07] MEDS ORDERED: VANCOMYCIN 1 GRAM (PRE-DOCKED) 1,000 MG/250 ML BAG IVPB ONE (21:00)
[2020-05-07] MEDS: CHLORHEXIDINE GLUCONATE 4% CLEANSER FOR DECOLONIZATION TP SCH (21:28)
[2020-05-08] MEDS: VITAMINS A AND D TOPICAL OINTMENT 60 GM TUBE TP SCH ×2 (00:10→13:04)
[2020-05-08] MEDS ORDERED: FENTANYL NS IVPB 500 MCG/100 ML BAG IVPB ONE (05:42)
[2020-05-08 06:47] LABS: BASO % 0.5 % (0-2.0); EOS % 1.5 % (0-4.5); HEMATOCRIT 24.2 % (35.4-49); HEMOGLOBIN 7.5 GM/dL (11.7-16.9); LYMPH % 4.9 % (8-40); MCH 28.4 pg (25.7-33.7); MCHC 31.1 g/dl (32.0-35.9); MEAN CELL VOLUME 91.4 fl (80-96); MEAN PLT VOLUME 7.7 fl (7.5-11.1); MONO % 4.3 % (3.8-10.2); NEUT % 88.8 % (42.8-82.8); PLATELET COUNT 337 K/MM3 (134-434); RBC 2.65 M/mm3 (4.00-5.60); RDW 17.8 % (11.9-15.9); WHITE BLOOD COUNT 17.1 K/mm3 (4.0-10.0)
[2020-05-08 07:19] LABS: ALBUMIN 1.4 g/dl (3.4-5.0); BILIRUBIN,TOTAL 0.8 mg/dL (0.2-1); BLOOD UREA NITROGEN 70.8 mg/dL (7-18); CALCIUM 7.8 mg/dL (8.5-10.1); CREATININE 4.3 mg/dL (0.55-1.3); MAGNESIUM 1.8 mg/dL (1.8-2.4); PHOSPHOROUS 3.1 mg/dL (2.5-4.9); POTASSIUM 4.6 mmol/L (3.5-5.1); TOT PROT 5.3 g/dl (6.4-8.2)
--- NOTE | 2020-05-08 08:05 | PN ---
Physical Exam: SUBJECTIVE: Patient seen and examined, remains intubated and sedated. Urine 50cc - urine was seen in the simon yesterday. No acute overnight events pernursing staff. Family wants to withdraw care on May 09 (daughter's birthday is May 08) - Adeola from palliative care is in contact with the family and will coordinate exact time for Thursday. OBJECTIVE: Vital Signs Period Temp Pulse Resp BP Sys/Cesar Pulse Ox Last 24 Hr 97.5 F-98.5 F 81-97 12-25 87-107/47-61 94-99 GENERAL: sedated and intubated, responds to painful stimuli HEAD: mouth permanently open with visible dried/crusted blood around lips and teeth EYES: rarely occasionally, tends to have an upward gaze and constricted pupils LUNGS: Breath sounds from vent are equal, inspiratory wheeze on R side HEART: irregular rate and sinus rhythm, S1, S2 with systolic murmur, no rub or gallop. ABDOMEN: nondistended, soft EXTREMITIES: 21+ pitting edema on hands and posterior LE bilaterally, scattered ecchymoses on arms bilaterally NEUROLOGICAL: responds to painful stimuli SKIN: stage 4 sacral ulcer, wet sloughing skin on posterior legs bilaterally reaching the calf on the L leg, two small ulcers in penile area - looking mildly purulent today Laboratory Results - last 24 hr 05/07/20 05/07/20 05/08/20 05:00 05:00 05:50 WBC 16.1 H RBC 2.59 L Hgb 7.5 L Hct 23.7 L MCV 91.5 MCH 28.9 MCHC 31.5 L RDW 18.0 H Plt Count 293 MPV 7.8 Absolute Neuts (auto) Neutrophils % Lymphocytes % Monocytes % Eosinophils % Basophils % Nucleated RBC % Sodium 131 L Potassium 4.4 Chloride 94 L Carbon Dioxide 23 Anion Gap 14 BUN 64.9 H Creatinine 4.1 H Est GFR (CKD-EPI)AfAm 14.79 Est GFR (CKD-EPI)NonAf 12.76 Random Glucose 180 H Calcium 7.8 L Phosphorus 2.7 Magnesium 1.9 Total Bilirubin 0.7 AST 26 ALT 12 L Alkaline Phosphatase 170 H Total Protein 5.4 L Albumin 1.6 L Random Vancomycin 26.2 H 05/08/20 05/08/20 05:50 05:50 WBC 17.1 H RBC 2.65 L Hgb 7.5 L Hct 24.2 L MCV 91.4 MCH 28.4 MCHC 31.1 L RDW 17.8 H Plt Count 337 MPV 7.7 Absolute Neuts (auto) 15.2 H Neutrophils % 88.8 H Lymphocytes % 4.9 L Monocytes % 4.3 Eosinophils % 1.5 Basophils % 0.5 Nucleated RBC % 0 Sodium 128 L Potassium 4.6 Chloride 93 L Carbon Dioxide 21 Anion Gap 14 BUN 70.8 H Creatinine 4.3 H Est GFR (CKD-EPI)AfAm 13.96 Est GFR (CKD-EPI)NonAf 12.05 Random Glucose 191 H Calcium 7.8 L Phosphorus 3.1 Magnesium 1.8 Total Bilirubin 0.8 AST 28 ALT 12 L Alkaline Phosphatase 198 H Total Protein 5.3 L Albumin 1.4 L Random Vancomycin Microbiology 05/05/20 19:30 Sputum - Endotrachea Suction/Ventilator Gram Stain - Final 05/05/20 19:30 Sputum - Endotrachea Suction/Ventilator Sputum Culture - Final S Aureus 05/05/20 19:30 Blood - Peripheral Venous Blood Culture - Preliminary NO GROWTH OBTAINED AFTER 48 HOURS, INCUBATION TO CONTINUE FOR 3 DAYS. 05/05/20 19:30 Blood - Peripheral Venous Blood Culture - Preliminary NO GROWTH OBTAINED AFTER 48 HOURS, INCUBATION TO CONTINUE FOR 3 DAYS. 04/16/20 07:15 Blood - Peripheral Venous Blood Culture - Final NO GROWTH AFTER 5 DAYS INCUBATION 04/16/20 14:00 Blood - Peripheral Venous Blood Culture - Final NO GROWTH AFTER 5 DAYS INCUBATION 04/12/20 05:40 Blood - Peripheral Venous Blood Culture - Final NO GROWTH AFTER 5 DAYS INCUBATION 04/12/20 05:52 Blood - Peripheral Venous Blood Culture - Final Staph Hominis Sub Sp Hominis 04/07/20 13:50 Blood - Peripheral Venous Blood Culture - Final NO GROWTH AFTER 5 DAYS INCUBATION 04/07/20 14:00 Blood - Peripheral Venous Blood Culture - Final NO GROWTH AFTER 5 DAYS INCUBATION 04/09/20 22:20 Sputum - Endotrachea Suction/Ventilator Gram Stain - Final 04/09/20 22:20 Sputum - Endotrachea Suction/Ventilator Sputum Culture - Final S Aureus 04/07/20 15:50 Urine - Urine Simon Urine Culture - Final Normal Urogenital Carla Active Medications Acetaminophen (Ofirmev Injection -) 1,000 mg IVPB Q6H PRN Albuterol Sulfate (Ventolin Hfa Inhaler -) 2 puff IH Q4H PRN Artificial Tears (Artificial Tears) 1 drop OU BID PRN Chlorhexidine Gluconate (Hibiclens For Decolonization -) 1 applic TP HS EAN Chlorhexidine Gluconate (Peridex -) 15 ml MM BID EAN Heparin Sodium (Porcine) (Heparin -) 5,000 unit SQ BID EAN Norepinephrine Bitartrate (Levophed Bag) 8,000 mcg in 500 mls @ 18.75 mls/hr IVPB TITR EAN; Protocol Sodium Chloride (Normal Saline -) 250 mls @ 3,000 mls/hr IV PRN PRN Propofol (Diprivan -) 1,000,000 mcg in 100 mls @ 6.121 mls/hr IVPB TITR EAN; Protocol Fentanyl (Sublimaze Ivpb) 500 mcg in 100 mls @ 20.403 mls/hr IVPB TITR EAN; Protocol Cefepime HCl 1 gm/ Dextrose 100 mls @ 200 mls/hr IVPB DAILY EAN; Protocol Metoprolol Tartrate (Lopressor Injection -) 5 mg IVPUSH Q4H PRN Nystatin (Mycostatin Cream -) 1 applic TP PRN PRN Pantoprazole Sodium (Protonix Iv) 40 mg IVPUSH DAILY EAN Saliva Substitute (Mouthkote Solution -) 1 applic MM DAILY EAN Silver Sulfadiazine (Silvadene -) 1 applic TP DAILY EAN Vitamin A/Vitamin D (Vitamin A & D Top Oint -) 1 applic TP Q6HPO EAN Drips: 9 NE, 100 fentanyl, 20 propofol Vent: RR 12, TV 400, FiO2 40 (yesterday 60), PEEP 5 (sat 96%) ASSESSMENT/PLAN: 79yo M with PMHx of CHF, COPD, CVA, HTN, HLD, and afib on eliquis, with DNR status brought in by EMS from [facility] for seizure-like episode, ED course concerning for sepsis (source unclear), intubated for acute respiratory failure. Condition has declined and patient has poor prognosis. Family has decided to withdraw care on May 09, palliative care on board. #Neuro - sedated, on propofol and fentanyl - responsive to painful stimuli #Cardio CHF exacerbation, afib, inverted T waves (resolved), HLD - on heparin ppx - goal MAPs >65, NE as needed #Pulm pulmonary edema, bilateral pleural effusions, COPD exacerbation - will not place tracheostomy due to discontinuation of care on 05/09/2020 #GI - PEG tube feeds #Renal fluid overloaded, bilateral UE + LE pitting edema - largely resolved - holding HD for now per nephro recs #ID Febrile due to sacral ulcer vs pneumonia vs unknown etiology - patient is currently afebrile (last seen febrile 05/06/2020) - continued vancomycin and cefepime (vanc trough due 05/08) - adjusted for azotemia per ID recs - sputum culture growing staph - not treating due to upcoming discontinuation of care #Skin stage 4 sacral pressure ulcer and extensive skin sloughing on posterior legs bilaterally due to extended bed-bound state - continue nursing care #FEN - electrolytes WNL - replete as needed - no standing fluids - PEG tube feeds #PPX - DVT: heparin - GI: pentoprazole #LTD - PEG tube - R trialysis catheter 04/25 - Simon - fecal management system (since patient has stage 4 sacral ulcer) #Dispo to be terminally weaned on Thursday05/09/2020 Visit type - Emergency Visit Emergency Visit: Yes ED Registration Date: 04/07/20 Care time: The patient presented to the Emergency Department on the above date and was hospitalized for further evaluation of their emergent condition. - New Patient This patient is new to me today: No - Critical Care Critical Care patient: Yes Total Critical Care Time (in minutes): 36 Critical Care Statement: The care of this patient involved high complexity decision making to prevent further life threatening deterioration of the patient's condition and/or to evaluate & treat vital organ system(s) failure or risk of failure. ATTENDING PHYSICIAN STATEMENT I saw and evaluated the patient. I reviewed the resident's note and discussed the case with the resident. I agree with the resident's findings and plan as documented. SUBJECTIVE: OBJECTIVE: ASSESSMENT AND PLAN:
[2020-05-08] MEDS ORDERED: CEFEPIME HCL 1 GM VIAL (RESTRICTED TO ID) ONE (09:17)
[2020-05-08] MEDS ORDERED: DEXTROSE 5%-WATER 100 ML IVPB ONE (09:17)
[2020-05-08] MEDS: PANTOPRAZOLE SODIUM 40 MG VIAL IVPUSH SCH (10:07)
[2020-05-08] MEDS: HEPARIN NA (PORCINE) 5,000 UNITS/ML 1ML VIAL SQ SCH ×2 (10:08→22:57)
[2020-05-08] MEDS: CEFEPIME 1 GM in DEXTROSE 5%-WATER 100 ML IVPB SCH (10:08)
[2020-05-08] MEDS: CHLORHEXIDINE GLUCONATE 0.12% 15ML CUP MM SCH ×2 (10:08→22:57)
[2020-05-08] MEDS: SILVER SULFADIAZINE 1% TOP CREAM 50 GM JAR TP SCH (10:09)
[2020-05-08] MEDS ORDERED: PT OWN MED DRAWER 7, Y5N ONE (10:44)
[2020-05-08] MEDS: LYTES/YERBA SANTA 240 ML BOTTLE MM SCH (11:02)
[2020-05-08] MEDS: PROPOFOL 1,000,000 MCG/100 ML VIAL IVPB SCH (11:55)
--- NOTE | 2020-05-08 11:58 | PN ---
Teaching Attending Note Name of Resident: Mitali Madrid ATTENDING PHYSICIAN STATEMENT I saw and evaluated the patient. I reviewed the resident's note and discussed the case with the resident. I agree with the resident's findings and plan as documented. SUBJECTIVE: Pt seen and examined in the ICU. Clinically unchanged. Remains intubated, sedated on levophed gtt. No fevers recorded. Vented on volume assist control with 40% FiO2 PEEP 5. OBJECTIVE: Vital Signs Period Temp Pulse Resp BP Sys/Cesar Pulse Ox Last 24 Hr 97.5 F-98.5 F 81-97 12-25 87-107/47-61 94-99 Intake & Output 05/05/20 05/06/20 05/07/20 05/08/20 23:59 23:59 23:59 23:59 Intake Total 1864 1780 2560.6 1557 Output Total 50 10 50 Balance 1814 1770 2510.6 1557 Weight 102.603 kg 102.013 kg 102.512 kg 102.512 kg Gen: intubated, sedated Heart: RRR Lung: scattered rhonchi Abd: soft, nontender Ext: + edema CBC, BMP 05/08/20 05:50 05/08/20 05:50 Active Medications Acetaminophen (Ofirmev Injection -) 1,000 mg IVPB Q6H PRN PRN Reason: FEVER Last Admin: 05/06/20 17:47 Dose: 1,000 mg Documented by: Albuterol Sulfate (Ventolin Hfa Inhaler -) 2 puff IH Q4H PRN PRN Reason: SHORT OF BREATH/WHEEZING Artificial Tears (Artificial Tears) 1 drop OU BID PRN PRN Reason: DRY EYES Last Admin: 05/07/20 10:08 Dose: 1 drop Documented by: Chlorhexidine Gluconate (Hibiclens For Decolonization -) 1 applic TP HS [facility] Last Admin: 05/07/20 21:28 Dose: Not Given Documented by: Chlorhexidine Gluconate (Peridex -) 15 ml MM BID EAN Last Admin: 05/08/20 10:08 Dose: 15 ml Documented by: Heparin Sodium (Porcine) (Heparin -) 5,000 unit SQ BID [facility] Last Admin: 05/08/20 10:08 Dose: 5,000 unit Documented by: Norepinephrine Bitartrate (Levophed Bag) 8,000 mcg in 500 mls @ 18.75 mls/hr IVPB TITR EAN; Protocol Last Admin: 05/07/20 10:03 Dose: 8.96 mcg/min, 33.6 mls/hr Documented by: Sodium Chloride (Normal Saline -) 250 mls @ 3,000 mls/hr IV PRN PRN PRN Reason: Hypotension during Dialysis Propofol (Diprivan -) 1,000,000 mcg in 100 mls @ 6.121 mls/hr IVPB TITR EAN; Protocol Last Admin: 05/08/20 11:55 Dose: 20 mcg/kg/min, 12.242 mls/hr Documented by: Fentanyl (Sublimaze Ivpb) 500 mcg in 100 mls @ 20.403 mls/hr IVPB TITR EAN; Protocol Last Admin: 05/07/20 18:03 Dose: 1 mcg/kg/hr, 20.403 mls/hr Documented by: Cefepime HCl 1 gm/ Dextrose 100 mls @ 200 mls/hr IVPB DAILY [facility]; Protocol Last Admin: 05/08/20 10:08 Dose: 200 mls/hr Documented by: Metoprolol Tartrate (Lopressor Injection -) 5 mg IVPUSH Q4H PRN PRN Reason: TACHYCARDIA Nystatin (Mycostatin Cream -) 1 applic TP PRN PRN PRN Reason: HYGEINE Last Admin: 04/28/20 09:59 Dose: 1 applic Documented by: Pantoprazole Sodium (Protonix Iv) 40 mg IVPUSH DAILY [facility] Last Admin: 05/08/20 10:07 Dose: 40 mg Documented by: Saliva Substitute (Mouthkote Solution -) 1 applic MM DAILY EAN Last Admin: 05/07/20 10:07 Dose: 1 applic Documented by: Silver Sulfadiazine (Silvadene -) 1 applic TP DAILY [facility] Last Admin: 05/08/20 10:09 Dose: 1 applic Documented by: Vitamin A/Vitamin D (Vitamin A & D Top Oint -) 1 applic TP Q6HPO [facility] Last Admin: 05/08/20 00:10 Dose: 1 applic Documented by: ASSESSMENT AND PLAN: Acute Hypoxic Respiratory Failure MRSA Pneumonia UTI Sacral Decubitus Ulcers Septic Shock Lactic Acidosis Acute Kidney Injury requiring HD +Troponins likely Demand Ischemia Atrial Fibrillation Acute on Chronic Diastolic Heart Failure Pulmonary HTN Volume Overload COPD HTN Hyperlipidemia Bacteremia Anemia - completed antibiotics - HD per renal - monitor urine output, creatinine - titrate pressors to maintain MAP >65 - rate control - continue volume assist control - enteral feeds - DVT/GI prophylaxis - continue ICU monitoring - continue discussions regarding goals of care, plan for compassionate extubation tomorrow critical care time spent in reviewing chart, evaluating patient and formulating plan 35 min
[2020-05-08 13:12] LABS: ANISOCYTOSIS 0; MACROCYTOSIS 0; PLATELET ESTIMATE NORMAL
--- NOTE | 2020-05-08 15:17 | PN ---
Progress Note, Physician History of Present Illness: Pt seen and examine at bedside. He remains in the ICU. He remains intubated. - Current Medication List Current Medications: Active Medications Acetaminophen (Ofirmev Injection -) 1,000 mg IVPB Q6H PRN PRN Reason: FEVER Last Admin: 05/06/20 17:47 Dose: 1,000 mg Documented by: Albuterol Sulfate (Ventolin Hfa Inhaler -) 2 puff IH Q4H PRN PRN Reason: SHORT OF BREATH/WHEEZING Artificial Tears (Artificial Tears) 1 drop OU BID PRN PRN Reason: DRY EYES Last Admin: 05/07/20 10:08 Dose: 1 drop Documented by: Chlorhexidine Gluconate (Hibiclens For Decolonization -) 1 applic TP HS EAN Last Admin: 05/07/20 21:28 Dose: Not Given Documented by: Chlorhexidine Gluconate (Peridex -) 15 ml MM BID EAN Last Admin: 05/08/20 10:08 Dose: 15 ml Documented by: Heparin Sodium (Porcine) (Heparin -) 5,000 unit SQ BID EAN Last Admin: 05/08/20 10:08 Dose: 5,000 unit Documented by: Norepinephrine Bitartrate (Levophed Bag) 8,000 mcg in 500 mls @ 18.75 mls/hr IVPB TITR EAN; Protocol Last Admin: 05/07/20 10:03 Dose: 8.96 mcg/min, 33.6 mls/hr Documented by: Sodium Chloride (Normal Saline -) 250 mls @ 3,000 mls/hr IV PRN PRN PRN Reason: Hypotension during Dialysis Propofol (Diprivan -) 1,000,000 mcg in 100 mls @ 6.121 mls/hr IVPB TITR EAN; Protocol Last Admin: 05/08/20 11:55 Dose: 20 mcg/kg/min, 12.242 mls/hr Documented by: Fentanyl (Sublimaze Ivpb) 500 mcg in 100 mls @ 20.403 mls/hr IVPB TITR EAN; Protocol Last Admin: 05/07/20 18:03 Dose: 1 mcg/kg/hr, 20.403 mls/hr Documented by: Cefepime HCl 1 gm/ Dextrose 100 mls @ 200 mls/hr IVPB DAILY EAN; Protocol Last Admin: 05/08/20 10:08 Dose: 200 mls/hr Documented by: Metoprolol Tartrate (Lopressor Injection -) 5 mg IVPUSH Q4H PRN PRN Reason: TACHYCARDIA Nystatin (Mycostatin Cream -) 1 applic TP PRN PRN PRN Reason: HYGEINE Last Admin: 04/28/20 09:59 Dose: 1 applic Documented by: Pantoprazole Sodium (Protonix Iv) 40 mg IVPUSH DAILY [facility] Last Admin: 05/08/20 10:07 Dose: 40 mg Documented by: Saliva Substitute (Mouthkote Solution -) 1 applic MM DAILY [facility] Last Admin: 05/08/20 11:02 Dose: 1 applic Documented by: Silver Sulfadiazine (Silvadene -) 1 applic TP DAILY [facility] Last Admin: 05/08/20 10:09 Dose: 1 applic Documented by: Vitamin A/Vitamin D (Vitamin A & D Top Oint -) 1 applic TP Q6HPO [facility] Last Admin: 05/08/20 13:04 Dose: 1 applic Documented by: - Objective Vital Signs: Vital Signs Temperature 97.6 F 05/08/20 14:00 Pulse Rate 87 05/08/20 14:00 Respiratory Rate 22 H 05/08/20 14:00 Blood Pressure 101/53 L 05/08/20 14:00 O2 Sat by Pulse Oximetry (%) 97 05/08/20 12:15 Constitutional: Yes: Calm Eyes: Yes: Conjunctiva Clear Cardiovascular: Yes: S1, S2 Respiratory: Yes: Mechanically Ventilated Gastrointestinal: Yes: Soft Genitourinary: Yes: Saavedra Present Musculoskeletal: Yes: Muscle Weakness Edema: Yes Edema: LLE: 2+, RLE: 2+ Neurological: Yes: Lethargy Labs: CBC, BMP 05/08/20 05:50 05/08/20 05:50 INR, PTT INR 1.49 (0.83-1.09) H 04/08/20 05:20 Problem List - Problems (1) CHF exacerbation Code(s): I50.9 - HEART FAILURE, UNSPECIFIED (2) Sepsis Code(s): A41.9 - SEPSIS, UNSPECIFIED ORGANISM (3) SURESH (acute kidney injury) Code(s): N17.9 - ACUTE KIDNEY FAILURE, UNSPECIFIED Assessment/Plan Current Medications Generic Name Dose Route Start Last Admin Trade Name Freq PRN Reason Stop Dose Admin Acetaminophen 1,000 mg 04/08/20 08:58 05/06/20 17:47 Ofirmev Injection - IVPB 1,000 mg Q6H PRN Administration FEVER Albuterol Sulfate 2 puff 04/22/20 08:21 Ventolin Hfa Inhaler - IH Q4H PRN SHORT OF BREATH/WHEEZING Artificial Tears 1 drop 04/27/20 13:51 05/07/20 10:08 Artificial Tears OU 1 drop BID PRN Administration DRY EYES Chlorhexidine Gluconate 1 applic 04/07/20 22:00 05/07/20 21:28 Hibiclens For Decolonization - TP Not Given HS EAN Chlorhexidine Gluconate 15 ml 04/18/20 22:00 05/08/20 10:08 Peridex - MM 15 ml BID EAN Administration Heparin Sodium (Porcine) 5,000 unit 04/10/20 15:15 05/08/20 10:08 Heparin - SQ 5,000 unit BID EAN Administration Norepinephrine Bitartrate 8,000 mcg in 500 mls @ 18.75 mls/hr 04/21/20 00:15 05/07/20 10:03 Levophed Bag IVPB 8.96 mcg/min TITR EAN 33.6 mls/hr Administration Protocol 5 MCG/MIN Sodium Chloride 250 mls @ 3,000 mls/hr 04/30/20 10:13 Normal Saline - IV PRN PRN Hypotension during Dialysis Propofol 1,000,000 mcg in 100 mls @ 6.121 mls/hr 05/06/20 16:30 05/08/20 11:55 Diprivan - IVPB 20 mcg/kg/min TITR EAN 12.242 mls/hr Administration Protocol 10 MCG/KG/MIN Fentanyl 500 mcg in 100 mls @ 20.403 mls/hr 05/06/20 22:00 05/07/20 18:03 Sublimaze Ivpb IVPB 1 mcg/kg/hr TITR EAN 20.403 mls/hr Administration Protocol 1 MCG/KG/HR Cefepime HCl 1 gm/ Dextrose 100 mls @ 200 mls/hr 05/07/20 12:00 05/08/20 10:08 IVPB 200 mls/hr DAILY EAN Administration Protocol Metoprolol Tartrate 5 mg 04/07/20 22:50 Lopressor Injection - IVPUSH Q4H PRN TACHYCARDIA Nystatin 1 applic 04/19/20 23:58 06/27/20 09:59 Mycostatin Cream - TP 1 applic PRN PRN Administration HYGEINE Pantoprazole Sodium 40 mg 04/08/20 10:00 05/08/20 10:07 Protonix Iv IVPUSH 40 mg DAILY EAN Administration Saliva Substitute 1 applic 05/04/20 12:15 05/08/20 11:02 Mouthkote Solution - MM 1 applic DAILY EAN Administration Silver Sulfadiazine 1 applic 04/23/20 20:45 05/08/20 10:09 Silvadene - TP 1 applic DAILY EAN Administration Vitamin A/Vitamin D 1 applic 04/30/20 12:00 05/08/20 13:04 Vitamin A & D Top Oint - TP 1 applic Q6HPO EAN Administration Impression 1. SURESH 2. hyperkalemia 3. resp failure 4. UTI 5. sepsis 6. shock 7. MRSA Pneumonia 8. Lactic Acidosis 9. +Troponins 10. Atrial Fibrillation 11. LV Diastolic Dysfunction 12. Pulmonary HTN 13. Bacteremia 14. anemia 15. hypokalemia Plan - vent support - family do not want HD - possible comapssionate extubation tomorrow - cont pressors for map 65 - can give lasix to help with volume - nurse practitioner rising
[2020-05-08] MEDS: CHLORHEXIDINE GLUCONATE 4% CLEANSER FOR DECOLONIZATION TP SCH (22:57)
[2020-05-09 06:48] LABS: BASO % 0.6 % (0-2.0); EOS % 2.5 % (0-4.5); HEMATOCRIT 23.8 % (35.4-49); HEMOGLOBIN 7.7 GM/dL (11.7-16.9); LYMPH % 7.4 % (8-40); MCH 29.5 pg (25.7-33.7); MCHC 32.3 g/dl (32.0-35.9); MEAN CELL VOLUME 91.4 fl (80-96); MEAN PLT VOLUME 7.4 fl (7.5-11.1); MONO % 6.2 % (3.8-10.2); NEUT % 83.3 % (42.8-82.8); PLATELET COUNT 329 K/MM3 (134-434); RDW 17.4 % (11.9-15.9); WHITE BLOOD COUNT 10.9 K/mm3 (4.0-10.0)
[2020-05-09 06:51] VITALS: BP 99/50; PULSE 93; TEMP 97.8
[2020-05-09 07:16] LABS: ALBUMIN 1.3 g/dl (3.4-5.0); BILIRUBIN,TOTAL 0.8 mg/dL (0.2-1); BLOOD UREA NITROGEN 76.9 mg/dL (7-18); CALCIUM 7.6 mg/dL (8.5-10.1); CREATININE 4.2 mg/dL (0.55-1.3); MAGNESIUM 1.8 mg/dL (1.8-2.4); PHOSPHOROUS 3.2 mg/dL (2.5-4.9); POTASSIUM 4.6 mmol/L (3.5-5.1)
[2020-05-09] MEDS ORDERED: DEXTROSE 5%-WATER 100 ML IVPB ONE (09:00)
[2020-05-09] MEDS ORDERED: CEFEPIME HCL 1 GM VIAL (RESTRICTED TO ID) ONE (09:00)
[2020-05-09] MEDS: HEPARIN NA (PORCINE) 5,000 UNITS/ML 1ML VIAL SQ SCH (09:31)
[2020-05-09] MEDS: CEFEPIME 1 GM in DEXTROSE 5%-WATER 100 ML IVPB SCH (09:31)
[2020-05-09] MEDS: CHLORHEXIDINE GLUCONATE 0.12% 15ML CUP MM SCH (09:32)
[2020-05-09] MEDS: SILVER SULFADIAZINE 1% TOP CREAM 50 GM JAR TP SCH (09:32)
[2020-05-09] MEDS: PANTOPRAZOLE SODIUM 40 MG VIAL IVPUSH SCH (09:32)
[2020-05-09] MEDS: LYTES/YERBA SANTA 240 ML BOTTLE MM SCH (09:32)
[2020-05-09 11:12] LABS: ANISOCYTOSIS 1+; MACROCYTOSIS 0; PLATELET ESTIMATE NORMAL
[2020-05-09] MEDS ORDERED: LORazepam 2 MG/ML SDV VIAL IVPUSH PRN (11:20)
[2020-05-09] MEDS ORDERED: MORPHINE SULFATE/0.9% NACL/PF 100 MG/100 ML BAG IVPB SCH (11:30)
[2020-05-09] MEDS ORDERED: LORazepam 2 MG/ML SDV VIAL IVPUSH ONE (11:30)
[2020-05-09] MEDS ORDERED: morphine SULFATE 4 MG/ML VIAL IVPUSH ONE (11:30)
--- NOTE | 2020-05-09 11:32 | PN ---
Teaching Attending Note Name of Resident: Mitali Madrid ATTENDING PHYSICIAN STATEMENT I saw and evaluated the patient. I reviewed the resident's note and discussed the case with the resident. I agree with the resident's findings and plan as documented. SUBJECTIVE: Pt seen and examined in the ICU. Clinically unchanged. Remains intubated, sedated on levophed gtt. No fevers recorded. Vented on volume assist control with 40% FiO2 PEEP 5. OBJECTIVE: Vital Signs Period Temp Pulse Resp BP Sys/Cesar Pulse Ox Last 24 Hr 97.2 F-97.8 F 80-93 18-23 89-102/46-55 97-99 Gen: intubated, sedated Heart: RRR Lung: scattered rhonchi Abd: soft, nontender Ext: + edema CBC, BMP 05/09/20 05:35 05/09/20 05:35 Active Medications Acetaminophen (Ofirmev Injection -) 1,000 mg IVPB Q6H PRN PRN Reason: FEVER Last Admin: 05/06/20 17:47 Dose: 1,000 mg Documented by: Albuterol Sulfate (Ventolin Hfa Inhaler -) 2 puff IH Q4H PRN PRN Reason: SHORT OF BREATH/WHEEZING Artificial Tears (Artificial Tears) 1 drop OU BID PRN PRN Reason: DRY EYES Last Admin: 05/07/20 10:08 Dose: 1 drop Documented by: Chlorhexidine Gluconate (Hibiclens For Decolonization -) 1 applic TP HS [facility] Last Admin: 05/08/20 22:57 Dose: 1 applic Documented by: Chlorhexidine Gluconate (Peridex -) 15 ml MM BID [facility] Last Admin: 05/09/20 09:32 Dose: 15 ml Documented by: Heparin Sodium (Porcine) (Heparin -) 5,000 unit SQ BID [facility] Last Admin: 05/09/20 09:31 Dose: 5,000 unit Documented by: Norepinephrine Bitartrate (Levophed Bag) 8,000 mcg in 500 mls @ 18.75 mls/hr IVPB TITR [facility]; Protocol Last Admin: 05/07/20 10:03 Dose: 8.96 mcg/min, 33.6 mls/hr Documented by: Sodium Chloride (Normal Saline -) 250 mls @ 3,000 mls/hr IV PRN PRN PRN Reason: Hypotension during Dialysis Propofol (Diprivan -) 1,000,000 mcg in 100 mls @ 6.121 mls/hr IVPB TITR [facility]; Protocol Last Admin: 05/08/20 11:55 Dose: 20 mcg/kg/min, 12.242 mls/hr Documented by: Fentanyl (Sublimaze Ivpb) 500 mcg in 100 mls @ 20.403 mls/hr IVPB TITR [facility]; Protocol Last Admin: 05/07/20 18:03 Dose: 1 mcg/kg/hr, 20.403 mls/hr Documented by: Cefepime HCl 1 gm/ Dextrose 100 mls @ 200 mls/hr IVPB DAILY [facility]; Protocol Last Admin: 05/09/20 09:31 Dose: 200 mls/hr Documented by: Morphine Sulfate (Morphine 100mg/100ml-0.9% Nacl) 100 mg in 100 mls @ 4 mls/hr IVPB TITR [facility]; Protocol Stop: 05/10/20 11:29 Lorazepam (Ativan Injection -) 2 mg IVPUSH Q2H PRN PRN Reason: PAIN Stop: 05/10/20 11:19 Metoprolol Tartrate (Lopressor Injection -) 5 mg IVPUSH Q4H PRN PRN Reason: TACHYCARDIA Nystatin (Mycostatin Cream -) 1 applic TP PRN PRN PRN Reason: HYGEINE Last Admin: 04/28/20 09:59 Dose: 1 applic Documented by: Pantoprazole Sodium (Protonix Iv) 40 mg IVPUSH DAILY [facility] Last Admin: 05/09/20 09:32 Dose: 40 mg Documented by: Saliva Substitute (Mouthkote Solution -) 1 applic MM DAILY [facility] Last Admin: 05/09/20 09:32 Dose: 1 applic Documented by: Silver Sulfadiazine (Silvadene -) 1 applic TP DAILY [facility] Last Admin: 05/09/20 09:32 Dose: 1 applic Documented by: Vitamin A/Vitamin D (Vitamin A & D Top Oint -) 1 applic TP Q6HPO [facility] Last Admin: 05/08/20 13:04 Dose: 1 applic Documented by: ASSESSMENT AND PLAN: Acute Hypoxic Respiratory Failure MRSA Pneumonia UTI Sacral Decubitus Ulcers Septic Shock Lactic Acidosis Acute Kidney Injury requiring HD +Troponins likely Demand Ischemia Atrial Fibrillation Acute on Chronic Diastolic Heart Failure Pulmonary HTN Volume Overload COPD HTN Hyperlipidemia Bacteremia Anemia - completed antibiotics - monitor urine output, creatinine - titrate pressors to maintain MAP >65 - rate control - continue volume assist control - enteral feeds - DVT/GI prophylaxis - continue ICU monitoring - plan for compassionate extubation today critical care time spent in reviewing chart, evaluating patient and formulating plan 35 min
[2020-05-09] MEDS: ACETAMINOPHEN 1000 MG/100 ML VIAL (NON FORMULARY) IVPB ONE ×2 (11:44→12:20)
--- NOTE | 2020-05-09 12:18 | PN ---
Progress Note, Physician History of Present Illness: Pt seen and examined at bedside. He remains in the ICU on a vent. - Current Medication List Current Medications: Active Medications Acetaminophen (Ofirmev Injection -) 1,000 mg IVPB Q6H PRN PRN Reason: FEVER Last Admin: 05/06/20 17:47 Dose: 1,000 mg Documented by: Albuterol Sulfate (Ventolin Hfa Inhaler -) 2 puff IH Q4H PRN PRN Reason: SHORT OF BREATH/WHEEZING Artificial Tears (Artificial Tears) 1 drop OU BID PRN PRN Reason: DRY EYES Last Admin: 05/07/20 10:08 Dose: 1 drop Documented by: Chlorhexidine Gluconate (Hibiclens For Decolonization -) 1 applic TP HS [facility] Last Admin: 05/08/20 22:57 Dose: 1 applic Documented by: Chlorhexidine Gluconate (Peridex -) 15 ml MM BID [facility] Last Admin: 05/09/20 09:32 Dose: 15 ml Documented by: Heparin Sodium (Porcine) (Heparin -) 5,000 unit SQ BID [facility] Last Admin: 05/09/20 09:31 Dose: 5,000 unit Documented by: Norepinephrine Bitartrate (Levophed Bag) 8,000 mcg in 500 mls @ 18.75 mls/hr IVPB TITR [facility]; Protocol Last Admin: 05/07/20 10:03 Dose: 8.96 mcg/min, 33.6 mls/hr Documented by: Sodium Chloride (Normal Saline -) 250 mls @ 3,000 mls/hr IV PRN PRN PRN Reason: Hypotension during Dialysis Propofol (Diprivan -) 1,000,000 mcg in 100 mls @ 6.121 mls/hr IVPB TITR [facility]; Pr otocol Last Admin: 05/08/20 11:55 Dose: 20 mcg/kg/min, 12.242 mls/hr Documented by: Fentanyl (Sublimaze Ivpb) 500 mcg in 100 mls @ 20.403 mls/hr IVPB TITR [facility]; Protocol Last Admin: 05/07/20 18:03 Dose: 1 mcg/kg/hr, 20.403 mls/hr Documented by: Cefepime HCl 1 gm/ Dextrose 100 mls @ 200 mls/hr IVPB DAILY [facility]; Protocol Last Admin: 05/09/20 09:31 Dose: 200 mls/hr Documented by: Morphine Sulfate (Morphine 100mg/100ml-0.9% Nacl) 100 mg in 100 mls @ 4 mls/hr IVPB TITR [facility]; Protocol Stop: 05/10/20 11:29 Last Admin: 05/09/20 11:43 Dose: 2 mg/hr, 2 mls/hr Documented by: Lorazepam (Ativan Injection -) 2 mg IVPUSH Q2H PRN PRN Reason: PAIN Stop: 05/10/20 11:19 Metoprolol Tartrate (Lopressor Injection -) 5 mg IVPUSH Q4H PRN PRN Reason: TACHYCARDIA Nystatin (Mycostatin Cream -) 1 applic TP PRN PRN PRN Reason: HYGEINE Last Admin: 04/28/20 09:59 Dose: 1 applic Documented by: Pantoprazole Sodium (Protonix Iv) 40 mg IVPUSH DAILY [facility] Last Admin: 05/09/20 09:32 Dose: 40 mg Documented by: Saliva Substitute (Mouthkote Solution -) 1 applic MM DAILY [facility] Last Admin: 05/09/20 09:32 Dose: 1 applic Documented by: Silver Sulfadiazine (Silvadene -) 1 applic TP DAILY [facility] Last Admin: 05/09/20 09:32 Dose: 1 applic Documented by: Vitamin A/Vitamin D (Vitamin A & D Top Oint -) 1 applic TP Q6HPO [facility] Last Admin: 05/08/20 13:04 Dose: 1 applic Documented by: - Objective Vital Signs: Vital Signs Temperature 97.8 F 05/09/20 06:49 Pulse Rate 93 H 05/09/20 06:49 Respiratory Rate 23 H 05/09/20 08:15 Blood Pressure 99/50 L 05/09/20 06:49 O2 Sat by Pulse Oximetry (%) 97 05/09/20 08:15 Constitutional: Yes: Calm Eyes: Yes: Conjunctiva Clear HENT: Yes: Atraumatic Neck: Yes: Supple Cardiovascular: Yes: S1, S2 Respiratory: Yes: Mechanically Ventilated Gastrointestinal: Yes: Soft Genitourinary: Yes: [place] Present Musculoskeletal: Yes: Muscle Weakness Edema: Yes Neurological: Yes: Lethargy Labs: CBC, BMP 05/09/20 05:35 05/09/20 05:35 INR, PTT INR 1.49 (0.83-1.09) H 04/08/20 05:20 Problem List - Problems (1) CHF exacerbation Code(s): I50.9 - HEART FAILURE, UNSPECIFIED (2) Sepsis Code(s): A41.9 - SEPSIS, UNSPECIFIED ORGANISM (3) SURESH (acute kidney injury) Code(s): N17.9 - ACUTE KIDNEY FAILURE, UNSPECIFIED Assessment/Plan Current Medications Generic Name Dose Route Start Last Admin Trade Name Freq PRN Reason Stop Dose Admin Acetaminophen 1,000 mg 04/08/20 08:58 05/06/20 17:47 Ofirmev Injection - IVPB 1,000 mg Q6H PRN Administration FEVER Albuterol Sulfate 2 puff 04/22/20 08:21 Ventolin Hfa Inhaler - IH Q4H PRN SHORT OF BREATH/WHEEZING Artificial Tears 1 drop 04/27/20 13:51 05/07/20 10:08 Artificial Tears OU 1 drop BID PRN Administration DRY EYES Chlorhexidine Gluconate 1 applic 04/07/20 22:00 05/08/20 22:57 Hibiclens For Decolonization - TP 1 applic HS [facility] Administration Chlorhexidine Gluconate 15 ml 04/18/20 22:00 05/09/20 09:32 Peridex - MM 15 ml BID [facility] Administration Heparin Sodium (Porcine) 5,000 unit 04/10/20 15:15 05/09/20 09:31 Heparin - SQ 5,000 unit BID [facility] Administration Norepinephrine Bitartrate 8,000 mcg in 500 mls @ 18.75 mls/hr 04/21/20 00:15 05/07/20 10:03 Levophed Bag IVPB 8.96 mcg/min TITR [facility] 33.6 mls/hr Administration Protocol 5 MCG/MIN Sodium Chloride 250 mls @ 3,000 mls/hr 04/30/20 10:13 Normal Saline - IV PRN PRN Hypotension during Dialysis Propofol 1,000,000 mcg in 100 mls @ 6.121 mls/hr 05/06/20 16:30 05/08/20 11:55 Diprivan - IVPB 20 mcg/kg/min TITR [facility] 12.242 mls/hr Administration Protocol 10 MCG/KG/MIN Fentanyl 500 mcg in 100 mls @ 20.403 mls/hr 05/06/20 22:00 05/07/20 18:03 Sublimaze Ivpb IVPB 1 mcg/kg/hr TITR [facility] 20.403 mls/hr Administration Protocol 1 MCG/KG/HR Cefepime HCl 1 gm/ Dextrose 100 mls @ 200 mls/hr 05/07/20 12:00 05/09/20 09:31 IVPB 200 mls/hr DAILY [facility] Administration Protocol Morphine Sulfate 100 mg in 100 mls @ 4 mls/hr 05/09/20 11:30 05/09/20 11:43 Morphine 100mg/100ml-0.9% Nacl IVPB 05/10/20 11:29 2 mg/hr TITR [facility] 2 mls/hr Administration Protocol 4 MG/HR Lorazepam 2 mg 05/09/20 11:20 Ativan Injection - IVPUSH 05/10/20 11:19 Q2H PRN PAIN Metoprolol Tartrate 5 mg 04/07/20 22:50 Lopressor Injection - IVPUSH Q4H PRN TACHYCARDIA Nystatin 1 applic 04/19/20 23:58 04/28/20 09:59 Mycostatin Cream - TP 1 applic PRN PRN Administration HYGEINE Pantoprazole Sodium 40 mg 04/08/20 10:00 05/09/20 09:32 Protonix Iv IVPUSH 40 mg DAILY [facility] Administration Saliva Substitute 1 applic 05/04/20 12:15 05/09/20 09:32 Mouthkote Solution - MM 1 applic DAILY [facility] Administration Silver Sulfadiazine 1 applic 04/23/20 20:45 05/09/20 09:32 Silvadene - TP 1 applic DAILY [facility] Administration Vitamin A/Vitamin D 1 applic 04/30/20 12:00 05/08/20 13:04 Vitamin A & D Top Oint - TP 1 applic Q6HPO [facility] Administration Impression 1. SURESH 2. hyperkalemia 3. resp failure 4. UTI 5. sepsis 6. shock 7. MRSA Pneumonia 8. Lactic Acidosis 9. +Troponins 10. Atrial Fibrillation 11. LV Diastolic Dysfunction 12. Pulmonary HTN 13. Bacteremia 14. anemia 15. hypokalemia Plan - cont current care - possible compassionate extubation today - labs reviewed - vent support - pt remains overloaded - cont pressors for map 65 - can give lasix to help with volume
--- NOTE | 2020-05-09 12:58 | PN ---
Progress Note (short form) - Note Progress Note: Note Nurse paged me to examine the patient at 12.45 pm. Patient was unresponsive, even to painful stimuli. Pupils fixed and non reactive. Patient has no spontaneous breathing, no heart sounds or breath sounds. No carotid, or femoral pulses present. Time of pronounced at 12.54 pm. Family was present at bedside Grievance services offered to family. [facility] [place] informed. Body to be released to home of family's choice.
--- NOTE | 2020-05-09 13:01 | DS ---
Physical Exam: SUBJECTIVE: Patient seen and examined, remained intubated and sedated. No acute events overnight as per nursing staff. Terminal extubation planned with family for 11am. OBJECTIVE: Vital Signs Period Temp Pulse Resp BP Sys/Cesar Pulse Ox Last 24 Hr 97.2 F-97.8 F 80-93 18-23 89-101/46-53 97-99 PHYSICAL EXAM GENERAL: sedated and intubated, responds to painful stimuli HEAD: mouth permanently open with visible dried/crusted blood around lips and teeth EYES: rarely occasionally, tends to have an upward gaze and constricted pupils LUNGS: Breath sounds from vent are equal, inspiratory wheeze on R side HEART: irregular rate and sinus rhythm, S1, S2 with systolic murmur, no rub or gallop. ABDOMEN: nondistended, soft EXTREMITIES: 21+ pitting edema on hands and posterior LE bilaterally, scattered ecchymoses on arms bilaterally NEUROLOGICAL: responds to painful stimuli SKIN: stage 4 sacral ulcer, wet sloughing skin on posterior legs bilaterally reaching the calf on the L leg, two small ulcers in penile area - looking mildly purulent today LABS Laboratory Results - last 24 hr 05/08/20 05/09/20 05/09/20 05:50 05:35 05:35 WBC 10.9 H RBC 2.60 L Hgb 7.7 L Hct 23.8 L MCV 91.4 MCH 29.5 MCHC 32.3 RDW 17.4 H Plt Count 329 MPV 7.4 L Absolute Neuts (auto) 9.1 H Neutrophils % 83.3 H Neutrophils % (Manual) 85.0 H 82.8 Band Neutrophils % 0.0 4.0 Lymphocytes % 7.4 L D Lymphocytes % (Manual) 6.0 L D 5.1 L Monocytes % 6.2 Monocytes % (Manual) 3 L 5 Eosinophils % 2.5 Eosinophils % (Manual) 0.0 2.0 D Basophils % 0.6 Basophils % (Manual) 0.0 0.0 Myelocytes % (Man) 6 H D 0 D Promyelocytes % (Man) 0 0 Blast Cells % (Manual) 0 0 Nucleated RBC % 0 1 H Metamyelocytes 0 0 Hypochromia 1+ 0 Platelet Estimate Normal Normal Polychromasia 0 1+ Poikilocytosis 0 1+ Anisocytosis 0 1+ Microcytosis 0 1+ Macrocytosis 0 0 Porter Cells 1+ Sodium 126 L Potassium 4.6 Chloride 89 L Carbon Dioxide 22 Anion Gap 14 BUN 76.9 H Creatinine 4.2 H Est GFR (CKD-EPI)AfAm 14.37 Est GFR (CKD-EPI)NonAf 12.40 Random Glucose 202 H Calcium 7.6 L Phosphorus 3.2 Magnesium 1.8 Total Bilirubin 0.8 AST 26 ALT 12 L Alkaline Phosphatase 224 H Total Protein 5.0 L Albumin 1.3 L 79yo M with PMHx of CHF, COPD, CVA, HTN, HLD, and afib on eliquis was initially brought in by EMS for a seizure-like episode, fever, and hypotension. Patient was admitted to ICU for septic shock requiring intubation and pressor support. Patient needed bronchoscopy for atelectasis + mucus plugging x2. Nephrology was consulted and patient was treated for SURESH, electrolyte disturbances, and received HD. ID was consulted: patient was treated for recurrent fever and leukocytosis likely due to UTI and sepsis. Home meds were continued including apixaban. Despite weaning efforts, patient was unable to wean off vent and pres sor support. Family decided for compassionate extubation due to overall poor outcome. Patient was terminally extubated on 05/09/2020 and was pronounced at 12.54pm. HOSPITAL COURSE: Date of Admission:04/07/20 Date of Discharge: 05/09/20 Minutes to complete discharge: 36 Discharge Summary Problems reviewed: Yes Reason For Visit: URINARY TRACT INFECTION, ACUTE ON CHRONIC Current Active Problems CHF exacerbation (Acute) Sepsis (Acute) UTI (urinary tract infection) (Acute) - Instructions Disposition: - Home Medications Comprehensive Discharge Medication List: Ambulatory Orders Collagenase Clostridium Hist. [Santyl] 1 applic TP DAILY #90 oint...g. 10/14/19 Albuterol Sulfate [Proventil Hfa] 1 inhaler IH PRN PRN 10/21/19 Alprazolam [Xanax] 1 tab PO BID PRN 10/21/19 Apixaban [Eliquis -] 2.5 mg PO BID 10/21/19 Atenolol [Tenormin] 25 mg PO DAILY 10/21/19 Atorvastatin Ca [Lipitor] 20 mg PO DAILY 10/21/19 Febuxostat 80 mg PO DAILY 10/21/19 Finasteride 5 mg PO DAILY 10/21/19 Pantoprazole Sodium 40 mg PO DAILY 10/21/19 Triamcinolone 0.1% Cream 1 applic TP BID 10/21/19 Amino Acids/Protein Hydrolys [Prosource No Carb Liquid Pkt] 30 ml PO DAILY pa cket 03/30/20 Magnesium Oxide [Mag-Ox -] 400 mg PO BID tablet 03/30/20 Nystatin Powder [Nystop Powder -] 1 applic TP BID applic 03/30/20 Triamcinolone 0.1% Ointment [Aristocort 0.1% Ointment -] 1 applic TP BID applic 03/30/20 Furosemide [Lasix -] 40 mg PO DAILY 04/07/20 This patient is new to me today: No Emergency Visit: Yes ED Registration Date: 04/07/20 Care time: The patient presented to the Emergency Department on the above date and was hospitalized for further evaluation of their emergent condition. Critical Care patient: Yes Total Critical Care Time (in minutes): 36 Critical Care Statement: The care of this patient involved high complexity decision making to prevent further life threatening deterioration of the patient's condition and/or to evaluate & treat vital organ system(s) failure or risk of failure. - Discharge Referral Referred to [facility] Med P.C.: No ATTENDING PHYSICIAN STATEMENT I saw and evaluated the patient. I reviewed the resident's note and discussed the case with the resident. I agree with the resident's findings and plan as documented. SUBJECTIVE: OBJECTIVE: ASSESSMENT AND PLAN:
== END 2020-05-09 12:54 | disposition expired | DRG 870 ==
LOC: JER 13:42 → JICU 18:20
PROVIDERS: ADMIT Internal Medicine; ATTEND Internal Medicine
PROC: 5A1955Z Respiratory Ventilation, Greater than 96 Consecutive Hours (ICD-10-PCS; principal; 2020-04-08)
PROC: 0BH17EZ Insertion of Endotracheal Airway into Trachea, Via Natural or Artificial Opening (ICD-10-PCS; 2020-04-08)
PROC: 05HM33Z Insertion of Infusion Device into Right Internal Jugular Vein, Percutaneous Approach (ICD-10-PCS; 2020-04-09)
PROC: B543ZZA Ultrasonography of Right Jugular Veins, Guidance (ICD-10-PCS; 2020-04-09)
PROC: 0B978ZX Drainage of Left Main Bronchus, Via Natural or Artificial Opening Endoscopic, Diagnostic (ICD-10-PCS; 2020-04-10)
PROC: 0BB78ZX Excision of Left Main Bronchus, Via Natural or Artificial Opening Endoscopic, Diagnostic (ICD-10-PCS; 2020-04-10)
PROC: 30233N1 Transfusion of Nonautologous Red Blood Cells into Peripheral Vein, Percutaneous Approach (ICD-10-PCS; 2020-04-12)
PROC: 05HN33Z Insertion of Infusion Device into Left Internal Jugular Vein, Percutaneous Approach (ICD-10-PCS; 2020-04-19)
PROC: B544ZZA Ultrasonography of Left Jugular Veins, Guidance (ICD-10-PCS; 2020-04-19)
PROC: 05HM33Z Insertion of Infusion Device into Right Internal Jugular Vein, Percutaneous Approach (ICD-10-PCS; 2020-04-25)
PROC: B543ZZA Ultrasonography of Right Jugular Veins, Guidance (ICD-10-PCS; 2020-04-25)
DX: A41.02 Sepsis due to Methicillin resistant Staphylococcus aureus (principal); L89.154 Pressure ulcer of sacral region, stage 4; R65.21 Severe sepsis with septic shock; J96.01 Acute respiratory failure with hypoxia; J15.212 Pneumonia due to Methicillin resistant Staphylococcus aureus; I50.33 Acute on chronic diastolic (congestive) heart failure; N39.0 Urinary tract infection, site not specified; N17.9 Acute kidney failure, unspecified; J98.11 Atelectasis; E87.2 Acidosis; I24.8 Other forms of acute ischemic heart disease; J44.1 Chronic obstructive pulmonary disease with (acute) exacerbation; J94.2 Hemothorax; I69.351 Hemiplegia and hemiparesis following cerebral infarction affecting right dominant side; I27.20 Pulmonary hypertension, unspecified; E87.70 Fluid overload, unspecified; E78.5 Hyperlipidemia, unspecified; D64.9 Anemia, unspecified; J44.9 Chronic obstructive pulmonary disease, unspecified; D72.829 Elevated white blood cell count, unspecified; E87.6 Hypokalemia; I48.91 Unspecified atrial fibrillation; E87.5 Hyperkalemia
CPT/HCPCS: 36415; 36430; 36511; 36600; 70450-TC; 71045-TC-FY; 74176-TC; 80048; 80053; 81003; 82375; 82436; 82565; 82803; 82962; 83050; 83540; 83550; 83605; 83735; 84100; 84132; 84133; 84300; 84484; 85025; 85027; 85610; 85730; 86704; 86706; 86707; 86708; 86709; 86803; 86850; 86900; 86901; 86922; 87040; 87070; 87086; 87186; 87205; 87340; 93005; 93010; 93306-TC; 94002; 94640; 99285-25; G0480; J0131; J1644; P9038; P9047; P9058; U0003